=== PATIENT | female | born 1980 | race Caucasian/White ===

== ENCOUNTER 2023-04-23 15:13 | Outpatient (OUT) | payer OTHER, SELFPAY ==
--- NOTE | 2023-04-23 15:28 | XR_ITS ---
The [address] [address] Patient Name: ANNALEE VIDAL MRN: [id number] date: 1980 Sex: F Assigned Patient Location: LAB Current Patient Location: LAB Accession/Order Number: [id number] Exam Date: 04/23/2023 15:30 Report Date: 04/23/2023 16:07 At the request of: MINH MIRELES Procedure: XR abdomen 1V EXAMINATION: XR abdomen 1V HISTORY: Unspecified abdominal pain - R10.9 COMPARISON: CT abdomen pelvis 12/13/2022 FINDINGS: KIDNEY/URETER - RIGHT: No visible renal or ureteral calcifications. KIDNEY/URETER - LEFT: No visible renal or ureteral calcifications. PELVIS: No visible ureteral stones. Stable pelvic calcifications compatible with phleboliths. BOWEL: No abnormal dilation or deviation. BONES: No acute abnormality. OTHER: Negative. No abnormal gaseous collections. IMPRESSION: 1. No appreciable urinary tract calculi. 2. Normal bowel gas pattern. Electronically authenticated by: LARON ZAMBRANO Date: 04/23/2023 16:07
== END 2023-04-23 15:14 ==
LOC: LAB 15:17
PROVIDERS: PCP Nurse Practitioner Family; Visit Provider Nurse Practitioner Family
DX: R10.9 Unspecified abdominal pain (principal)
CPT/HCPCS: 74018; 87086

== ENCOUNTER 2023-12-09 13:24 | Observation (INO) | payer OTHER, SELFPAY ==
[2023-12-09] VITALS (47 sets, daily range): BP systolic 103–159; BP diastolic 63–99; PULSE 59–80; RESP 10–25; TEMP 36.7–36.8; O2SAT 83–100; BMI 23.3; BMI 24.2
--- NOTE | 2023-12-09 13:40 | XR_ITS ---
The [address] [address] Patient Name: ANNALEE VIDAL MRN: [id number] date: 1980 Sex: F Assigned Patient Location: ER Current Patient Location: ER Accession/Order Number: [id number] Exam Date: 12/09/2023 13:55 Report Date: 12/09/2023 14:46 At the request of: CARLOS ARANDA Procedure: XR ankle RT 2V IMAGES REVIEWED: XR ankle RT 2V, XR foot RT 2V COMPARISON: None available. CLINICAL INDICATION: pain FINDINGS/IMPRESSION: 1. Acute comminuted displaced right ankle fracture-dislocation injury. The talus is anteriorly dislocated relative to the fractured distal tibia. 2. Acute comminuted distal fibular fracture demonstrating anterior displacement and apex posterior angulation as best seen on the lateral view. Appears relatively nondisplaced on the frontal view. 3. Acute comminuted distal tibial fracture. Acute displaced foreshortened medial malleolus fracture. Acute impacted fracture of the anterior distal tibial plafond articular surface on the lateral view. 4. Approximately 2 cm apparent fracture fragment in the posterior ankle on the lateral view may represent a distal tibial plafond articular surface fracture fragment. 5. Right foot appears intact. Electronically authenticated by: RADHA VALLADARES Date: 12/09/2023 14:46
--- NOTE | 2023-12-09 13:40 | XR_ITS ---
The [address] [address] Patient Name: ANNALEE VIDAL MRN: [id number] date: 1980 Sex: F Assigned Patient Location: ER Current Patient Location: ER Accession/Order Number: [id number] Exam Date: 12/09/2023 13:55 Report Date: 12/09/2023 14:46 At the request of: CARLOS ARANDA Procedure: XR foot RT 2V IMAGES REVIEWED: XR ankle RT 2V, XR foot RT 2V COMPARISON: None available. CLINICAL INDICATION: pain FINDINGS/IMPRESSION: 1. Acute comminuted displaced right ankle fracture-dislocation injury. The talus is anteriorly dislocated relative to the fractured distal tibia. 2. Acute comminuted distal fibular fracture demonstrating anterior displacement and apex posterior angulation as best seen on the lateral view. Appears relatively nondisplaced on the frontal view. 3. Acute comminuted distal tibial fracture. Acute displaced foreshortened medial malleolus fracture. Acute impacted fracture of the anterior distal tibial plafond articular surface on the lateral view. 4. Approximately 2 cm apparent fracture fragment in the posterior ankle on the lateral view may represent a distal tibial plafond articular surface fracture fragment. 5. Right foot appears intact. Electronically authenticated by: RADHA VALLADARES Date: 12/09/2023 14:46
--- NOTE | 2023-12-09 13:41 | ED_ITS ---
HPI - Extremity Injury (Lower) General Chief Complaint: Extremity Injury, Lower Stated Complaint: lower extremity injury Time Seen by Provider: 12/09/23 13:40 History of Present Illness HPI Narrative: 33-year-old female presents for pain in the right ankle and foot. Just before coming into the emergency department she was sliding and her foot got twisted causing pain in the foot and ankle. She didn't hit her head or sustain any other injury. The pain is severe. Related Data Allergies Allergy/AdvReac Type Severity Reaction Status Date / Time No Known Drug Allergies Allergy Verified 12/09/23 13:40 Review of Systems ROS Narrative A ten point review of systems is negative except as noted above. Exam Narrative Exam Narrative: Nurses note and vital signs reviewed and patient is not hypoxic. General: The patient appears uncomfortable. She prefers to keep her eyes closed and is slightly tremorous. Skin: Warm, dry, no pallor noted. There is no rash noted. Head: Normocephalic, atraumati Eye: conjunctiva clear, no drainage Ears, Nose, Mouth, and Throat: oral mucosa is moist. Nares patent. Cardiovascular: Regular Rate and Rhythm Respiratory: Patient is in no distress, no accessory muscle use, lungs are clear to auscultation, no wheezing, rales or rhonchi Back: non-tender GI: nontender Musculoskeletal: skin intact in the right foot and ankle. Dorsalis pedis pulse 2+. Right knee nontender. She has tenderness in the right foot and ankle Neurological: A&O, normal speech Psychiatric: Cooperative MDM - Extremity Injury (Lower) MDM Narrative Medical decision making narrative: see above. She is being admitted for operative repair tomorrow. Differential Diagnosis Differential diagnosis: Likely other (ankle fracture) Imaging Data foot and ankle x-rays: Radiologist's impression: ITS Impressions Ankle X-Ray 12/09/23 14:50 IMPRESSION: 1. Fracture dislocation of the tibia as above. 2. Comminuted fracture of the fibula. 3. Posterior splint material in place. Electronically authenticated by: MARISEL KAUFFMAN Date: 12/09/2023 15:39 Discharge Plan Discharge Chief Complaint: Extremity Injury, Lower Clinical Impression: Closed fracture dislocation of ankle Patient Disposition: Admitted As Inpatient Time of Disposition Decision: 16:03 Condition: Good Procedures ED Procedure Instructions Procedures Procedures: The following procedures were performed by me. The patient has ankle fracture dislocation which requires reduction. IV conscious sedation was carried out with etomidate. She was placed on monitor and oxygen and was closely monitored by respiratory therapy and nursing and junior riley. She was given IV etomidate which resulted in an excellent level of sedation. At one point her O2 saturation was drifting down and she was bagged and her O2 sat came back up. After the sedation and worn off she was fully awake and alert and oriented with a hundred percent O2 saturation. She is Mallampati class I. Attempts were made at reducing the dislocation. This was easily successful but t he dislocation was unstable and would not remain in place. Posterior splint applied and application was checked by me and found to be appropriate, she continues to be neurovascularly intact. Case discussed with Dr. Preciado and the plan is to admit her tonight for surgery tomorrow. CT scan is ordered at his request and is pending. Findings were discussed thoroughly with the patient and her .
[2023-12-09] MEDS: MORPHINE SULFATE 4 MG/ML VIAL IV ×2 (14:09→14:26)
--- NOTE | 2023-12-09 14:47 | ECG_ITS ---
The [facility] Test Date: 2023-12-09 Pat Name: ANNALEE VIDAL Department: Room: [facility] Gender: Female [employer]: : 1980 Requested By: CHELSEY OLSEN Order Number: [id number] Reading MD: TANVI LOPEZ Measurements Intervals [place] Rate: 80 P: 74 GA: 140 QRS: 94 QRSD: 82 T: 68 QT: 366 QTc: 402 Interpretive Statements 1100 Sinus rhythm 4068 Nonspecific Twave abnormality 7102 Moderate right axis deviation 9130 borderline ECG No previous ECG available for comparison Electronically Signed On 12-10-2023 6:57:27 EST by TANVI LOPEZ
--- NOTE | 2023-12-09 14:50 | XR_ITS ---
[address] [address] Patient Name: ANNALEE VIDAL MRN: [id number] date: 1980 Sex: F Assigned Patient Location: ER Current Patient Location: Accession/Order Number: [id number] Exam Date: 12/09/2023 14:53 Report Date: 12/09/2023 15:39 At the request of: CARLOS ARANDA Procedure: XR ankle RT 2V EXAM: XR ankle RT 2V HISTORY: post reduction COMPARISON: Ankle radiographs from 12/09/2023 TECHNIQUE: AP, crosstable lateral radiographs of the ankle labeled right FINDINGS: Posterior dislocation of the tibia by approximately 1.8 cm. Foreshortening with the talus overriding the tibia by approximately 1.4 cm. Fracture of the medial malleolus. Fracture of the anterior tibia extending to the tibial plafond. A rotated tibial plafond anterior articular surface fracture fragment inferior to the tibia measuring approximately 1.5 cm. Comminuted fracture of the distal fibular diaphysis. The distal fragment is displaced anteriorly by approximately 1.1 cm. Soft tissue swelling. Posterior splint material in place. XR/XR ankle RT 2V IMPRESSION: 1. Fracture dislocation of the tibia as above. 2. Comminuted fracture of the fibula. 3. Posterior splint material in place. Electronically authenticated by: AMRISEL KAUFFMAN Date: 12/09/2023 15:39
--- NOTE | 2023-12-09 15:10 | PC.NURSE ---
[id number] pt alert and oriented post sedation. pt tolerated well, dr de guzman, realigned right ankle and splinted, right toes cap refill <3 seconds. x rays completed. pt speaking full sentences RLE splint intact, RLE elevated. Serjio Rivera RN
[2023-12-09] MEDS: ETOMIDATE 20 MG/10 ML VIAL IVP (15:16)
--- NOTE | 2023-12-09 15:17 | CT_ITS ---
The [address] [address] Patient Name: ANNALEE VIDAL MRN: [id number] date: 1980 Sex: F Assigned Patient Location: ER Current Patient Location: ED.MAIN Accession/Order Number: [id number] Exam Date: 12/09/2023 15:43 Report Date: 12/09/2023 16:32 At the request of: CARLOS ARANDA Procedure: CT ankle RT wo con EXAM: CT ankle RT wo con COMPARISON: None available. CLINICAL INDICATION: fracture dislocation TECHNIQUE: Multiplanar CT images of the right ankle without contrast. Dose reduction techniques were achieved by using automated exposure control and/or adjustment of mA and/or kV according to patient size and/or use of iterative reconstruction technique. FINDINGS: Status post attempt at closed reduction and splinting of right ankle severely comminuted-displaced trimalleolar fracture-dislocation injury without evidence of significant improvement in alignment. Persistent anterior dislocation of the talus relative to the severely fractured distal tibia. Consider fluoroscopic guidance or surgical consultation for further reduction/surgical intervention as clinically appropriate. The prominent 2 cm displaced fracture fragment in the posterior ankle on the lateral view of same day x-rays appears to relate to a displaced and rotated posterior malleolus fracture fragment. There is tendon entrapment of the flexor tendons in the posterior medial ankle. In particular the tibialis posterior and flexor digitorum tendons appear entrapped on series 4 images 114-124. CT/CT ankle RT wo con IMPRESSION: As above. Electronically authenticated by: RADHA VALLADARES Date: 12/09/2023 16:32
[2023-12-09] MEDS: HYDROMORPHONE HCL 1 MG/ML CARTRIDGE IV ×3 (15:20→17:00)
[2023-12-09] MEDS: 0.9 % SODIUM CHLORIDE 1,000 ML 100 ML IV (16:46)
[2023-12-09] MEDS: KETOROLAC TROMETHAMINE 30 MG/ML VIAL IVP (19:34)
[2023-12-09] MEDS: HYDROMORPHONE HCL 2 MG/ML VIAL IV ×3 (19:35→23:38)
--- NOTE | 2023-12-09 19:46 | PC.NURSE ---
patient states that her not being able to feel nurse touch toes and coldness is not new since ER
[2023-12-09] MEDS: TRAMADOL HCL 50 MG TABLET 100 MG PO (22:26)
[2023-12-10] VITALS (27 sets, daily range): BP systolic 95–135; BP diastolic 55–79; PULSE 60–100; RESP 12–19; TEMP 36.4–37.4; O2SAT 63–99
--- NOTE | 2023-12-10 | FL_ITS ---
[address] [address] Patient Name: ANNALEE VIDAL MRN: [id number] date: 1980 Sex: F Assigned Patient Location: MS Current Patient Location: MS Accession/Order Number: [id number] Exam Date: 12/10/2023 11:00 Report Date: 12/11/2023 09:08 At the request of: MALKA MAXWELL Procedure: FL fluoroscopy <1hr NON-READ EXAM: FL fluoroscopy <1hr NON-READ HISTORY: TECHNIQUE: FINDINGS: Please see Operative Report. Electronically authenticated by: RADIOLOGIST NO Date: 12/11/2023 09:08
[2023-12-10] MEDS: KETOROLAC TROMETHAMINE 30 MG/ML VIAL IVP ×2 (01:17→06:30)
[2023-12-10] MEDS: ONDANSETRON PF 4 MG/2 ML VIAL IV (01:24)
[2023-12-10] MEDS: 0.9 % SODIUM CHLORIDE 1,000 ML 100 ML IV ×2 (01:25→02:56)
[2023-12-10] MEDS: HYDROMORPHONE HCL 2 MG/ML VIAL IV (04:22)
[2023-12-10 04:36] LABS: Basophils Percent Auto 0.2 % (0.2-2.0); Eosinophils Percent Auto 0.1 % (0.9-7.0); Hematocrit 36.9 % (36.0-48.0); Hemoglobin 12.1 g/dL (12.0-16.0); Immature Granulocytes Abs Auto 0.07 10^3/uL (0.00-0.03); Immature Granulocytes Pct Auto 0.5 % (0.0-0.5); Lymphocytes Absolute Auto 1.8 10^3/uL (1.2-3.8); Lymphocytes Percent Auto 12.4 % (20.5-60.0); Mean Corpuscular HGB Conc 32.8 g/dL (29.9-35.2); Mean Corpuscular Hemoglobin 29.3 pg (26.7-34.0); Mean Corpuscular Volume 89.3 fL (81.0-99.0); Mean Platelet Volume 9.9 fL (9.5-13.5); Monocytes Absolute Auto 1.1 10^3/uL (0.3-0.8); Monocytes Percent Auto 7.2 % (1.7-12.0); Neutrophils Absolute Auto 11.7 10^3/uL (1.4-6.5); Neutrophils Percent Auto 79.6 % (43.0-75.0); Platelet Count 296 10^3/uL (150-450); Red Blood Count 4.13 10^6/uL (4.20-5.40); Red Cell Distribution Width 13.8 % (11.0-15.0); White Blood Count 14.7 10^3/uL (4.0-11.0)
[2023-12-10 04:46] LABS: Anion Gap 13.8; BUN Creatinine Ratio 20.3; Calcium 8.6 mg/dL (8.5-10.1); Carbon Dioxide 22.5 mmol/L (21.0-32.0); Chloride 104 mmol/L (98-107); Estimated GFR (African America >60 (>=60); Estimated GFR (Non-African Ame >60 (>=60); Glucose 100 mg/dL (74-106); Potassium 4.3 mmol/L (3.5-5.1); Sodium 136 mmol/L (136-145)
--- NOTE | 2023-12-10 06:06 | PC.NURSE ---
Visible digits to right foot are cold. Brisk cap refill observed. Visible digits are pink.
--- NOTE | 2023-12-10 07:18 | P.HP_ITS ---
H&P: HPI History of Present Illness Chief complaint: LOWER EXTREMITY INJURY Narrative: Patient sliding and to protect grandchild before they crashed into a barrier to her foot out and had instant pain. Presented to the emergency room found to have trimalleolar fracture. Patient admitted for workup and treatment of same. In ER her O2 saturations were normal. On the floor she is hypoxic, since use of Dilaudid. Patient denies chest pain or shortness of breath or cough. 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 - Acquired absence of uterus with remaining cervical stump (ICD-10) Meds Home Medications and Allergies Home Medications Medication Instructions Recorded Confirmed Type multivitamin (Daily Multi-Vitamin 1 tab PO DAILY 12/09/23 12/09/23 History tablet) pantoprazole 40 mg tablet,delayed 40 mg PO QDAY 12/09/23 12/09/23 History release Allergies Allergy/AdvReac Type Severity Reaction Status Date / Time iodine Allergy Intermediate Verified 12/09/23 17:39 Exam Constitutional Vital Signs, click to edit/add: Last Vital Signs Temp 98.1 F 12/10/23 05:47 Pulse 99 H 12/10/23 05:51 Resp 18 12/10/23 05:47 BP 106/65 12/10/23 05:47 Pulse Ox 69 L 12/10/23 05:51 O2 Del Method Nasal Cannula 12/10/23 05:47 O2 Flow Rate 2 12/10/23 05:47 Documenting provider has reviewed patient's vital signs: yes Common normals: apparent distress (Moderate painful distress) [facility] Common normals: normocephalic and head/scalp atraumatic Chest Common normals: inspection of chest normal Respiratory Common normals: normal respiratory effort, no retractions and clear to auscultation bilaterally Cardio Common normals: regular rate, regular rhythm and no murmurs GI Common normals: Normal to inspection, nondistended, normoactive bowel sounds pre sent Extremity Common normals: abnormal to inspection (Splint with Shaq wrap on right ankle) Results Labs Labs: Short CBC 12/10/23 Range/Units 04:10 WBC 14.7 H (4.0-11.0) 10^3/uL Hgb 12.1 (12.0-16.0) g/dL Hct 36.9 (36.0-48.0) % Plt Count 296 (150-450) 10^3/uL [facility] 12/10/23 04:10 Sodium 136 Potassium 4.3 Chloride 104 Carbon Dioxide 22.5 BUN 13.0 Creatinine 0.64 Glucose 100 Calcium 8.6 Assessment and Plan Assessment and Plan (1) Closed fracture dislocation of ankle: Plan Closed fracture dislocation of the ankle-plan per podiatry. Hypoxia after use of narcotics-needs better pain control on, stable on supplemental oxygen-white blood cell count slightly elevated likely stress reaction, will check chest x-ray, patient without cough GERD-continue with home medications Maintain observation status, discharge disposition per podiatry with possible discharge later today Urinary Catheter Management Urinary Catheter Management Urethral: Cath placed during this visit: yes Urethral indwelling: No Insertion date: 12/09/23 Insertion time: 18:30
--- NOTE | 2023-12-10 07:35 | XR_ITS ---
The [place] [id number] Patient Name: ANNALEE VIDAL MRN: [id number] date: 1980 Sex: F Assigned Patient Location: MS Current Patient Location: MS Accession/Order Number: [id number] Exam Date: 12/10/2023 07:30 Report Date: 12/10/2023 07:48 At the request of: TANVI LOPEZ Procedure: XR chest 1V EXAM: XR chest 1V HISTORY: pre-op hypoxia COMPARISON: None TECHNIQUE: AP view of the chest was obtained with portable technique at 0732 hours. FINDINGS: Heart and mediastinal contours are unremarkable in appearance. Mild patchy increased density in the lower lung aguirre compatible with atelectatic and/or infiltrative changes. No obvious pneumothorax. Mild convexity of the dorsal spine to the right. XR/XR chest 1V IMPRESSION: Mild atelectatic and/or infiltrative changes in the lower lung aguirre. Electronically authenticated by: ALKA SOUSA Date: 12/10/2023 07:48
[2023-12-10] MEDS: LACTATED RINGER'S SOLUTION 1,000 ML 50 ML IV (07:38)
[2023-12-10 07:49] LABS: INR 1.05; Partial Thromboplastin Time 25.3 sec (22.3-36.2); Prothrombin Time 11.1 sec (9.0-11.6)
[2023-12-10] MEDS: HYDROMORPHONE HCL 1 MG/ML CARTRIDGE 2 MG IV (08:07)
--- OUTSIDE RECORDS SUMMARY | 2023-12-10 09:01 | XMS_ITS | CCD ---
Author Name Unknown Address [address] [place] [address] Organization [facility] Care Team Providers Care Fire Ranger Name Role Phone MARÍA ., DR CAMARA Admitting Unavailabl e KARASIK ., DR CAMARA Attending Unavailabl e KARASIK ., DR CAMARA Consulting Unavailabl e HOY ., DR TINAJERO Primary Care Unavailable HOY ., DR TINAJERO Consulting Unavailable HOY ., DR TINAJERO Primary Care Unavailable HOY ., DR TINAJERO Admitting Unavailable HOY ., DR TINAJERO Attending Unavailable RAYMOND GALVAN Consulting Unavailable HOY ., DR TINAJERO Primary Care Unavailable MINH MIRELES Admitting Unavailable MINH MIRELES Attending Unavailable MINH MIRELES Consulting Unavailable CATHY, SANDI Consulting Unavailable KARASIK ., DR CAMARA Admitting Unavailabl e HOY ., DR TINAJERO Primary Care Unavailable KARASIK ., DR CAMARA Attending Unavailabl e KARASIK ., DR CAMARA Consulting Unavailabl e ALEJANDRA, DR RAYMOND Orantes Consulting Unavailable Problems Problem Classification Problem Date Documented Date Episodic/Chronic Abdominal pain (8 sources) Pelvic and perineal pain; Translations: [Right upper quadrant pain] Onset: 09-28-2022 Episodic Immunizations and screening for infectious disease (1 source) Encounter for screening for human papillomavirus (HPV); Translations: [ENC SCREENING HUMAN PAPILLOMAVIRUS] Onset: 12-28-2022 Episodic Other screening for suspected conditions (not mental disorders or infectious disease) (4 sources) Encounter for screening for malignant neoplasm of cervix; Translations: [ENC SCREENING MALIG NEOPLASM CERV] Onset: 12-28-2022 Episodic Results Test Name Value Interpretation Reference Range Facil ity PAP ACOG PANEL 2: 30 to 65on 01-03-2023 . . Normal [facility] Comment on above: Result Comment: Perf ormed at: WB Performed By: #### [id number] #### [facility] [address] [place] [address] Dr. Marga Fernandez Age Gdln ACOG Testing 30-65 Normal [facility] Comment on above: Performed By: #### [id number] #### [facility] [address] [place] [address] Dr. Marga Fernandez DIAGNOSIS: Comment Normal [facility] Comment on above: Result Comment: NEGA TIVE FOR INTRAEPITHELIAL LESION OR MALIGNANCY. Performed at: WB Performed By: #### [id number] #### [facility] [address] [place] [address] Dr. Marga Fernandez HPV Aptima Negative Normal Negative [facility] Comment on above: Result Comment: This nucleic acid amplification test detects fourteen high-risk HPV types (16,18,31,33,35,39,45,51,52,56,58,59,66,68) without differentiation. Performed at: =G Performed By: #### [id number] #### [facility] [address] [place] [address] Dr. Marga Fernandez HPV Genotype Reflex Comment Normal [facility] Comment on above: Result Comment: Crit eria not met, HPV Genotype not performed. Performed at: WB Performed By: #### [id number] #### [facility] [address] [place] [address] Dr. Marga Fernandez Methodology: Comment Normal [facility] Comment on above: Result Comment: This liquid based ThinPrep(R) pap test was screened with the use of an image guided system. Performed at: WB Performed By: #### [id number] #### [facility] [address] [place] [address] Dr. Marga Fernandez Note: Comment Normal [facility] Comment on above: Result Comment: The Pap smear is a screening test designed to aid in the detection of premalignant and malignant conditions of the uterine cervix. It is not a diagnostic procedure and should not be used as the sole means of detecting cervical cancer. Both false-positive and false-negative reports do occur. . Performed at: WB Performed By: #### [id number] #### [facility] [address] [address] [address] Marga Fernandez Performed by: Comment Normal [facility] Comment on above: Result Comment: Diamond Isaac, Economic Research Assistant (ASCP) Performed at: WB Performed By: #### [id number] #### [facility] [address] [place], [place] [address] Dr. Marga Fernandez Specimen adequacy: Comment Normal [facility] Comment on above: Result Comment: Sati sfactory for evaluation. No endocervical component is identified. Performed at: WB Performed By: #### [id number] #### [facility] [address] [address] [address] Marga Fernandez US PELVISon 01-03-2023 US PELVIS EXAMINATION: US PELV IS HISTORY: Pelvic and perineal pain COMPARISON: No relevant comparison available. FINDINGS: Transabdominal only imaging. The patient declined transvaginal imaging. The uterus is surgically absent. The right ovary is normal in size, contour and echotexture measuring 3.2 x 1.4 x 1.7 cm. Normal subcentimeter follicle. Normal color and Doppler flow. The left ovary is normal in size, contour and echotexture measuring 2.8 x 2.6 x 1.6 cm. Area of anechoic echogenicity measuring 1.1 x 1.2 x 1.2 cm, follicle versus cyst. Normal color and Doppler flow. IMPRESSION: No acute abnormality Electronically authenticated by: RAYMOND ROBERTS Date: 2023-01-03 11:49 Normal [facility] CT ABD/PELV W CONon 12-13-[address] ABD/PELV W CON CLINICAL HISTORY: Pelvic and perineal pain. Patient feels pain, pressure in the pelvis. EXAMINATION: Enhanced CT scan of the abdomen and pelvis: 12/13/2022. COMPARISON: Right upper quadrant ultrasound 09/28/2022. TECHNIQUE: 3 mm axial images from lung bases through ischial tuberosities following administration of intravenous as well as oral contrast were obtained. Sagittal, coronal reconstructions were also performed. Dose reduction techniques were achieved by using automated exposure control and/or adjustment of mA and/or kV according to patient size and/or use of iterative reconstruction technique. FINDINGS: There are no focal abnormalities of the visualized lung bases. The heart size seems normal. There are no filling defects in the cardiac chambers. CT ABDOMEN: The liver, gallbladder, spleen, seem normal except for a low-density lesion in the posterior inferior aspect of the spleen, image 21 sequence 3 measuring 4 mm with average Hounsfield units of 30. The adrenal glands, pancreas appear normal. There is no focal abnormality of the left or the right kidney. There is no hydronephrosis or nephrolithiasis. The abdominal aorta is mildly atherosclerotic. There is no retroperitoneal or mesenteric adenopathy. There are no abnormally dilated loops of small or large bowel. There is low-lying cecum in the pelvis therefore the appendix is not clearly seen however there are no secondary signs of acute appendicitis. CT PELVIS: The bladder is normal. The uterus, is not seen. The ovaries appear normal. There is no pelvic adenopathy. There are no focal fluid collections. On the delayed phase images the bladder, distal ureters appear normal. There is no pelvic adenopathy. There is a semilunar low-density lesion along the expected aspect of the 2.9 cm in the widest AP dimension and approximately 7 mm in the transverse dimension with average Hounsfield units of 25. This could be a nonspecific finding or could represent a glandular tissue however small urethral diverticulum would be difficult to exclude. There is no pelvic adenopathy. There are no focal fluid collections. The visualized osseous structures demonstrate no gross abnormalities. IMPRESSION: 1. There is a semilunar-shaped hypodensity along the distal aspect of the urethra which could be a periurethral gland, or could represent a small urethral diverticulum. 2. Prior hysterectomy. 3. No obvious other explanation for patient's symptoms. 4. No nephro or ureterolithiasis. 5. Normal appendix as well as ovaries. Electronically authenticated by: SANDI MORGAN Date: 2022-12-13 11:41 Normal [facility] CULTURE URINEon 12-13-2022 CULTURE URINE Culture Observations : NO GROWTH. Normal [facility] Comment on above: Performed By: #### U RCX #### [facility] [address] [place] [address] Dr. Marga Fernandez UA RANDOM W/MICROSCOPICon BACTERIA NONE SEEN Normal NONE SEEN [facility] Comment on above: Performed By: #### U AMIC #### [facility] [address] [address] [address] Marga Fernandez Bilirubin Ql (U) Negative Normal NEGATIVE [facility] Comment on above: Performed By: #### U AMIC #### [facility] [address] [address] [address] Marga Fernandez CAST NONE SEEN Normal NONE SEEN [facility] Comment on above: Performed By: #### U AMIC #### [facility] [address] [address] [address] Marga Fernandez Clarity (U) CLEAR Normal CLEAR [facility] Comment on above: Performed By: #### U AMIC #### [facility] [address] [address] [address] Marga Fernandez Color (U) LT. YELLOW Normal YELLOW [facility] Comment on above: Performed By: #### U AMIC #### [facility] [address] [address] [address] Marga Fernandez Crystals LM Nom (Urine sed) NONE SEEN Normal NONE SEEN [facility] Comment on above: Performed By: #### U AMIC #### [facility] [address] [address] [address] Marga Fernandez Epithelial cells LM Ql (Urine sed) RARE Normal NONE SEEN /RARE [facility] Comment on above: Performed By: #### U AMIC #### [facility] [address] [address] [address] Marga Fernandez Glucose Ql (U) Negative Normal NEGATIVE [facility] Comment on above: Performed By: #### U AMIC #### [facility] [address] [address] [address] Marga Fernandez Hemoglobin Ql (U) Negative Normal NEGATIVE [facility] Comment on above: Performed By: #### U AMIC #### [facility] [address] [address] [address] Marga Fernandez Ketones Ql (U) Negative Normal NEGATIVE [facility] Comment on above: Performed By: #### U AMIC #### [facility] [address] [address] [address] Marga Fernandez LEUKOCYTES Negative Normal NEGATIVE [facility] Comment on above: Performed By: #### U AMIC #### [facility] [address] [place] [address] Dr. Marga Fernandez MUCOUS NONE SEEN Normal NONE SEEN [facility] Comment on above: Performed By: #### U AMIC #### [facility] [address] [address] [address] Marga Fernandez Nitrite Ql (U) Negative Normal NEGATIVE [facility] Comment on above: Performed By: #### U AMIC #### [facility] [address] [place] [address] Dr. Marga Fernandez pH (U) 6.5 [pH] Normal 5-9 [facility] Comment on above: Performed By: #### U AMIC #### [facility] [address] [place] [address] Dr. Marga Fernandez RBC NONE SEEN Abnormal 0-2 [facility] Comment on above: Performed By: #### U AMIC #### [facility] [address] [place] [address] Dr. Marga Fernandez SPEC GRAVITY <=1.005 Abnormal 1.005-<=1.025 [facility] Comment on above: Performed By: #### U AMIC #### [facility] [address] [place] [address] Dr. Marga Fernandez UA PROTEIN Negative Normal NEGATIVE/ TRACE [facility] Comment on above: Performed By: #### U AMIC #### [facility] [address] [place] [address] Dr. Marga Fernandez Urobilinogen Qn (U) 0.2 {Wero'U}/dL Normal 0.2 - 1. 0 [facility] Comment on above: Performed By: #### U AMIC #### [facility] [address] [place] [address] Dr. Marga Fernandez WBC NONE SEEN Normal NONE SEEN [facility] Comment on above: Performed By: #### U AMIC #### [facility] [address] [place] [address] Dr. Marga Fernandez US SINGLE QUAD RT UPPERon US SINGLE QUAD RT UPPER EXAM: US SINGLE QUAD RT UPPER HISTORY: .. Right upper quadrant pain . COMPARISON: None. TECHNIQUE: Grayscale and color imaging was performed FINDINGS: The pancreas appears normal. Scanning of the liver demonstrates a liver to be normal in size. No masses or biliary dilatation is noted. Color-flow is noted in the portal and hepatic veins. The gallbladder appears normal with no stones or sludge identified. No gallbladder wall thickening is noted. Common bile duct is normal measuring 1.2 mm. Right kidney measures 10.7 x 4.8 x 5.1 cm. No solid renal cortical masses or hydronephrosis is noted. Color-flow is noted. No fluid is noted in the right upper quadrant. IMPRESSION: Normal ultrasound of the right upper quadrant. Electronically authenticated by: RAYMOND GALVAN Date: 2022-09-28 08:46 Normal [facility] Encounters Encounter Date Encounter Type Care Provider Facility Start: 01-03-2023 End: 01-04-[address] HOA DANIEL . Facility: Start: 12-28-2022 End: 12-28-[address] HOA DANIEL . Facility:[facility] Start: 12-13-2022 End: 12-14-[address] TANVI LOPEZ . Facility:[facility] Start: 09-28-2022 End: 09-29-[address] TANVI LOPEZ . Facility:[facility] Payers Date Payer Category Payer Unknown [id number] .[id number]. [id number] 1981 Unknown [id number] .[id number] 1981 Unknown [id number] .[id number] 1981 Unknown [id number] [id number] 1959 Unknown [id number] 1958 Unknown [id number] Summary Purpose Family History No Family History Records Found Advance Directives No Advanced Directives Records Found Additional Source Comments INFORMATION SOURCE (unrecogn ized section and content) DATE CREATED AUTHOR 03/08/2023 [facility] PERTAINING TO PATIENTS WHO ARE OR HAVE BEEN ENROLLED IN A CHEMICAL DEPENDENCY/SUBSTANCEABUSE PROGRAM, SOME INFORMATION MAY BE OMITTED. This clinical summary was aggregated from multiple sources. Caution should be exercised in using it in the provision of clinical care. This summary normalizes information from multiple sources, and as a consequence, information in this document may materially change the coding, format and clinical context of patient data. In addition, data may be omitted in some cases. CLINICAL DECISIONS SHOULD BE BASED ON THE PRIMARY CLINICAL RECORDS. [facility]. provides no warranty or guarantee of the accuracy or completeness of information in this document.
--- OUTSIDE RECORDS SUMMARY | 2023-12-10 09:02 | XMS_ITS | CCD ---
Author Name Unknown Address [address] [place] [address] Organization [facility] Care Team Providers Care Pediatric Dental Assistant Name Role Phone MARÍA ., DR CAMARA [...] to 66on 01-03-2023 . . Normal [facility] Comment on above: Result Comment: Perf ormed at: WB Performed By: #### 4 [id number] #### [facility] [address] [place] [address] Dr. Marga Fernandez Age Gdln ACOG Testing 30-65 Normal [facility] Comment on above: Performed By: #### 4 [id number] #### [facility] [address] [place] [address] Dr. Marga Fernandez DIAGNOSIS: Comment Normal [facility] Comment on above: Result Comment: NEGA TIVE FOR INTRAEPITHELIAL LESION OR MALIGNANCY. Performed at: WB Performed By: #### 4 [id number] #### [facility] [address] [place] [address] Dr. Marga Fernandez HPV Aptima Negative Normal Negative [facility] Comment on above: Result Comment: This nucleic acid amplification test detects fourteen high-risk HPV types (16,18,31,33,35,39,45,51,52,56,58,59,66,68) without differentiation. Performed at: =G Performed By: #### 4 [id number] #### [facility] [address] [place] [address] Dr. Marga Fernandez HPV Genotype Reflex Comment Normal [facility] Comment on above: Result Comment: Crit eria not met, HPV Genotype not performed. Performed at: WB Performed By: #### 4 [id number] #### [facility] [address] [place] [address] Dr. Marga Fernandez Methodology: Comment Normal [facility] Comment on above: Result Comment: This liquid based ThinPrep(R) pap test was screened with the use of an image guided system. Performed at: WB Performed By: #### 4 [id number] #### [facility] [address] [place] [address] Dr. Marga Fernandez Note: Comment Normal [facility] Comment on above: Result Comment: The Pap smear is a screening test designed to aid in the detection of premalignant and malignant conditions of the uterine cervix. It is not a diagnostic procedure and should not be used as the sole means of detecting cervical cancer. Both false-positive and false-negative reports do occur. . Performed at: WB Performed By: #### 4 [id number] #### [facility] [address] [address] [address] Marga Fernandez Performed by: Comment Normal [facility] Comment on above: Result Comment: Diamond Isaac, Fleet Manager (ASCP) Performed at: WB Performed By: #### 4 [id number] #### [facility] [address] [place], [place] [address] Dr. Marga Fernandez Specimen adequacy: Comment Normal [facility] Comment on above: Result Comment: Sati sfactory for evaluation. No endocervical component is identified. Performed at: WB Performed By: #### 4 [id number] #### [facility] [address] [address] [address] Marga Fernandez US PELVISon 01-03-2023 US [...] by: RAYMOND ROBERTS Date: 2023-01-03 11:49 Normal [facility] CT ABD/PELV W CONon 12-13-[address] [...] SANDI MORGAN Date: 2022-12-13 11:41 Normal [facility] CULTURE URINEon 12-13-2022 CULTURE URINE Culture Observations : NO GROWTH. Normal [facility] Comment on above: Performed By: #### U RCX #### [facility] [address] [place] [address] Dr. Marga Fernandez UA RANDOM W/MICROSCOPICon BACTERIA NONE SEEN Normal NONE SEEN [facility] Comment on above: Performed By: #### U AMIC #### [facility] [address] [address] [address] Marga Fernandez Bilirubin Ql (U) Negative Normal NEGATIVE [facility] Comment on above: Performed By: #### U AMIC #### [facility] [address] [address] [address] Marga Fernandez CAST NONE SEEN Normal NONE SEEN [facility] Comment on above: Performed By: #### U AMIC #### [facility] [address] [address] [address] Marga Fernandez Clarity (U) CLEAR Normal CLEAR [facility] Comment on above: Performed By: #### U AMIC #### [facility] [address] [address] [address] Marga Fernandez Color (U) LT. YELLOW Normal YELLOW [facility] Comment on above: Performed By: #### U AMIC #### [facility] [address] [address] [address] Marga Fernandez Crystals LM Nom (Urine sed) NONE SEEN Normal NONE SEEN [facility] Comment on above: Performed By: #### U AMIC #### [facility] [address] [address] [address] Marga Fernandez Epithelial cells LM Ql (Urine sed) RARE Normal NONE SEEN /RARE [facility] Comment on above: Performed By: #### U AMIC #### [facility] [address] [address] [address] Marga Fernandez Glucose Ql (U) Negative Normal NEGATIVE [facility] Comment on above: Performed By: #### U AMIC #### [facility] [address] [address] [address] Marga Fernandez Hemoglobin Ql (U) Negative Normal NEGATIVE [facility] Comment on above: Performed By: #### U AMIC #### [facility] [address] [address] [address] Marga Fernandez Ketones Ql (U) Negative Normal NEGATIVE [facility] Comment on above: Performed By: #### U AMIC #### [facility] [address] [address] [address] Marga Fernandez LEUKOCYTES Negative Normal NEGATIVE [facility] Comment on above: Performed By: #### U AMIC #### [facility] [address] [place] [address] Dr. Marga Fernandez MUCOUS NONE SEEN Normal NONE SEEN [facility] Comment on above: Performed By: #### U AMIC #### [facility] [address] [address] [address] Marga Fernandez Nitrite Ql (U) Negative Normal NEGATIVE [facility] Comment on above: Performed By: #### U AMIC #### [facility] [address] [place] [address] Dr. Marga Fernandez pH (U) 6.5 [pH] Normal 5-9 [facility] Comment on above: Performed By: #### U AMIC #### [facility] [address] [place] [address] Dr. Marga Fernandez RBC NONE SEEN Abnormal 0-2 [facility] Comment on above: Performed By: #### U AMIC #### [facility] [address] [place] [address] Dr. Marga Fernandez SPEC GRAVITY <=1.005 Abnormal 1.005-<=1.025 [facility] Comment on above: Performed By: #### U AMIC #### [facility] [address] [place] [address] Dr. Marga Fernandez UA PROTEIN Negative Normal NEGATIVE/ TRACE [facility] Comment on above: Performed By: #### U AMIC #### [facility] [address] [place] [address] Dr. Marga Fernandez Urobilinogen Qn (U) 0.2 {Wero'U}/dL Normal 0.2 - 1. 0 [facility] Comment on above: Performed By: #### U AMIC #### [facility] [address] [place] [address] Dr. Marga Fernandez WBC NONE SEEN Normal NONE SEEN [facility] Comment on above: Performed By: #### U AMIC #### [facility] [address] [place] [address] Dr. Marga Fernandez US SINGLE QUAD RT [...] by: RAYMOND GALVAN Date: 2022-09-28 08:46 Normal [facility] Encounters Encounter Date Encounter Type Care Provider Facility Start: 01-03-2023 End: 01-04-[address] HOA DANIEL . Facility: Start: 12-28-2022 End: 12-28-[address] HOA DANIEL . Facility:[facility] Start: 12-13-2022 End: 12-14-[address] TANVI LOPEZ . Facility:[facility] Start: 09-28-2022 End: 09-29-[address] TANVI LOPEZ . Facility:[facility] Payers Date Payer Category Payer Unknown [id number] .[id number]. [id number] 1981 Unknown [id number] .[id number] 1981 Unknown [id number] .16.84 [id number] 1981 Unknown [id number] [id number] 1959 Unknown [id number] 1958 Unknown [id number] Summary Purpose Family History No Family History Records Found Advance Directives No Advanced Directives Records Found Additional Source Comments INFORMATION SOURCE (unrecogn ized section and content) DATE CREATED AUTHOR 03/08/2023 [facility]ERTAIN[facility] TO PATIENTS WHO ARE [...] BE BASED ON THE PRIMARY CLINICAL RECORDS. [employer] [facility]. provides no warranty or guarantee of the accuracy or completeness of information in this document.
--- NOTE | 2023-12-10 10:00 | PM.ORONB ---
Brief Operative Note Date of procedure: 12/10/23 Pre-op diagnosis: right distal tibia & lateral malleolus fracture with ankle disloocation Post-op diagnosis: same as pre-op Procedure: PROCEDURE PERFORMED: application of multiplane external fixation, open reduction internal fixation of lateral malleolus, intraoperative stress examination under fluoroscopy INDICATION FOR PROCEDURE: see consultation note INTRAOPERATIVE FINDINGS: anterior dislocation of the tibiotalar joint with significant impaction of the anterior plafond with gross instability. Significantly comminuted and displaced fibular malleolus fracture. Bone quality was within normal limits. Reduction and stability achieved from the below procedure PROCEDURE IN DETAIL: Patient was identified in pre op and consent was reviewed. Correct side and site were identified and marked. Pre-op antibiotics were started. Patient was brought to OR suite and place on table in a supine position. General anesthesia was administered. Tourniquet applied. Operative extremity was prepped and draped in usual sterile fashion. Formal time-out was performed and the foot/ankle were exsanguinated and tourniquet inflated. Under fluoroscopic guidance the ankle was stressed in all planes being notably unstable the ankle joint was reduced and pinned in place temporarily. A longitudinal incision placed over the fibular malleolus was undertaken. Combination of sharp and blunt dissection gained access to the fibular fracture in all bleeders were coagulated. Hematoma was evacuated. Any periosteum or fibrous tissue was removed from the fracture line and the fracture surfaces were lightly curetted. Then utilizing manual reduction techniques and reduction clamps the fibula and mortise were then reduced and pinned in place with K wires temporarily. due to the comminution lag screw fixation could not be achieved therefore a bridge plating technique was utilized. A 3.5 mm anatomic locking fibular plate was placed over the fibula which was held in place temporarily. Then locking and nonlocking screws were placed according to the information security analyst's standard directions. Stability across the fracture was noted and temporary fixation across the fibula was removed. The site was irrigated and the incision was closed in layers. Then two stab incisions were placed over the medial face of the tibia shaft. blunt dissection was taken down to bone. Then the tibia was drilled bicortically and a 6.0mm half pin was placed into each of the stab incisions parallel to one another. Clamps and carbon fiber brittnee were used to connect the two pins. Then a stab incision was placed over the medial calcaneus in standard safe zone under fluoroscopic guidance. Blunt dissection was performed down to bone and a 5.0mm calcaneal pin was placed from a medial to lateral direction bicortically exiting out the lateral skin where a stab incision was placed. Clamps were placed on the tibial fixation as well as on the medial calcaneus and a brittnee was used to connect the two segments. Similarly a brittnee was placed from the tibial fixation to the lateral aspect of the calcaneal pin. Fluoroscopy ensured that the ankle was reduced and all clamps were tightened accordingly. Then utilizing fluoroscopy a stab incision was placed over the medial aspect of the medial cuneiform and blunt dissection was taken down to bone. A 4.0mm half pin was placed across the cuneiforms. Clamps and a brittnee were used to connect this segment to the tibial fixation as well in order to hold the foot and ankle are of equinus. While holding the foot and ankle reduced the clamps were tightened accordingly. Temporary fixation spanning the ankle joint was then removed. Xeroform and 4 x 4 gauze were placed over the pin sites/incisions followed by multiple layers of Kerlix and a loose fitting Shaq wraps applied around the external fixation. Patient tolerated the procedure and anesthesia well and was transported to the recovery room with vital signs stable and brisk capillary refill to the toes. POSTOPERATIVE PLAN: Transfer to med/surg under hospitalist's care NWB operative foot/ankle Ice and elevation Mona-op antibiotics, multimodal pain medication and DVT prophylaxis ordered Consults: physical therapy & manager social responsibility Estimated LOS 1-2 nights Will follow *NWB x 8-12 weeks Implants: Medline 3.5 mm fibular plate SEAL pin to bar external fixation Anesthesia: regional and General-LMA Surgeon: Hugh Cadet Estimated blood loss (mL): 25 Tourniquet time (min): 86 Pathology: none sent Condition: stable Disposition: observation
--- NOTE | 2023-12-10 10:06 | CM.NOTE ---
Pt in OR at this time.
[2023-12-10] MEDS: CEFAZOLIN SODIUM/DEXTROSE,ISO 2 GM/50 ML PIGGYBACK IV (10:29)
--- NOTE | 2023-12-10 13:20 | CT_ITS ---
[address] [address] Patient Name: ANNALEE VIDAL MRN: [id number] date: 1980 Sex: F Assigned Patient Location: [place] Current Patient Location: [place] Accession/Order Number: [id number] Exam Date: 12/10/2023 08:18 Report Date: 12/11/2023 09:03 At the request of: MALKA MAXWELL Procedure: CT ankle RT wo con EXAMINATION: CT ankle RT wo con HISTORY: Post op external fixation for pilon fx COMPARISON: 12/10/2023, 12/09/2023 TECHNIQUE: Multi-planar CT images were created without IV contrast. Dose reduction techniques were achieved by using automated exposure control and/or adjustment of mA and/or kV according to patient size and/or use of iterative reconstruction technique. FINDINGS: BONES: Stable external fixator extending from the proximal tibia to the midfoot. Complex distal fibular fracture at the level of the syndesmosis with internal fixation utilizing a lateral plate and multiple screws. No mechanical failure. Complex intra-articular fracture involving the medial malleolus and anterior distal tibia with 1.5 cm depression of the anterior tibial articular surface. SOFT TISSUES: Moderate diffuse soft tissue swelling. Subcutaneous emphysema likely postsurgical in nature EFFUSION: None visible. OTHER: Negative. CT/CT ankle RT wo con IMPRESSION: Posttraumatic and postsurgical changes as detailed above Electronically authenticated by: RAYMOND ROBERTS Date: 12/11/2023 09:03
--- NOTE | 2023-12-10 13:21 | PM.CN ---
Consult Note: HPI Data of Consult Consult date: 12/10/23 Requesting Physician: Jorge Luis Mcdaniel MD Primary Care Provider: MINH MIRELES Consult Narrative Reason for consult: right ankle trauma Narrative: patient is a relatively healthy 43-year-old female who suffered a right ankle injury yesterday while sledding with her grandkids. She related that with her grandchild on her lap she used her right foot to stop from hitting a guard rail resulting in severe trauma to her right ankle. Patient noticed immediate pain and deformity was unable to bear weight therefore was transported to the emergency department. X-rays revealed a badly comminuted fractured ankle with anterior dislocation. Closed reduction was attempted but was not successful. Further CT scan also revealed significant comminution of the medial lateral and posterior malleoli with impaction of the anterior medial plafond consistent with Pilon fracture. she was splinted and admitted. She has been neurovascularly intact however somewhat hypoxic due to Dilaudid prescribed for right ankle pain. Seen at bedside patient denied any other bodily injuries and denied calf pain, shortness of breath and palpitations. I was consult did for surgical consideration cc:: CC: Jorge Luis Mcdaniel MD Review of Systems ROS Status of ROS 10 or more systems reviewed and unremarkable except as noted in history and below [facility] Surgical History (Updated 12/09/23 @ 17:38 by Vicky Lara) History of partial hysterectomy ?Z90.711 - Acquired absence of uterus with remaining cervical stump (ICD-10) Meds Home Medications and Allergies Home Medications Medication Instructions Recorded Confirmed Type multivitamin (Daily Multi-Vitamin 1 tab PO DAILY 12/09/23 12/09/23 History tablet) pantoprazole 40 mg tablet,delayed 40 mg PO QDAY 12/09/23 12/09/23 History release Allergies Allergy/AdvReac Type Severity Reaction Status Date / Time iodine Allergy Intermediate Verified 12/09/23 17:39 Exam Narrative Exam Narrative: while in the splint the foot was relatively in good alignment however given the instability I was unable to remove her splint prior to surgery. She is able wiggle her toes and capillary refill is brisk. passive range of motion of the toes does not elicit pain and compartments were soft and compressible. No pain associated with the remainder of bilateral lower limbs. strength and range of motion were deferred secondary to known fracture and severe pain Constitutional Vital Signs, click to edit/add: Last Vital Signs Temp 98.1 F 12/10/23 05:47 Pulse 99 H 12/10/23 05:51 Resp 18 12/10/23 05:47 BP 106/65 12/10/23 05:47 Pulse Ox 69 L 12/10/23 05:51 O2 Del Method Nasal Cannula 12/10/23 05:47 O2 Flow Rate 2 12/10/23 05:47 Results Labs Labs: Short CBC 12/10/23 Range/Units 04:10 WBC 14.7 H (4.0-11.0) 10^3/uL Hgb 12.1 (12.0-16.0) g/dL Hct 36.9 (36.0-48.0) % Plt Count 296 (150-450) 10^3/uL BMP 12/10/23 04:10 Sodium 136 Potassium 4.3 Chloride 104 Carbon Dioxide 22.5 BUN 13.0 Creatinine 0.64 Glucose 100 Calcium 8.6 Assessment and Plan Assessment and Plan (1) Closed fracture dislocation of ankle: (2) Displaced fracture of lateral malleolus of right fibula, initial encounter for closed fracture: Onset Date: ~12/09/23 Assessment and Plan: surgical intervention as stated below (3) Displaced pilon fracture of right tibia, initial encounter for closed fracture: Assessment and Plan: surgical intervention as stated below (4) Dislocation of right ankle joint, initial encounter: Assessment and Plan: surgical intervention as stated below Plan patient seen and evaluated at bedside and I recommended emergent closed reduction and external fixation and pinning on the status of her lateral ankle skin possibly ORIF of her fibula She and her were educated on her condition and prognosis. patient has an extremely complicated and complex fracture which has a high probability to be life altering. Specifically, I'm concerned for applications involving the soft tissues including skin and nerves therefore her fracture should be repaired in a staged fashion. Further, she is at tremendously high risk for chronic pain and dysfunction associated with posttraumatic ankle arthritis and need for ankle fusion/replacement in the years to come. She does smoke and she was educated on how this affects healing of both soft tissue and bone - that is that her smoking this place her high risk for perioperative complications She will require be nonweightbearing for 8-12 weeks and the overall plan is to reduce and stabilize her fracture and once her soft tissues recover ( proximally 2-3 weeks) the 2nd stage may involve removal of the external fixation with ORIF of her tibial plafond She does not have a personal or family history of blood clot but I will start Lovenox the day following surgery Discussed case with Dr. Lindsey ( anesthesia) who will perform regional anesthesia for preop and postoperative pain control Discussed the case with Dr. Mcdaniel (family physician) regarding the patient's surgical plan, and postsurgical plan Will follow
--- NOTE | 2023-12-10 14:09 | XR_ITS ---
[place] [id number] Patient Name: ANNALEE VIDAL MRN: [id number] date: 1980 Sex: F Assigned Patient Location: [place] Current Patient Location: Accession/Order Number: [id number] Exam Date: 12/10/2023 15:35 Report Date: 12/10/2023 16:33 At the request of: MALKA MAXWELL Procedure: XR ankle RT min 3V EXAM: XR ankle RT min 3V TECHNIQUE: AP, lateral and oblique views right ankle HISTORY: Pilon fracture COMPARISON: CT scan 12/09/2023 FINDINGS: Comminuted trimalleolar fracture again noted of the ankle. Interval screw and plate fixation of the distal fibula in anatomic alignment. There is improved alignment of the medial malleolus fracture. Reduction of dislocation at the tibiotalar joint with mild widening of the ankle mortise anteriorly. External fixation device in place. XR/XR ankle RT min 3V IMPRESSION: Postoperative changes of the right ankle with significantly improved alignment of trimalleolar fracture. Electronically authenticated by: RIGO VIVEROS Date: 12/10/2023 16:33
[2023-12-10] MEDS: CEFAZOLIN SODIUM/DEXTROSE,ISO 1 GM/50 ML IV.SOLN IV ×2 (14:47→22:46)
[2023-12-10] MEDS: OMEPRAZOLE 40 MG CAPSULE.DR PO (14:47)
[2023-12-10] MEDS: ACETAMINOPHEN 500 MG TABLET 1000 MG PO ×2 (14:47→20:46)
[2023-12-10] MEDS: CHOLECALCIFEROL (VITAMIN D3) 125 MCG/5000 UNIT TABLET PO (16:17)
--- NOTE | 2023-12-10 19:25 | RESP.RT ---
decreased to 1 lpm at this time
[2023-12-10] MEDS: ENOXAPARIN SODIUM 40 MG/0.4 ML SYRINGE SUBQ (20:46)
[2023-12-10] MEDS: PREGABALIN 75 MG CAPSULE PO (20:47)
[2023-12-11] VITALS (10 sets, daily range): BP systolic 101–112; BP diastolic 54–69; PULSE 67–95; RESP 18; TEMP 36.7–37.4; O2SAT 64–98; BMI 24.2
[2023-12-11] MEDS: ACETAMINOPHEN 500 MG TABLET 1000 MG PO ×4 (02:32→21:06)
[2023-12-11] MEDS: OMEPRAZOLE 40 MG CAPSULE.DR PO (06:05)
[2023-12-11] MEDS: CEFAZOLIN SODIUM/DEXTROSE,ISO 1 GM/50 ML IV.SOLN IV ×3 (06:05→21:26)
--- NOTE | 2023-12-11 06:35 | PC.NURSE ---
Drainage noted to dressing on right leg. Dressing reenforced with abd pads and wrapped with adri wraps
[2023-12-11 07:00] LABS: Basophils Percent Auto 0.2 % (0.2-2.0); Eosinophils Absolute Auto 0.1 10^3/uL (0.0-0.7); Eosinophils Percent Auto 0.4 % (0.9-7.0); Hematocrit 29.7 % (36.0-48.0); Hemoglobin 9.7 g/dL (12.0-16.0); Immature Granulocytes Abs Auto 0.03 10^3/uL (0.00-0.03); Immature Granulocytes Pct Auto 0.3 % (0.0-0.5); Lymphocytes Absolute Auto 3.6 10^3/uL (1.2-3.8); Lymphocytes Percent Auto 30.8 % (20.5-60.0); Mean Corpuscular HGB Conc 32.7 g/dL (29.9-35.2); Mean Corpuscular Volume 88.7 fL (81.0-99.0); Mean Platelet Volume 9.8 fL (9.5-13.5); Monocytes Absolute Auto 1.2 10^3/uL (0.3-0.8); Monocytes Percent Auto 10.4 % (1.7-12.0); Neutrophils Absolute Auto 6.8 10^3/uL (1.4-6.5); Neutrophils Percent Auto 57.9 % (43.0-75.0); Platelet Count 225 10^3/uL (150-450); Red Blood Count 3.35 10^6/uL (4.20-5.40); Red Cell Distribution Width 13.7 % (11.0-15.0); White Blood Count 11.8 10^3/uL (4.0-11.0)
[2023-12-11 07:06] LABS: Anion Gap 9.7; Calcium 8.3 mg/dL (8.5-10.1); Carbon Dioxide 27.1 mmol/L (21.0-32.0); Chloride 105 mmol/L (98-107); Estimated GFR (African America >60 (>=60); Estimated GFR (Non-African Ame >60 (>=60); Glucose 92 mg/dL (74-106); Potassium 3.8 mmol/L (3.5-5.1); Sodium 138 mmol/L (136-145)
--- NOTE | 2023-12-11 07:16 | P.PN_ITS ---
Progress Note: Subjective Subjective Interval history: Pain currently well-controlled but has a nerve block completed yesterday at surgery Exam Constitutional Vital Signs, click to edit/add: Last Vital Signs Temp 98.7 F 12/11/23 05:14 Pulse 85 12/11/23 05:14 Resp 18 12/11/23 05:14 BP 101/54 12/11/23 05:14 Pulse Ox 93 L 12/11/23 05:14 O2 Del Method Room Air 12/11/23 05:14 O2 Flow Rate 1 12/10/23 23:35 Documenting provider has reviewed patient's vital signs: yes Common normals: apparent distress (Moderate painful distress) HENMT Common normals: normocephalic and head/scalp atraumatic Chest Common normals: inspection of chest normal Respiratory Common normals: normal respiratory effort, no retractions and clear to auscultation bilaterally Cardio Common normals: regular rate, regular rhythm and no murmurs GI Common normals: Normal to inspection, nondistended, normoactive bowel sounds present Extremity Common normals: abnormal to inspection (Splint with Shaq wrap on right ankle) Progress Note: Objective Labs Labs: Short CBC 12/11/23 Range/Units 06:50 WBC 11.8 H (4.0-11.0) 10^3/uL Hgb 9.7 L (12.0-16.0) g/dL Hct 29.7 L (36.0-48.0) % Plt Count 225 (150-450) 10^3/uL BMP 12/11/23 06:50 Sodium 138 Potassium 3.8 Chloride 105 Carbon Dioxide 27.1 BUN 8.0 Creatinine 0.80 Glucose 92 Calcium 8.3 L Progress Note: A&P Assessment and Plan (1) Closed fracture dislocation of ankle: (2) Displaced fracture of lateral malleolus of right fibula, initial encounter for closed fracture: Onset Date: ~12/09/23 (3) Displaced pilon fracture of right tibia, initial encounter for closed fracture: (4) Dislocation of right ankle joint, initial encounter: Plan Closed fracture dislocation of the ankle-plan per podiatry. Surgery completed yesterday Hypoxia secondary to atelectasis and after use of narcotics-did have some episodes overnight, she is a smoker also, but currently on room air. Oxygenation improved with deep breathing GERD-continue with home medications Maintain observation status, discharge disposition per podiatry with possible discharge later today Urinary Catheter Management Urinary Catheter Management Urethral: Cath placed during this visit: yes Urethral indwelling: No Insertion date: 12/09/23 Insertion time: 18:30
--- NOTE | 2023-12-11 09:12 | P.PN_ITS ---
Progress Note: Subjective Subjective Interval history: Patient seen at bedside this a.m. resting comfortably. POD #1 s/p application of external fixator with ORIF lateral malleolus and stress exam under anesthesia right lower extremity DOS 12/10/2023. She denies any pain at time of visit however block still appears to be effective. She did have mild strikethrough to the dressing overnight which was reinforced by nursing. Crenshaw in place. Was seen by PT yesterday. Denies any other acute lower extremity complaints and denies any constitutional symptoms at time of visit. Exam Narrative Exam Narrative: RLE dressing left CDI. Mild sanguinous strikethrough noted. CFT intact to digits. Skin temperature warm and symmetric proximal distal to dressing. No erythema or ecchymosis proximally. Light touch and active range of motion to digits is absent. Compartments are soft and compressible, no pain with calf or thigh compression. Constitutional Vital Signs, click to edit/add: Last Vital Signs Temp 98.7 F 12/11/23 05:14 Pulse 85 12/11/23 05:14 Resp 18 12/11/23 05:14 BP 101/54 12/11/23 05:14 Pulse Ox 93 L 12/11/23 05:14 O2 Del Method Room Air 12/11/23 05:14 O2 Flow Rate 1 12/10/23 23:35 Progress Note: Objective Labs Labs: Short CBC 12/11/23 Range/Units 06:50 WBC 11.8 H (4.0-11.0) 10^3/uL Hgb 9.7 L (12.0-16.0) g/dL Hct 29.7 L (36.0-48.0) % Plt Count 225 (150-450) 10^3/uL BMP 12/11/23 06:50 Sodium 138 Potassium 3.8 Chloride 105 Carbon Dioxide 27.1 BUN 8.0 Creatinine 0.80 Glucose 92 Calcium 8.3 L Progress Note: A&P Assessment and Plan (1) Closed fracture dislocation of ankle: (2) Displaced fracture of lateral malleolus of right fibula, initial encounter for closed fracture: Onset Date: ~12/09/23 (3) Displaced pilon fracture of right tibia, initial encounter for closed fracture: (4) Dislocation of right ankle joint, initial encounter: Plan Patient examined and evaluated. All findings discussed with patient all qu estions answered to patient's satisfaction. Labs and imaging reviewed. RLE dressing left CDI. There is mild sanguinous strikethrough and I recommended changing this prior to her discharge. Maintain strict nonweightbearing to right lower extremity. She will need crutches or walker or wheelchair for assistance. PT/OT eval again today. Remove Crenshaw catheter today as well. Pain currently well-controlled however block still but seems to be effective. Educated her that as this wears off today she may experience some rebound pain and therefore stay on top of p.o. medications. Anticipate DC today versus tomorrow depending upon pain control with p.o. medications. Postop prescription sent to pharmacy. Rest per primary, will continue to follow. Please call with any questions or concerns. Urinary Catheter Management Urinary Catheter Management Urethral: Cath placed during this visit: yes Urethral indwelling: No Insertion date: 12/09/23 Insertion time: 18:30
[2023-12-11] MEDS: MULTIVITAMIN TABLET 1 TAB PO (09:15)
[2023-12-11] MEDS: PREGABALIN 75 MG CAPSULE PO ×2 (09:15→20:39)
[2023-12-11] MEDS: CHOLECALCIFEROL (VITAMIN D3) 125 MCG/5000 UNIT TABLET PO (09:15)
[2023-12-11] MEDS: OXYCODONE HCL 5 MG TABLET 10 MG PO (13:13)
[2023-12-11] MEDS: KETOROLAC TROMETHAMINE 30 MG/ML VIAL 15 MG IVP (13:55)
--- NOTE | 2023-12-11 14:10 | SWNOTE1 ---
SW received call from physical therapy and pt will need wheeled walker. SW attempted to call [facility] in [place] to see if they accept her insurance, but there was not answer. SW called [facility] and they do take her insurance. Referral was sent.
--- NOTE | 2023-12-11 14:25 | SWNOTE1 ---
SW spoke with pt's and updated him in regards to walker.
[2023-12-11] MEDS: HYDROMORPHONE HCL 0.5 MG/0.5 ML SYRINGE IV (14:26)
--- NOTE | 2023-12-11 15:52 | SWNOTE1 ---
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 They attempted to call pt, but the number listed is wrong number. SW spoke with pt and got the correct phone number, SW to call registration. SW let pt know her walker is done and provided name and address for [facility].
[2023-12-11] MEDS: OXYCODONE HCL 5 MG TABLET PO (17:20)
[2023-12-11] MEDS: ENOXAPARIN SODIUM 40 MG/0.4 ML SYRINGE SUBQ (20:38)
[2023-12-11] MEDS: OXYCODONE HCL 15 MG TABLET PO (21:24)
[2023-12-12] MEDS: OXYCODONE HCL 15 MG TABLET PO (01:59)
[2023-12-12] MEDS: ACETAMINOPHEN 500 MG TABLET 1000 MG PO ×2 (03:07→09:21)
[2023-12-12 04:20] VITALS: O2SAT 92
[2023-12-12 05:30] VITALS: BP 112/69; PULSE 60; RESP 16; TEMP 36.6; O2SAT 97
[2023-12-12] MEDS: OMEPRAZOLE 40 MG CAPSULE.DR PO (05:32)
[2023-12-12] MEDS: CEFAZOLIN SODIUM/DEXTROSE,ISO 1 GM/50 ML IV.SOLN IV (05:32)
[2023-12-12] MEDS: OXYCODONE HCL 5 MG TABLET PO (06:12)
--- NOTE | 2023-12-12 07:43 | P.PN_ITS ---
Progress Note: Subjective Subjective Interval history: Feels much better this morning. Pain better controlled. Exam Constitutional Vital Signs, click to edit/add: Last Vital Signs Temp 97.9 F 12/12/23 05:30 Pulse 60 12/12/23 05:30 Resp 16 12/12/23 05:30 BP 112/69 12/12/23 05:30 Pulse Ox 97 12/12/23 05:30 O2 Del Method Room Air 12/12/23 05:30 O2 Flow Rate 1 12/10/23 23:35 Documenting provider has reviewed patient's vital signs: yes Common normals: no apparent distress (Moderate painful distress) HENMT Common normals: normocephalic and head/scalp atraumatic Chest Common normals: inspection of chest normal Respiratory Common normals: normal respiratory effort, no retractions and clear to auscultation bilaterally Cardio Common normals: regular rate, regular rhythm and no murmurs GI Common normals: Normal to inspection, nondistended, normoactive bowel sounds present Extremity Common normals: abnormal to inspection (Splint with Shaq wrap on right ankle) Progress Note: A&P Assessment and Plan (1) Closed fracture dislocation of ankle: (2) Displaced fracture of lateral malleolus of right fibula, initial encounter for closed fracture: Onset Date: ~12/09/23 (3) Displaced pilon fracture of right tibia, initial encounter for closed fracture: (4) Dislocation of right ankle joint, initial encounter: Plan Closed fracture dislocation of the ankle-plan per podiatry. Surgery completed yesterday Hypoxia secondary to atelectasis and after use of narcotics-resolved GERD-continue with home medications Maintain observation status, discharge disposition per podiatry with possible discharge later today, with pain much improved Urinary Catheter Management Urinary Catheter Management Urethral: Cath placed during this visit: yes, but has since been removed by the nurse Urethral indwelling: No Insertion date: 12/09/23 Insertion time: 18:30 Removal date: 12/11/23 Removal time: 13:15
[2023-12-12] MEDS: PREGABALIN 75 MG CAPSULE PO (08:26)
[2023-12-12] MEDS: CHOLECALCIFEROL (VITAMIN D3) 125 MCG/5000 UNIT TABLET PO (08:26)
[2023-12-12] MEDS: MULTIVITAMIN TABLET 1 TAB PO (08:26)
--- NOTE | 2023-12-12 08:29 | PC.NURSE ---
podiatry rounded at this time and reinforced dressing. pt discussed discharge and plan of care of for future surgery with dr dennis.
--- NOTE | 2023-12-12 08:54 | PM.PN ---
Progress Note: Subjective Subjective Interval history: Patient seen at bedside this a.m. resting comfortably. POD #2 s/p application of external fixator with ORIF lateral malleolus and stress exam under anesthesia right lower extremity DOS 12/10/2023. Pain much better controlled today currently at 2/10 controlled w/ PO meds. Denies any other acute lower extremity complaints and denies any constitutional symptoms at time of visit. Exam Narrative Exam Narrative: RLE dressing left CDI. Mild sanguinous strikethrough noted to heel. CFT intact to digits. Skin temperature warm and symmetric proximal distal to dressing. No erythema or ecchymosis proximally. Light touch and active range of motion to digits is absent. Compartments are soft and compressible, no pain with calf or thigh compression. Constitutional Vital Signs, click to edit/add: Last Vital Signs Temp 97.9 F 12/12/23 05:30 Pulse 60 12/12/23 05:30 Resp 16 12/12/23 05:30 BP 112/69 12/12/23 05:30 Pulse Ox 97 12/12/23 05:30 O2 Del Method Room Air 12/12/23 05:30 O2 Flow Rate 1 12/10/23 23:35 Progress Note: A&P Assessment and Plan (1) Closed fracture dislocation of ankle: (2) Displaced fracture of lateral malleolus of right fibula, initial encounter for closed fracture: Onset Date: ~12/09/23 (3) Displaced pilon fracture of right tibia, initial encounter for closed fracture: (4) Dislocation of right ankle joint, initial encounter: Plan Patient examined and evaluated. All findings discussed with patient all questions answered to patient's satisfaction. Labs and imaging reviewed. RLE dressing reinforced, leave CDI until f/u. Maintain strict nonweightbearing to right lower extremity. She will need crutches or walker or wheelchair for assistance. PT/OT on board. Crenshaw removed yesterday, voiding Pain currently well-controlled with PO medications. Stable to DC from podiatry perspective with scheduled 1 week f/u Postop prescription sent to pharmacy. Rest per primary, will continue to follow. Please call with any questions or concerns. Urinary Catheter Management Urinary Catheter Management Urethral: Cath placed during this visit: yes, but has since been removed by the nurse Urethral indwelling: No Insertion date: 01/21/24 Insertion time: 18:30 Removal date: 12/11/23 Removal time: 13:15
[2023-12-12] MEDS: OXYCODONE HCL 5 MG TABLET 10 MG PO (10:42)
--- NOTE | 2023-12-14 15:18 | CM.DCFOLLOWU ---
12/14/23- 1st attempt no answer
--- NOTE | 2023-12-14 15:19 | CM.DCFOLLOWU ---
12/14/23- No answer 1st attempt
--- NOTE | 2023-12-18 11:20 | CM.DCFOLLOWU ---
2nd attempt discharge follow up call made by Ruperto Cantrell on 12/18/23, no answer
== END 2023-12-12 10:52 | disposition home or self-care (01) ==
LOC: ER 16:03 → MS 12-10 06:33
PROVIDERS: Family Medicine; Podiatrist Foot & Ankle Surgery; Admitting Provider Family Medicine; Emergency Provider Emergency Medicine; PCP Nurse Practitioner Family; Visit Provider Family Medicine
PROC: (CPT 1480; principal; 2023-12-10 09:50)
DX: S82.61XA Displaced fracture of lateral malleolus of right fibula, initial encounter for closed fracture (principal); S82.871A Displaced pilon fracture of right tibia, initial encounter for closed fracture; S93.04XA Dislocation of right ankle joint, initial encounter; K21.9 Gastro-esophageal reflux disease without esophagitis; R09.02 Hypoxemia; J98.11 Atelectasis; D62 Acute posthemorrhagic anemia; W22.8XXA Striking against or struck by other objects, initial encounter; F17.210 Nicotine dependence, cigarettes, uncomplicated; Y93.23 Activity, snow (alpine) (downhill) skiing, snowboarding, sledding, tobogganing and snow tubing; Z90.711 Acquired absence of uterus with remaining cervical stump; Z79.899 Other long term (current) drug therapy
CPT/HCPCS: 20692; 27792; 27840; 36415; 51702; 64445; 64450; 71045; 73600; 73610; 73620; 73700; 76000; 76942; 80048; 85025; 85610; 85730; 93005; 94667; 94668; 94761; 96365; 96366; 96372; 96375; 96376; 97161; 99152; 99285; C1713; G0378; J0690; J1100; J1170; J1650; J1885; J2250; J2270; J2405; J2795; J3010

== ENCOUNTER 2023-12-19 13:13 | Outpatient (OUT) | payer OTHER, SELFPAY ==
--- OUTSIDE RECORDS SUMMARY | 2023-12-19 13:17 | XMS_ITS | CCD ---
Author Name Unknown Address [address] [place] [address] Organization [facility] Care Team Providers Care Theater Education Teacher Name Role Phone MARÍA ., DR CAMARA [...] to 66on 01-03-2023 . . Normal The [facility] Comment on above: Result Comment: Perf ormed at: WB Performed By: #### [id number] #### [facility] [address] [place] [address] Dr. Marga Fernandez Age Gdln ACOG Testing 30-65 Normal [facility] Comment on above: Performed By: #### [id number] #### [facility] [address] [place] [address] Dr. Marga Fernandez DIAGNOSIS: Comment Normal [facility] Comment on above: Result Comment: NEGA TIVE FOR INTRAEPITHELIAL LESION OR MALIGNANCY. Performed at: WB Performed By: #### [id number] #### [facility] [address] [place] [address] Dr. Marga Fernandez HPV Aptima Negative Normal Negative [facility] Comment on above: Result Comment: This nucleic acid amplification test detects fourteen high-risk HPV types (16,18,31,33,35,39,45,51,52,56,58,59,66,68) without differentiation. Performed at: =G Performed By: #### [id number] #### [facility] [address] [place] [address] Dr. Marga Fernandez HPV Genotype Reflex Comment Normal [facility] Comment on above: Result Comment: Crit eria not met, HPV Genotype not performed. Performed at: WB Performed By: #### [id number] #### [facility] [address] [place] [address] Dr. Marga Fernandez Methodology: Comment Normal [facility] Comment on above: Result Comment: This liquid based ThinPrep(R) pap test was screened with the use of an image guided system. Performed at: WB Performed By: #### 4 [id number] #### [facility] [address] [place] [address] Dr. Marga Fernandez Note: Comment Normal [facility] Comment on above: Result Comment: The Pap smear is a screening test designed to aid in the detection of premalignant and malignant conditions of the uterine cervix. It is not a diagnostic procedure and should not be used as the sole means of detecting cervical cancer. Both false-positive and false-negative reports do occur. . Performed at: WB Performed By: #### [id number] #### [facility] [address] [address] [address] Marga Fernandez Performed by: Comment Normal The [facility] Comment on above: Result Comment: Diamond Isaac, Detailer School Photographs (ASCP) Performed at: WB Performed By: #### 4 [id number] #### [facility] [address] [place], [place] [address] Dr. Marga Fernandez Specimen adequacy: Comment Normal The [facility] Comment on above: Result Comment: Sati sfactory for evaluation. No endocervical component is identified. Performed at: WB Performed By: #### 4 [id number] #### [facility] [address] [address] [address] Marga Fernandez US PELVISon 01-03-2023 US [...] by: RAYMOND ROBERTS Date: 2023-01-03 11:49 Normal [facility] CT ABD/PELV W CONon 12-13-19 [...] SANDI MORGAN Date: 2022-12-13 11:41 Normal [facility] CULTURE URINEon 12-13-2022 CULTURE URINE Culture Observations : NO GROWTH. Normal [facility] Comment on above: Performed By: #### U RCX #### [facility] [address] [place] [address] Dr. Marga Fernandez UA RANDOM W/MICROSCOPICon BACTERIA NONE SEEN Normal NONE SEEN [facility] Comment on above: Performed By: #### U AMIC #### [facility] [address] [address] [address] Marga Fernandez Bilirubin Ql (U) Negative Normal NEGATIVE [facility] Comment on above: Performed By: #### U AMIC #### [facility] [address] [address] [address] Marga Fernandez CAST NONE SEEN Normal NONE SEEN [facility] Comment on above: Performed By: #### U AMIC #### [facility] [address] [address] [address] Marga Fernandez Clarity (U) CLEAR Normal CLEAR [facility] Comment on above: Performed By: #### U AMIC #### [facility] [address] [address] [address] Marga Fernandez Color (U) LT. YELLOW Normal YELLOW [facility] Comment on above: Performed By: #### U AMIC #### [facility] [address] [address] [address] Marga Fernandez Crystals LM Nom (Urine sed) NONE SEEN Normal NONE SEEN [facility] Comment on above: Performed By: #### U AMIC #### [facility] [address] [address] [address] Marga Fernandez Epithelial cells LM Ql (Urine sed) RARE Normal NONE SEEN /RARE [facility] Comment on above: Performed By: #### U AMIC #### [facility] [address] [address] [address] Marga Fernandez Glucose Ql (U) Negative Normal NEGATIVE The [facility] Comment on above: Performed By: #### U AMIC #### [facility] [address] [address] [address] Marga Fernandez Hemoglobin Ql (U) Negative Normal NEGATIVE [facility] Comment on above: Performed By: #### U AMIC #### [facility] [address] [address] [address] Marga Fernandez Ketones Ql (U) Negative Normal NEGATIVE [facility] Comment on above: Performed By: #### U AMIC #### [facility] [address] [address] [address] Marga Fernandez LEUKOCYTES Negative Normal NEGATIVE [facility] Comment on above: Performed By: #### U AMIC #### [facility] [address] [place] [address] Dr. Marga Fernandez MUCOUS NONE SEEN Normal NONE SEEN [facility] Comment on above: Performed By: #### U AMIC #### [facility] [address] [address] [address] Marga Fernandez Nitrite Ql (U) Negative Normal NEGATIVE The [facility] Comment on above: Performed By: #### U AMIC #### [facility] [address] [place] [address] Dr. Marga Fernandez pH (U) 6.5 [pH] Normal 5-9 [facility] Comment on above: Performed By: #### U AMIC #### [facility] [address] [place] [address] Dr. Marga Fernandez RBC NONE SEEN Abnormal 0-2 [facility] Comment on above: Performed By: #### U AMIC #### [facility] [address] [place] [address] Dr. Marga Fernandez SPEC GRAVITY <=1.005 Abnormal 1.005-<=1.025 [facility] Comment on above: Performed By: #### U AMIC #### [facility] [address] [place] [address] Dr. Marga Fernandez UA PROTEIN Negative Normal NEGATIVE/ TRACE [facility] Comment on above: Performed By: #### U AMIC #### [facility] [address] [place] [address] Dr. Marga Fernandez Urobilinogen Qn (U) 0.2 {Wero'U}/dL Normal 0.2 - 1. 0 [facility] Comment on above: Performed By: #### U AMIC #### [facility] [address] [place] [address] Dr. Marga Fernandez WBC NONE SEEN Normal NONE SEEN [facility] Comment on above: Performed By: #### U AMIC #### [facility] [address] [place] [address] Dr. Marga Fernandez US SINGLE QUAD RT [...] by: RAYMOND GALVAN Date: 2022-09-28 08:46 Normal [facility] Encounters Encounter Date Encounter Type Care Provider Facility Start: 01-03-2023 End: 01-04-[address] HOA DANIEL . Facility: Start: 12-28-2022 End: 12-28-[address] HOA DANIEL . Facility:[facility] Start: 12-13-2022 End: 12-14-[address] TANVI LOPEZ . Facility:[facility] Start: 09-28-2022 End: 09-29-[address] TANVI LOPEZ . Facility:[facility] Payers Date Payer Category Payer Unknown [id number] 1980 Unknown [id number] .[id number] 1980 Unknown [id number] .[id number] 1981 Unknown [id number] 1959 Unknown [id number] 1958 Unknown [id number] Summary Purpose Family History No Family History Records Found Advance Directives No Advanced Directives Records Found Additional Source Comments INFORMATION SOURCE (unrecogn ized section and content) DATE CREATED AUTHOR 03/08/2023 [facility] PERTAINING TO PATIENTS WHO [...] BE BASED ON THE PRIMARY CLINICAL RECORDS. [employer] [facility]. provides no warranty or guarantee of the accuracy or completeness of information in this document.
== END 2023-12-19 13:14 | disposition home or self-care (01) ==
LOC: PST 13:14
PROVIDERS: PCP Nurse Practitioner Family; Visit Provider Podiatrist Foot & Ankle Surgery
DX: Z01.818 Encounter for other preprocedural examination (principal); S82.871A Displaced pilon fracture of right tibia, initial encounter for closed fracture; S93.04XA Dislocation of right ankle joint, initial encounter

== ENCOUNTER 2023-12-21 14:00 | Observation (INO) | payer OTHER, SELFPAY ==
[2023-12-20] VITALS (12 sets, daily range): BP systolic 103–139; BP diastolic 62–77; PULSE 76–105; RESP 10–20; TEMP 36.1–37.1; O2SAT 91–99; BMI 24.2
--- NOTE | 2023-12-20 | FL_ITS ---
[address] [address] Patient Name: ANNALEE VIDAL MRN: [id number] date: 1980 Sex: F Assigned Patient Location: SURGOUT Current Patient Location: [place] Accession/Order Number: [id number] Exam Date: 12/20/2023 11:40 Report Date: 12/21/2023 09:37 At the request of: MALKA MAXWELL Procedure: FL fluoroscopy <1hr NON-READ EXAM: FL fluoroscopy <1hr NON-READ HISTORY: TECHNIQUE: FINDINGS: Please see Operative Report. Electronically authenticated by: RADIOLOGIST NO Date: 12/21/2023 09:37
--- OUTSIDE RECORDS SUMMARY | 2023-12-20 07:48 | XMS_ITS | CCD ---
Author Name Unknown Address [address] [place] [address] Organization [facility] Care Team Providers Care Poured Pipe Maker Name Role Phone MARÍA ., DR CAMARA [...] to 66on 01-03-2023 . . Normal [facility] Comment on above: Result Comment: Perf ormed at: WB Performed By: #### [id number] #### [facility] [address] [place] [address] Dr. Marga Fernandez Age Gdln ACOG Testing 30-65 Normal [facility] Comment on above: Performed By: #### 4 [id number] #### [facility] [address] [place] [address] Dr. Marga Fernandez DIAGNOSIS: Comment Normal [facility] Comment on above: Result Comment: NEGA TIVE FOR INTRAEPITHELIAL LESION OR MALIGNANCY. Performed at: WB Performed By: #### 4 [id number] #### [facility] [address] [place] [address] Dr. Marga Fernandez HPV Aptima Negative Normal Negative [facility] Comment on above: Result Comment: This nucleic acid amplification test detects fourteen high-risk HPV types (16,18,31,33,35,39,45,51,52,56,58,59,66,68) without differentiation. Performed at: =G Performed By: #### 4 [id number] #### [facility] [address] [place] [address] Dr. Marga Fernandez HPV Genotype Reflex Comment Normal [facility] Comment on above: Result Comment: Crit eria not met, HPV Genotype not performed. Performed at: WB Performed By: #### 4 [id number] #### [facility] [address] [place] [address] Dr. Marga Fernandez Methodology: Comment Normal [facility] Comment on above: Result Comment: This liquid based ThinPrep(R) pap test was screened with the use of an image guided system. Performed at: WB Performed By: #### 4 [id number] #### [facility] [address] [place] [address] Dr. Marga Fernandez Note: Comment Normal [facility] Comment on above: Result Comment: The Pap smear is a screening test designed to aid in the detection of premalignant and malignant conditions of the uterine cervix. It is not a diagnostic procedure and should not be used as the sole means of detecting cervical cancer. Both false-positive and false-negative reports do occur. . Performed at: WB Performed By: #### 4 [id number] #### [facility] [address] [address] [address] Marga Fernandez Performed by: Comment Normal [facility] Comment on above: Result Comment: Diamond Isaac, Dry Kiln Burner (ASCP) Performed at: WB Performed By: #### 4 [id number] #### [facility] [address] [place], [place] [address] Dr. Marga Fernandez Specimen adequacy: Comment Normal [facility] Comment on above: Result Comment: Sati sfactory for evaluation. No endocervical component is identified. Performed at: WB Performed By: #### 4 [id number] #### [facility] [address] [address] [address] Marga Fernandez US PELVISon 01-03-2023 US [...] by: RAYMOND ROBERTS Date: 2023-01-03 11:[address] [facility] [address] ABD/PELV W CONon 12-13-19 23 [...] SANDI MORGAN Date: 2022-12-13 11:41 Normal [facility] CULTURE URINEon 12-13-2022 CULTURE URINE Culture Observations : NO GROWTH. Normal [facility] Comment on above: Performed By: #### U RCX #### [facility] [address] [place] [address] Dr. Marga Fernandez UA RANDOM W/MICROSCOPICon BACTERIA NONE SEEN Normal NONE SEEN [facility] Comment on above: Performed By: #### U AMIC #### [facility] [address] [address] [address] Marga Fernandez Bilirubin Ql (U) Negative Normal NEGATIVE [facility] Comment on above: Performed By: #### U AMIC #### [facility] [address] [address] [address] Marga Fernandez CAST NONE SEEN Normal NONE SEEN [facility] Comment on above: Performed By: #### U AMIC #### [facility] [address] [address] [address] Marga Fernandez Clarity (U) CLEAR Normal CLEAR [facility] Comment on above: Performed By: #### U AMIC #### [facility] [address] [address] [address] Marga Fernandez Color (U) LT. YELLOW Normal YELLOW [facility] Comment on above: Performed By: #### U AMIC #### [facility] [address] [address] [address] Marga Fernandez Crystals LM Nom (Urine sed) NONE SEEN Normal NONE SEEN [facility] Comment on above: Performed By: #### U AMIC #### [facility] [address] [address] [address] Marga Fernandez Epithelial cells LM Ql (Urine sed) RARE Normal NONE SEEN /RARE [facility] Comment on above: Performed By: #### U AMIC #### [facility] [address] [address] [address] Mraga Fernandez Glucose Ql (U) Negative Normal NEGATIVE [facility] Comment on above: Performed By: #### U AMIC #### [facility] [address] [address] [address] Marga Fernandez Hemoglobin Ql (U) Negative Normal NEGATIVE [facility] Comment on above: Performed By: #### U AMIC #### [facility] [address] [address] [address] Marga Fernandez Ketones Ql (U) Negative Normal NEGATIVE [facility] Comment on above: Performed By: #### U AMIC #### [facility] [address] [address] [address] Marga Fernandez LEUKOCYTES Negative Normal NEGATIVE [facility] Comment on above: Performed By: #### U AMIC #### [facility] [address] [place] [address] Dr. Marga Fernandez MUCOUS NONE SEEN Normal NONE SEEN [facility] Comment on above: Performed By: #### U AMIC #### [facility] [address] [address] [address] Marga Fernandez Nitrite Ql (U) Negative Normal NEGATIVE [facility] Comment on above: Performed By: #### U AMIC #### [facility] [address] [place] [address] Dr. Marga Fernandez pH (U) 6.5 [pH] Normal 5-9 [facility] Comment on above: Performed By: #### U AMIC #### [facility] [address] [place] [address] Dr. Marga Fernandez RBC NONE SEEN Abnormal 0-2 [facility] Comment on above: Performed By: #### U AMIC #### [facility] [address] [place] [address] Dr. Marga Fernandez SPEC GRAVITY <=1.005 Abnormal 1.005-<=1.025 [facility] Comment on above: Performed By: #### U AMIC #### [facility] [address] [place] [address] Dr. Marga Fernandez UA PROTEIN Negative Normal NEGATIVE/ TRACE [facility] Comment on above: Performed By: #### U AMIC #### [facility] [address] [place] [address] Dr. Marga Fernandez Urobilinogen Qn (U) 0.2 {Wero'U}/dL Normal 0.2 - 1. 0 [facility] Comment on above: Performed By: #### U AMIC #### [facility] [address] [place] [address] Dr. Marga Fernandez WBC NONE SEEN Normal NONE SEEN [facility] Comment on above: Performed By: #### U AMIC #### [facility] [address] [place] [address] Dr. Marga Fernandez US SINGLE QUAD RT [...] by: RAYMOND GALVAN Date: 2022-09-28 08:46 Normal [facility] Encounters Encounter Date Encounter Type Care Provider Facility Start: 01-03-2023 End: 01-04-[address] HOA DANIEL . Facility: Start: 12-28-2022 End: 12-28-[address] HOA DANIEL . Facility:[facility] Start: 12-13-2022 End: 12-14-[address] TANVI LOPEZ . Facility:[facility] Start: 09-28-2022 End: 09-29-[address] TANVI LOPEZ . Facility:[facility] Payers Date Payer Category Payer Unknown [id number] 1980 Unknown [id number] .[id number] 1980 Unknown [id number] .[id number] 1980 Unknown [id number] 1958 Unknown [id number] 1958 Unknown [id number] Summary Purpose Family History No Family History Records Found Advance Directives No Advanced Directives Records Found Additional Source Comments INFORMATION SOURCE (unrecogn ized section and content) DATE CREATED AUTHOR 03/08/2023 [facility] PERTAINING TO PATIENTS [...] BE BASED ON THE PRIMARY CLINICAL RECORDS. [employer] [facility]. provides no warranty or guarantee of the accuracy or completeness of information in this document.
[2023-12-20 08:01] LABS: Basophils Absolute Auto 0.1 10^3/uL (0.0-0.1); Basophils Percent Auto 0.6 % (0.2-2.0); Eosinophils Absolute Auto 0.3 10^3/uL (0.0-0.7); Eosinophils Percent Auto 2.4 % (0.9-7.0); Hematocrit 34.6 % (36.0-48.0); Hemoglobin 11.6 g/dL (12.0-16.0); Immature Granulocytes Abs Auto 0.05 10^3/uL (0.00-0.03); Immature Granulocytes Pct Auto 0.4 % (0.0-0.5); Lymphocytes Absolute Auto 2.8 10^3/uL (1.2-3.8); Lymphocytes Percent Auto 23.1 % (20.5-60.0); Mean Corpuscular HGB Conc 33.5 g/dL (29.9-35.2); Mean Corpuscular Hemoglobin 29.3 pg (26.7-34.0); Mean Corpuscular Volume 87.4 fL (81.0-99.0); Mean Platelet Volume 8.7 fL (9.5-13.5); Monocytes Absolute Auto 1.2 10^3/uL (0.3-0.8); Monocytes Percent Auto 9.7 % (1.7-12.0); Neutrophils Absolute Auto 7.9 10^3/uL (1.4-6.5); Neutrophils Percent Auto 63.8 % (43.0-75.0); Platelet Count 515 10^3/uL (150-450); Red Blood Count 3.96 10^6/uL (4.20-5.40); Red Cell Distribution Width 13.4 % (11.0-15.0); White Blood Count 12.3 10^3/uL (4.0-11.0)
[2023-12-20 08:26] LABS: Glucometer 91 mg/dL (74-106)
--- NOTE | 2023-12-20 08:46 | PC.NURSE ---
Has external fixator on right lower extremity; foot swollen,3+ pitting; numbness of right great and 2nd toes; other toes normal sensation; foot pink and warm
--- NOTE | 2023-12-20 09:00 | PC.NURSE ---
One IV start attempt by other RN
[2023-12-20] MEDS: PREGABALIN 75 MG CAPSULE PO ×2 (09:01→21:07)
[2023-12-20] MEDS: LACTATED RINGER'S SOLUTION 1,000 ML 50 ML IV ×2 (09:01→12:14)
[2023-12-20] MEDS: HYDROMORPHONE HCL 1 MG/ML CARTRIDGE 0.5 MG IVP (09:25)
--- NOTE | 2023-12-20 09:28 | PC.NURSE ---
Medicated for pain as ordered by anesthesia
--- NOTE | 2023-12-20 11:08 | PC.NURSE ---
Patient was consented by Dr. Lindsey for nerve block. Timeout was performed with patient in the presence of Dr. Lindsey and Gloria Dill RN. Patient was positioned comfortably onto her back with O2 applied and monitors connected. Patient was medicated with Versed per Dr. Lindsey. Bedside ultrasound was used to locate nerve sites. Patient tolerated both the femoral and popliteal block. Patient continues on monitors until she goes to OR. Patient voices no questions or concerns.
[2023-12-20] MEDS: CEFAZOLIN SODIUM/DEXTROSE,ISO 2 GM/50 ML PIGGYBACK IV (11:17)
--- NOTE | 2023-12-20 14:41 | P.ORON_ITS ---
Brief Operative Note Date of procedure: 12/20/23 Pre-op diagnosis: right pilon & fibula fracture, ankle dislocation s/p external fixation Post-op diagnosis: other (right distal tibial (pilon) & comminuted fibular fracture with ankle dislocation s/p external fixation and ORIF fibula, retained orthopedic hardware) Procedure: PROCEDURES PERFORMED: right ankle and subtalar joint fusion, removal of external fixation and deep orthopedic hardware, harvest of tibial bone graft, tendo Achilles lengthening INDICATION FOR PROCEDURE: patient is a 43-year-old female active smoker but otherwise healthy who sustained right ankle injury on 11/08/24 while sledding. The following day she underwent ORIF of the fibula and application of external fixation for planned staged reconstruction. However after seeing post reduction CT scan and explaining the risks and benefits of ORIF of the distal tibia versus primary fusion patient elected to undergo primary fusion given the amount of impaction and high likelihood of posttraumatic arthritis. INTRAOPERATIVE FINDINGS: no signs of infection and bone quality was within normal limits skin and patient's age and gender. comminuted fibular fracture was noted and after removal of the plate and screw construct the distal fragment including the fibular malleolus was excised. Significant amount of tibial plafond impaction predominantly located in the anterior medial aspect with comminution of the medial malleolus. given the large osseous defect obtaining stable fixation with plate and screw construct would be suboptimal therefore decision was made to use intramedullary nail fixation. 1.5 cm x 1 cm chondral defect of the talar dome was also noted. Patient's tibial isthmus was relatively narrow and due to prior pin sites are was concern for intraoperative tibial shaft fracture therefore the largest reamer used across the isthmus was 11 mm ( as opposed to 11.5 mm which is recommended by the senior fire protection engineer). PROCEDURE IN DETAIL: Patient was identified in pre op and consent was reviewed. Correct side and site were identified and marked. Pre-op antibiotics were started. Patient was brought to OR suite and place on table in a supine position. General anesthesia was administered. Tourniquet applied. Formal time-out was performed. the clamps for the external fixation were removed followed by manual removal of half pins in the cuneiforms as well as tibia. The pin transfixing the calcaneus was cut to level of skin on the lateral aspect then removed from the medial aspect of the foot. all skin suture was then removed. The right lower extremity was then prepped and draped in usual sterile fashion and the foot/ankle were exsanguinated and tourniquet inflated. the pin sites were excisionally debrided with a scalpel and the bone was aggressively curetted noting healthy bleeding. Then the pin sites were irrigated with 3 L of normal saline on pulse lavage. A lateral extensile incision over the fibula and coursing to the sinus tarsi was performed. Sharp and blunt dissection was performed to gain access to the fibula and the plate and screw construct transfixing comminuted fracture of the fibula. With the appropriate screwdriver all screws were removed and the plate was also easily removed. The distal fragment which included the fibular malleolus was then released of all soft tissue attachments allowing it to be excised and passed the back table. Then the ankle and subtalar joints were exposed. Each joint was prepared for fusion by removing all cartilage with the utilization of curettes, osteotomes, and subchondral drilling with a 2.0 mm drill bit. The areas were irrigated with copious amounts of sterile saline multiple times. utilizing fluoroscopy attempt was made to achieve anatomic reduction of the tibia, talus and calcaneus however contracture of the Achilles tendon made this difficult therefore decision was made to perform Achilles tendon lengthening. A stab incision was placed over the mid substance of the Achilles tendon and the lateral aspect of the Achilles tendon was released. Then a centimeter proximal an additional stab incision was placed in the medial aspect of the Achilles tendon was released. Finally a centimeter proximal and additional stab incision was placed over the mid substance of the Achilles and the lateral aspect was released. Ten degrees of ankle joint dorsiflexion and reduction of the ankle was obtained and then pinned in placed to hold the reduction. Utilizing C-arm a proper starting point on the plantar surface of the calcaneus was marked. A longitudinal incision over the plantar heel was created blunt dissection down to the plantar calcaneus was performed. Then utilizing a large guidepin the subtalar and ankle joints were pinned and held in place. This wire was then placed into the distal tibia and was confirmed to be within regularity canal and advanced accordingly. Starting with a 7 mm the calcaneus, talus and distal tibia were reamed just past the ankle joint. A 9 mm reamer was utilized in a similar fashion then the guidepin was exchanged for a ball tipped wire. A 9.5 mm reamer was then used over the ball-tipped wire followed by 0.5 mm larger reamer in succession until chatter was obtained in the tibial isthmus. Largest reaming with an 11 mm reamer across the tibial isthmus and into the proximal tibia. Next a 13.5 mm reamer to accommodate the distal aspect of the nail was performed to the level of the tibial plafond. All reamings collected as tibial autograft with use of the [employer] Bone Press and corresponding suction device. 9 mL of solid bone graft was from bone marrow aspirate (12 mL) utilizing the bone press. The solid graft mixed with allograft (2 cc of sparc & Proteios). The bone graft mixture was packed into primarily the ankle joint and the osseous defect of the tibia with a small amount packed into the subtalar joint On the back table, a 10 x 300 mm sized nail was attached to the jig and the nitinol element was stretched to 6 mm. The guidepin was removed and the nail was placed to the appropriate depth and rotation. X-ray was evaluated for proper positioning of the nail. Stab incisions over the posterior and lateral aspect of the calcaneus were placed followed by blunt dissection down to bone was performed. The lateral to medial calcaneus hole was drilled with the corresponding cannula and a 5.0 mm screws was placed. Next, the distal most screw was drilled from posterior to anterior under fluoroscopy guidance. A 5.0 mm screw was then placed from a posterior anterior direction through the nail holes distally. A stab incision was placed over the mid shaft of the tibia followed by blunt d issection down to bone. Then the tibia drilled transversly with a compression brittnee accordingly with the appropriate drill sleeves across the dynamic proximal slot an additional stab incision was placed to allow passage of the compression brittnee. Then utilizing the jig the ankle and subtalar joints were compressed until there was a slight bend in the compression rods. 4 mm of manual compression was obtained which was visualized under fluoroscopy. Next the medial stab incision was extended proximally and distally followed by blunt dissection down to bone. A static crosslock screw was placed accordingly across the midshaft with the aide of the jig under fluoroscopic guidance. The manual compression was removed followed by the compression brittnee. An additional 5.0 mm screw was placed tranversly across the dynamic slot in the tibia. The jig was then removed after confirming proper hardware placement. An end cap on the distal aspect of the nail was then placed and confirmed under fluoroscopy. The surgical sites were irrigated and all incisions were closed in layers. A dry sterile dressing consisting of Xeroform on the incisions followed by 4 x 4 gauze, ABDs, and Kerlix were applied. Multiple layers of cast padding were then applied to ensure all bony prominences were well-padded. A plaster posterior splint was then applied which was held in place by Shaq wraps. Capillary refill time to all digits was evaluated and had appropriate response. POSTOPERATIVE PLAN: Transfer to med/surg under hospitalist's care NWB operative foot/ankle Ice and elevation Mona-op antibiotics, multimodal pain medication and DVT prophylaxis ordered Consults: physical therapy & social media job titles Estimated LOS 2-3 nights Will follow *NWB x 6-8 weeks Anesthesia: regional and General-LMA Surgeon: Hugh Cadet Estimated blood loss (mL): 50 Tourniquet time (min): 120 Pathology: none sent Condition: stable Disposition: floor
[2023-12-20 15:13] LABS: Glucometer 108 mg/dL (74-106)
[2023-12-20] MEDS: ACETAMINOPHEN 500 MG TABLET 1000 MG PO ×2 (15:53→21:07)
[2023-12-20] MEDS: CHOLECALCIFEROL (VITAMIN D3) 125 MCG/5000 UNIT TABLET PO (15:54)
[2023-12-20] MEDS: KETOROLAC TROMETHAMINE 30 MG/ML VIAL 15 MG IVP (17:31)
[2023-12-20] MEDS: ONDANSETRON PF 4 MG/2 ML VIAL IV (17:32)
[2023-12-20] MEDS: CEFAZOLIN SODIUM/DEXTROSE,ISO 1 GM/50 ML IV.SOLN IV (21:03)
[2023-12-20] MEDS: ENOXAPARIN SODIUM 40 MG/0.4 ML SYRINGE SUBQ (21:07)
[2023-12-21] MEDS: ACETAMINOPHEN 500 MG TABLET 1000 MG PO ×3 (03:41→21:25)
[2023-12-21] MEDS: CEFAZOLIN SODIUM/DEXTROSE,ISO 1 GM/50 ML IV.SOLN IV ×3 (03:41→19:42)
[2023-12-21 05:52] VITALS: BP 90/51; PULSE 76; RESP 16; TEMP 37; O2SAT 95
--- NOTE | 2023-12-21 07:23 | P.PN_ITS ---
Progress Note: Subjective Subjective Interval history: Consult for Co. medical management. Podiatric surgery yesterday. Patient started to have some tingling in her foot is a sign the nerve block is starting to wear off. Exam Constitutional Vital Signs, click to edit/add: Last Vital Signs Temp 98.6 F 12/21/23 05:52 Pulse 76 12/21/23 05:52 Resp 16 12/21/23 05:52 BP 90/51 12/21/23 05:52 Pulse Ox 95 12/21/23 05:52 O2 Del Method Room Air 12/21/23 05:52 O2 Flow Rate 2 12/20/23 21:05 Documenting provider has reviewed patient's vital signs: yes Common normals: no apparent distress (Moderate painful distress) HENMT Common normals: normocephalic and head/scalp atraumatic Chest Common normals: inspection of chest normal Respiratory Common normals: normal respiratory effort, no retractions and clear to auscultation bilaterally Cardio Common normals: regular rate, regular rhythm and no murmurs GI Common normals: Normal to inspection, nondistended, normoactive bowel sounds present Extremity Common normals: abnormal to inspection (Splint with Shaq wrap on right ankle) Progress Note: Objective Labs Labs: Short CBC 12/20/23 Range/Units 07:56 WBC 12.3 H (4.0-11.0) 10^3/uL Hgb 11.6 L (12.0-16.0) g/dL Hct 34.6 L (36.0-48.0) % Plt Count 515 H (150-450) 10^3/uL Progress Note: A&P Assessment and Plan (1) GERD without esophagitis: (2) Displaced fracture of lateral malleolus of right fibula, initial encounter for closed fracture: Onset Date: ~12/09/23 Plan Podiatric surgery yesterday-plan per podiatry today. Patient had nerve block. Will see how pain progresses as nerve block starts to wear off this morning. Iron deficiency anemia top of acute blood loss anemia from surgical blood loss. Check on CBC today. Possible repeat tomorrow. Start iron orally Hypocalcemia-supplement, added vitamin D. With patient's body habitus high risk for osteoporosis Leukocytosis as an outpatient-no signs of infection. Continue to monitor Thrombocythemia likely secondary to of the blood loss and bone marrow stimulation-we will monitor daily GERD-continue with home medications, no symptoms currently Admission status and discharge disposition per podiatry
[2023-12-21 07:25] LABS: Basophils Percent Auto 0.3 % (0.2-2.0); Eosinophils Absolute Auto 0.1 10^3/uL (0.0-0.7); Eosinophils Percent Auto 0.7 % (0.9-7.0); Hematocrit 31.1 % (36.0-48.0); Hemoglobin 10.1 g/dL (12.0-16.0); Immature Granulocytes Abs Auto 0.05 10^3/uL (0.00-0.03); Immature Granulocytes Pct Auto 0.4 % (0.0-0.5); Lymphocytes Absolute Auto 3.7 10^3/uL (1.2-3.8); Lymphocytes Percent Auto 26.6 % (20.5-60.0); Mean Corpuscular HGB Conc 32.5 g/dL (29.9-35.2); Mean Corpuscular Hemoglobin 28.7 pg (26.7-34.0); Mean Corpuscular Volume 88.4 fL (81.0-99.0); Mean Platelet Volume 9.1 fL (9.5-13.5); Monocytes Absolute Auto 1.6 10^3/uL (0.3-0.8); Monocytes Percent Auto 11.6 % (1.7-12.0); Neutrophils Absolute Auto 8.3 10^3/uL (1.4-6.5); Neutrophils Percent Auto 60.4 % (43.0-75.0); Platelet Count 485 10^3/uL (150-450); Red Blood Count 3.52 10^6/uL (4.20-5.40); Red Cell Distribution Width 13.5 % (11.0-15.0); White Blood Count 13.8 10^3/uL (4.0-11.0)
[2023-12-21 08:04] LABS: Alanine Aminotransferase 20 U/L (14-59); Albumin Globulin Ratio 0.7; Albumin Level 2.7 g/dL (3.4-5.0); Alkaline Phosphatase 50 U/L (46-116); Anion Gap 12.7; Aspartate Amino Transferase 21 U/L (15-37); BUN Creatinine Ratio 9.7; Bilirubin Total 0.3 mg/dL (0.2-1.0); Calcium 8.8 mg/dL (8.5-10.1); Carbon Dioxide 26.1 mmol/L (21.0-32.0); Chloride 104 mmol/L (98-107); Estimated GFR (African America >60 (>=60); Estimated GFR (Non-African Ame >60 (>=60); Globulin 3.8 g/dL; Glucose 87 mg/dL (74-106); Potassium 3.8 mmol/L (3.5-5.1); Sodium 139 mmol/L (136-145); Total Protein 6.5 g/dL (6.4-8.2)
[2023-12-21] MEDS: FERROUS SULFATE 325 MG TABLET PO ×2 (08:32→21:26)
[2023-12-21] MEDS: CHOLECALCIFEROL (VITAMIN D3) 125 MCG/5000 UNIT TABLET PO (08:32)
[2023-12-21] MEDS: CALCIUM CARBONATE 600 MG TABLET PO ×2 (08:32→21:26)
[2023-12-21] MEDS: OMEPRAZOLE 40 MG CAPSULE.DR PO (08:32)
[2023-12-21] MEDS: ASPIRIN 81 MG TABLET.DR PO ×2 (08:32→21:26)
[2023-12-21] MEDS: PREGABALIN 75 MG CAPSULE PO ×2 (08:32→21:26)
[2023-12-21] MEDS: MULTIVITAMIN TABLET 1 TAB PO (08:32)
[2023-12-21] MEDS: OXYCODONE HCL 15 MG TABLET PO ×2 (09:32→19:41)
[2023-12-21] MEDS: KETOROLAC TROMETHAMINE 30 MG/ML VIAL 15 MG IVP ×2 (10:54→17:37)
--- NOTE | 2023-12-21 11:56 | PM.PN ---
Progress Note: Subjective Subjective Interval history: POV 1 TTC fusion for comminuted pilon fx. Pain currently tolerable with current orders but related to periodic sharp pain in plantar foot. patient relates that she believes her nerve block is wearing off. She did work with PT today and relates that kneeling on her knee scooter was nearly unbearable. She denies calf pain and chest pain as well as no shortness of breath Exam Narrative Exam Narrative: splint is clean dry and intact. Patient is able wiggle toes. No calf pain on squeeze. Capillary refill time is brisk. Light touch sensation remains diminished to her toes Constitutional Vital Signs, click to edit/add: Last Vital Signs Temp 98.6 F 12/21/23 05:52 Pulse 76 12/21/23 05:52 Resp 16 12/21/23 05:52 BP 90/51 12/21/23 05:52 Pulse Ox 95 12/21/23 05:52 O2 Del Method Room Air 12/21/23 05:52 O2 Flow Rate 2 12/20/23 21:05 Progress Note: Objective Labs Labs: Short CBC 12/21/23 Range/Units 07:10 WBC 13.8 H (4.0-11.0) 10^3/uL Hgb 10.1 L (12.0-16.0) g/dL Hct 31.1 L (36.0-48.0) % Plt Count 485 H (150-450) 10^3/uL BMP 12/21/23 07:10 Sodium 139 Potassium 3.8 Chloride 104 Carbon Dioxide 26.1 BUN 7.0 Creatinine 0.72 Glucose 87 Calcium 8.8 Liver Function 12/21/23 Range/Units 07:10 Total Bilirubin 0.3 (0.2-1.0) mg/dL AST 21 (15-37) U/L ALT 20 (14-59) U/L Alkaline Phosphatase 50 (46-116) U/L Albumin 2.7 L (3.4-5.0) g/dL Progress Note: A&P Assessment and Plan (1) GERD without esophagitis: (2) Displaced fracture of lateral malleolus of right fibula, initial encounter for closed fracture: Onset Date: ~12/09/23 Assessment and Plan: s/p ankle & subtalar (TTC) fusion on 12/20/23 Plan patient's nerve block appears to be wearing off although seemingly still working given the diminished light touch sensation. Although she has had numbness and tingling into her toes since her original injury. Given her dislocation and fracture morphology it is likely that she suffered some degree of nerve injury. I related that her sensation may be permanently altered but often improves over 6-12 months. Neuritis versus nerve injury to the tibial nerve also may be consistent with her sharp periodic stabbing pain in her plantar foot. Recommended the patient remain in house to night and will reevaluate tomorrow Continue strict nonweightbearing, ice and elevation We'll attempt PT again tomorrow
[2023-12-21 14:00] VITALS: BP 93/48; PULSE 77; RESP 18; TEMP 36.8; O2SAT 92
[2023-12-21] MEDS: OXYCODONE HCL 5 MG TABLET 10 MG PO (14:06)
--- NOTE | 2023-12-21 14:50 | SWNOTE1 ---
SW met with pt to discuss dc needs. Pt was here not long ago for surgery. SW did get her walker last visit. Pt voiced she uses it and she slides up the stairs to her bedroom. Pt's in room and he helps, took 2 weeks off to be with her. They voiced no needs at discharge at this time.
[2023-12-21] MEDS: HYDROMORPHONE HCL 0.5 MG/0.5 ML SYRINGE IV ×2 (15:23→20:45)
[2023-12-21 19:54] VITALS: RESP 18
[2023-12-21 20:53] VITALS: BP 101/65; PULSE 87; RESP 22; TEMP 36.7; O2SAT 98
[2023-12-21] MEDS: ENOXAPARIN SODIUM 40 MG/0.4 ML SYRINGE SUBQ (21:26)
[2023-12-22] MEDS: KETOROLAC TROMETHAMINE 30 MG/ML VIAL 15 MG IVP (01:26)
[2023-12-22] MEDS: ACETAMINOPHEN 500 MG TABLET 1000 MG PO ×2 (03:27→09:38)
[2023-12-22] MEDS: CEFAZOLIN SODIUM/DEXTROSE,ISO 1 GM/50 ML IV.SOLN IV (03:28)
[2023-12-22 05:10] VITALS: BP 110/72; PULSE 65; RESP 18; TEMP 36.6; O2SAT 96
[2023-12-22 06:05] LABS: Basophils Absolute Auto 0.1 10^3/uL (0.0-0.1); Basophils Percent Auto 0.6 % (0.2-2.0); Eosinophils Absolute Auto 0.3 10^3/uL (0.0-0.7); Eosinophils Percent Auto 2.4 % (0.9-7.0); Hematocrit 29.3 % (36.0-48.0); Hemoglobin 9.5 g/dL (12.0-16.0); Immature Granulocytes Abs Auto 0.07 10^3/uL (0.00-0.03); Immature Granulocytes Pct Auto 0.5 % (0.0-0.5); Lymphocytes Absolute Auto 4.2 10^3/uL (1.2-3.8); Lymphocytes Percent Auto 32.5 % (20.5-60.0); Mean Corpuscular HGB Conc 32.4 g/dL (29.9-35.2); Mean Corpuscular Hemoglobin 28.7 pg (26.7-34.0); Mean Corpuscular Volume 88.5 fL (81.0-99.0); Mean Platelet Volume 9.8 fL (9.5-13.5); Monocytes Absolute Auto 1.4 10^3/uL (0.3-0.8); Neutrophils Absolute Auto 6.8 10^3/uL (1.4-6.5); Platelet Count 447 10^3/uL (150-450); Red Blood Count 3.31 10^6/uL (4.20-5.40); Red Cell Distribution Width 13.7 % (11.0-15.0); White Blood Count 12.9 10^3/uL (4.0-11.0)
[2023-12-22 06:11] LABS: Anion Gap 12.3; BUN Creatinine Ratio 13.4; Calcium 8.8 mg/dL (8.5-10.1); Carbon Dioxide 24.8 mmol/L (21.0-32.0); Chloride 106 mmol/L (98-107); Estimated GFR (African America >60 (>=60); Estimated GFR (Non-African Ame >60 (>=60); Glucose 93 mg/dL (74-106); Potassium 4.1 mmol/L (3.5-5.1); Sodium 139 mmol/L (136-145)
[2023-12-22 08:00] VITALS: RESP 18
--- NOTE | 2023-12-22 09:37 | P.DS_ITS ---
DS: Providers Provider Primary care physician: Jorge Luis Mcdaniel MD Consults: 12/20/23 14:32 Physical Therapy Eval and Treat Routine Reason for consultation: Gait training with crutches vs walker & knee scooter; NWB Right ankle/foot Has provider been notified: No DS: Diagnosis Discharge Diagnosis (1) GERD without esophagitis: (2) Displaced fracture of lateral malleolus of right fibula, initial encounter for closed fracture: Onset Date: ~12/09/23 DS: Summary Hospital Course Hospital Course: He was admitted for procedure to complete the final stage of her displaced fracture. No issues at the time of surgery. Postoperatively had significant pain. Also leukocytosis but that is resolved. No signs of infection. Pain overall is improved today. So she will be discharged home improving condition. Medications see list. We did increase her Lyrica as it did not seem like it was lasting long enough. From twice daily to 3 times daily. She can follow-up with podiatry next week. Time Spent with Patient Time attestation: Total time spent providing and/or coordinating discharge services: Exam Constitutional Vital Signs, click to edit/add: Last Vital Signs Temp 97.9 F 12/22/23 05:10 Pulse 65 12/22/23 05:10 Resp 18 12/22/23 08:00 BP 110/72 12/22/23 05:10 Pulse Ox 96 12/22/23 05:10 O2 Del Method Room Air 12/22/23 05:10 O2 Flow Rate 2 12/20/23 21:05 Documenting provider has reviewed patient's vital signs: yes Common normals: no apparent distress (Moderate painful distress) [facility] Common normals: normocephalic and head/scalp atraumatic Chest Common normals: inspection of chest normal Respiratory Common normals: normal respiratory effort, no retractions and clear to auscultation bilaterally Cardio Common normals: regular rate, regular rhythm and no murmurs GI Common normals: Normal to inspection, nondistended, normoactive bowel sounds present Extremity Common normals: abnormal to inspection (Splint with Shaq wrap on right ankle) DS: Data Data Completed and Pending Labs on day of discharge: Labs from last 24 hours 12/22/23 04:35 WBC 12.9 H RBC 3.31 L Hgb 9.5 L Hct 29.3 L MCV 88.5 MCH 28.7 MCHC 32.4 RDW 13.7 Plt Count 447 MPV 9.8 Neut % (Auto) 53.0 Lymph % (Auto) 32.5 [place] % (Auto) 11.0 Eos % (Auto) 2.4 Baso % (Auto) 0.6 Neut # (Auto) 6.8 H Lymph # (Auto) 4.2 H [place] # (Auto) 1.4 H Eos # (Auto) 0.3 Baso # (Auto) 0.1 Abs Immat Gran (auto) 0.07 H Imm/Tot Granulo (auto) 0.5 Sodium 139 Potassium 4.1 Chloride 106 Carbon Dioxide 24.8 Anion Gap 12.3 BUN 11.0 Creatinine 0.82 Est GFR ( Amer) >60 Est GFR (Non-Af Amer) >60 BUN/Creatinine Ratio 13.4 Glucose 93 Calcium 8.8 Discharge Plan Discharge Disposition: Home, Self-Care Condition: Good Discharge Medications: New calcium carbonate 600 mg calcium (1,500 mg) Tablet 600 mg PO BID Qty: 60 11RF ferrous sulfate 325 mg (65 mg iron) Tablet 325 mg PO BID Qty: 60 11RF cholecalciferol (vitamin D3) [Vitamin D3] 50 mcg (2,000 unit) tablet 50 mcg PO DAILY Qty: 30 11RF pregabalin [Lyrica] 75 mg capsule 75 mg PO Q8H Qty: 30 0RF Continued pantoprazole 40 mg tablet,delayed release (DR/EC) 40 mg PO QDAY multivitamin [Daily Multi-Vitamin] Tablet 1 tab PO DAILY cefadroxil 500 mg capsule 500 mg PO BID 14 Days Qty: 28 0RF docusate sodium [Colace] 100 mg capsule 100 mg PO BID PRN (Reason: constipation) 7 Days Qty: 14 0RF aspirin [Adult Low Dose Aspirin] 81 mg tablet,delayed release (DR/EC) 81 mg PO BID 30 Days Qty: 60 0RF Patient Comments: karli had her stop on 12/18/23 oxycodone-acetaminophen [Percocet] 5-325 mg tablet 1 tab PO Q6H PRN (Reason: pain) 7 Days Qty: 28 0RF ondansetron 4 mg tablet,disintegrating 4 mg PO Q8H PRN (Reason: nausea and vomiting) 5 Days Qty: 15 0RF tizanidine 2 mg tablet 2 mg PO TID PRN (Reason: muscle spasticity) 7 Days Qty: 21 0RF Follow Up Appointments: Dec.27 @ 9:40am with Dr. Cadet [phone] Activity: return to work once cleared by your PCP/specialist Diet: advance to your usual diet Patient Instructions: Iron Supplements (By mouth), Hydrocodone/Acetaminophen (By mouth), Tizanidine (By mouth), Pregabalin (By mouth) Discharge Date/Time: 12/22/23 11:43
[2023-12-22] MEDS: MULTIVITAMIN TABLET 1 TAB PO (09:39)
[2023-12-22] MEDS: ASPIRIN 81 MG TABLET.DR PO (09:39)
[2023-12-22] MEDS: FERROUS SULFATE 325 MG TABLET PO (09:39)
[2023-12-22] MEDS: CALCIUM CARBONATE 600 MG TABLET PO (09:39)
[2023-12-22] MEDS: CHOLECALCIFEROL (VITAMIN D3) 125 MCG/5000 UNIT TABLET PO (09:42)
[2023-12-22] MEDS: OMEPRAZOLE 40 MG CAPSULE.DR PO (09:43)
[2023-12-22] MEDS: PREGABALIN 75 MG CAPSULE PO (09:45)
--- NOTE | 2023-12-22 10:53 | PM.PN ---
Progress Note: Subjective Subjective Interval history: POV 2 TTC fusion for comminuted pilon fx. Pain better improved with increased Lyrica. she would like to be discharged home today. She denies calf pain and chest pain as well as no shortness of breath Exam Narrative Exam Narrative: splint is clean dry and intact In the wiggle toes without pain and capillary refill is brisk. Light touch sensation remains altered to plantar aspect of toes No calf pain on squeeze Constitutional Vital Signs, click to edit/add: Last Vital Signs Temp 97.9 F 12/22/23 05:10 Pulse 65 12/22/23 05:10 Resp 18 12/22/23 08:00 BP 110/72 12/22/23 05:10 Pulse Ox 96 12/22/23 05:10 O2 Del Method Room Air 12/22/23 05:10 O2 Flow Rate 2 12/20/23 21:05 Progress Note: Objective Labs Labs: Short CBC 12/22/23 Range/Units 04:35 WBC 12.9 H (4.0-11.0) 10^3/uL Hgb 9.5 L (12.0-16.0) g/dL Hct 29.3 L (36.0-48.0) % Plt Count 447 (150-450) 10^3/uL BMP 12/22/23 04:35 Sodium 139 Potassium 4.1 Chloride 106 Carbon Dioxide 24.8 BUN 11.0 Creatinine 0.82 Glucose 93 Calcium 8.8 Progress Note: A&P Assessment and Plan (1) GERD without esophagitis: (2) Displaced fracture of lateral malleolus of right fibula, initial encounter for closed fracture: Onset Date: ~12/09/23 Plan patient seen and evaluated at bedside and reviewed plan with her PCP, Dr. Mcdaniel who will prescribe Lyrica Patient has related that the oxycodone/Percocet while at home as well as admitted did not seem to help all that much therefore I recommended that we transition to [place] as an outpatient and a paper prescription was placed on the chart for: [place] 5/325 i or ii PO q4h prn pain #40 with no refills Patient also requested a refill for muscle relaxer which we started prior to her most recent surgery: zanaflex 4mg i PO q8h prn spasm #40 I along discussion with the patient and her regarding deep vein thrombosis prophylaxis. They related that they must go through [facility] as they do not have prescription coverage with her insurance. Both xarelto & eliquis would cost ~$600 for a month. Lovenox would cost ~$150. However, patient is adamant that she would not be able to inject herself and her has a strong phobia against needles. She denied personal or family history of blood clots and I explained that the combination of recent lower extremity trauma, two surgeries and nonweightbearing does increase her risk of deep vein thrombosis. I explained that deep vein thrombosis in the calf are typically not life-threatening development of a PE could be very serious and life-threatening. Patient understands the risk and has elected to forego Lovenox and will take aspirin daily. I recommended that the patient regularly move her knee and hip for active range of motion exercises and is to be out of bed several times a day as pain allows. Patient has a follow-up next week for splint change and possible transition to fiberglass cast She will be nonweightbearing for 6-8 weeks Ok with d/c home today under 's care
--- OUTSIDE RECORDS SUMMARY | 2023-12-27 12:23 | XMS_ITS | CCD ---
Author Name Unknown Address [address] [place] [address] Organization [facility] Care Team Providers Care Cardiac Catheterization Technician Name Role Phone MARÍA ., DR CAMARA [...] to 66on 01-03-2023 . . Normal [facility] Comment on above: Result Comment: Perf ormed at: WB Performed By: #### [id number] #### [facility] [address] [place] [address] Dr. Marga Fernandez Age Gdln ACOG Testing 30-65 Normal [facility] Comment on above: Performed By: #### 4 [id number] #### [facility] [address] [place] [address] Dr. Marga Fernandez DIAGNOSIS: Comment Normal [facility] Comment on above: Result Comment: NEGA TIVE FOR INTRAEPITHELIAL LESION OR MALIGNANCY. Performed at: WB Performed By: #### [id number] #### [facility] [address] [place] [address] Dr. Marga Fernandez HPV Aptima Negative Normal Negative [facility] Comment on above: Result Comment: This nucleic acid amplification test detects fourteen high-risk HPV types (16,18,31,33,35,39,45,51,52,56,58,59,66,68) without differentiation. Performed at: =G Performed By: #### 4 [id number] #### [facility] [address] [place] [address] Dr. Marga Fernandez HPV Genotype Reflex Comment Normal [facility] Comment on above: Result Comment: Crit eria not met, HPV Genotype not performed. Performed at: WB Performed By: #### 4 [id number] #### [facility] [address] [place] [address] Dr. Marga Fernandez Methodology: Comment Normal [facility] Comment on above: Result Comment: This liquid based ThinPrep(R) pap test was screened with the use of an image guided system. Performed at: WB Performed By: #### 4 [id number] #### [facility] [address] [place] [address] Dr. Marga Fernandez Note: Comment Normal [facility] Comment on above: Result Comment: The Pap smear is a screening test designed to aid in the detection of premalignant and malignant conditions of the uterine cervix. It is not a diagnostic procedure and should not be used as the sole means of detecting cervical cancer. Both false-positive and false-negative reports do occur. . Performed at: WB Performed By: #### 4 [id number] #### [facility] [address] [address] [address] Marga Fernandez Performed by: Comment Normal [facility] Comment on above: Result Comment: Diamond Isaac, Stack Matcher (ASCP) Performed at: WB Performed By: #### 4 [id number] #### [facility] [address] [place], [place] [address] Dr. Marga Fernandez Specimen adequacy: Comment Normal [facility] Comment on above: Result Comment: Sati sfactory for evaluation. No endocervical component is identified. Performed at: WB Performed By: #### 4 [id number] #### [facility] [address] [address] [address] Marga Fernandez US PELVISon 01-03-2023 US [...] by: RAYMOND ROBERTS Date: 2023-01-03 11:49 Normal [facility] CT ABD/PELV W CONon 12-13-19 [...] SANDI MORGAN Date: 2022-12-13 11:41 Normal [facility] CULTURE URINEon 12-13-2022 CULTURE URINE Culture Observations : NO GROWTH. Normal [facility] Comment on above: Performed By: #### U RCX #### [facility] [address] [place] [address] Dr. Marga Fernandez UA RANDOM W/MICROSCOPICon BACTERIA NONE SEEN Normal NONE SEEN [facility] Comment on above: Performed By: #### U AMIC #### [facility] [address] [address] [address] Marga Fernandez Bilirubin Ql (U) Negative Normal NEGATIVE [facility] Comment on above: Performed By: #### U AMIC #### [facility] [address] [address] [address] Marga Fernandez CAST NONE SEEN Normal NONE SEEN [facility] Comment on above: Performed By: #### U AMIC #### [facility] [address] [address] [address] Marga Fernandez Clarity (U) CLEAR Normal CLEAR [facility] Comment on above: Performed By: #### U AMIC #### [facility] [address] [address] [address] Marga Fernandez Color (U) LT. YELLOW Normal YELLOW [facility] Comment on above: Performed By: #### U AMIC #### [facility] [address] [address] [address] Marga Fernandez Crystals LM Nom (Urine sed) NONE SEEN Normal NONE SEEN [facility] Comment on above: Performed By: #### U AMIC #### [facility] [address] [address] [address] Marga Fernandez Epithelial cells LM Ql (Urine sed) RARE Normal NONE SEEN /RARE [facility] Comment on above: Performed By: #### U AMIC #### [facility] [address] [address] [address] Marga Fernandez Glucose Ql (U) Negative Normal NEGATIVE [facility] Comment on above: Performed By: #### U AMIC #### [facility] [address] [address] [address] Marga Fernandez Hemoglobin Ql (U) Negative Normal NEGATIVE [facility] Comment on above: Performed By: #### U AMIC #### [facility] [address] [address] [address] Marga Fernandez Ketones Ql (U) Negative Normal NEGATIVE [facility] Comment on above: Performed By: #### U AMIC #### [facility] [address] [address] [address] Marga Fernandez LEUKOCYTES Negative Normal NEGATIVE [facility] Comment on above: Performed By: #### U AMIC #### [facility] [address] [place] [address] Dr. Marga Fernandez MUCOUS NONE SEEN Normal NONE SEEN [facility] Comment on above: Performed By: #### U AMIC #### [facility] [address] [address] [address] Marga Fernandez Nitrite Ql (U) Negative Normal NEGATIVE [facility] Comment on above: Performed By: #### U AMIC #### [facility] [address] [place] [address] Dr. Marga Fernandez pH (U) 6.5 [pH] Normal 5-9 [facility] Comment on above: Performed By: #### U AMIC #### [facility] [address] [place] [address] Dr. Marga Fernandez RBC NONE SEEN Abnormal 0-2 [facility] Comment on above: Performed By: #### U AMIC #### [facility] [address] [place] [address] Dr. Marga Fernandez SPEC GRAVITY <=1.005 Abnormal 1.005-<=1.025 [facility] Comment on above: Performed By: #### U AMIC #### [facility] [address] [place] [address] Dr. Marga Fernandez UA PROTEIN Negative Normal NEGATIVE/ TRACE [facility] Comment on above: Performed By: #### U AMIC #### [facility] [address] [place] [address] Dr. Marga Fernandez Urobilinogen Qn (U) 0.2 {Wero'U}/dL Normal 0.2 - 1. 0 [facility] Comment on above: Performed By: #### U AMIC #### [facility] [address] [place] [address] Dr. Marga Fernandez WBC NONE SEEN Normal NONE SEEN [facility] Comment on above: Performed By: #### U AMIC #### [facility] [address] [place] [address] Dr. Marga Fernandez US SINGLE QUAD RT [...] by: RAYMOND GALVAN Date: 2022-09-28 08:46 Normal [facility] Encounters Encounter Date Encounter Type Care Provider Facility Start: 01-03-2023 End: 01-04-[address] HOA DANIEL . Facility: Start: 12-28-2022 End: 12-28-[address] HOA DANIEL . Facility:[facility] Start: 12-13-2022 End: 12-14-[address] TANVI LOPEZ . Facility:[facility] Start: 09-28-2022 End: 09-29-[address] TANVI LOPEZ . Facility:[facility] Payers Date Payer Category Payer Unknown [id number] 1980 Unknown [id number] 1980 Unknown [id number] 1980 Unknown [id number] 1959 Unknown [id number] 1958 Unknown [id number] Summary Purpose Family History No Family History Records Found Advance Directives No Advanced Directives Records Found Additional Source Comments INFORMATION SOURCE (unrecogn ized section and content) DATE CREATED AUTHOR 03/08/2023 [facility]DS PERTAINING TO PATIENTS WHO [...] BE BASED ON THE PRIMARY CLINICAL RECORDS. [facility]. provides no warranty or guarantee of the accuracy or completeness of information in this document.
== END 2023-12-22 11:43 | disposition home or self-care (01) ==
LOC: SURGOUT 12-27 12:19 → MS 12-27 12:19
PROVIDERS: Admitting Provider Podiatrist Foot & Ankle Surgery; PCP Family Medicine; Visit Provider Podiatrist Foot & Ankle Surgery
PROC: (CPT 1462; principal; 2023-12-20 10:00)
DX: S82.871A Displaced pilon fracture of right tibia, initial encounter for closed fracture (principal); S93.04XA Dislocation of right ankle joint, initial encounter; Z96.9 Presence of functional implant, unspecified; F17.210 Nicotine dependence, cigarettes, uncomplicated; Z79.82 Long term (current) use of aspirin; Z79.899 Other long term (current) drug therapy; Z90.49 Acquired absence of other specified parts of digestive tract; Z90.711 Acquired absence of uterus with remaining cervical stump; K21.9 Gastro-esophageal reflux disease without esophagitis; Z86.16 Personal history of COVID-19; D50.9 Iron deficiency anemia, unspecified; D62 Acute posthemorrhagic anemia; E83.51 Hypocalcemia; D72.829 Elevated white blood cell count, unspecified; D69.6 Thrombocytopenia, unspecified; T14.90XA Injury, unspecified, initial encounter; Y93.23 Activity, snow (alpine) (downhill) skiing, snowboarding, sledding, tobogganing and snow tubing
CPT/HCPCS: 20694; 27606; 27870; 28725; 36415; 64445; 64447; 76000; 80048; 80053; 82948; 85025; 96365; 96366; 96372; 96375; 96376; C1713; C1776; G0378; J0690; J1100; J1170; J1650; J1885; J2250; J2405; J2704; J2795

== ENCOUNTER 2024-01-09 09:47 | Outpatient (OUT) | payer OTHER, SELFPAY ==
--- NOTE | 2024-01-09 | XR_ITS ---
The [address] [address] Patient Name: ANNALEE VIDAL MRN: [id number] date: 1980 Sex: F Assigned Patient Location: Current Patient Location: Accession/Order Number: [id number] Exam Date: 01/09/2024 10:05 Report Date: 01/11/2024 06:34 At the request of: MALKA MAXWELL Procedure: XR ankle RT min 3V PROCEDURE: XR ankle RT min 3V HISTORY: RIGHT ANKLE PAIN COMPARISON: XR ankle right 12/10/2023 FINDINGS: BONES:Prior mechanical fusion of the ankle joint and hindfoot via intramedullary brittnee and locking screws. Interval removal of external fixation hardware, distal fibula plate and screws, and resection of lateral malleolus. Fracture line of medial malleolus is still visible. SOFT TISSUES:Mild swelling surrounding the ankle. EFFUSION:None visible. OTHER: Negative. XR/XR ankle RT min 3V IMPRESSION: 1. Ankle and hindfoot fusion. 2. Surgical changes and revision of some prior hardware fixation. Electronically authenticated by: LARON ZAMBRANO Date: 01/11/2024 06:34
--- OUTSIDE RECORDS SUMMARY | 2024-01-09 09:54 | XMS_ITS | CCD ---
Author Name Unknown Address [address] [place] [address] Organization [facility] Care Team Providers Care Audio/Video Technician Name Role Phone MARÍA ., DR [...] to 66on 01-03-2023 . . Normal [facility] Comment on above: Result Comment: Perf ormed at: WB Performed By: #### 4 [id number] #### [facility] [address] [place] [address] Dr. Marga Fernandez Age Gdln ACOG Testing 30-65 Normal [facility] Comment on above: Performed By: #### 4 [id number] #### [facility] [address] [place] [address] Dr. Marga Fernandez DIAGNOSIS: Comment Normal [facility] Comment on above: Result Comment: NEGA TIVE FOR INTRAEPITHELIAL LESION OR MALIGNANCY. Performed at: WB Performed By: #### 4 [id number] #### [facility] [address] [place] [address] Dr. Marga Fernandez HPV Aptima Negative Normal Negative [facility] Comment on above: Result Comment: This nucleic acid amplification test detects fourteen high-risk HPV types (16,18,31,33,35,39,45,51,52,56,58,59,66,68) without differentiation. Performed at: =G Performed By: #### 4 [id number] #### [facility] [address] [place] [address] Dr. Marga Fernandez HPV Genotype Reflex Comment Normal [facility] Comment on above: Result Comment: Crit eria not met, HPV Genotype not performed. Performed at: WB Performed By: #### 4 [id number] #### [facility] [address] [place] [address] Dr. Marga Fenrandez Methodology: Comment Normal [facility] Comment on above: Result Comment: This liquid based ThinPrep(R) pap test was screened with the use of an image guided system. Performed at: WB Performed By: #### 4 [id number] #### [facility] [address] [place] [address] Dr. Marga Fernandez Note: Comment Normal [facility] Comment on above: Result Comment: The Pap smear is a screening test designed to aid in the detection of premalignant and malignant conditions of the uterine cervix. It is not a diagnostic procedure and should not be used as the sole means of detecting cervical cancer. Both false-positive and false-negative reports do occur. . Performed at: WB Performed By: #### 4 [id number] #### [facility] [address] [address] [address] Marga Fernandez Performed by: Comment Normal [facility] Comment on above: Result Comment: Diamond Isaac, Guitar Repairer (ASCP) Performed at: WB Performed By: #### 4 [id number] #### [facility] [address] [place], [place] [address] Dr. Marga Fernandez Specimen adequacy: Comment Normal [facility] Comment on above: Result Comment: Sati sfactory for evaluation. No endocervical component is identified. Performed at: WB Performed By: #### 4 [id number] #### [facility] [address] [address] [address] Marga Fernandez US PELVISon 01-03-2023 US [...] by: RAYMOND ROBERTS Date: 2023-01-03 11:49 Normal [facility] CT ABD/PELV W CONon 12-13-19 23 [...] SANDI MORGAN Date: 2022-12-13 11:41 Normal [facility] CULTURE URINEon 12-13-2022 CULTURE URINE Culture Observations : NO GROWTH. Normal [facility] Comment on above: Performed By: #### U RCX #### [facility] [address] [place] [address] Dr. Marga Fernandez UA RANDOM W/MICROSCOPICon BACTERIA NONE SEEN Normal NONE SEEN [facility] Comment on above: Performed By: #### U AMIC #### [facility] [address] [address] [address] Marga Fernandez Bilirubin Ql (U) Negative Normal NEGATIVE [facility] Comment on above: Performed By: #### U AMIC #### [facility] [address] [address] [address] Marga Fernandez CAST NONE SEEN Normal NONE SEEN [facility] Comment on above: Performed By: #### U AMIC #### [facility] [address] [address] [address] Marga Fernandez Clarity (U) CLEAR Normal CLEAR [facility] Comment on above: Performed By: #### U AMIC #### [facility] [address] [address] [address] Marga Fernandez Color (U) LT. YELLOW Normal YELLOW [facility] Comment on above: Performed By: #### U AMIC #### [facility] [address] [address] [address] Marga Fernandez Crystals LM Nom (Urine sed) NONE SEEN Normal NONE SEEN [facility] Comment on above: Performed By: #### U AMIC #### [facility] [address] [address] [address] Marga Fernandez Epithelial cells LM Ql (Urine sed) RARE Normal NONE SEEN /RARE [facility] Comment on above: Performed By: #### U AMIC #### [facility] [address] [address] [address] Marga Fernandez Glucose Ql (U) Negative Normal NEGATIVE [facility] Comment on above: Performed By: #### U AMIC #### [facility] [address] [address] [address] Marga Fernandez Hemoglobin Ql (U) Negative Normal NEGATIVE [facility] Comment on above: Performed By: #### U AMIC #### [facility] [address] [address] [address] Marga Fernandez Ketones Ql (U) Negative Normal NEGATIVE [facility] Comment on above: Performed By: #### U AMIC #### [facility] [address] [address] [address] Marga Fernandez LEUKOCYTES Negative Normal NEGATIVE [facility] Comment on above: Performed By: #### U AMIC #### [facility] [address] [place] [address] Dr. Marga Fernandez MUCOUS NONE SEEN Normal NONE SEEN [facility] Comment on above: Performed By: #### U AMIC #### [facility] [address] [address] [address] Marga Fernandez Nitrite Ql (U) Negative Normal NEGATIVE [facility] Comment on above: Performed By: #### U AMIC #### [facility] [address] [place] [address] Dr. Marga Fernandez pH (U) 6.5 [pH] Normal 5-9 [facility] Comment on above: Performed By: #### U AMIC #### [facility] [address] [place] [address] Dr. Marga Fernandez RBC NONE SEEN Abnormal 0-2 [facility] Comment on above: Performed By: #### U AMIC #### [facility] [address] [place] [address] Dr. Marga Fernandez SPEC GRAVITY <=1.005 Abnormal 1.005-<=1.025 [facility] Comment on above: Performed By: #### U AMIC #### [facility] [address] [place] [address] Dr. Marga Fernandez UA PROTEIN Negative Normal NEGATIVE/ TRACE [facility] Comment on above: Performed By: #### U AMIC #### [facility] [address] [place] [address] Dr. Marga Fernandez Urobilinogen Qn (U) 0.2 {Wero'U}/dL Normal 0.2 - 1. 0 [facility] Comment on above: Performed By: #### U AMIC #### [facility] [address] [place] [address] Dr. Marga Fernandez WBC NONE SEEN Normal NONE SEEN [facility] Comment on above: Performed By: #### U AMIC #### [facility] [address] [place] [address] Dr. Marga Fernandez US SINGLE QUAD RT [...] by: RAYMOND GALVAN Date: 2022-09-28 08:46 Normal [facility] Encounters Encounter Date Encounter Type Care Provider Facility Start: 01-03-2023 End: 01-04-[address] HOA DANIEL . Facility: Start: 12-28-2022 End: 12-28-[address] HOA DANIEL . Facility:[facility] Start: 12-13-2022 End: 12-14-[address] TANVI LOPEZ . Facility:[facility] Start: 09-28-2022 End: 09-29-[address] TANVI LOPEZ . Facility:[facility] Payers Date Payer Category Payer Unknown [id number] 1980 Unknown [id number] 1980 Unknown [id number] 1980 Unknown [id number] 1959 Unknown [id number] 1958 Unknown [id number] Summary Purpose Family History No Family History Records Found Advance Directives No Advanced Directives Records Found Additional Source Comments INFORMATION SOURCE (unrecogn ized section and content) DATE CREATED AUTHOR 03/08/2023 [facility] PERTAINING TO PATIENTS WHO [...] BE BASED ON THE PRIMARY CLINICAL RECORDS. [facility]. provides no warranty or guarantee of the accuracy or completeness of information in this document.
== END 2024-01-09 09:48 | disposition home or self-care (01) ==
LOC: EC 09:47
PROVIDERS: PCP Family Medicine; Visit Provider Podiatrist Foot & Ankle Surgery
DX: M25.571 Pain in right ankle and joints of right foot (principal)
CPT/HCPCS: 73610

== ENCOUNTER 2024-01-11 09:59 | Outpatient (OUT) | payer OTHER, SELFPAY ==
--- NOTE | 2024-01-11 10:04 | XR_ITS ---
The [address] [address] Patient Name: ANNALEE VIDAL MRN: [id number] date: 1980 Sex: F Assigned Patient Location: [facility] Current Patient Location: Accession/Order Number: [id number] Exam Date: 01/11/2024 10:10 Report Date: 01/12/2024 08:59 At the request of: TANVI LOPEZ Procedure: XR foot RT min 3V PROCEDURE: XR foot RT min 3V HISTORY: Foot Pain M79.673 ; first metatarsal pain COMPARISON: XR ankle right 01/09/2024 FINDINGS: BONES:Joint space narrowing of the first metatarsophalangeal joint. No fracture or dislocation. Prior mechanical fusion of the ankle joint and hindfoot. Resection of lateral malleolus. SOFT TISSUES:No visible soft tissue swelling. EFFUSION:None visible. OTHER: Negative. XR/XR foot RT min 3V IMPRESSION: 1. Mild degenerative change of first metatarsophalangeal joint which may account for patient's symptoms. 2. Grossly stable ankle and hindfoot fusion. Electronically authenticated by: LARON ZAMBRANO Date: 01/12/2024 08:59
--- OUTSIDE RECORDS SUMMARY | 2024-01-11 10:12 | XMS_ITS | CCD ---
Author Name Unknown Address [address] [place] [address] Organization [facility] Care Team Providers Care Epidemiology Intern Name Role Phone MARÍA ., DR CAMARA [...] to 66on 01-03-2023 . . Normal [facility] Comment on above: Result Comment: Perf ormed at: WB Performed By: #### [id number] #### [facility] [address] [place] [address] Dr. Marga Fernandez Age Gdln ACOG Testing 30-65 Normal [facility] Comment on above: Performed By: #### [id number] #### [facility] [address] [place] [address] Dr. Marga Fernandez DIAGNOSIS: Comment Normal [facility] Comment on above: Result Comment: NEGA TIVE FOR INTRAEPITHELIAL LESION OR MALIGNANCY. Performed at: WB Performed By: #### [id number] #### [facility] [address] [place] [address] Dr. Marga Fernandez HPV Aptima Negative Normal Negative [facility] Comment on above: Result Comment: This nucleic acid amplification test detects fourteen high-risk HPV types (16,18,31,33,35,39,45,51,52,56,58,59,66,68) without differentiation. Performed at: =G Performed By: #### [id number] #### [facility] [address] [place] [address] Dr. Marga Fernandez HPV Genotype Reflex Comment Normal [facility] Comment on above: Result Comment: Crit eria not met, HPV Genotype not performed. Performed at: WB Performed By: #### [id number] #### [facility] [address] [place] [address] Dr. Marga Fernandez Methodology: Comment Normal [facility] Comment on above: Result Comment: This liquid based ThinPrep(R) pap test was screened with the use of an image guided system. Performed at: WB Performed By: #### 4 [id number] #### [facility] [address] [place] [address] Dr. Marga Fernandez Note: Comment Normal [facility] Comment on above: Result Comment: The Pap smear is a screening test designed to aid in the detection of premalignant and malignant conditions of the uterine cervix. It is not a diagnostic procedure and should not be used as the sole means of detecting cervical cancer. Both false-positive and false-negative reports do occur. . Performed at: WB Performed By: #### 4 [id number] #### [facility] [address] [address] [address] Marga Fernandez Performed by: Comment Normal [facility] Comment on above: Result Comment: Diamond Isaac, Process Improvement Manager (ASCP) Performed at: WB Performed By: #### [id number] #### [facility] [address] [place], [place] [address] Dr. Marga Fernandez Specimen adequacy: Comment Normal [facility] Comment on above: Result Comment: Sati sfactory for evaluation. No endocervical component is identified. Performed at: WB Performed By: #### 4 [id number] #### [facility] [address] [address] [address] Marga Fernandez US PELVISon 01-03-2023 US [...] by: RAYMOND ROBERTS Date: 2023-01-03 11:49 Normal [facility] CT ABD/PELV W CONon 12-13-[address] [...] SANDI MORGAN Date: 2022-12-13 11:[address] [facility] CULTURE URINEon 12-13-2022 CULTURE URINE Culture Observations : NO GROWTH. Normal [facility] Comment on above: Performed By: #### U RCX #### [facility] [address] [place] [address] Dr. Marga Fernandez UA RANDOM W/MICROSCOPICon BACTERIA NONE SEEN Normal NONE SEEN [facility] Comment on above: Performed By: #### U AMIC #### [facility] [address] [address] [address] Marga Fernandez Bilirubin Ql (U) Negative Normal NEGATIVE [facility] Comment on above: Performed By: #### U AMIC #### [facility] [address] [address] [address] Marga Fernandez CAST NONE SEEN Normal NONE SEEN [facility] Comment on above: Performed By: #### U AMIC #### [facility] [address] [address] [address] Marga Fernandez Clarity (U) CLEAR Normal CLEAR [facility] Comment on above: Performed By: #### U AMIC #### [facility] [address] [address] [address] Marga Fernandez Color (U) LT. YELLOW Normal YELLOW [facility] Comment on above: Performed By: #### U AMIC #### [facility] [address] [address] [address] Marga Fernandez Crystals LM Nom (Urine sed) NONE SEEN Normal NONE SEEN [facility] Comment on above: Performed By: #### U AMIC #### [facility] [address] [address] [address] Marga Fernandez Epithelial cells LM Ql (Urine sed) RARE Normal NONE SEEN /RARE [facility] Comment on above: Performed By: #### U AMIC #### [facility] [address] [address] [address] Marga Fernandez Glucose Ql (U) Negative Normal NEGATIVE [facility] Comment on above: Performed By: #### U AMIC #### [facility] [address] [address] [address] Marga Fernandez Hemoglobin Ql (U) Negative Normal NEGATIVE The [facility] Comment on above: Performed By: #### U AMIC #### [facility] [address] [address] [address] Marga Fernandez Ketones Ql (U) Negative Normal NEGATIVE [facility] Comment on above: Performed By: #### U AMIC #### [facility] [address] [address] [address] Marga Fernandez LEUKOCYTES Negative Normal NEGATIVE [facility] Comment on above: Performed By: #### U AMIC #### [facility] [address] [place] [address] Dr. Marga Fernandez MUCOUS NONE SEEN Normal NONE SEEN [facility] Comment on above: Performed By: #### U AMIC #### [facility] [address] [address] [address] Marga Fernandez Nitrite Ql (U) Negative Normal NEGATIVE [facility] Comment on above: Performed By: #### U AMIC #### [facility] [address] [place] [address] Dr. Marga Fernandez pH (U) 6.5 [pH] Normal 5-[address] [facility] Comment on above: Performed By: #### U AMIC #### [facility] [address] [place] [address] Dr. Marga Fernandez RBC NONE SEEN Abnormal 0-[address] [facility] Comment on above: Performed By: #### U AMIC #### [facility] [address] [place] [address] Dr. Marga Fernandez SPEC GRAVITY <=1.005 Abnormal 1.005-<=1.025 [facility] Comment on above: Performed By: #### U AMIC #### [facility] [address] [place] [address] Dr. Marga Fernandez UA PROTEIN Negative Normal NEGATIVE/ TRACE [facility] Comment on above: Performed By: #### U AMIC #### [facility] [address] [place] [address] Dr. Marga Fernandez Urobilinogen Qn (U) 0.2 {Wero'U}/dL Normal 0.2 - 1. [address] [facility] Comment on above: Performed By: #### U AMIC #### [facility] [address] [place] [address] Dr. Marga Fernandez WBC NONE SEEN Normal NONE SEEN [facility] Comment on above: Performed By: #### U AMIC #### [facility] [address] [place] [address] Dr. Marga Fernandez US SINGLE QUAD RT [...] by: RAYMOND GALVAN Date: 2022-09-28 08:46 Normal [facility] Encounters Encounter Date Encounter Type Care Provider Facility Start: 01-03-2023 End: 01-04-[address] HOA DANIEL . Facility: Start: 12-28-2022 End: 12-28-[address] HOA DANIEL . Facility:[facility] Start: 12-13-2022 End: 12-14-[address] TANVI LOPEZ . Facility:[facility] Start: 09-28-2022 End: 09-29-[address] TANVI LOPEZ . Facility:[facility] Payers Date Payer Category Payer Unknown [id number] 1980 Unknown [id number] 1981 Unknown [id number] .[id number] 1981 Unknown [id number] 2.16.84 [id number] 1959 Unknown [id number] 1959 Unknown [id number] Summary Purpose Family History No Family History Records Found Advance Directives No Advanced Directives Records Found Additional Source Comments INFORMATION SOURCE (unrecogn ized section and content) DATE CREATED AUTHOR 03/08/2023 [facility]ERTAINING TO PATIENTS WHO [...] BE BASED ON THE PRIMARY CLINICAL RECORDS. [employer] [facility]. provides no warranty or guarantee of the accuracy or completeness of information in this document.
== END 2024-01-11 10:00 | disposition home or self-care (01) ==
LOC: RAD 10:00
PROVIDERS: PCP Family Medicine; Visit Provider Family Medicine
DX: M79.673 Pain in unspecified foot (principal); Z98.890 Other specified postprocedural states
CPT/HCPCS: 73630

== ENCOUNTER 2024-01-22 11:17 | Outpatient (OUT) | payer OTHER, SELFPAY ==
--- NOTE | 2024-01-22 | XR_ITS ---
The [address] [address] Patient Name: ANNALEE VIDAL MRN: [id number] date: 1980 Sex: F Assigned Patient Location: Current Patient Location: Accession/Order Number: [id number] Exam Date: 01/22/2024 11:20 Report Date: 01/22/2024 12:06 At the request of: MALKA MAXWELL Procedure: XR ankle RT min 3V PROCEDURE: XR ankle RT min 3V COMPARISON: 01/09/2024, 12/10/2023 HISTORY: RIGHT ANKLE PAIN FINDINGS: BONES:Stable ankle fusion utilizing an retrograde intramedullary nail and proximally and distally. Stable complex intra-articular distal tibia fracture with slight increase in overall sclerosis consistent with healing. Remote distal fibular resection SOFT TISSUES:Moderate ankle soft tissue swelling EFFUSION:None visible. OTHER: Negative. XR/XR ankle RT min 3V IMPRESSION: Stable ankle fusion and complex healing distal tibia fracture Electronically authenticated by: RAYMOND ROBERTS Date: 01/22/2024 12:06
--- OUTSIDE RECORDS SUMMARY | 2024-01-22 11:20 | XMS_ITS | CCD ---
Author Name Unknown Address [address] [place] [address] Organization [facility] Care Team Providers Care Ems Manager Name Role Phone MARÍA ., DR CAMARA [...] to 66on 01-03-2023 . . Normal [facility] Comment on above: Result Comment: Perf ormed at: WB Performed By: #### [id number] #### [facility] [address] [place] [address] Dr. Marga Fernandez Age Gdln ACOG Testing 30-65 Normal [facility] Comment on above: Performed By: #### 4 [id number] #### [facility] [address] [place] [address] Dr. Marga Fernandez DIAGNOSIS: Comment Normal [facility] Comment on above: Result Comment: NEGA TIVE FOR INTRAEPITHELIAL LESION OR MALIGNANCY. Performed at: WB Performed By: #### 4 [id number] #### [facility] [address] [place] [address] Dr. Marga Fernandez HPV Aptima Negative Normal Negative [facility] Comment on above: Result Comment: This nucleic acid amplification test detects fourteen high-risk HPV types (16,18,31,33,35,39,45,51,52,56,58,59,66,68) without differentiation. Performed at: =G Performed By: #### 4 [id number] #### [facility] [address] [place] [address] Dr. Marga Fernandez HPV Genotype Reflex Comment Normal [facility] Comment on above: Result Comment: Crit eria not met, HPV Genotype not performed. Performed at: WB Performed By: #### 4 [id number] #### [facility] [address] [place] [address] Dr. Marga Fernandez Methodology: Comment Normal [facility] Comment on above: Result Comment: This liquid based ThinPrep(R) pap test was screened with the use of an image guided system. Performed at: WB Performed By: #### 4 [id number] #### [facility] [address] [place] [address] Dr. Marga Fernandez Note: Comment Normal [facility] Comment on above: Result Comment: The Pap smear is a screening test designed to aid in the detection of premalignant and malignant conditions of the uterine cervix. It is not a diagnostic procedure and should not be used as the sole means of detecting cervical cancer. Both false-positive and false-negative reports do occur. . Performed at: WB Performed By: #### 4 [id number] #### [facility] [address] [address] [address] Marga Fernandez Performed by: Comment Normal [facility] Comment on above: Result Comment: Diamond Isaac, Crime Victim Specialist (ASCP) Performed at: WB Performed By: #### 4 [id number] #### [facility] [address] [place], [place] [address] Dr. Marga Fernandez Specimen adequacy: Comment Normal [facility] Comment on above: Result Comment: Sati sfactory for evaluation. No endocervical component is identified. Performed at: WB Performed By: #### 4 [id number] #### [facility] [address] [address] [address] Marga Fernandez US PELVISon 01-03-2023 US [...] by: RAYMOND ROBERTS Date: 2023-01-03 11:49 Normal [facility] CT ABD/PELV W CONon 12-13-19 23 [...] SANDI MORGAN Date: 2022-12-13 11:41 Normal [facility] CULTURE URINEon 12-13-2022 CULTURE URINE Culture Observations : NO GROWTH. Normal [facility] Comment on above: Performed By: #### U RCX #### [facility] [address] [place] [address] Dr. Marga Fernandez UA RANDOM W/MICROSCOPICon BACTERIA NONE SEEN Normal NONE SEEN [facility] Comment on above: Performed By: #### U AMIC #### [facility] [address] [address] [address] Marga Fernandez Bilirubin Ql (U) Negative Normal NEGATIVE [facility] Comment on above: Performed By: #### U AMIC #### [facility] [address] [address] [address] Marga Fernandez CAST NONE SEEN Normal NONE SEEN [facility] Comment on above: Performed By: #### U AMIC #### [facility] [address] [address] [address] Marga Fernandez Clarity (U) CLEAR Normal CLEAR [facility] Comment on above: Performed By: #### U AMIC #### [facility] [address] [address] [address] Marga Fernandez Color (U) LT. YELLOW Normal YELLOW [facility] Comment on above: Performed By: #### U AMIC #### [facility] [address] [address] [address] Marga Fernandez Crystals LM Nom (Urine sed) NONE SEEN Normal NONE SEEN [facility] Comment on above: Performed By: #### U AMIC #### [facility] [address] [address] [address] Marga Fernandez Epithelial cells LM Ql (Urine sed) RARE Normal NONE SEEN /RARE [facility] Comment on above: Performed By: #### U AMIC #### [facility] [address] [address] [address] Marga Fernandez Glucose Ql (U) Negative Normal NEGATIVE [facility] Comment on above: Performed By: #### U AMIC #### [facility] [address] [address] [address] Marga Fernandez Hemoglobin Ql (U) Negative Normal NEGATIVE The [facility] Comment on above: Performed By: #### U AMIC #### [facility] [address] [address] [address] Marga Fernandez Ketones Ql (U) Negative Normal NEGATIVE [facility] Comment on above: Performed By: #### U AMIC #### [facility] [address] [address] [address] Marga Fernandez LEUKOCYTES Negative Normal NEGATIVE [facility] Comment on above: Performed By: #### U AMIC #### [facility] [address] [place] [address] Dr. Marga Fernandez MUCOUS NONE SEEN Normal NONE SEEN [facility] Comment on above: Performed By: #### U AMIC #### [facility] [address] [address] [address] Marga Fernandez Nitrite Ql (U) Negative Normal NEGATIVE [facility] Comment on above: Performed By: #### U AMIC #### [facility] [address] [place] [address] Dr. Marga Fernandez pH (U) 6.5 [pH] Normal 5-9 [facility] Comment on above: Performed By: #### U AMIC #### [facility] [address] [place] [address] Dr. Marga Fernandez RBC NONE SEEN Abnormal 0-2 [facility] Comment on above: Performed By: #### U AMIC #### [facility] [address] [place] [address] Dr. Marga Fernandez SPEC GRAVITY <=1.005 Abnormal 1.005-<=1.025 The [facility] Comment on above: Performed By: #### U AMIC #### [facility] [address] [place] [address] Dr. Marga Fernandez UA PROTEIN Negative Normal NEGATIVE/ TRACE [facility] Comment on above: Performed By: #### U AMIC #### [facility] [address] [place] [address] Dr. Marga Fernandez Urobilinogen Qn (U) 0.2 {Wero'U}/dL Normal 0.2 - 1. 0 [facility] Comment on above: Performed By: #### U AMIC #### [facility] [address] [place] [address] Dr. Marga Fernandez WBC NONE SEEN Normal NONE SEEN [facility] Comment on above: Performed By: #### U AMIC #### [facility] [address] [place] [address] Dr. Marga Fernandez US SINGLE QUAD RT [...] by: RAYMOND GALVAN Date: 2022-09-28 08:46 Normal [facility] Encounters Encounter Date Encounter Type Care Provider Facility Start: 01-03-2023 End: 01-04-[address] HOA DANIEL . Facility: Start: 12-28-2022 End: 12-28-[address] HOA DANIEL . Facility:[facility] Start: 12-13-2022 End: 12-14-[address] TANVI LOPEZ . Facility:[facility] Start: 09-28-2022 End: 09-29-[address] TANVI LOPEZ . Facility:[facility] Payers Date Payer Category Payer Unknown [id number] 1980 Unknown [id number] 1981 Unknown [id number] .[id number] [id number] 1981 Unknown [id number] 2.16.84 [id number] 1959 Unknown [id number] 1958 Unknown [id number] Summary Purpose Family History No Family History Records Found Advance Directives No Advanced Directives Records Found Additional Source Comments INFORMATION SOURCE (unrecogn ized section and content) DATE CREATED AUTHOR 03/08/2023 [facility]DS PERTAINING TO PATIENTS WHO [...] BE BASED ON THE PRIMARY CLINICAL RECORDS. [employer] [facility]. provides no warranty or guarantee of the accuracy or completeness of information in this document.
== END 2024-01-22 11:18 | disposition home or self-care (01) ==
LOC: EC 11:17
PROVIDERS: PCP Family Medicine; Visit Provider Podiatrist Foot & Ankle Surgery
DX: S82.61XD Displaced fracture of lateral malleolus of right fibula, subsequent encounter for closed fracture with routine healing (principal)
CPT/HCPCS: 73610

== ENCOUNTER 2024-02-04 12:47 | Outpatient (OUT) | payer OTHER, SELFPAY ==
--- OUTSIDE RECORDS SUMMARY | 2024-02-04 13:06 | XMS_ITS | CCD ---
Author Name Unknown Address [address] [place] [address] Organization [facility] Care Team Providers Care Branch Lending Manager Name Role Phone MARÍA ., DR [...] CAMARA Attending Unavailabl e KARASIK ., DR ACMARA Consulting Unavailabl e ALEJANDRA, DR RAYMOND Orantes [...] to 66on 01-03-2023 . . Normal [facility] Comment on above: Result Comment: Perf ormed at: WB Performed By: #### [id number] #### [facility] [address] [place] [address] Dr. Marga Fernandez Age Gdln ACOG Testing 30-65 [address] [facility] Comment on above: Performed By: #### [id number] #### [facility] [address] [place] [address] Dr. Marga Fernandez DIAGNOSIS: Comment Normal [facility] Comment on above: Result Comment: NEGA TIVE FOR INTRAEPITHELIAL LESION OR MALIGNANCY. Performed at: WB Performed By: #### [id number] #### [facility] [address] [place] [address] Dr. Marga Fernandez HPV Aptima Negative Normal Negative [facility] Comment on above: Result Comment: This nucleic acid amplification test detects fourteen high-risk HPV types (16,18,31,33,35,39,45,51,52,56,58,59,66,68) without differentiation. Performed at: =G Performed By: #### [id number] #### [facility] [address] [place] [address] Dr. Marga Fernandez HPV Genotype Reflex Comment Normal [facility] Comment on above: Result Comment: Crit eria not met, HPV Genotype not performed. Performed at: WB Performed By: #### [id number] #### [facility] [address] [place] [address] Dr. Marga Fernandez Methodology: Comment Normal [facility] Comment on above: Result Comment: This liquid based ThinPrep(R) pap test was screened with the use of an image guided system. Performed at: WB Performed By: #### [id number] #### [facility] [address] [place] [address] Dr. Marga Fernandez Note: Comment Normal [facility] Comment on above: Result Comment: The Pap smear is a screening test designed to aid in the detection of premalignant and malignant conditions of the uterine cervix. It is not a diagnostic procedure and should not be used as the sole means of detecting cervical cancer. Both false-positive and false-negative reports do occur. . Performed at: WB Performed By: #### [id number] #### [facility] [address] [address] [address] Marga Fernandez Performed by: Comment Normal [facility] Comment on above: Result Comment: Diamond Isaac, State Assessed Properties Director (ASCP) Performed at: WB Performed By: #### [id number] #### [facility] [address] [place], [place] [address] Dr. Marga Fernandez Specimen adequacy: Comment Normal [facility] Comment on above: Result Comment: Sati sfactory for evaluation. No endocervical component is identified. Performed at: WB Performed By: #### [id number] #### [facility] [address] [address] [address] Marga Fernandez US PELVISon 01-03-2023 US [...] by: RAYMOND ROBERTS Date: 2023-01-03 11:[address] [facility] CT ABD/PELV W CONon 12-13-[address] [...] SANDI MORGAN Date: 2022-12-13 11:41 Normal [facility] CULTURE URINEon 12-13-2022 CULTURE URINE Culture Observations : NO GROWTH. Normal [facility] Comment on above: Performed By: #### U RCX #### [facility] [address] [place] [address] Dr. Marga Fernandez UA RANDOM W/MICROSCOPICon BACTERIA NONE SEEN Normal NONE SEEN [facility] Comment on above: Performed By: #### U AMIC #### [facility] [address] [address] [address] Marga Fernandez Bilirubin Ql (U) Negative Normal NEGATIVE [facility] Comment on above: Performed By: #### U AMIC #### [facility] [address] [address] [address] Marga Fernandez CAST NONE SEEN Normal NONE SEEN [facility] Comment on above: Performed By: #### U AMIC #### [facility] [address] [address] [address] Marga Fernandez Clarity (U) CLEAR Normal CLEAR [facility] Comment on above: Performed By: #### U AMIC #### [facility] [address] [address] [address] Marga Fernandez Color (U) LT. YELLOW Normal YELLOW [facility] Comment on above: Performed By: #### U AMIC #### [facility] [address] [address] [address] Marga Fernandez Crystals LM Nom (Urine sed) NONE SEEN Normal NONE SEEN [facility] Comment on above: Performed By: #### U AMIC #### [facility] [address] [address] [address] Marga Fernandez Epithelial cells LM Ql (Urine sed) RARE Normal NONE SEEN /RARE [facility] Comment on above: Performed By: #### U AMIC #### [facility] [address] [address] [address] Marga Fernandez Glucose Ql (U) Negative Normal NEGATIVE [facility] Comment on above: Performed By: #### U AMIC #### [facility] [address] [address] [address] Marga Fernandez Hemoglobin Ql (U) Negative Normal NEGATIVE [facility] Comment on above: Performed By: #### U AMIC #### [facility] [address] [address] [address] Marga Fernandez Ketones Ql (U) Negative Normal NEGATIVE [facility] Comment on above: Performed By: #### U AMIC #### [facility] [address] [address] [address] Marga Fernandez LEUKOCYTES Negative Normal NEGATIVE [facility] Comment on above: Performed By: #### U AMIC #### [facility] [address] [place] [address] Dr. Marga Fernandez MUCOUS NONE SEEN Normal NONE SEEN [facility] Comment on above: Performed By: #### U AMIC #### [facility] [address] [address] [address] Marga Fernandez Nitrite Ql (U) Negative Normal NEGATIVE [facility] Comment on above: Performed By: #### U AMIC #### [facility] [address] [place] [address] Dr. Marga Fernandez pH (U) 6.5 [pH] Normal 5-9 [facility] Comment on above: Performed By: #### U AMIC #### [facility] [address] [place] [address] Dr. Marga Fernandez RBC NONE SEEN Abnormal 0-2 [facility] Comment on above: Performed By: #### U AMIC #### [facility] [address] [place] [address] Dr. Marga Fernandez SPEC GRAVITY <=1.005 Abnormal 1.005-<=1.025 [facility] Comment on above: Performed By: #### U AMIC #### [facility] [address] [place] [address] Dr. Marga Fernandez UA PROTEIN Negative Normal NEGATIVE/ TRACE [facility] Comment on above: Performed By: #### U AMIC #### [facility] [address] [place] [address] Dr. Marga Fernandez Urobilinogen Qn (U) 0.2 {Wero'U}/dL Normal 0.2 - 1. 0 [facility] Comment on above: Performed By: #### U AMIC #### [facility] [address] [place] [address] Dr. Marga Fernandez WBC NONE SEEN Normal NONE SEEN [facility] Comment on above: Performed By: #### U AMIC #### [facility] [address] [place] [address] Dr. Marga Fernandez US SINGLE QUAD RT [...] by: RAYMOND GALVAN Date: 2022-09-28 08:[address] [facility] Encounters Encounter Date Encounter Type Care Provider Facility Start: 01-03-2023 End: 01-04-[address] HOA DANIEL . Facility: Start: 12-28-2022 End: 12-28-[address] HOA DANIEL . Facility[facility] Start: 12-13-2022 End: 12-14-[address] TANVI LOPEZ . Facility:[facility] Start: 09-28-2022 End: 09-29-[address] TANVI LOPEZ . Facility[facility] Payers Date Payer Category Payer Unknown [id number] 1980 Unknown [id number] 1980 Unknown [id number] 1980 Unknown [id number] 1958 Unknown [id number] 1958 Unknown [id number] Summary Purpose Family History No Family History Records Found Advance Directives No Advanced Directives Records Found Additional Source Comments INFORMATION SOURCE (unrecogn ized section and content) DATE CREATED AUTHOR 03/08/2023 [facility] PERTAINING TO PATIENTS WHO [...] BE BASED ON THE PRIMARY CLINICAL RECORDS. [facility]. provides no warranty or guarantee of the accuracy or completeness of information in this document.
--- NOTE | 2024-02-04 14:36 | PM.CN ---
Consult Note: HPI Data of Consult Patient: new to practice Consult date: 02/04/24 Requesting Physician: Enrique Cartagena MD Primary Care Provider: Jorge Luis Mcdaniel MD Consult Narrative Reason for consult: right foot pain Narrative: 43yof who presents for evaluation. right foot and ankle pain. had sledding accident and subsequently underwent multiple foot surgeries, but continues to have significant pain throughout right foot. endorses significant tenderness, swelling, color changes, temperature changes, muscle loss. utilizing percocet, lyrica. denies adverse med side effects. cc:: CC: Enrique Cartagena MD Review of Systems ROS Status of ROS 10 or more systems reviewed and unremarkable except as noted in history and below [facility] Medical History GERD (gastroesophageal reflux disease) ?K21.9 - Gastro-esophageal reflux disease without esophagitis (ICD-10) COVID-19 ?U07.1 - COVID-19 (ICD-10) Displaced fracture of lateral malleolus of right fibula, initial encounter for closed fracture (~12/09/23) ?S82.61XA - Displaced fracture of lateral malleolus of right fibula, initial encounter for closed fracture (ICD-10) Surgical History History of open reduction and internal fixation (ORIF) procedure ?Z98.890 - Other specified postprocedural states (ICD-10) History of appendectomy ?Z90.49 - Acquired absence of other specified parts of digestive tract (ICD-10) History of partial hysterectomy ?Z90.711 - Acquired absence of uterus with remaining cervical stump (ICD-10) Family History Father Heart disease Social History Within the past year, how often did you have a drink containing alcohol: never Score interpretation: A score less than 3 is consistent with normal alcohol consumption. Smoking status: Current some day smoker Non-prescribed substance use: denies use Highest level of school completed/degree received: Associate degree: occupational, technical, vocational program Meds Home Medications and Allergies Home Medications Medication Instructions Recorded Confirmed Type multivitamin (Daily Multi-Vitamin 1 tab PO DAILY 12/09/23 12/20/23 History tablet) pantoprazole 40 mg tablet,delayed 40 mg PO QDAY 12/09/23 12/20/23 History release aspirin 81 mg tablet,delayed 81 mg PO BID 30 days #60 tabs 12/11/23 12/20/23 Rx release (Adult Low Dose Aspirin) cefadroxil 500 mg capsule 500 mg PO BID 2 weeks #28 caps 12/11/23 12/20/23 Rx docusate sodium 100 mg capsule 100 mg PO BID PRN constipation 7 12/11/23 12/20/23 Rx (Colace) days #14 caps ondansetron 4 mg disintegrating 4 mg PO Q8H PRN nausea and 12/11/23 12/20/23 Rx tablet vomiting 5 days #15 tabs oxycodone-acetaminophen 5 mg-325 1 tab PO Q6H PRN pain 7 days #28 12/11/23 12/20/23 Rx mg tablet (Percocet) tabs tizanidine 2 mg tablet 2 mg PO TID PRN muscle spasticity 12/11/23 12/20/23 Rx 7 days #21 tabs calcium carbonate 600 mg calcium 600 mg PO BID #60 tabs 12/21/23 Rx (1,500 mg) tablet cholecalciferol (vitamin D3) 50 50 mcg PO DAILY #30 tabs 12/21/23 Rx mcg (2,000 unit) tablet (Vitamin D3) ferrous sulfate 325 mg (65 mg 325 mg PO BID #60 tabs 12/21/23 Rx iron) tablet pregabalin 75 mg capsule (Lyrica) 75 mg PO Q8H #30 caps 12/22/23 Rx Allergies Allergy/AdvReac Type Severity Reaction Status Date / Time iodine Allergy Intermediate Rash Verified 12/20/23 08:30 Exam Narrative Exam Narrative: Psych-alert and oriented x 3.? Attentive and appropriate, constitutionally normal, displays normal mood and affect per situation.? There are no obvious deficits in memory, reasoning, or intellect. Examination of the right lower extremity reveals notable hyperpathia and allodynia.? Notable atrophy and diffuse weakness present in the extremity.? There is notable shiny skin with hair loss and abnormal hair growth denoting trophic changes presently.? Asymmetric color and temperature changes are present which denotes sudomotor changes.? Decreased range of motion and strength is noted in the extremity.? Coordination remains intact.? Gait remains non-antalgic. Assessment and Plan Assessment and Plan (1) Complex regional pain syndrome i of right lower limb: (2) Right foot pain: Plan 43yof who presents for evaluation. failed conservative measures. at this point, would like her to undergo RLE EMG. discussed possibility of lumbar sympathetic nerve block vs right distal sciatic vs scs. meds reviewed. will trial zonegran 100mg qhs. follow up after EMG.
== END 2024-02-04 12:48 | disposition home or self-care (01) ==
LOC: PM 12:47
PROVIDERS: PCP Family Medicine; Visit Provider Anesthesiology
DX: G90.521 Complex regional pain syndrome I of right lower limb (principal); M79.671 Pain in right foot
CPT/HCPCS: G0463

== ENCOUNTER 2024-02-12 10:37 | Outpatient (OUT) | payer OTHER, SELFPAY ==
--- NOTE | 2024-02-12 | XR_ITS ---
The [address] [address] Patient Name: ANNALEE VIDAL MRN: [id number] date: 1980 Sex: F Assigned Patient Location: Current Patient Location: Accession/Order Number: [id number] Exam Date: 02/12/2024 10:40 Report Date: 02/12/2024 13:30 At the request of: MALKA MAXWELL Procedure: XR ankle RT min 3V PROCEDURE: XR ankle RT min 3V COMPARISON: 01/22/2024 HISTORY: RIGHT ANKLE PAIN FINDINGS: BONES:Stable ankle fusion utilizing a retrograde intramedullary nail and proximally and distally. Severe degenerative changes. Healing grossly stable distal tibial fractures. Remote resection of the distal fibula. Heterotopic bone formation. SOFT TISSUES:Mild soft tissue swelling EFFUSION:None visible. OTHER: Negative. XR/XR ankle RT min 3V IMPRESSION: Stable ankle fusion with no mechanical failure Electronically authenticated by: RAYMOND ROBERTS Date: 02/12/2024 13:30
--- OUTSIDE RECORDS SUMMARY | 2024-02-12 10:41 | XMS_ITS | CCD ---
Author Organization [facility] Care Team Providers Care Walking Dragline Oiler Name Role Phone MARÍA ., DR CAMARA Admitting Unavailabl e KARASIK ., DR CAMARA Attending Unavailabl e KARASIK ., DR CAMARA Consulting Unavailabl e HOY ., DR TINAJERO Primary Care Unavailable HOY ., DR TINAJERO Consulting Unavailable HOY ., DR TINAJERO Primary Care Unavailable HOY ., DR TINAJERO Admitting Unavailable HOY ., DR TINAJERO Attending Unavailable RAYMOND GALVAN Consulting Unavailable HOGama ., DR TINAJERO Primary Care Unavailable MINH MIRELES Admitting Unavailable CHI, MINH Attending Unavailable MINH MIRELES Consulting Unavailable SANDI MORGAN Consulting Unavailable KARASIK ., DR CAMARA Admitting Unavailabl e HOY ., DR TINAJERO Primary Care Unavailable KARASIK ., DR CAMARA Attending Unavailabl e KARASIK ., DR CAMARA Consulting Unavailabl e WEST, DR RAYMOND Orantes Consulting Unavailable Osiel LUNA, Enrique Walker Attending Unavailable Problems Problem Classification Problem Date Documented [...] to 66on 01-03-2023 . . Normal [facility] Comment on above: Result Comment: Perf ormed at: WB Performed By: #### [id number] #### [facility] [address] [address] [address] Marga Fernandez Age Gdln ACOG Testing 30-65 Normal [facility] Comment on above: Performed By: #### [id number] #### [facility] [address] [address] [address] Marga Fernandez DIAGNOSIS: Comment Normal [facility] Comment on above: Result Comment: NEGA TIVE FOR INTRAEPITHELIAL LESION OR MALIGNANCY. Performed at: WB Performed By: #### [id number] #### [facility] [address] [address] [address] Marga Fernandez HPV Aptima Negative Normal Negative [facility] Comment on above: Result Comment: This nucleic acid amplification test detects fourteen high-risk HPV types (16,18,31,33,35,39,45,51,52,56,58,59,66,68) without differentiation. Performed at: =G Performed By: #### [id number] #### [facility] [address] [place] [address] Dr. Marga Fernandez HPV Genotype Reflex Comment Normal [facility] Comment on above: Result Comment: Crit eria not met, HPV Genotype not performed. Performed at: WB Performed By: #### [id number] #### [facility] [address] [place] [address] Dr. Marga Fernandez Methodology: Comment Normal [facility] Comment on above: Result Comment: This liquid based ThinPrep(R) pap test was screened with the use of an image guided system. Performed at: WB Performed By: #### [id number] #### [facility] [address] [place] [address] Dr. Marga Fernandez Note: Comment Normal [facility] Comment on above: Result Comment: The Pap smear is a screening test designed to aid in the detection of premalignant and malignant conditions of the uterine cervix. It is not a diagnostic procedure and should not be used as the sole means of detecting cervical cancer. Both false-positive and false-negative reports do occur. . Performed at: WB Performed By: #### [id number] #### [facility] [address] [place], [place] [address] Dr. Marga Fernandez Performed by: Comment Normal [facility] Comment on above: Result Comment: Diamond Isaac, Hunter (ASCP) Performed at: WB Performed By: #### 4 [id number] #### [facility] [address] [place], [place] [address] Dr. Marga Fernandez Specimen adequacy: Comment Normal The [facility] Comment on above: Result Comment: Sati sfactory for evaluation. No endocervical component is identified. Performed at: WB Performed By: #### 4 [id number] #### [facility] [address] [address] [address] Marga Fernandez US PELVISon 01-03-2023 US [...] by: RAYMOND ROBERTS Date: 2023-01-03 11:49 Normal [facility] CT ABD/PELV W CONon 12-13-[address] [...] SANDI MORGAN Date: 2022-12-13 11:41 Normal [facility] CULTURE URINEon 12-13-2022 CULTURE URINE Culture Observations : NO GROWTH. Normal [facility] Comment on above: Performed By: #### U RCX #### [facility] [address] [place] [address] Dr. Marga Fernandez UA RANDOM W/MICROSCOPICon BACTERIA NONE SEEN Normal NONE SEEN [facility] Comment on above: Performed By: #### U AMIC #### [facility] [address] [address] [address] Marga Fernandez Bilirubin Ql (U) Negative Normal NEGATIVE The [facility] Comment on above: Performed By: #### U AMIC #### [facility] [address] [address] [address] Marga Fernandez CAST NONE SEEN Normal NONE SEEN [facility] Comment on above: Performed By: #### U AMIC #### [facility] [address] [address] [address] Marga Fernandez Clarity (U) CLEAR Normal CLEAR [facility] Comment on above: Performed By: #### U AMIC #### [facility] [address] [address] [address] Marga Fernandez Color (U) LT. YELLOW Normal YELLOW [facility] Comment on above: Performed By: #### U AMIC #### [facility] [address] [address] [address] Marga Fernandez Crystals LM Nom (Urine sed) NONE SEEN Normal NONE SEEN [facility] Comment on above: Performed By: #### U AMIC #### [facility] [address] [address] [address] Marga Fernandez Epithelial cells LM Ql (Urine sed) RARE Normal NONE SEEN /RARE [facility] Comment on above: Performed By: #### U AMIC #### [facility] [address] [address] [address] Marga Fernandez Glucose Ql (U) Negative Normal NEGATIVE [facility] Comment on above: Performed By: #### U AMIC #### [facility] [address] [address] [address] Marga Fernandez Hemoglobin Ql (U) Negative Normal NEGATIVE [facility] Comment on above: Performed By: #### U AMIC #### [facility] [address] [place] [address] Dr. Marga Fernandez Ketones Ql (U) Negative Normal NEGATIVE [facility] Comment on above: Performed By: #### U AMIC #### [facility] [address] [address] [address] Marga Fernandez LEUKOCYTES Negative Normal NEGATIVE [facility] Comment on above: Performed By: #### U AMIC #### [facility] [address] [address] [address] Marga Fernandez MUCOUS NONE SEEN Normal NONE SEEN [facility] Comment on above: Performed By: #### U AMIC #### [facility] [address] [address] [address] Marga Fernandez Nitrite Ql (U) Negative Normal NEGATIVE [facility] Comment on above: Performed By: #### U AMIC #### [facility] [address] [address] [address] Marga Fernandez pH (U) 6.5 [pH] Normal 5-9 [facility] Comment on above: Performed By: #### U AMIC #### [facility] [address] [place] [address] Dr. Marga Fernandez RBC NONE SEEN Abnormal 0-2 [facility] Comment on above: Performed By: #### U AMIC #### [facility] [address] [place] [address] Dr. Marga Fernandez SPEC GRAVITY <=1.005 Abnormal 1.005-<=1.[address] [facility] Comment on above: Performed By: #### U AMIC #### [facility] [address] [place] [address] Dr. Marga Fernandez UA PROTEIN Negative Normal NEGATIVE/ TRACE [facility] Comment on above: Performed By: #### U AMIC #### [facility] [address] [place] [address] Dr. Marga Fernandez Urobilinogen Qn (U) 0.2 {Wero'U}/dL Normal 0.2 - 1. 0 [facility] Comment on above: Performed By: #### U AMIC #### [facility] [address] [place] [address] Dr. Marga Fernandez WBC NONE SEEN Normal NONE SEEN [facility] Comment on above: Performed By: #### U AMIC #### [facility] [address] [place] [address] Dr. Marga Fernandez US SINGLE QUAD RT [...] by: RAYMOND GALVAN Date: 2022-09-28 08:46 Normal [facility] Encounters Encounter Date Encounter Type Care Provider Facility Start: 02-04-2024 End: 02-05-2024 ambulatory Enrique Cartagena MD Facility: [facility] Start: 01-03-2023 End: 01-04-[address] HOA DANIEL . Facility: Start: 12-28-2022 End: 12-28-[address] HOA DANIEL . Facility: Start: 12-13-2022 End: 12-14-[address] TANVI LOPEZ . Facility: Start: 09-28-2022 End: 09-29-[address] TANVI LOPEZ . Facility: Payers Date Payer Category Payer Unknown 1980 Unknown [id number] 2.16.84 [id number] 1980 Unknown [id number] 2.16.84 [id number] 1981 Unknown [id number] 2.16.84 [id number] 1981 Unknown [id number] 2.16.84 [id number] 1981 Unknown [id number] 1959 Unknown [id number] 1959 Unknown [id number] Summary Purpose Family History No Family History Records FoundNo Family History Records Found Advance Directives No Advanced Directives Records FoundNo Advanced Directives Records Found Additional Source Comments INFORMATION SOURCE (unrecogn ized section and content) DATE CREATED AUTHOR 03/08/2023 [facility] DATE CREATED AUTHOR AUTHOR'S ORGANIZ ATION 02/08/2024 [facility] FOR RECORDS PERTAINING TO PATIENTS WHO ARE [...] BE BASED ON THE PRIMARY CLINICAL RECORDS. [facility]. provides no warranty or guarantee of the accuracy or completeness of information in this document.
== END 2024-02-12 10:38 | disposition home or self-care (01) ==
LOC: EC 10:37
PROVIDERS: PCP Family Medicine; Visit Provider Podiatrist Foot & Ankle Surgery
DX: S82.871D Displaced pilon fracture of right tibia, subsequent encounter for closed fracture with routine healing (principal)
CPT/HCPCS: 73610

== ENCOUNTER 2024-02-18 13:06 | Outpatient (OUT) | payer OTHER, SELFPAY ==
--- NOTE | 2024-02-18 14:10 | P.CN_ITS ---
Consult Note: HPI Data of Consult Patient: known to practice within the last 3 years Consult date: 02/18/24 Requesting Physician: Enrique Cartagena MD Primary Care Provider: Jorge Luis Mcdaniel MD Consult Narrative Reason for consult: right foot pain Narrative: 43yof who presents for assessment. significant persistent right foot pain. recently had emg, which is significant for severe nerve damage of multiple nerves in foot. no acute radiculopathy noted. has tried various medications, including percocet, lyrica, without benefit. no further surgeries necessary, per her foot surgeon. continues to have temperature fluctuations, color changes, significant sensitivity and pain in right foot. denies adverse med side effects. cc:: CC: Enrique Cartagena MD Review of Systems ROS Status of ROS 10 or more systems reviewed and unremark able except as noted in history and below [facility] Medical History GERD (gastroesophageal reflux disease) ?K21.9 - Gastro-esophageal reflux disease without esophagitis (ICD-10) COVID-19 ?U07.1 - COVID-19 (ICD-10) Displaced fracture of lateral malleolus of right fibula, initial encounter for closed fracture (~12/09/23) ?S82.61XA - Displaced fracture of lateral malleolus of right fibula, initial encounter for closed fracture (ICD-10) Surgical History History of open reduction and internal fixation (ORIF) procedure ?Z98.890 - Other specified postprocedural states (ICD-10) History of appendectomy ?Z90.49 - Acquired absence of other specified parts of digestive tract (ICD-1 0) History of partial hysterectomy ?Z90.711 - Acquired absence of uterus with remaining cervical stump (ICD-10) Family History Father Heart disease Social History Within the past year, how often did you have a drink containing alcohol: never Score interpretation: A score less than 3 is consistent with normal alcohol c onsumption. Smoking status: Current some day smoker Non-prescribed substance use: denies use Highest level of school completed/degree received: Associate degree: occupational, technical, vocational program Meds Home Medications and Allergies Home Medications ?Medication ?Instructions ?Recorded ?Confirmed ?Type multivitamin (Daily Multi-Vitamin 1 tab PO DAILY 12/09/23 12/20/23 History tablet) pantoprazole 40 mg tablet,delayed 40 mg PO QDAY 12/09/23 12/20/23 History release cefadroxil 500 mg capsule 500 mg PO BID 2 weeks #28 caps 12/11/23 12/20/23 Rx oxycodone-acetaminophen 5 mg-325 1 tab PO Q6H PRN pain 7 days #28 12/11/23 12/20/23 Rx mg tablet (Percocet) tabs calcium carbonate 600 mg calcium 600 mg PO BID #60 tabs 12/21/23 Rx (1,500 mg) tablet cholecalciferol (vitamin D3) 50 50 mcg PO DAILY #30 tabs 12/21/23 Rx mcg (2,000 unit) tablet (Vitamin D3) ferrous sulfate 325 mg (65 mg 325 mg PO BID #60 tabs 12/21/23 Rx iron) tablet pregabalin 75 mg capsule (Lyrica) 75 mg PO Q8H #30 caps 12/22/23 Rx vitamin B12 0.5 mg-folic acid 1 mg 1 tab PO DAILY 02/04/24 02/04/24 History tablet zonisamide 100 mg capsule 100 mg PO DAILY 02/04/24 02/04/24 History (Zonegran) Allergies Allergy/AdvReac Type Severity Reaction Status Date / Time iodine Allergy Intermediate Rash Verified 12/20/23 08:30 Exam Narrative Exam Narrative: Psych-alert and oriented x 3.? Attentive and appropriate, constitutionally normal, displays normal mood and affect per situation.? There are no obvious deficits in memory, reasoning, or intellect. Examination of the right extremity reveals notable hyperpathia and allodynia.? Notable atrophy and diffuse weakness present in the extremity.? There is notable shiny skin with hair loss and abnormal hair growth denoting trophic changes presently.? Asymmetric color and temperature changes are present which denotes sudomotor changes.? Decreased range of motion and strength is noted in the extremity.? Coordination remains intact.? Gait remains non-antalgic. Assessment and Plan Assessment and Plan (1) Complex regional pain syndrome i of right lower limb: Plan 43yof who presents for assessment. worsening right foot pain, as noted. failed physical and medical modalities, as noted. given symptoms and imaging, will have her undergo right lumbar sympathetic nerve blocks x2 with IVCS. she is in agreement. meds reviewed, no changes. will prescribe desensitization therapy twice weekly for 4-6 weeks. follow up after procedures.
== END 2024-02-18 13:07 | disposition home or self-care (01) ==
LOC: PM 13:07
PROVIDERS: PCP Family Medicine; Visit Provider Anesthesiology
DX: G90.521 Complex regional pain syndrome I of right lower limb (principal)
CPT/HCPCS: G0463

== ENCOUNTER 2024-03-10 07:15 | Day surgery (SDC) | payer OTHER, SELFPAY ==
--- OUTSIDE RECORDS SUMMARY | 2024-03-10 07:17 | XMS_ITS | CCD ---
Author Organization [facility] Care Team Providers Care Knowledge Engineer Name Role Phone MARÍA ., DR CAMARA [...] MINH Attending Unavailable MINH MIRELES Consulting Unavailable CATHY, SANDI Consulting Unavailable KARASIK ., DR CAMARA Admitting Unavailabl e HOY ., DR TINAJERO Primary Care Unavailable KARASIK ., DR CAMARA Attending Unavailabl e KARASIK ., DR CAMARA Consulting Unavailabl e WEST, DR RAYMOND Orantes Consulting Unavailable Osiel LUNA, Enrique Walker Attending Unavailable Osiel LUNA, Enrique Walker Attending Unavailable [...] 30 to 65on 01-03-2023 . . Normal [facility] Comment on above: Result Comment: Perf ormed at: WB Performed By: #### [id number] #### [facility] [address] [place] [address] Dr. Marga Fernandez Age Gdln ACOG Testing 30-65 [facility] Comment on above: Performed By: #### [id number] #### [facility] [address] [address] [address] Marga Fernandez DIAGNOSIS: Comment Normal [facility] Comment on above: Result Comment: NEGA TIVE FOR INTRAEPITHELIAL LESION OR MALIGNANCY. Performed at: WB Performed By: #### 4 [id number] #### [facility] [address] [address] [address] Marga Fernandez HPV Aptima Negative Normal Negative [facility] Comment on above: Result Comment: This nucleic acid amplification test detects fourteen high-risk HPV types (16,18,31,33,35,39,45,51,52,56,58,59,66,68) without differentiation. Performed at: =G Performed By: #### 4 [id number] #### [facility] [address] [address] [address] Marga Fernandez HPV Genotype Reflex Comment Normal [facility] Comment on above: Result Comment: Crit eria not met, HPV Genotype not performed. Performed at: WB Performed By: #### 4 [id number] #### [facility] [address] [place] [address] Dr. Marga Fernandez Methodology: Comment [facility] Comment on above: Result Comment: This liquid based ThinPrep(R) pap test was screened with the use of an image guided system. Performed at: WB Performed By: #### 4 [id number] #### [facility] [address] [place] [address] Dr. Marga Fernandez Note: Comment Normal [facility] Comment on above: Result Comment: The Pap smear is a screening test designed to aid in the detection of premalignant and malignant conditions of the uterine cervix. It is not a diagnostic procedure and should not be used as the sole means of detecting cervical cancer. Both false-positive and false-negative reports do occur. . Performed at: WB Performed By: #### [id number] #### [facility] [address] [place] [address] Dr. Marga Fernandez Performed by: Comment Normal [facility] Comment on above: Result Comment: Diamond Isaac, Ordnance Technician (ASCP) Performed at: WB Performed By: #### 4 [id number] #### [facility] [address] [place] [address] Dr. Marga Fernandez Specimen adequacy: Comment Normal [facility] Comment on above: Result Comment: Sati sfactory for evaluation. No endocervical component is identified. Performed at: WB Performed By: #### [id number] #### [facility] [address] [place] [address] Dr. Marga Fernandez US PELVISon 01-03-2023 US [...] by: RAYMOND ROBERTS Date: 2023-01-03 11:49 Normal [facility] CT ABD/PELV W CONon 12-13-19 [...] SANDI MORGAN Date: 2022-12-13 11:41 Normal [facility] CULTURE URINEon 12-13-2022 CULTURE URINE Culture Observations : NO GROWTH. Normal [facility] Comment on above: Performed By: #### U RCX #### [facility] [address] [place] [address] Dr. Marga Fernandez UA RANDOM W/MICROSCOPICon BACTERIA NONE SEEN Normal NONE SEEN [facility] Comment on above: Performed By: #### U AMIC #### [facility] [address] [address] [address] Marga Fernandez Bilirubin Ql (U) Negative Normal NEGATIVE [facility] Comment on above: Performed By: #### U AMIC #### [facility] [address] [address] [address] Marga Fernandez CAST NONE SEEN Normal NONE SEEN [facility] Comment on above: Performed By: #### U AMIC #### [facility] [address] [address] [address] Marga Fernandez Clarity (U) CLEAR Normal CLEAR [facility] Comment on above: Performed By: #### U AMIC #### [facility] [address] [place] [address] Dr. Marga Fernandez Color (U) LT. YELLOW Normal YELLOW [facility] Comment on above: Performed By: #### U AMIC #### [facility] [address] [place] [address] Dr. Marga Fernandez Crystals LM Nom (Urine sed) NONE SEEN Normal NONE SEEN [facility] Comment on above: Performed By: #### U AMIC #### [facility] [address] [place] [address] Dr. Marga Fernandez Epithelial cells LM Ql (Urine sed) RARE Normal NONE SEEN /RARE [facility] Comment on above: Performed By: #### U AMIC #### [facility] [address] [address] [address] Marga Fernandez Glucose Ql (U) Negative Normal NEGATIVE [facility] Comment on above: Performed By: #### U AMIC #### [facility] [address] [address] [address] Marga Fernandez Hemoglobin Ql (U) Negative Normal NEGATIVE [facility] Comment on above: Performed By: #### U AMIC #### [facility] [address] [place] [address] Dr. Marga Fernandez Ketones Ql (U) Negative Normal NEGATIVE [facility] Comment on above: Performed By: #### U AMIC #### [facility] [address] [place] [address] Dr. Marga Fernandez LEUKOCYTES Negative Normal NEGATIVE [facility] Comment on above: Performed By: #### U AMIC #### [facility] [address] [place] [address] Dr. Marga Fernandez MUCOUS NONE SEEN Normal NONE SEEN [facility] Comment on above: Performed By: #### U AMIC #### [facility] [address] [address] [address] Marga Fernandez Nitrite Ql (U) Negative Normal NEGATIVE [facility] Comment on above: Performed By: #### U AMIC #### [facility] [address] [place] [address] Dr. Marga Fernandez pH (U) 6.5 [pH] Normal 5-9 [facility] Comment on above: Performed By: #### U AMIC #### [facility] [address] [place] [address] Dr. Marga Fernandez RBC NONE SEEN Abnormal 0-2 [facility] Comment on above: Performed By: #### U AMIC #### [facility] [address] [place] [address] Dr. Marga Fernandez SPEC GRAVITY <=1.005 Abnormal 1.005-<=1.025 [facility] Comment on above: Performed By: #### U AMIC #### [facility] [address] [place] [address] Dr. Marga Fernandez UA PROTEIN Negative Normal NEGATIVE/ TRACE [facility] Comment on above: Performed By: #### U AMIC #### [facility] [address] [place] [address] Dr. Marga Fernandez Urobilinogen Qn (U) 0.2 {Wero'U}/dL Normal 0.2 - 1. 0 [facility] Comment on above: Performed By: #### U AMIC #### [facility] [address] [place] [address] Dr. Marga Fernandez WBC NONE SEEN Normal NONE SEEN [facility] Comment on above: Performed By: #### U AMIC #### [facility] [address] [address] [address] Marga Fernandez US SINGLE QUAD RT [...] by: RAYMOND GALVAN Date: 2022-09-28 08:46 Normal [facility] Encounters Encounter Date Encounter Type Care Provider Facility Start: 02-18-2024 End: 02-19-2024 ambulatory Enrique Cartagena MD Facility: [facility] Start: 02-04-2024 End: 02-05-2024 ambulatory Enrique Cartagena MD Facility: [facility] Start: 01-03-2023 End: 01-04-[address] HOA DANIEL . Facility: Start: 12-28-2022 End: 12-28-[address] HOA DANIEL . Facility: Start: 12-13-2022 End: 12-14-[address] TANVI LOPEZ . Facility: Start: 09-28-2022 End: 09-29-[address] TANVI LOPEZ . Facility:[facility] Payers Date Payer Category Payer Unknown 1980 Unknown [id number] 2.16.84 [id number] 1980 Unknown [id number] 2.16.84 [id number] 1981 Unknown [id number] 2.16.84 [id number] 1981 Unknown [id number] 2.16.84 [id number] 1981 Unknown [id number] 2.16. [id number] 1981 Unknown [id number] 2.16. [id number] 1959 Unknown [id number] 1959 Unknown [id number] Summary Purpose Family History No Family History Records FoundNo Family History Records Found Advance Directives No Advanced Directives Records FoundNo Advanced Directives Records Found Additional Source Comments INFORMATION SOURCE (unrecogn ized section and content) DATE CREATED AUTHOR 03/08/2023 [facility] DATE CREATED AUTHOR 'Serjio SKINNER 02/26/2024 [facility] FOR RECORDS PERTAINING TO PATIENTS WHO ARE [...] BE BASED ON THE PRIMARY CLINICAL RECORDS. [facility] [address] [facility]. provides no warranty or guarantee of the accuracy or completeness of information in this document.
[2024-03-10 07:37] VITALS: BP 111/76; PULSE 90; TEMP 36.8; O2SAT 99
[2024-03-10 08:34] VITALS: BP 118/72; PULSE 86; O2SAT 96
[2024-03-10 08:35] VITALS: BP 115/73; PULSE 81; O2SAT 97
--- NOTE | 2024-03-10 08:38 | W.PM.PROCNOT ---
Date of procedure: 03/10/24 Pre-op diagnosis: Right lower extremity CRPS, type 1 Post-op diagnosis: same as pre-op Procedure: Procedure: Right lumbar sympathetic nerve block Medications: Bupivacaine 0.25% 4cc, normal saline 0.9% 4cc, kenalog 80mg The patient was seen and examined in the preoperative holding area.? Informed consent was obtained and placed on the chart.? Patient was brought to the medical procedure unit and placed in the prone position where a timeout was completed verifying the correct patient, procedure site, position, and planned special equipment using sterile aseptic technique.? Under direct fluoroscopic visualization a 25-gauge Quincke tipped spinal needle was advanced to the right anterolateral aspect of the L3 vertebral body where Omnipaque dye was injected to show adequate spread.? There was no evidence of vascular or neurologic uptake.? The above-mentioned injectate was then placed in five 2 mL aliquots preceded by negative aspiration. The needle was removed and the surgery site was covered. The same procedure, with the same steps, was then completed on the opposite side. Patient was taken to the postprocedural recovery area and monitored for an appropriate length of time before found suitable for discharge in the accompaniment of a responsible adult. Anesthesia: Local Surgeon: Enrique Cartagena Pathology: none sent Condition: stable Disposition: no change
[2024-03-10] MEDS: IOHEXOL 240 MG/ML - 10 ML VIAL 24 MG INJ (08:39)
[2024-03-10] MEDS: LIDOCAINE HCL 2% PF 100 MG/5 ML VIAL 2 ML INJ (08:41)
[2024-03-10] MEDS: BUPIVACAINE HCL 0.25% PF 25 MG/10 ML VIAL 4 ML INJ (08:41)
[2024-03-10] MEDS: 0.9 % SODIUM CHLORIDE 10 ML SYRINGE - SALINE FLUSH 5 ML INJ (08:41)
[2024-03-10] MEDS: TRIAMCINOLONE ACETONIDE 40 MG/ML VIAL INJ (08:42)
== END 2024-03-10 08:43 | disposition home or self-care (01) ==
LOC: SURGOUT 07:15
PROVIDERS: PCP Family Medicine; Visit Provider Anesthesiology
DX: G90.521 Complex regional pain syndrome I of right lower limb (principal)
CPT/HCPCS: 64520; Q9966

== ENCOUNTER 2024-03-11 10:24 | Outpatient (OUT) | payer OTHER, SELFPAY ==
--- NOTE | 2024-03-11 | XR_ITS ---
[address] [address] Patient Name: ANNALEE VIDAL MRN: [id number] date: 1980 Sex: F Assigned Patient Location: Current Patient Location: Accession/Order Number: [id number] Exam Date: 03/11/2024 10:27 Report Date: 03/11/2024 15:34 At the request of: MALKA MAXWELL Procedure: XR ankle RT min 3V PROCEDURE: XR ankle RT min 3V COMPARISON: 02/12/2024 HISTORY: RIGHT ANKLE PAIN FINDINGS: BONES:Stable ankle fusion utilizing a retrograde intramedullary brittnee and proximally and distally extending through the calcaneus talus into the tibia. Some mild lucency surrounding the femoral stem component is stable. Severe degenerative changes of the midfoot and hindfoot space narrowing and bony remodeling marginal osteophyte formation. Remote fracture of the medial malleolus with incomplete bony bridging. Resection of the distal fibula SOFT TISSUES:Negative. No visible soft tissue swelling. EFFUSION:None visible. OTHER: Negative. XR/XR ankle RT min 3V IMPRESSION: Stable ankle fusion with no acute fracture, dislocation or mechanical failure Electronically authenticated by: RAYMOND ROBERTS Date: 03/11/2024 15:34
== END 2024-03-11 10:25 | disposition home or self-care (01) ==
LOC: EC 10:25
PROVIDERS: PCP Family Medicine; Visit Provider Podiatrist Foot & Ankle Surgery
DX: M25.571 Pain in right ankle and joints of right foot (principal); Z98.890 Other specified postprocedural states
CPT/HCPCS: 73610

== ENCOUNTER 2024-03-24 09:25 | Day surgery (SDC) | payer OTHER, SELFPAY ==
[2024-03-24 09:37] VITALS: BP 111/76; PULSE 79; TEMP 36.7; O2SAT 100
--- OUTSIDE RECORDS SUMMARY | 2024-03-24 09:48 | XMS_ITS | CCD ---
Author Organization [facility] Care Team Providers Care Kaiako Kura [place] Ma[place] Name Role Phone MARÍA ., DR CAMARA [...] HOY ., DR TINAJERO Primary Care Unavailable [facility] Admitting Unavailable [facility], MINH Attending Unavailable MINH [...] 30 to 65on 01-03-2023 . . Normal [facility] Comment on above: Result Comment: Perf ormed at: WB Performed By: #### [id number] #### [facility] [address] [place] [address] Dr. Marga Fernandez Age Gdln ACOG Testing 30-65 Normal [facility] Comment on above: Performed By: #### [id number] #### [facility] [address] [address] [address] Marga Fernandez DIAGNOSIS: Comment Normal [facility] Comment on above: Result Comment: NEGA TIVE FOR INTRAEPITHELIAL LESION OR MALIGNANCY. Performed at: WB Performed By: #### [id number] #### [facility] [address] [place] [address] Dr. Marga Fernandez HPV Aptima Negative Normal Negative [facility] Comment on above: Result Comment: This nucleic acid amplification test detects fourteen high-risk HPV types (16,18,31,33,35,39,45,51,52,56,58,59,66,68) without differentiation. Performed at: =G Performed By: #### [id number] #### [facility] [address] [address] [address] Marga Fernandez HPV Genotype Reflex Comment Normal [facility] Comment on above: Result Comment: Crit eria not met, HPV Genotype not performed. Performed at: WB Performed By: #### [id number] #### [facility] [address] [address] [address] Marga Fernandez Methodology: Comment Normal [facility] Comment on above: Result Comment: This liquid based ThinPrep(R) pap test was screened with the use of an image guided system. Performed at: WB Performed By: #### [id number] #### [facility] [address] [place] [address] Dr. Marga Fernandez Note: Comment Normal [facility] Comment on above: Result Comment: The Pap smear is a screening test designed to aid in the detection of premalignant and malignant conditions of the uterine cervix. It is not a diagnostic procedure and should not be used as the sole means of detecting cervical cancer. Both false-positive and false-negative reports do occur. . Performed at: WB Performed By: #### [id number] #### [facility] [address] [place] [address] Dr. Marga Fernandez Performed by: Comment Normal [facility] Comment on above: Result Comment: Diamond Isaac, Cold Roll Inspector (ASCP) Performed at: WB Performed By: #### [id number] #### [facility] [address] [place] [address] Dr. Marga Fernandez Specimen adequacy: Comment Normal [facility] Comment on above: Result Comment: Sati sfactory for evaluation. No endocervical component is identified. Performed at: WB Performed By: #### [id number] #### [facility] [address] [place] [address] Dr. Marga Fernandez US PELVISon 01-03-2023 US [...] by: RAYMOND ROBERTS Date: 2023-01-03 11:49 Normal [facility] CT ABD/PELV W CONon 12-13-19 23 [...] SANDI MORGAN Date: 2022-12-13 11:41 Normal [facility] CULTURE URINEon 12-13-2022 CULTURE URINE Culture Observations : NO GROWTH. Normal [facility] Comment on above: Performed By: #### U RCX #### [facility] [address] [place] [address] Dr. Marga Fernandez UA RANDOM W/MICROSCOPICon BACTERIA NONE SEEN Normal NONE SEEN [facility] Comment on above: Performed By: #### U AMIC #### [facility] [address] [address] [address] Marga Fernandez Bilirubin Ql (U) Negative Normal NEGATIVE [facility] Comment on above: Performed By: #### U AMIC #### [facility] [address] [address] [address] Marga Fernandez CAST NONE SEEN Normal NONE SEEN [facility] Comment on above: Performed By: #### U AMIC #### [facility] [address] [address] [address] Marga Fernandez Clarity (U) CLEAR Normal CLEAR [facility] Comment on above: Performed By: #### U AMIC #### [facility] [address] [place] [address] Dr. Marga Fernandez Color (U) LT. YELLOW Normal YELLOW [facility] Comment on above: Performed By: #### U AMIC #### [facility] [address] [address] [address] Marga Fernandez Crystals LM Nom (Urine sed) NONE SEEN Normal NONE SEEN [facility] Comment on above: Performed By: #### U AMIC #### [facility] [address] [place] [address] Dr. Marga Fernandez Epithelial cells LM Ql (Urine sed) RARE Normal NONE SEEN /RARE [facility] Comment on above: Performed By: #### U AMIC #### [facility] [address] [place] [address] Dr. Marga Fernandez Glucose Ql (U) Negative Normal NEGATIVE [facility] Comment on above: Performed By: #### U AMIC #### [facility] [address] [address] [address] Marga Fernandez Hemoglobin Ql (U) Negative Normal NEGATIVE [facility] Comment on above: Performed By: #### U AMIC #### [facility] [address] [place] [address] Dr. Marga Fernandez Ketones Ql (U) Negative Normal NEGATIVE [facility] Comment on above: Performed By: #### U AMIC #### [facility] [address] [address] [address] Marga Fernandez LEUKOCYTES Negative Normal NEGATIVE [facility] Comment on above: Performed By: #### U AMIC #### [facility] [address] [place] [address] Dr. Marga Fernandez MUCOUS NONE SEEN Normal NONE SEEN [facility] Comment on above: Performed By: #### U AMIC #### [facility] [address] [address] [address] Marga Fernandez Nitrite Ql (U) Negative Normal NEGATIVE [facility] Comment on above: Performed By: #### U AMIC #### [facility] [address] [place] [address] Dr. Marga Fernandez pH (U) 6.5 [pH] Normal 5-9 [facility] Comment on above: Performed By: #### U AMIC #### [facility] [address] [place] [address] Dr. Marga Fernandez RBC NONE SEEN Abnormal 0-2 [facility] Comment on above: Performed By: #### U AMIC #### [facility] [address] [place] [address] Dr. Marga Fernandez SPEC GRAVITY <=1.005 Abnormal 1.005-<=1.025 [facility] Comment on above: Performed By: #### U AMIC #### [facility] [address] [place] [address] Dr. Marga Fernandez UA PROTEIN Negative Normal NEGATIVE/ TRACE [facility] Comment on above: Performed By: #### U AMIC #### [facility] [address] [place] [address] Dr. Marga Fernandez Urobilinogen Qn (U) 0.2 {Wero'U}/dL Normal 0.2 - 1. 0 [facility] Comment on above: Performed By: #### U AMIC #### [facility] [address] [place] [address] Dr. Marga Fernandez WBC NONE SEEN Normal NONE SEEN [facility] Comment on above: Performed By: #### U [facility] #### [facility] [address] [address] [address] Marga Fernandez US SINGLE QUAD RT [...] RAYMOND GALVAN Date: 2022-09-28 08:46 Normal [facility] Encounters Encounter Date Encounter Type Care Provider Facility Start: 03-10-2024 End: 03-11-2024 ambulatory Enrique Cartagena MD Facility: [facility] Start: 02-18-2024 End: 02-19-2024 ambulatory Enrique Cartagena MD Facility: [facility] Start: 02-04-2024 End: 02-05-2024 ambulatory Enrique Cartagena MD Facility: [facility] Start: 01-03-2023 End: 01-04-[address] HOA DANIEL . Facility: Start: 12-28-2022 End: 12-28-[address] HOA DANIEL . Facility: Start: 12-13-2022 End: 12-14-[address] TANVI LOPEZ . Facility: Start: 09-28-2022 End: 09-29-[address] TANVI LOPEZ . Facility: Payers Date Payer Category Payer Unknown 1980 Unknown [id number] 2.16.84 [id number] 1980 Unknown [id number] 2.16.84 [id number] 1980 Unknown [id number] 2.16.84 [id number] 1980 Unknown [id number] 2.16.84 [id number] 1980 Unknown [id number] 2.16. [id number] 1980 Unknown [id number] 2.16. [id number] 1980 Unknown [id number] 2.16. [id number] 1959 Unknown [id number] 1958 Unknown [id number] Summary Purpose Family History No Family History Records FoundNo Family History Records Found Advance Directives No Advanced Directives Records FoundNo Advanced Directives Records Found Additional Source Comments INFORMATION SOURCE (unrecogn ized section and content) DATE CREATED AUTHOR 03/08/2023 [facility] DATE CREATED AUTHOR AUTHOR'S PAULINA SKINNER 03/13/2024 [facility] FOR RECORDS PERTAINING TO PATIENTS WHO ARE [...] BE BASED ON THE PRIMARY CLINICAL RECORDS. [facility] [employer] provides no warranty or guarantee of the accuracy or completeness of information in this document.
[2024-03-24] MEDS: IOHEXOL 240 MG/ML - 10 ML VIAL INJ (10:21)
[2024-03-24] MEDS: LIDOCAINE HCL 2% PF 100 MG/5 ML VIAL INJ (10:21)
[2024-03-24] MEDS: BUPIVACAINE HCL 0.25% PF 25 MG/10 ML VIAL INJ (10:21)
[2024-03-24] MEDS: TRIAMCINOLONE ACETONIDE 40 MG/ML VIAL INJ (10:21)
[2024-03-24] MEDS: 0.9 % SODIUM CHLORIDE 10 ML SYRINGE - SALINE FLUSH INJ (10:21)
[2024-03-24 10:23] VITALS: BP 119/58; BP 126/69; PULSE 68; PULSE 71; O2SAT 91; O2SAT 92
--- NOTE | 2024-03-24 10:26 | W.PM.PROCNOT ---
Date of procedure: 03/24/24 Pre-op diagnosis: Right lower extremity CRPS, type 1 Post-op diagnosis: same as pre-op Procedure: Procedure: Right lumbar sympathetic nerve block Medications: Bupivacaine 0.25% 4cc, normal saline 0.9% 4cc, kenalog 80mg The patient was seen and examined in the preoperative holding area.? Informed consent was obtained and placed on the chart.? Patient was brought to the medical procedure unit and placed in the prone position where a timeout was completed verifying the correct patient, procedure site, position, and planned special equipment using sterile aseptic technique.? Under direct fluoroscopic visualization a 25-gauge Quincke tipped spinal needle was advanced to the right anterolateral aspect of the L3 vertebral body where Omnipaque dye was injected to show adequate spread.? There was no evidence of vascular or neurologic uptake.? The above-mentioned injectate was then placed in five 2 mL aliquots preceded by negative aspiration. The needle was removed and the surgery site was covered. The same procedure, with the same steps, was then completed on the opposite side. Patient was taken to the postprocedural recovery area and monitored for an appropriate length of time before found suitable for discharge in the accompaniment of a responsible adult. Anesthesia: Local Surgeon: Enrique Cartagena Pathology: none sent Condition: stable Disposition: no change
== END 2024-03-24 10:30 | disposition home or self-care (01) ==
PROVIDERS: PCP Family Medicine; Visit Provider Anesthesiology
DX: G90.521 Complex regional pain syndrome I of right lower limb (principal)
CPT/HCPCS: 64520; 77002; Q9966

== ENCOUNTER 2024-04-03 08:23 | Outpatient (OUT) | payer OTHER, SELFPAY ==
--- NOTE | 2024-04-03 08:33 | P.CN_ITS ---
Consult Note: HPI Data of Consult Patient: known to practice within the last 3 years Consult date: 02/18/24 Requesting Physician: Yesika Guillaume NP Primary Care Provider: Jorge Luis Mcdaniel MD Consult Narrative Reason for consult: right foot pain Narrative: 43yof who presents for assessment. significant persistent right foot pain. recently had emg, which is significant for severe nerve damage of multiple nerves in foot. no acute radiculopathy noted. has tried various medications, including percocet, lyrica, without benefit. no further surgeries necessary, per her foot surgeon. continues to have temperature fluctuations, color changes, significant sensitivity and pain in right foot. denies adverse med side effects. recently underwent right lumbar sympathetic block x2 with significant improvement, 75% improvement in pain functional ability and decrease in sensitivity. noticing she can now stand on that foot, walk, and wear shoes. cc:: CC: Yesika Guillaume NP Review of Systems ROS Status of ROS 10 or more systems reviewed and unremark able except as noted in history and below Musculoskeletal Reports: extremity pain PFSH PFSH Medical History GERD (gastroesophageal reflux disease) ?K21.9 - Gastro-esophageal reflux disease without esophagitis (ICD-10) COVID-19 ?U07.1 - COVID-19 (ICD-10) Displaced fracture of lateral malleolus of right fibula, initial encounter for closed fracture (~12/09/23) ?S82.61XA - Displaced fracture of lateral malleolus of right fibula, initial encounter for closed fracture (ICD-10) Surgical History History of open reduction and internal fixation (ORIF) procedure ?Z98.890 - Other specified postprocedural states (ICD-10) History of appendectomy ?Z90.49 - Acquired absence of other specified parts of digestive tract (ICD- 10) History of partial hysterectomy ?Z90.711 - Acquired absence of uterus with remaining cervical stump (ICD-10) Family History Father Heart disease Social History Within the past year, how often did you have a drink containing alcohol: never Score interpretation: A score less than 3 is consistent with normal alcohol consumption. Smoking status: Current some day smoker Non-prescribed substance use: denies use Highest level of school completed/degree received: Associate degree: occupational, technical, vocational program Meds Home Medications and Allergies Home Medications ?Medication ?Instructions ?Recorded ?Confirmed ?Type multivitamin (Daily Multi-Vitamin 1 tab PO DAILY 12/09/23 03/24/24 History tablet) pantoprazole 40 mg tablet,delayed 40 mg PO QDAY 12/09/23 03/24/24 History release oxycodone-acetaminophen 5 mg-325 1 tab PO Q6H PRN pain 7 days #28 12/11/23 03/24/24 Rx mg tablet (Percocet) tabs calcium carbonate 600 mg PO BID #60 tabs 12/21/23 03/24/24 Rx cholecalciferol (vitamin D3) 50 50 mcg PO DAILY #30 tabs 12/21/23 03/24/24 Rx mcg (2,000 unit) tablet (Vitamin D3) ferrous sulfate 325 mg (65 mg 325 mg PO BID #60 tabs 12/21/23 03/24/24 Rx iron) tablet pregabalin 75 mg capsule (Lyrica) 75 mg PO Q8H #30 caps 12/22/23 03/24/24 Rx vitamin B12 0.5 mg-folic acid 1 mg 1 tab PO DAILY 02/04/24 03/24/24 History tablet Allergies Allergy/AdvReac Type Severity Reaction Status Date / Time iodine Allergy Intermediate Rash Verified 03/24/24 09:44 Exam Narrative Exam Narrative: Psych-alert and oriented x 3.? Attentive and appropriate, constitutionally normal, displays normal mood and affect per situation.? There are no obvious deficits in memory, reasoning, or intellect. Examination of the right extremity reveals notable hyperpathia and allodynia and edema? Notable atrophy and diffuse weakness present in the extremity.? There is notable shiny skin with hair loss and abnormal hair growth denoting trophic changes presently.? Asymmetric color and temperature changes are present which denotes sudomotor changes.? Decreased range of motion and strength is noted in the extremity.? Coordination remains intact.? Gait remains non-antalgic. Constitutional Documenting provider has reviewed patient's vital signs: yes Common normals: no apparent distress, oriented x3, healthy appearing, alert and well nourished General appearance: cooperative HENMT Common normals: normocephalic, hearing grossly normal bilaterally and moist oral mucous membranes Head and scalp: normocephalic Eye Common normals: PERRL Pupil: PERRL Neck & C-Spine Common normals: full ROM General: normal visual inspection Chest Common normals: inspection of chest normal Respiratory Common normals: normal respiratory effort, no retractions and no use of accessory muscles Neuro Common normals: oriented x3, CN's II-XII intact bilaterally, moves all extremities, no focal motor deficits, no sensory deficits noted and deep tendon reflexes 2+ bilaterally Sensorium/orientation: alert Motor exam: strength 5/5 throughout and no movement abnormalities noted Psych Common normals: mental status grossly normal, thought process normal, cooperative, affect normal, speech normal and activity/motor behavior normal Speech: normal speech Thought process: normal thought process Results Additional Findings Additional findings: If on a controlled substance or opioids, I have checked an [place] report on this patient and there are no aberrancies noted in the prescribing history.??If on a controlled substance or opioid a drug screen was completed and reviewed within the last year, and if there has not been a drug screen completed we ordered one today to monitor higher risk, state monitored pain medication use. As part of providing excellent, safe, comprehensive care, the following was completed at our patient's visit: 1. A medication reconciliation and review to ensure accurate knowledge of current/active medications, including asking our patients to inform us about any [id number] medications or herbal remedies/nutritional supplements/alternative remedies. 2. A review to specifically ensure our patients have had annual screening for screening for depression, screening for tobacco use, and screening for unhealthy alcohol use. For concerning screenings had a discussion with the patient, provided patient education, and recommended follow-up with primary care provider when appropriate. If patient noted with a risk of falling, they received education on strength, gait, and balance training to prevent future risk of falling. Assessment and Plan Assessment and Plan (1) Complex regional pain syndrome i of right lower limb: Plan 43yof who presents for assessment. worsening right foot pain, as noted. failed physical and medical modalities, as noted. finding significant improvement from right lx sympathethic NB x2, 75% improvement in pain functional ability and decrease in sensitivity. noticing she can now stand on that foot, walk, and wear shoes. starting desensitization therapy twice weekly for 4-6 weeks tomorrow transdermal therapeutics cream 6a discussed and prescribed to be applied TID-QID to assist with pain f/u 3 months, sooner if needed
--- OUTSIDE RECORDS SUMMARY | 2024-04-03 08:47 | XMS_ITS | CCD ---
Author Organization [facility] Care Team Providers Care Manager Music Name Role Phone MARÍA ., DR CAMARA [...] LUNA, Enrique Walker Attending Unavailable Osiel LUNA, Andely Walker Attending Unavailable Osiel LUNA, Andely Walker Attending Unavailable Problems Problem Classification Problem [...] 30 to 65on 01-03-2023 . . Normal [facility] Comment on above: Result Comment: Perf ormed at: WB Performed By: #### [id number] #### [facility] [address] [address] [address] Marga Fernandez Age Gdln ACOG Testing 30-65 Normal [facility] Comment on above: Performed By: #### [id number] #### [facility] [address] [address] [address] Marga Fernandez DIAGNOSIS: Comment Normal [facility] Comment on above: Result Comment: NEGA TIVE FOR INTRAEPITHELIAL LESION OR MALIGNANCY. Performed at: WB Performed By: #### [id number] #### [facility] [address] [address] [address] Marga Fernandez HPV Aptima Negative Normal Negative [facility] Comment on above: Result Comment: This nucleic acid amplification test detects fourteen high-risk HPV types (16,18,31,33,35,39,45,51,52,56,58,59,66,68) without differentiation. Performed at: =G Performed By: #### [id number] #### [facility] [address] [address] [address] Marga Fernandez HPV Genotype Reflex Comment Normal [facility] Comment on above: Result Comment: Crit eria not met, HPV Genotype not performed. Performed at: WB Performed By: #### [id number] #### [facility] [address] [address] [address] Marga Fernandez Methodology: Comment Normal [facility] Comment on above: Result Comment: This liquid based ThinPrep(R) pap test was screened with the use of an image guided system. Performed at: WB Performed By: #### [id number] #### [facility] [address] [address] [address] Marga Fernandez Note: Comment Normal [facility] Comment on above: Result Comment: The Pap smear is a screening test designed to aid in the detection of premalignant and malignant conditions of the uterine cervix. It is not a diagnostic procedure and should not be used as the sole means of detecting cervical cancer. Both false-positive and false-negative reports do occur. . Performed at: WB Performed By: #### [id number] #### [facility] [address] [place] [address] Dr. Marga Fernandez Performed by: Comment Normal [facility] Comment on above: Result Comment: Diamond Isaac, Homeworker (ASCP) Performed at: WB Performed By: #### [id number] #### [facility] [address] [place], [place] [address] Dr. Marga Fernandez Specimen adequacy: Comment Normal [facility] Comment on above: Result Comment: Sati sfactory for evaluation. No endocervical component is identified. Performed at: WB Performed By: #### [id number] #### [facility] [address] [place] [address] Dr. Marga Fernandez US PELVISon 01-03-2023 US [...] by: RAYMOND ROBERTS Date: 2023-01-03 11:[address] [facility] [address] ABD/PELV W CONon 12-13-19 23 [...] SANDI MORGAN Date: 2022-12-13 11:41 Normal The [facility] CULTURE URINEon 12-13-2022 CULTURE URINE Culture Observations : NO GROWTH. Normal The [facility] Comment on above: Performed By: #### U RCX #### [facility] [address] [address] [address] Marga Fernandez UA RANDOM W/MICROSCOPICon BACTERIA NONE SEEN Normal NONE SEEN The [facility] Comment on above: Performed By: #### U AMIC #### [facility] [address] [address] [address] Marga Fernandez Bilirubin Ql (U) Negative Normal NEGATIVE The [facility] Comment on above: Performed By: #### U AMIC #### [facility] [address] [address] [address] Marga Fernandez CAST NONE SEEN Normal NONE SEEN The [facility] Comment on above: Performed By: #### U AMIC #### [facility] [address] [place] [address] Dr. Marga Fernandez Clarity (U) CLEAR Normal CLEAR The [facility] Comment on above: Performed By: #### U AMIC #### [facility] [address] [place] [address] Dr. Marga Fernandez Color (U) LT. YELLOW Normal YELLOW The [facility] Comment on above: Performed By: #### U AMIC #### [facility] [address] [address] [address] Marga Fernandez Crystals LM Nom (Urine sed) NONE SEEN Normal NONE SEEN The [facility] Comment on above: Performed By: #### U AMIC #### [facility] [address] [place] [address] Dr. Marga Fernandez Epithelial cells LM Ql (Urine sed) RARE Normal NONE SEEN /RARE The [facility] Comment on above: Performed By: #### U AMIC #### [facility] [address] [place] [address] Dr. Marga Fernandez Glucose Ql (U) Negative Normal NEGATIVE The [facility] Comment on above: Performed By: #### U AMIC #### [facility] [address] [place] [address] Dr. Marga Fernandez Hemoglobin Ql (U) Negative Normal NEGATIVE The [facility] Comment on above: Performed By: #### U AMIC #### [facility] [address] [place] [address] Dr. Marga Fernandez Ketones Ql (U) Negative Normal NEGATIVE The [facility] Comment on above: Performed By: #### U AMIC #### [facility] [address] [place] [address] Dr. Marga Fernandez LEUKOCYTES Negative Normal NEGATIVE The [facility] Comment on above: Performed By: #### U AMIC #### [facility] [address] [place] [address] Dr. Marga Fernandez MUCOUS NONE SEEN Normal NONE SEEN The [facility] Comment on above: Performed By: #### U AMIC #### [facility] [address] [place] [address] Dr. Marga Fernandez Nitrite Ql (U) Negative Normal NEGATIVE The [facility] Comment on above: Performed By: #### U AMIC #### [facility] [address] [place] [address] Dr. Marga Fernandez pH (U) 6.5 [pH] Normal 5-9 The [facility] Comment on above: Performed By: #### U AMIC #### [facility] [address] [place] [address] Dr. Marga Fernandez RBC NONE SEEN Abnormal 0-2 The [facility] Comment on above: Performed By: #### U AMIC #### [facility] [address] [place] [address] Dr. Marga Fernandez SPEC GRAVITY <=1.005 Abnormal 1.005-<=1.025 The [facility] Comment on above: Performed By: #### U AMIC #### [facility] [address] [place] [address] Dr. Marga Fernandez UA PROTEIN Negative Normal NEGATIVE/ TRACE [facility] Comment on above: Performed By: #### U AMIC #### [facility] [address] [place] [address] Dr. Marga Fernandez Urobilinogen Qn (U) 0.2 {Wero'U}/dL Normal 0.2 - 1. 0 [facility] Comment on above: Performed By: #### U AMIC #### [facility] [address] [place] [address] Dr. Marga Fernandez WBC NONE SEEN Normal NONE SEEN The [facility] Comment on above: Performed By: #### U [facility] #### [facility] [address] [address] [address] Marga Fernandez US SINGLE QUAD RT [...] RAYMOND GALVAN Date: 2022-09-28 08:46 Normal The [facility] Encounters Encounter Date Encounter Type Care Provider Facility Start: 03-24-2024 End: 03-25-2024 ambulatory Enrique Cartagena MD Facility: [facility] Start: 03-10-2024 End: 03-11-2024 ambulatory Enrique Cartagena MD Facility: [facility] Start: 02-18-2024 End: 02-19-2024 ambulatory Enrique Cartagena MD Facility: [facility] Start: 02-04-2024 End: 02-05-2024 ambulatory Enrique Cartagena MD Facility: [facility] Start: 01-03-2023 End: 01-04-[address] HOA DANIEL . Facility:[facility] Start: 12-28-2022 End: 12-28-[address] HOA DANIEL . Facility:[facility] Start: 12-13-2022 End: 12-14-[address] TANVI LOPEZ . Facility:[facility] Start: 09-28-2022 End: 09-29-[address] TANVI LOPEZ . Facility: Payers Date Payer Category Payer Unknown 1980 Unknown [id number] 2.16.84 [id number] 1980 Unknown [id number] 2.16.84 [id number] 1980 Unknown [id number] 2.16.84 [id number] 1980 Unknown [id number] 2.16.84 [id number] 1980 Unknown [id number] 2.16. [id number] 1980 Unknown [id number] 2.16. [id number] 1980 Unknown [id number] 2.16. [id number] 1980 Unknown [id number] 2.16. [id number] 1959 Unknown [id number] 1959 Unknown [id number] Summary Purpose Family History No Family History Records FoundNo Family History Records Found Advance Directives No Advanced Directives Records FoundNo Advanced Directives Records Found Additional Source Comments INFORMATION SOURCE (unrecogn ized section and content) DATE CREATED AUTHOR 03/08/2023 [facility] DATE CREATED AUTHOR AUTHOR'S PAULINA SKINNER 03/30/2024 [facility] FOR RECORDS PERTAINING TO PATIENTS WHO [...] BE BASED ON THE PRIMARY CLINICAL RECORDS. [facility] [employer] [facility]. provides no warranty or guarantee of the accuracy or completeness of information in this document.
== END 2024-04-03 08:24 | disposition home or self-care (01) ==
LOC: PM 08:24
PROVIDERS: PCP Family Medicine; Visit Provider Nurse Practitioner
DX: G90.521 Complex regional pain syndrome I of right lower limb (principal)
CPT/HCPCS: G0463

== ENCOUNTER 2024-04-04 08:42 | Outpatient (RCR) | payer OTHER, SELFPAY | END 2024-04-19 16:23 | disposition home or self-care (01) | LOC: PT 08:42 | PROVIDERS: PCP Family Medicine; Visit Provider Podiatrist Foot & Ankle Surgery | DX: S82.871D Displaced pilon fracture of right tibia, subsequent encounter for closed fracture with routine healing (principal) | CPT/HCPCS: 97110; 97112; 97140; 97161; 97530 ==

== ENCOUNTER 2024-04-22 10:31 | Outpatient (OUT) | payer OTHER, SELFPAY ==
--- NOTE | 2024-04-22 | XR_ITS ---
The [address] [address] Patient Name: ANNALEE VIDAL MRN: [id number] date: 1980 Sex: F Assigned Patient Location: Current Patient Location: Accession/Order Number: [id number] Exam Date: 04/22/2024 10:35 Report Date: 04/23/2024 12:57 At the request of: MALKA MAXWELL Procedure: XR ankle RT min 3V PROCEDURE: XR ankle RT min 3V HISTORY: RIGHT ANKLE PAIN COMPARISON: XR ankle right 03/11/2024 FINDINGS: BONES:Ankle and hindfoot fusion via intramedullary brittnee and locking screws. No appreciable hardware fracture loosening. Prior resection of distal fibula and removal of hardware removal. Prior osteotomy and mild displacement of medial malleolus. SOFT TISSUES:Anterior medial soft tissue swelling. EFFUSION:None visible. OTHER: Negative. XR/XR ankle RT min 3V IMPRESSION: 1. Stable surgical changes without evidence of hardware failure or change in alignment. 2. Medial soft tissue swelling; slightly increased. Electronically authenticated by: LARON ZAMBRANO Date: 04/23/2024 12:57
== END 2024-04-22 10:32 | disposition home or self-care (01) ==
LOC: EC 10:32
PROVIDERS: PCP Family Medicine; Visit Provider Podiatrist Foot & Ankle Surgery
DX: S82.871D Displaced pilon fracture of right tibia, subsequent encounter for closed fracture with routine healing (principal); Z98.890 Other specified postprocedural states
CPT/HCPCS: 73610

== ENCOUNTER 2024-05-21 14:38 | Outpatient (OUT) | payer OTHER, SELFPAY ==
--- NOTE | 2024-05-21 14:44 | P.CN_ITS ---
Consult Note: HPI Data of Consult Patient: known to practice within the last 3 years Consult date: 02/18/24 Requesting Physician: Yesika Guillaume NP Primary Care Provider: Jorge Luis Mcdaniel MD Consult Narrative Reason for consult: right foot pain Narrative: 43yof who presents for assessment. significant persistent right foot pain. recently had emg, which is significant for severe nerve damage of multiple nerves in foot. no acute radiculopathy noted. has tried various medications, including percocet, lyrica, without benefit. no further surgeries necessary, per her foot surgeon. continues to have temperature fluctuations, color changes, significant sensitivity and pain in right foot. denies adverse med side effects. Previously underwent right lumbar sympathetic block x2 with significant improvement, 75% improvement in pain functional ability and decrease in sensitivity for 2 months, patient noticing severe increase in pain/sensitivity over the last week. Pain today 4/10 increasing to 10/10 with wearing shoes, standing, weight bearing, walking. Patient concerned as previously her pain was so severe she was wheelchair bound. cc:: CC: Yesika Guillaume NP Review of Systems ROS Status of ROS 10 or more systems reviewed and unremark able except as noted in history and below Musculoskeletal Reports: extremity pain PFSH PFSH Medical History GERD (gastroesophageal reflux disease) ?K21.9 - Gastro-esophageal reflux disease without esophagitis (ICD-10) COVID-19 ?U07.1 - COVID-19 (ICD-10) Displaced fracture of lateral malleolus of right fibula, initial encounter for closed fracture (~12/09/23) ?S82.61XA - Displaced fracture of lateral malleolus of right fibula, initial encounter for closed fracture (ICD-10) Surgical History History of open reduction and internal fixation (ORIF) procedure ?Z98.890 - Other specified postprocedural states (ICD-10) History of appendectomy ?Z90.49 - Acquired absence of other specified parts of digestive tract (ICD- 10) History of partial hysterectomy ?Z90.711 - Acquired absence of uterus with remaining cervical stump (ICD-10) Family History Father Heart disease Social History Within the past year, how often did you have a drink containing alcohol: never Score interpretation: A score less than 3 is consistent with normal alcohol consumption. Smoking status: Current some day smoker Non-prescribed substance use: denies use Highest level of school completed/degree received: Associate degree: occupational, technical, vocational program Meds Home Medications and Allergies Home Medications ?Medication ?Instructions ?Recorded ?Confirmed ?Type multivitamin (Daily Multi-Vitamin 1 tab PO DAILY 12/09/23 03/24/24 History tablet) pantoprazole 40 mg tablet,delayed 40 mg PO QDAY 12/09/23 03/24/24 History release oxycodone-acetaminophen 5 mg-325 1 tab PO Q6H PRN pain 7 days #28 12/11/23 03/24/24 Rx mg tablet (Percocet) tabs calcium carbonate 600 mg PO BID #60 tabs 12/21/23 03/24/24 Rx cholecalciferol (vitamin D3) 50 50 mcg PO DAILY #30 tabs 12/21/23 03/24/24 Rx mcg (2,000 unit) tablet (Vitamin D3) ferrous sulfate 325 mg (65 mg 325 mg PO BID #60 tabs 12/21/23 03/24/24 Rx iron) tablet pregabalin 75 mg capsule (Lyrica) 75 mg PO Q8H #30 caps 12/22/23 03/24/24 Rx vitamin B12 0.5 mg-folic acid 1 mg 1 tab PO DAILY 02/04/24 03/24/24 History tablet Allergies Allergy/AdvReac Type Severity Reaction Status Date / Time iodine Allergy Intermediate Rash Verified 03/24/24 09:44 Exam Narrative Exam Narrative: Psych-alert and oriented x 3.? Attentive and appropriate, constitutionally normal, displays normal mood and affect per situation.? There are no obvious deficits in memory, reasoning, or intellect. Examination of the right extremity reveals notable hyperpathia and allodynia and edema? Notable atrophy and diffuse weakness present in the extremity.? There is notable shiny skin with hair loss and abnormal hair growth denoting trophic changes presently.? Asymmetric color and temperature changes are present which denotes sudomotor changes.? Decreased range of motion and strength is noted in the extremity.? Coordination remains intact.? Gait remains non-antalgic. Constitutional Documenting provider has reviewed patient's vital signs: yes Common normals: no apparent distress, oriented x3, healthy appearing, alert and well nourished General appearance: cooperative HENMT Common normals: normocephalic, hearing grossly normal bilaterally and moist oral mucous membranes Head and scalp: normocephalic Eye Common normals: PERRL Pupil: PERRL Neck & C-Spine Common normals: full ROM General: normal visual inspection Chest Common normals: inspection of chest normal Respiratory Common normals: normal respiratory effort, no retractions and no use of accessory muscles Neuro Common normals: oriented x3, CN's II-XII intact bilaterally, moves all extr emities, no focal motor deficits, no sensory deficits noted and deep tendon reflexes 2+ bilaterally Sensorium/orientation: alert Motor exam: strength 5/5 throughout and no movement abnormalities noted Psych Common normals: mental status grossly normal, thought process normal, cooperative, affect normal, speech normal and activity/motor behavior normal Speech: normal speech Thought process: normal thought process Assessment and Plan Assessment and Plan (1) Complex regional pain syndrome i of right lower limb: Plan 43yof who presents for assessment. worsening right foot pain, as noted. failed physical and medical modalities, as noted. Repeat right lumbar sympathetic nerve block under fluoroscopy x2, risks vs benefits reviewed. Spinal cord stimulator brochure provided for patient to look into, bring questions to f/u appointment f/u after injections complete
== END 2024-05-21 14:39 | disposition home or self-care (01) ==
LOC: PM 14:39
PROVIDERS: PCP Family Medicine; Visit Provider Nurse Practitioner
DX: G90.521 Complex regional pain syndrome I of right lower limb (principal)
CPT/HCPCS: G0463

== ENCOUNTER 2024-06-30 09:41 | Day surgery (SDC) | payer OTHER, SELFPAY ==
--- OUTSIDE RECORDS SUMMARY | 2024-06-30 10:01 | XMS_ITS | CCD ---
Author Organization [facility] Care Team Providers Care Electron Microscopist Name Role Phone MARÍA ., DR CAMARA [...] MIRELES Attending Unavailable MINH MIRELES Consulting Unavailable SANDI [...] LUNA, Andely Walker Attending Unavailable Osiel LUNA, Enrique Walker [...] 30 to 65on 01-03-2023 . . Normal [facility] Comment on above: Result Comment: Perf ormed at: WB Performed By: #### [id number] #### [facility] [address] [address] [address] Marga Fernandez Age Gdln ACOG Testing 30-65 Normal [facility] Comment on above: Performed By: #### [id number] #### [facility] [address] [address] [address] Marga Fernandez DIAGNOSIS: Comment Normal [facility] Comment on above: Result Comment: NEGA TIVE FOR INTRAEPITHELIAL LESION OR MALIGNANCY. Performed at: WB Performed By: #### [id number] #### [facility] [address] [address] [address] Marga Fernandez HPV Aptima Negative Normal Negative [facility] Comment on above: Result Comment: This nucleic acid amplification test detects fourteen high-risk HPV types (16,18,31,33,35,39,45,51,52,56,58,59,66,68) without differentiation. Performed at: =G Performed By: #### [id number] #### [facility] [address] [address] [address] Marga Fernandez HPV Genotype Reflex Comment Normal [facility] Comment on above: Result Comment: Crit eria not met, HPV Genotype not performed. Performed at: WB Performed By: #### [id number] #### [facility] [address] [address] [address] Marga Fernandez Methodology: Comment Normal [facility] Comment on above: Result Comment: This liquid based ThinPrep(R) pap test was screened with the use of an image guided system. Performed at: WB Performed By: #### [id number] #### [facility] [address] [address] [address] Marga Fernandez Note: Comment Normal [facility] Comment on above: Result Comment: The Pap smear is a screening test designed to aid in the detection of premalignant and malignant conditions of the uterine cervix. It is not a diagnostic procedure and should not be used as the sole means of detecting cervical cancer. Both false-positive and false-negative reports do occur. . Performed at: WB Performed By: #### [id number] #### [facility] [address] [place] [address] Dr. Marga Fernandez Performed by: Comment Normal [facility] Comment on above: Result Comment: Diamond Isaac, Nurse Emergency Room (ASCP) Performed at: WB Performed By: #### [id number] #### [facility] [address] [address] [address] Marga Fernandez Specimen adequacy: Comment Normal [facility] Comment on above: Result Comment: Sati sfactory for evaluation. No endocervical component is identified. Performed at: WB Performed By: #### [id number] #### [facility] [address] [place] [address] Dr. Marga Fernandez US PELVISon 01-03-2023 US [...] by: RAYMOND ROBERTS Date: 2023-01-03 11:49 Normal [facility] CT ABD/PELV W CONon 12-13-19 23 [...] SANDI MORGAN Date: 2022-12-13 11:41 Normal [facility] CULTURE URINEon 12-13-2022 CULTURE URINE Culture Observations : NO GROWTH. Normal [facility] Comment on above: Performed By: #### U RCX #### [facility] [address] [address] [address] Marga Fernandez UA RANDOM W/MICROSCOPICon BACTERIA NONE SEEN Normal NONE SEEN [facility] Comment on above: Performed By: #### U AMIC #### [facility] [address] [address] [address] Marga Fernandez Bilirubin Ql (U) Negative Normal NEGATIVE The [facility] Comment on above: Performed By: #### U AMIC #### [facility] [address] [address] [address] Marga Fernandez CAST NONE SEEN Normal NONE SEEN [facility] Comment on above: Performed By: #### U AMIC #### [facility] [address] [address] [address] Marga Fernandez Clarity (U) CLEAR Normal CLEAR The [facility] Comment on above: Performed By: #### U AMIC #### [facility] [address] [address] [address] Marga Fernandez Color (U) LT. YELLOW Normal YELLOW The [facility] Comment on above: Performed By: #### U AMIC #### [facility] [address] [address] [address] Marga Fernandez Crystals LM Nom (Urine sed) NONE SEEN Normal NONE SEEN [facility] Comment on above: Performed By: #### U AMIC #### [facility] [address] [address] [address] Marga Fernandez Epithelial cells LM Ql (Urine sed) RARE Normal NONE SEEN /RARE The [facility] Comment on above: Performed By: #### U AMIC #### [facility] [address] [address] [address] Marga Fernandez Glucose Ql (U) Negative Normal NEGATIVE [facility] Comment on above: Performed By: #### U AMIC #### [facility] [address] [place] [address] Dr. Marga Fernandez Hemoglobin Ql (U) Negative Normal NEGATIVE [facility] Comment on above: Performed By: #### U AMIC #### [facility] [address] [address] [address] Marga Fernandez Ketones Ql (U) Negative Normal NEGATIVE [facility] Comment on above: Performed By: #### U AMIC #### [facility] [address] [place] [address] Dr. Marga Fernandez LEUKOCYTES Negative Normal NEGATIVE The [facility] Comment on above: Performed By: #### U AMIC #### [facility] [address] [place] [address] Dr. Marga Fernandez MUCOUS NONE SEEN Normal NONE SEEN The [facility] Comment on above: Performed By: #### U AMIC #### [facility] [address] [place] [address] Dr. Marga Fernandez Nitrite Ql (U) Negative Normal NEGATIVE The [facility] Comment on above: Performed By: #### U AMIC #### [facility] [address] [place] [address] Dr. Marga Fernandez pH (U) 6.5 [pH] Normal 5-9 The [facility] Comment on above: Performed By: #### U AMIC #### [facility] [address] [place] [address] Dr. Marga Fernandez RBC NONE SEEN Abnormal 0-2 The [facility] Comment on above: Performed By: #### U AMIC #### [facility] [address] [place] [address] Dr. Marga Fernandez SPEC GRAVITY <=1.005 Abnormal 1.005-<=1.025 The [facility] Comment on above: Performed By: #### U AMIC #### [facility] [address] [place] [address] Dr. Marga Fernandez UA PROTEIN Negative Normal NEGATIVE/ TRACE [facility] Comment on above: Performed By: #### U AMIC #### [facility] [address] [place] [address] Dr. Marga Fernandez Urobilinogen Qn (U) 0.2 {Wero'U}/dL Normal 0.2 - 1. 0 [facility] Comment on above: Performed By: #### U AMIC #### [facility] [address] [place], [place] [address] Dr. Marga Fernandez WBC NONE SEEN Normal NONE SEEN The [facility] Comment on above: Performed By: #### U [facility] #### [facility] [address] [place], [place] [address] Dr. Marga Fernandez US SINGLE QUAD RT [...] RAYMOND GALVAN Date: 2022-09-28 08:46 Normal The [facility] Encounters Encounter Date Encounter Type Care Provider Facility Start: 03-24-2024 End: 03-25-2024 ambulatory Enrique Cartagena MD Facility: [facility] Start: 03-10-2024 End: 03-11-2024 ambulatory Enrique Cartagena MD Facility: [facility] Start: 02-18-2024 End: 02-19-2024 ambulatory Enrique Cartagena MD Facility: [facility] Start: 02-04-2024 End: 02-05-2024 ambulatory Enrique Cartagena MD Facility: [facility] Start: 01-03-2023 End: 01-04-[address] HOA DANIEL . Facility:[facility] Start: 12-28-2022 End: 12-28-[address] HOA DANIEL . Facility:[facility] Start: 12-13-2022 End: 12-14-[address] TANVI LOPEZ . Facility:[facility] Start: 09-28-2022 End: 09-29-[address] TANVI LOPEZ . Facility: Payers Date Payer Category Payer Unknown 1980 Unknown [id number] 2.16.84 [id number] 1981 Unknown [id number] 2.16.84 [id number] 1981 Unknown [id number] 2.16.84 [id number] 1981 Unknown [id number] 2.16.84 [id number] 1981 Unknown [id number] 2.16. [id number] 1981 Unknown [id number] 2.16. [id number] 1981 Unknown [id number] 2.16. [id number] 1981 Unknown [id number] 2.16. [id number] 1959 Unknown [id number] 1959 Unknown [id number] Summary Purpose Family History No Family History Records FoundNo Family History Records Found Advance Directives No Advanced Directives Records FoundNo Advanced Directives Records Found Additional Source Comments INFORMATION SOURCE (unrecogn ized section and content) DATE CREATED AUTHOR 03/08/2023 [facility] DATE CREATED AUTHOR AUTHOR'S PAULINA SKINNER 03/30/2024 [facility] FOR RECORDS PERTAINING TO PATIENTS WHO [...] BE BASED ON THE PRIMARY CLINICAL RECORDS. [facility] [employer] [facility]. provides no warranty or guarantee of the accuracy or completeness of information in this document.
[2024-06-30 11:04] VITALS: BP 100/68; PULSE 95; TEMP 36.7; O2SAT 99
[2024-06-30] MEDS: BUPIVACAINE HCL 0.25% PF 25 MG/10 ML VIAL 5 ML INJ (11:22)
[2024-06-30] MEDS: 0.9 % SODIUM CHLORIDE 10 ML SYRINGE - SALINE FLUSH INJ (11:22)
[2024-06-30] MEDS: IOHEXOL 240 MG/ML - 10 ML VIAL INJ (11:23)
[2024-06-30] MEDS: TRIAMCINOLONE ACETONIDE 40 MG/ML VIAL INJ (11:23)
[2024-06-30] MEDS: LIDOCAINE HCL 2% PF 100 MG/5 ML VIAL INJ (11:23)
[2024-06-30 11:24] VITALS: BP 106/60; BP 111/57; PULSE 65; PULSE 67; O2SAT 96; O2SAT 97
--- NOTE | 2024-06-30 11:27 | W.PM.PROCNOT ---
Date of procedure: 06/30/24 Pre-op diagnosis: Complex regional pain syndrome, right lower extremity Post-op diagnosis: same as pre-op Procedure: Procedure: Right lumbar sympathetic nerve block Medications: Bupivacaine 0.25% 4cc, normal saline 0.9% 4cc, kenalog 80mg The patient was seen and examined in the preoperative holding area.? Informed consent was obtained and placed on the chart.? Patient was brought to the medical procedure unit and placed in the prone position where a timeout was completed verifying the correct patient, procedure site, position, and planned special equipment using sterile aseptic technique.? Under direct fluoroscopic visualization a 25-gauge Quincke tipped spinal needle was advanced to the right anterolateral aspect of the L3 vertebral body where Omnipaque dye was injected to show adequate spread.? There was no evidence of vascular or neurologic uptake.? The above-mentioned injectate was then placed in five 2 mL aliquots preceded by negative aspiration. The needle was removed and the surgery site was covered. The same procedure, with the same steps, was then completed on the opposite side. Patient was taken to the postprocedural recovery area and monitored for an appropriate length of time before found suitable for discharge in the accompaniment of a responsible adult. Anesthesia: Local Surgeon: Enrique Cartagena Pathology: none sent Condition: stable Disposition: no change
== END 2024-06-30 11:30 | disposition home or self-care (01) ==
LOC: SURGOUT 09:42
PROVIDERS: PCP Family Medicine; Visit Provider Anesthesiology
DX: G90.521 Complex regional pain syndrome I of right lower limb (principal)
CPT/HCPCS: 64520; 77002; J0665; J3301; Q9966

== ENCOUNTER 2024-07-14 09:51 | Day surgery (SDC) | payer OTHER, SELFPAY ==
--- OUTSIDE RECORDS SUMMARY | 2024-07-14 10:07 | XMS_ITS | CCD ---
Author Organization [facility] Care Team Providers Care Mechatronics Technologist Name Role Phone MARÍA ., DR CAMARA [...] 30 to 65on 01-03-2023 . . Normal [facility] Comment on above: Result Comment: Perf ormed at: WB Performed By: #### [id number] #### [facility] [place] [facility] [address] [address] [address] Marga Fernandez Age Gdln ACOG Testing 30-65 Normal [facility] Comment on above: Performed By: #### [id number] #### [facility] [place] [facility] [address] [address] [address] Marga Fernandez DIAGNOSIS: Comment Normal [facility] Comment on above: Result Comment: NEGA TIVE FOR INTRAEPITHELIAL LESION OR MALIGNANCY. Performed at: WB Performed By: #### [id number] #### [facility] [place] [facility] [address] [address] [address] Marga Fernandez HPV Aptima Negative Normal Negative [facility] Comment on above: Result Comment: This nucleic acid amplification test detects fourteen high-risk HPV types (16,18,31,33,35,39,45,51,52,56,58,59,66,68) without differentiation. Performed at: =G Performed By: #### [id number] #### [facility] [place] [facility] [address] [address] [address] Marga Fernandez HPV Genotype Reflex Comment Normal [facility] Comment on above: Result Comment: Crit eria not met, HPV Genotype not performed. Performed at: WB Performed By: #### [id number] #### [facility] [place] [facility] [address] [address] [address] Marga Fernandez Methodology: Comment Normal [facility] Comment on above: Result Comment: This liquid based ThinPrep(R) pap test was screened with the use of an image guided system. Performed at: WB Performed By: #### [id number] #### [facility] [place] [facility] [address] [address] [address] Marga Fernandez Note: Comment Normal [facility] Comment on above: Result Comment: The Pap smear is a screening test designed to aid in the detection of premalignant and malignant conditions of the uterine cervix. It is not a diagnostic procedure and should not be used as the sole means of detecting cervical cancer. Both false-positive and false-negative reports do occur. . Performed at: WB Performed By: #### [id number] #### [facility] [place] [facility] [address] [place] [address] Dr. Marga Fernandez Performed by: Comment Normal [facility] Comment on above: Result Comment: Diamond Isaac, Printing Screen Assembler (ASCP) Performed at: WB Performed By: #### [id number] #### [facility] [place] [facility] [address] [address] [address] Marga Fernandez Specimen adequacy: Comment Normal [facility] Comment on above: Result Comment: Sati sfactory for evaluation. No endocervical component is identified. Performed at: WB Performed By: #### [id number] #### [facility] [place] [facility] [address] [place] [address] Dr. Marga Fernandez US PELVISon 01-03-2023 US [...] ROBERTS Date: 2023-01-03 11:49 Normal [facility] CT ABD/PELV W CONon 12-13-19 [...] SANDI MORGAN Date: 2022-12-13 11:41 Normal [facility] [place] [facility] CULTURE URINEon 12-13-2022 CULTURE URINE Culture Observations : NO GROWTH. Normal [facility] [place] [facility] Comment on above: Performed By: #### U RCX #### [facility] [place] [facility] [address] [address] [address] Marga Fernandez UA RANDOM W/MICROSCOPICon BACTERIA NONE SEEN Normal NONE SEEN [facility] Comment on above: Performed By: #### U AMIC #### [facility] [place] [facility] [address] [address] [address] Marga Fernandez Bilirubin Ql (U) Negative Normal NEGATIVE The [facility] Comment on above: Performed By: #### U AMIC #### [facility] [place] [facility] [address] [address] [address] Marga Fernandez CAST NONE SEEN Normal NONE SEEN [facility] Comment on above: Performed By: #### U AMIC #### [facility] [place] [facility] [address] [address] [address] Marga Fernandez Clarity (U) CLEAR Normal CLEAR [facility] [place] [facility] Comment on above: Performed By: #### U AMIC #### [facility] [place] [facility] [address] [address] [address] Marga Fernandez Color (U) LT. YELLOW Normal YELLOW [facility] [place] [facility] Comment on above: Performed By: #### U AMIC #### [facility] [place] [facility] [address] [address] [address] Marga Fernandez Crystals LM Nom (Urine sed) NONE SEEN Normal NONE SEEN [facility] Comment on above: Performed By: #### U AMIC #### [facility] [place] [facility] [address] [address] [address] Marga Fernandez Epithelial cells LM Ql (Urine sed) RARE Normal NONE SEEN /RARE [facility] [place] [facility] Comment on above: Performed By: #### U AMIC #### [facility] [place] [facility] [address] [address] [address] Marga Fernandez Glucose Ql (U) Negative Normal NEGATIVE The [facility] Comment on above: Performed By: #### U AMIC #### [facility] [place] [facility] [address] [place] [address] Dr. Marga Fernandez Hemoglobin Ql (U) Negative Normal NEGATIVE The [facility] Comment on above: Performed By: #### U AMIC #### [facility] [place] [facility] [address] [address] [address] Marga Fernandez Ketones Ql (U) Negative Normal NEGATIVE The [facility] Comment on above: Performed By: #### U AMIC #### [facility] [place] [facility] [address] [place] [address] Dr. Marga Fernandez LEUKOCYTES Negative Normal NEGATIVE [facility] [place] [facility] Comment on above: Performed By: #### U AMIC #### [facility] [place] [facility] [address] [place] [address] Dr. Marga Fernandez MUCOUS NONE SEEN Normal NONE SEEN [facility] [place] [facility] Comment on above: Performed By: #### U AMIC #### [facility] [place] [facility] [address] [place] [address] Dr. Marga Fernandez Nitrite Ql (U) Negative Normal NEGATIVE The [facility] Comment on above: Performed By: #### U AMIC #### [facility] [place] [facility] [address] [place] [address] Dr. Marga Fernandez pH (U) 6.5 [pH] Normal 5-9 [facility] [place] [facility] Comment on above: Performed By: #### U AMIC #### [facility] [place] [facility] [address] [place] [address] Dr. Marga Fernandez RBC NONE SEEN Abnormal 0-2 [facility] [place] [facility] Comment on above: Performed By: #### U AMIC #### [facility] [place] [facility] [address] [place] [address] Dr. Marga Fernandez SPEC GRAVITY <=1.005 Abnormal 1.005-<=1.025 The [facility] Comment on above: Performed By: #### U AMIC #### [facility] [place] [facility] [address] [place] [address] Dr. Marga Fernandez UA PROTEIN Negative Normal NEGATIVE/ TRACE The [facility] Comment on above: Performed By: #### U AMIC #### [facility] [place] [facility] [address] [place] [address] Dr. Marga Fernandez Urobilinogen Qn (U) 0.2 {Wero'U}/dL Normal 0.2 - 1. 0 [facility] Comment on above: Performed By: #### U AMIC #### [facility] [place] [facility] [address] [place], [place] [address] Dr. Marga Fernandez WBC NONE SEEN Normal NONE SEEN [facility] [place] [facility] Comment on above: Performed By: #### U [facility] #### [facility] [place] [facility] [address] [place], [place] [address] Dr. Marga Fernandez US SINGLE QUAD RT [...] RAYMOND GALVAN Date: 2022-09-28 08:46 Normal [facility] [place] [facility] Encounters Encounter Date Encounter Type Care Provider Facility Start: 03-24-2024 End: 03-25-2024 ambulatory Enrique Cartagena MD Facility: [facility] Start: 03-10-2024 End: 03-11-2024 ambulatory Enrique Cartagena MD Facility: [facility] Start: 02-18-2024 End: 02-19-2024 ambulatory Enrique Cartagena MD Facility: [facility] Start: 02-04-2024 End: 02-05-2024 ambulatory Enrique Cartagena MD Facility: [facility] Start: 01-03-2023 End: 01-04-[address] HOA DANIEL . Facility:[facility] Start: 12-28-2022 End: 12-28-[address] HOA DANIEL . Facility:[facility] Start: 12-13-2022 End: 12-14-[address] TANVI LOPEZ . Facility:[facility] Start: 09-28-2022 End: 09-29-[address] TANVI LOPEZ . Facility: Payers Date Payer Category Payer Unknown 1980 Unknown [id number] 2.16.84 [id number] 1980 Unknown [id number] 2.16.84 [id number] 1981 Unknown [id number] 2.16.84 [id number] 1981 Unknown [id number] 2.16.84 [id number] 1981 Unknown [id number] 2.16. [id number] 1981 Unknown [id number] 2.16. [id number] 1981 Unknown [id number] 2.16. [id number] 1981 Unknown [id number] 2.16. [id number] 1959 Unknown [id number] 1959 Unknown [id number] Summary Purpose Family History No Family History Records FoundNo Family History Records Found Advance Directives No Advanced Directives Records FoundNo Advanced Directives Records Found Additional Source Comments INFORMATION SOURCE (unrecogn ized section and content) DATE CREATED AUTHOR 03/08/2023 [facility] DATE CREATED AUTHOR AUTHOR'S PAULINA SKINNER 03/30/2024 [facility] FOR RECORDS PERTAINING TO PATIENTS [...] BE BASED ON THE PRIMARY CLINICAL RECORDS. [facility] [employer] [facility]. provides no warranty or guarantee of the accuracy or completeness of information in this document.
[2024-07-14 10:33] VITALS: BP 106/71; PULSE 67; TEMP 36.6; O2SAT 100
[2024-07-14] MEDS: 0.9 % SODIUM CHLORIDE 10 ML SYRINGE - SALINE FLUSH INJ (11:09)
[2024-07-14] MEDS: BUPIVACAINE HCL 0.25% PF 25 MG/10 ML VIAL 5 ML INJ (11:09)
[2024-07-14] MEDS: TRIAMCINOLONE ACETONIDE 40 MG/ML VIAL INJ (11:10)
[2024-07-14] MEDS: LIDOCAINE HCL 2% PF 100 MG/5 ML VIAL INJ (11:10)
[2024-07-14] MEDS: IOHEXOL 240 MG/ML - 10 ML VIAL INJ (11:12)
[2024-07-14 11:13] VITALS: BP 104/60; BP 108/62; PULSE 63; PULSE 66; O2SAT 95; O2SAT 97
--- NOTE | 2024-07-14 11:16 | W.PM.PROCNOT ---
Date of procedure: 07/14/24 Pre-op diagnosis: Complex regional pain syndrome type I, right lower extremity Post-op diagnosis: same as pre-op Procedure: Procedure: Right lumbar sympathetic nerve block Medications: Bupivacaine 0.25% 4cc, normal saline 0.9% 5cc, dexamethasone 10mg The patient was seen and examined in the preoperative holding area.? Informed consent was obtained and placed on the chart.? Patient was brought to the medical procedure unit and placed in the prone position where a timeout was completed verifying the correct patient, procedure site, position, and planned special equipment using sterile aseptic technique.? Under direct fluoroscopic visualization a 25-gauge Quincke tipped spinal needle was advanced to the right anterolateral aspect of the L3 vertebral body where Omnipaque dye was injected to show adequate spread.? There was no evidence of vascular or neurologic uptake.? The above-mentioned injectate was then placed in five 2 mL aliquots preceded by negative aspiration. The needle was removed and the surgery site was covered. The same procedure, with the same steps, was then completed on the opposite side. Patient was taken to the postprocedural recovery area and monitored for an appropriate length of time before found suitable for discharge in the accompaniment of a responsible adult. Anesthesia: Local Surgeon: Enrique Cartagena Pathology: none sent Condition: stable Disposition: no change
== END 2024-07-14 11:19 | disposition home or self-care (01) ==
LOC: SURGOUT 09:52
PROVIDERS: PCP Family Medicine; Visit Provider Anesthesiology
DX: G90.521 Complex regional pain syndrome I of right lower limb (principal)
CPT/HCPCS: 64520; J0665; J3301; Q9966

== ENCOUNTER 2024-07-22 09:24 | Outpatient (OUT) | payer OTHER, SELFPAY ==
--- NOTE | 2024-07-22 | XR_ITS ---
The [address] [address] Patient Name: ANNALEE VIDAL MRN: [id number] date: 1980 Sex: F Assigned Patient Location: Current Patient Location: Accession/Order Number: [id number] Exam Date: 07/22/2024 09:26 Report Date: 07/23/2024 06:42 At the request of: MALKA MAXWELL Procedure: XR ankle RT min 3V PROCEDURE: XR ankle RT min 3V HISTORY: RIGHT ANKLE PAIN COMPARISON: XR ankle right 04/22/2024 FINDINGS: BONES:Mechanical fusion of the ankle joint and hindfoot via intramedullary brittnee and locking screws. Prior resection of the distal fibula and osteotomy of the medial malleolus. SOFT TISSUES:No visible soft tissue swelling. EFFUSION:None visible. OTHER: Negative. XR/XR ankle RT min 3V IMPRESSION: 1. Stable surgical changes without evidence of hardware failure or change in alignment. Electronically authenticated by: LARON ZAMBRANO Date: 07/23/2024 06:42
--- OUTSIDE RECORDS SUMMARY | 2024-07-22 09:45 | XMS_ITS | CCD ---
Author Organization [facility] Care Team Providers Care Executive Wellness Programs Director Name Role Phone MARÍA ., DR CAMARA Admitting Unavailabl e KARASIK ., DR CAMARA Attending Unavailabl e KARASIK ., DR CAMARA Consulting Unavailabl e HOY ., DR TINAJERO Primary Care Unavailable HOY ., DR TINAJERO Consulting Unavailable HOY ., DR TINAJERO Primary Care Unavailable HOY ., DR TINAJERO Admitting Unavailable HOY ., DR TINAJERO Attending Unavailable RAYMOND GAVLAN Consulting Unavailable HOY ., DR TINAJERO Primary Care Unavailable MINH MIRELES Admitting Unavailable MINH MIRELES Attending Unavailable CHI MINH Consulting Unavailable MIMA MORGANLDEEP Consulting Unavailable KARASIK ., DR CAMARA Admitting Unavailabl e HOY ., DR TINAJERO Primary Care Unavailable KARASIK ., DR CAMARA Attending Unavailabl e KARASIK ., DR CAMARA Consulting Unavailabl e WEST, DR RAYMOND Orantes Consulting Unavailable Osiel LUNA, Enrique Walker Attending Unavailable Osiel LUNA, Andely Walker Attending Unavailable Osiel LUNA, Andrius Valireza Attending Unavailable Osile LUNA, Andrius Valireza Attending Unavailable Osiel LUNA, Andrius Denise Attending Unavailable Problems Problem Classification Problem Date [...] 30 to 65on 01-03-2023 . . Normal [facility] Comment on above: Result Comment: Perf ormed at: WB Performed By: #### [id number] #### [facility] [address] [place] [address] Dr. Marga Fernandez Age Gdln ACOG Testing 30-65 Normal [facility] Comment on above: Performed By: #### [id number] #### [facility] [address] [address] [address] Marga Fernandez DIAGNOSIS: Comment Normal [facility] Comment on above: Result Comment: NEGA TIVE FOR INTRAEPITHELIAL LESION OR MALIGNANCY. Performed at: WB Performed By: #### [id number] #### [facility] [address] [address] [address] Marga Fernandez HPV Aptima Negative Normal Negative [facility] Comment on above: Result Comment: This nucleic acid amplification test detects fourteen high-risk HPV types (16,18,31,33,35,39,45,51,52,56,58,59,66,68) without differentiation. Performed at: =G Performed By: #### [id number] #### [facility] [address] [address] [address] Marga Fernandez HPV Genotype Reflex Comment Normal [facility] Comment on above: Result Comment: Crit eria not met, HPV Genotype not performed. Performed at: WB Performed By: #### [id number] #### [facility] [address] [address] [address] Marga Fernandez Methodology: Comment Normal [facility] Comment on above: Result Comment: This liquid based ThinPrep(R) pap test was screened with the use of an image guided system. Performed at: WB Performed By: #### [id number] #### [facility] [address] [place] [address] Dr. Marga Fernandez Note: Comment Normal [facility] Comment on above: Result Comment: The Pap smear is a screening test designed to aid in the detection of premalignant and malignant conditions of the uterine cervix. It is not a diagnostic procedure and should not be used as the sole means of detecting cervical cancer. Both false-positive and false-negative reports do occur. . Performed at: WB Performed By: #### [id number] #### [facility] [address] [place] [address] Dr. Marga Fernandez Performed by: Comment Normal [facility] Comment on above: Result Comment: Diamond Isaac, [employer] Display [employer] (ASCP) Performed at: WB Performed By: #### [id number] #### [facility] [address] [address] [address] Marga Fernandez Specimen adequacy: Comment Normal [facility] Comment on above: Result Comment: Sati sfactory for evaluation. No endocervical component is identified. Performed at: WB Performed By: #### [id number] #### [facility] [address] [place] [address] Dr. Marga Fernandez US PELVISon 01-03-2023 US [...] by: RAYMOND ROBERTS Date: 2023-01-03 11:49 Normal [facility] CT ABD/PELV W CONon 12-13-19 [...] SANDI MORGAN Date: 2022-12-13 11:41 Normal [facility] CULTURE URINEon 12-13-2022 CULTURE URINE Culture Observations : NO GROWTH. Normal [facility] Comment on above: Performed By: #### U RCX #### [facility] [address] [address] [address] Marga Fernandez UA RANDOM W/MICROSCOPICon BACTERIA NONE SEEN Normal NONE SEEN [facility] Comment on above: Performed By: #### U AMIC #### [facility] [address] [address] [address] Marga Fernandez Bilirubin Ql (U) Negative Normal NEGATIVE [facility] Comment on above: Performed By: #### U AMIC #### [facility] [address] [place] [address] Dr. Marga Fernandez CAST NONE SEEN Normal NONE SEEN [facility] Comment on above: Performed By: #### U AMIC #### [facility] [address] [place] [address] Dr. Marga Fernandez Clarity (U) CLEAR Normal CLEAR [facility] Comment on above: Performed By: #### U AMIC #### [facility] [address] [place] [address] Dr. Marga Fernandez Color (U) LT. YELLOW Normal YELLOW [facility] Comment on above: Performed By: #### U AMIC #### [facility] [address] [address] [address] Marga Fernandez Crystals LM Nom (Urine sed) NONE SEEN Normal NONE SEEN [facility] Comment on above: Performed By: #### U AMIC #### [facility] [address] [place] [address] Dr. Marga Fernandez Epithelial cells LM Ql (Urine sed) RARE Normal NONE SEEN /RARE [facility] Comment on above: Performed By: #### U AMIC #### [facility] [address] [address] [address] Marga Fernandez Glucose Ql (U) Negative Normal NEGATIVE [facility] Comment on above: Performed By: #### U AMIC #### [facility] [address] [place] [address] Dr. Marga Fernandez Hemoglobin Ql (U) Negative Normal NEGATIVE [facility] Comment on above: Performed By: #### U AMIC #### [facility] [address] [address] [address] Marga Fernandez Ketones Ql (U) Negative Normal NEGATIVE [facility] Comment on above: Performed By: #### U AMIC #### [facility] [address] [address] [address] Marga Fernandez LEUKOCYTES Negative Normal NEGATIVE [facility] Comment on above: Performed By: #### U AMIC #### [facility] [address] [address] [address] Marga Fernandez MUCOUS NONE SEEN Normal NONE SEEN [facility] Comment on above: Performed By: #### U AMIC #### [facility] [address] [place] [address] Dr. Marga Fernandez Nitrite Ql (U) Negative Normal NEGATIVE [facility] Comment on above: Performed By: #### U AMIC #### [facility] [address] [place] [address] Dr. Marga Fernandez pH (U) 6.5 [pH] Normal 5-9 [facility] Comment on above: Performed By: #### U AMIC #### [facility] [address] [place] [address] Dr. Marga Fernandez RBC NONE SEEN Abnormal 0-2 [facility] Comment on above: Performed By: #### U AMIC #### [facility] [address] [place] [address] Dr. Marga Fernandez SPEC GRAVITY <=1.005 Abnormal 1.005-<=1.025 [facility] Comment on above: Performed By: #### U AMIC #### [facility] [address] [place] [address] Dr. Marga Fernandez UA PROTEIN Negative Normal NEGATIVE/ TRACE [facility] Comment on above: Performed By: #### U AMIC #### [facility] [address] [place] [address] Dr. Marga Fernandez Urobilinogen Qn (U) 0.2 {Wero'U}/dL Normal 0.2 - 1. 0 [facility] Comment on above: Performed By: #### U AMIC #### [facility] [address] [place], [place] [address] Dr. Marga Fernandez WBC NONE SEEN Normal NONE SEEN [facility] Comment on above: Performed By: #### U AMIC #### [facility] [address] [place], [place] [address] Dr. Marga Fernandez US SINGLE QUAD RT [...] RAYMOND GALVAN Date: 2022-09-28 08:46 Normal [facility] Encounters Encounter Date Encounter Type Care Provider Facility Start: 06-30-2024 End: 06-30-2024 ambulatory Enrique Cartagena MD Facility: [facility] Start: 03-24-2024 End: 03-24-2024 ambulatory Enrique Cartagena MD Facility: [facility] Start: 03-10-2024 End: 03-10-2024 ambulatory Enrique Cartagena MD Facility: [facility] Start: 02-18-2024 End: 02-18-2024 ambulatory Enrique Cartagena MD Facility: [facility] Start: 02-04-2024 End: 02-04-2024 ambulatory Enrique Cartagena MD Facility: [facility] Start: 01-03-2023 End: 01-04-[address] HOA DANIEL . Facility: Start: 12-28-2022 End: 12-28-[address] HOA DANIEL . Facility[facility] Start: 12-13-2022 End: 12-14-[address] TANIV LOPEZ . Facility:[facility] Start: 09-28-2022 End: 09-29-[address] TANVI LOPEZ . Facility[facility] Payers Date Payer Category Payer Unknown 1980 Unknown [id number] 2.16.84 [id number] 1980 Unknown [id number] 2.16.84 [id number] 1980 Unknown [id number] 2.16.84 [id number] 1980 Unknown [id number] 2.16.84 [id number] 1980 Unknown [id number] 2.16. [id number] 1980 Unknown [id number] 2.16. [id number] 1980 Unknown [id number] 2.16. [id number] 1980 Unknown [id number] 2.16. [id number] 1980 Unknown [id number] 2.16. [id number] 1958 Unknown [id number] 1958 Unknown [id number] Summary Purpose Family History No Family History Records FoundNo Family History Records Found Advance Directives No Advanced Directives Records FoundNo Advanced Directives Records Found Additional Source Comments INFORMATION SOURCE (unrecogn ized section and content) DATE CREATED AUTHOR 03/08/2023 [facility] DATE CREATED AUTHOR AUTHOR'S TEJAIZ ATKESHA 07/16/2024 [facility] FOR RECORDS PERTAINING TO PATIENTS WHO [...] BE BASED ON THE PRIMARY CLINICAL RECORDS. [facility] [employer] [facility]. provides no warranty or guarantee of the accuracy or completeness of information in this document.
== END 2024-07-22 09:25 | disposition home or self-care (01) ==
LOC: EC 09:25
PROVIDERS: PCP Family Medicine; Visit Provider Podiatrist Foot & Ankle Surgery
DX: S82.871D Displaced pilon fracture of right tibia, subsequent encounter for closed fracture with routine healing (principal)
CPT/HCPCS: 73610

== ENCOUNTER 2024-07-30 09:10 | Outpatient (OUT) | payer OTHER, SELFPAY ==
--- NOTE | 2024-07-30 09:14 | P.CN_ITS ---
Consult Note: HPI Data of Consult Patient: known to practice within the last 3 years Consult date: 02/18/24 Requesting Physician: Yesika Guillaume NP Primary Care Provider: Jorge Luis Mcdaniel MD Consult Narrative Reason for consult: right foot pain Narrative: 43yof who presents for assessment. significant persistent right foot pain. recently had emg, which is significant for severe nerve damage of multiple nerves in foot. no acute radiculopathy noted. has tried various medications, including percocet, lyrica, without benefit. no further surgeries necessary, per her foot surgeon. continues to have temperature fluctuations, color changes, significant sensitivity and pain in right foot. denies adverse med side effects. Pain today 0/10 increasing to 2/10. We recently repeated right lumbar sympathetic NB x2 with 95% improvement ongoing, this is the best she has felt with interventional therapy, feels wonderful , she is able to comfortably wear socks/shoes climb and walk more. continues to take lyrica 200mg am 400mg HS through pcp. cc:: CC: Yesika Guillaume NP Review of Systems ROS Status of ROS 10 or more systems reviewed and unremark able except as noted in history and below [facility] Medical History (Updated 02/04/24 @ 14:38 by Enrique Cartagena MD) GERD (gastroesophageal reflux disease) ?K21.9 - Gastro-esophageal reflux disease without esophagitis (ICD-10) COVID-19 ?U07.1 - COVID-19 (ICD-10) Displaced fracture of lateral malleolus of right fibula, initial encounter for closed fracture (~12/09/23) ?S82.61XA - Displaced fracture of lateral malleolus of right fibula, initial encounter for closed fracture (ICD-10) Surgical History H/O ankle fusion ?Z98.1 - Arthrodesis status (ICD-10) History of open reduction and internal fixation (ORIF) procedure ?Z98.890 - Other specified postprocedural states (ICD-10) History of appendectomy ?Z90.49 - Acquired absence of other specified parts of digestive tract (ICD- 10) History of partial hysterectomy ?Z90.711 - Acquired absence of uterus with remaining cervical stump (ICD-10) Family History Father Heart disease Social History Within the past year, how often did you have a drink containing alcohol: never Score interpretation: A score less than 3 is consistent with normal alcohol consumption. Smoking status: Current some day smoker Non-prescribed substance use: denies use Highest level of school completed/degree received: Associate degree: occupational, technical, vocational program Meds Home Medications and Allergies Home Medications ?Medication ?Instructions ?Recorded ?Confirmed ?Type multivitamin (Daily Multi-Vitamin 1 tab PO DAILY 12/09/23 07/14/24 History tablet) pantoprazole 40 mg tablet,delayed 40 mg PO QDAY 12/09/23 07/14/24 History release cholecalciferol (vitamin D3) 50 50 mcg PO DAILY #30 tabs 12/21/23 07/14/24 Rx mcg (2,000 unit) tablet (Vitamin D3) vitamin B12 0.5 mg-folic acid 1 mg 1 tab PO DAILY 02/04/24 07/14/24 History tablet pregabalin 200 mg capsule (Lyrica) 200 mg PO QAM 05/21/24 07/14/24 History pregabalin 300 mg capsule (Lyrica) 400 mg PO .QHS 05/21/24 07/14/24 History Allergies Allergy/AdvReac Type Severity Reaction Status Date / Time iodine Allergy Intermediate Rash Verified 07/14/24 10:35 Exam Narrative Exam Narrative: Examination of the right extremity reveals notable hyperpathia and allodynia and edema? Notable atrophy and diffuse weakness present in the extremity.? There is notable shiny skin with hair loss and abnormal hair growth denoting trophic changes presently.? Asymmetric color and temperature changes are present which denotes sudomotor changes.? Decreased range of motion and strength is noted in the extremity.? Constitutional Documenting provider has reviewed patient's vital signs: yes Common normals: no apparent distress, oriented x3, healthy appearing, alert and well nourished General appearance: cooperative [facility] Common normals: normocephalic, hearing grossly normal bilaterally and moist oral mucous membranes Head and scalp: normocephalic Eye Common normals: PERRL Pupil: PERRL Neck & C-Spine Common normals: full ROM General: normal visual inspection Chest Common normals: inspection of chest normal Respiratory Common normals: normal respiratory effort, no retractions and no use of accessory muscles Neuro Common normals: oriented x3, CN's II-XII intact bilaterally, moves all extremities, no focal motor deficits, no sensory deficits noted and deep tendon reflexes 2+ bilaterally Sensorium/orientation: alert Motor exam: strength 5/5 throughout and no movement abnormalities noted Psych Common normals: mental status grossly normal, thought process normal, cooperative, affect normal, speech normal and activity/motor behavior normal Speech: normal speech Thought process: normal thought process Results Additional Findings Additional findings: If on a controlled substance or opioids, I have checked an [place]AR[place] report on this patient and there are no aberrancies noted in the prescribing history.??If on a controlled substance or opioid a drug screen was completed and reviewed within the last year, and if there has not been a drug screen completed we ordered one today to monitor higher risk, state monitored pain medication use. As part of providing excellent, safe, comprehensive care, the following was com pleted at our patient's visit: 1. A medication reconciliation and review to ensure accurate knowledge of current/active medications, including asking our patients to inform us about any [id number]-aaktifa medications or herbal remedies/nutritional supplements/alternative remedies. 2. A review to specifically ensure our patients have had annual screening for screening for depression, screening for tobacco use, and screening for unhealthy alcohol use. For concerning screenings had a discussion with the patient, provided patient education, and recommended follow-up with primary care provider when appropriate. If patient noted with a risk of falling, they received education on strength, gait, and balance training to prevent future risk of falling. Assessment and Plan Assessment and Plan (1) Complex regional pain syndrome i of right lower limb: Plan at this time little to no pain as a result of repeat right lumbar sympathetic nerve blocks x2 continue medications through PCP f/u as needed
--- OUTSIDE RECORDS SUMMARY | 2024-07-30 09:32 | XMS_ITS | CCD ---
Author Organization [facility] Care Team Providers Care Blending Tank Tender Name Role Phone MARÍA ., DR CAMARA [...] Unavailable Osiel LUNA, Andrius Valireza Attending Unavailable Osiel LUNA, Andrius Denise Attending Unavailable Osiel LUNA, Andrius Denise Attending [...] 30 to 65on 01-03-2023 . . Normal [facility] Comment on above: Result Comment: Perf ormed at: WB Performed By: #### [id number] #### [facility] [address] [place] [address] Dr. Marga Fernandez Age Gdln ACOG Testing 30-65 Normal [facility] Comment on above: Performed By: #### [id number] #### [facility] [address] [address] [address] Marga Fernandez DIAGNOSIS: Comment Normal [facility] Comment on above: Result Comment: NEGA TIVE FOR INTRAEPITHELIAL LESION OR MALIGNANCY. Performed at: WB Performed By: #### [id number] #### [facility] [address] [address] [address] Marga Fernandez HPV Aptima Negative Normal Negative [facility] Comment on above: Result Comment: This nucleic acid amplification test detects fourteen high-risk HPV types (16,18,31,33,35,39,45,51,52,56,58,59,66,68) without differentiation. Performed at: =G Performed By: #### [id number] #### [facility] [address] [address] [address] Marga Fernandez HPV Genotype Reflex Comment Normal [facility] Comment on above: Result Comment: Crit eria not met, HPV Genotype not performed. Performed at: WB Performed By: #### 4 [id number] #### [facility] [address] [address] [address] Marga Fernandez Methodology: Comment Normal [facility] Comment on above: Result Comment: This liquid based ThinPrep(R) pap test was screened with the use of an image guided system. Performed at: WB Performed By: #### 4 [id number] #### [facility] [address] [place] [address] Dr. Marga Fernandez Note: Comment Normal [facility] Comment on above: Result Comment: The Pap smear is a screening test designed to aid in the detection of premalignant and malignant conditions of the uterine cervix. It is not a diagnostic procedure and should not be used as the sole means of detecting cervical cancer. Both false-positive and false-negative reports do occur. . Performed at: WB Performed By: #### [id number] #### [facility] [address] [place] [address] Dr. Marga Fernandez Performed by: Comment Normal [facility] Comment on above: Result Comment: Diamond Isaac, Marking Devices Assembler (ASCP) Performed at: WB Performed By: #### 4 [id number] #### [facility] [address] [address] [address] Marga Fernandez Specimen adequacy: Comment Normal [facility] Comment on above: Result Comment: Sati sfactory for evaluation. No endocervical component is identified. Performed at: WB Performed By: #### 4 [id number] #### [facility] [address] [place] [address] Dr. Marga Fernandez US PELVISon 01-03-2023 US [...] by: RAYMOND ROBERTS Date: 2023-01-03 11:49 Normal [facility] CT ABD/PELV W CONon 12-13-[address] [...] SANDI MORGAN Date: 2022-12-13 11:41 Normal [facility] CULTURE URINEon 12-13-2022 CULTURE URINE Culture Observations : NO GROWTH. Normal [facility] Comment on above: Performed By: #### U RCX #### [facility] [address] [address] [address] Marga Fernandez UA RANDOM W/MICROSCOPICon BACTERIA NONE SEEN Normal NONE SEEN [facility] Comment on above: Performed By: #### U AMIC #### [facility] [address] [address] [address] Marga Fernandez Bilirubin Ql (U) Negative Normal NEGATIVE [facility] Comment on above: Performed By: #### U AMIC #### [facility] [address] [place] [address] Dr. Marga Fernandez CAST NONE SEEN Normal NONE SEEN [facility] Comment on above: Performed By: #### U AMIC #### [facility] [address] [place] [address] Dr. Marga Fernandez Clarity (U) CLEAR Normal CLEAR [facility] Comment on above: Performed By: #### U AMIC #### [facility] [address] [place] [address] Dr. Marga Fernandez Color (U) LT. YELLOW Normal YELLOW [facility] Comment on above: Performed By: #### U AMIC #### [facility] [address] [address] [address] Marga Fernandez Crystals LM Nom (Urine sed) NONE SEEN Normal NONE SEEN [facility] Comment on above: Performed By: #### U AMIC #### [facility] [address] [place] [address] Dr. Marga Fernandez Epithelial cells LM Ql (Urine sed) RARE Normal NONE SEEN /RARE [facility] Comment on above: Performed By: #### U AMIC #### [facility] [address] [address] [address] Marga Fernandez Glucose Ql (U) Negative Normal NEGATIVE [facility] Comment on above: Performed By: #### U AMIC #### [facility] [address] [place] [address] Dr. Marga Fernandez Hemoglobin Ql (U) Negative Normal NEGATIVE [facility] Comment on above: Performed By: #### U AMIC #### [facility] [address] [address] [address] Marga Fernandez Ketones Ql (U) Negative Normal NEGATIVE [facility] Comment on above: Performed By: #### U AMIC #### [facility] [address] [address] [address] Marga Fernandez LEUKOCYTES Negative Normal NEGATIVE [facility] Comment on above: Performed By: #### U AMIC #### [facility] [address] [address] [address] Marga Fernandez MUCOUS NONE SEEN Normal NONE SEEN [facility] Comment on above: Performed By: #### U AMIC #### [facility] [address] [place] [address] Dr. Marga Fernandez Nitrite Ql (U) Negative Normal NEGATIVE [facility] Comment on above: Performed By: #### U AMIC #### [facility] [address] [place] [address] Dr. Marga Fernandez pH (U) 6.5 [pH] Normal 5-9 [facility] Comment on above: Performed By: #### U AMIC #### [facility] [address] [place] [address] Dr. Marga Fernandez RBC NONE SEEN Abnormal 0-2 [facility] Comment on above: Performed By: #### U AMIC #### [facility] [address] [place] [address] Dr. Marga Fernandez SPEC GRAVITY <=1.005 Abnormal 1.005-<=1.025 [facility] Comment on above: Performed By: #### U AMIC #### [facility] [address] [place] [address] Dr. Marga Fernandez UA PROTEIN Negative Normal NEGATIVE/ TRACE [facility] Comment on above: Performed By: #### U AMIC #### [facility] [address] [place] [address] Dr. Marga Fernandez Urobilinogen Qn (U) 0.2 {Wero'U}/dL Normal 0.2 - 1. 0 [facility] Comment on above: Performed By: #### U AMIC #### [facility] [address] [place], [place] [address] Dr. Marga Fernandez WBC NONE SEEN Normal NONE SEEN [facility] Comment on above: Performed By: #### U AMIC #### [facility] [address] [place], [place] [address] Dr. Marga Fernandez US SINGLE QUAD RT [...] RAYMOND GALVAN Date: 2022-09-28 08:46 Normal [facility] Encounters Encounter Date Encounter Type Care Provider Facility Start: 06-30-2024 End: 06-30-2024 ambulatory Enrique Cartagena MD Facility: [facility] Start: 03-24-2024 End: 03-24-2024 ambulatory Enrique Cartagena MD Facility: [facility] Start: 03-10-2024 End: 03-10-2024 ambulatory Enrique Cartagena MD Facility: [facility] Start: 02-18-2024 End: 02-18-2024 ambulatory Enrique Cartagena MD Facility: [facility] Start: 02-04-2024 End: 02-04-2024 ambulatory Enrique Cartagena MD Facility: [facility] Start: 01-03-2023 End: 01-04-[address] HOA DANIEL . Facility: Start: 12-28-2022 End: 12-28-[address] HOA DANIEL . Facility:[facility] Start: 12-13-2022 End: 12-14-[address] TANVI LOPEZ . Facility:[facility] Start: 09-28-2022 End: 09-29-[address] TANVI LOPEZ . Facility:[facility] Payers Date Payer Category Payer Unknown 1980 Unknown [id number] 2.16.84 [id number] 1980 Unknown [id number] 2.16.84 [id number] 1980 Unknown [id number] 2.16.84 [id number] 1981 Unknown [id number] 2.16.84 [id number] 1981 Unknown [id number] 2.16. [id number] 1981 Unknown [id number] 2.16. [id number] 1981 Unknown [id number] 2.16. [id number] 1981 Unknown [id number] 2.16. [id number] 1981 Unknown [id number] 2.16. [id number] 1959 Unknown [id number] 1959 Unknown [id number] Summary Purpose Family History No Family History Records FoundNo Family History Records Found Advance Directives No Advanced Directives Records FoundNo Advanced Directives Records Found Additional Source Comments INFORMATION SOURCE (unrecogn ized section and content) DATE CREATED AUTHOR 03/08/2023 [facility] DATE CREATED AUTHOR AUTHOR'S TEJAIZ ATKESHA 07/16/2024 [facility] FOR RECORDS PERTAINING TO PATIENTS WHO [...] BE BASED ON THE PRIMARY CLINICAL RECORDS. [facility] [employer] [facility]. provides no warranty or guarantee of the accuracy or completeness of information in this document.
== END 2024-07-30 09:11 | disposition home or self-care (01) ==
LOC: PM 09:10
PROVIDERS: PCP Family Medicine; Visit Provider Nurse Practitioner
DX: G90.521 Complex regional pain syndrome I of right lower limb (principal)
CPT/HCPCS: G0463

== ENCOUNTER 2024-09-10 08:28 | Outpatient (OUT) | payer OTHER, SELFPAY ==
--- NOTE | 2024-09-10 | XR_ITS ---
The [address] [address] Patient Name: ANNALEE VIDAL MRN: [id number] date: 1980 Sex: F Assigned Patient Location: [facility] Current Patient Location: Accession/Order Number: [id number] Exam Date: 09/10/2024 08:30 Report Date: 09/14/2024 07:01 At the request of: MALKA MAXWELL Procedure: XR ankle RT min 3V PROCEDURE: XR ankle RT min 3V HISTORY: RIGHT ANKLE PAIN COMPARISON: XR ankle right 07/22/2024 FINDINGS: BONES:Prior mechanical fusion of the ankle joint and hindfoot via intramedullary brittnee and locking screws; no appreciable hardware failure. Prior osteotomy and partial osseous healing of the medial malleolus. Resection of distal fibula and removal of prior hardware. SOFT TISSUES:Soft tissue swelling surrounding the ankle. EFFUSION:None visible. OTHER: Negative. XR/XR ankle RT min 3V IMPRESSION: 1. Stable surgical changes without evidence of hardware failure or change in alignment. 2. No appreciable acute abnormality. Electronically authenticated by: LARON ZAMBRANO Date: 09/14/2024 07:01
--- OUTSIDE RECORDS SUMMARY | 2024-09-10 08:31 | XMS_ITS | CCD ---
Author Organization [facility] Care Team Providers Care Land Mobile Radio Technician Name Role Phone MARÍA ., DR [...] Andrius Valireza Attending Unavailable Osiel LUNA, Andrius Valireza Attending [...] 30 to 65on 01-03-2023 . . Normal [facility] Comment on above: Result Comment: Perf ormed at: WB Performed By: #### [id number] #### [facility] [address] [place] [address] Dr. Marga Fernandez Age Gdln ACOG Testing 30-65 Normal [facility] Comment on above: Performed By: #### 4 [id number] #### [facility] [address] [address] [address] Marga Fernandez DIAGNOSIS: Comment Normal [facility] Comment on above: Result Comment: NEGA TIVE FOR INTRAEPITHELIAL LESION OR MALIGNANCY. Performed at: WB Performed By: #### 4 [id number] #### [facility] [address] [address] [address] Marga Fernandez HPV Aptima Negative Normal Negative [facility] Comment on above: Result Comment: This nucleic acid amplification test detects fourteen high-risk HPV types (16,18,31,33,35,39,45,51,52,56,58,59,66,68) without differentiation. Performed at: =G Performed By: #### 4 [id number] #### [facility] [address] [address] [address] Marga Fernandez HPV Genotype Reflex Comment Normal [facility] Comment on above: Result Comment: Crit eria not met, HPV Genotype not performed. Performed at: WB Performed By: #### 4 [id number] #### [facility] [address] [address] [address] Marga Fernandez Methodology: Comment Normal [facility] Comment on above: Result Comment: This liquid based ThinPrep(R) pap test was screened with the use of an image guided system. Performed at: WB Performed By: #### 4 [id number] #### [facility] [address] [place] [address] Dr. Marga Fernandez Note: Comment Normal [facility] Comment on above: Result Comment: The Pap smear is a screening test designed to aid in the detection of premalignant and malignant conditions of the uterine cervix. It is not a diagnostic procedure and should not be used as the sole means of detecting cervical cancer. Both false-positive and false-negative reports do occur. . Performed at: WB Performed By: #### [id number] #### [facility] [address] [place] [address] Dr. Marga Fernandez Performed by: Comment Normal [facility] Comment on above: Result Comment: Diamond Isaac, Oven Equipment Repairer (ASCP) Performed at: WB Performed By: #### 4 [id number] #### [facility] [address] [address] [address] Marga Fernandez Specimen adequacy: Comment Normal [facility] Comment on above: Result Comment: Sati sfactory for evaluation. No endocervical component is identified. Performed at: WB Performed By: #### 4 [id number] #### [facility] [address] [place] [address] Dr. Marga Fernandez US PELVISon 01-03-2023 US [...] by: RAYMOND ROBERTS Date: 2023-01-03 11:49 Normal [facility] CT ABD/PELV W CONon 12-13-19 23 [...] SANDI MORGAN Date: 2022-12-13 11:41 Normal [facility] CULTURE URINEon 12-13-2022 CULTURE URINE Culture Observations : NO GROWTH. Normal [facility] Comment on above: Performed By: #### U RCX #### [facility] [address] [address] [address] Marga Fernandez UA RANDOM W/MICROSCOPICon BACTERIA NONE SEEN Normal NONE SEEN [facility] Comment on above: Performed By: #### U AMIC #### [facility] [address] [address] [address] Marga Fernandez Bilirubin Ql (U) Negative Normal NEGATIVE [facility] Comment on above: Performed By: #### U AMIC #### [facility] [address] [place] [address] Dr. Marga Fernandez CAST NONE SEEN Normal NONE SEEN [facility] Comment on above: Performed By: #### U AMIC #### [facility] [address] [place] [address] Dr. Marga Fernandez Clarity (U) CLEAR Normal CLEAR [facility] Comment on above: Performed By: #### U AMIC #### [facility] [address] [place] [address] Dr. Marga Fernandez Color (U) LT. YELLOW Normal YELLOW [facility] Comment on above: Performed By: #### U AMIC #### [facility] [address] [address] [address] Marga Fernandez Crystals LM Nom (Urine sed) NONE SEEN Normal NONE SEEN [facility] Comment on above: Performed By: #### U AMIC #### [facility] [address] [place] [address] Dr. Marga Fernandez Epithelial cells LM Ql (Urine sed) RARE Normal NONE SEEN /RARE [facility] Comment on above: Performed By: #### U AMIC #### [facility] [address] [address] [address] Marga Fernandez Glucose Ql (U) Negative Normal NEGATIVE [facility] Comment on above: Performed By: #### U AMIC #### [facility] [address] [place] [address] Dr. Marga Fernandez Hemoglobin Ql (U) Negative Normal NEGATIVE The [facility] Comment on above: Performed By: #### U AMIC #### [facility] [address] [address] [address] Marga Fernandez Ketones Ql (U) Negative Normal NEGATIVE [facility] Comment on above: Performed By: #### U AMIC #### [facility] [address] [address] [address] Marga Fernandez LEUKOCYTES Negative Normal NEGATIVE [facility] Comment on above: Performed By: #### U AMIC #### [facility] [address] [address] [address] Marga Fernandez MUCOUS NONE SEEN Normal NONE SEEN [facility] Comment on above: Performed By: #### U AMIC #### [facility] [address] [place] [address] Dr. Marga Fernandez Nitrite Ql (U) Negative Normal NEGATIVE [facility] Comment on above: Performed By: #### U AMIC #### [facility] [address] [place] [address] Dr. Marga Fernandez pH (U) 6.5 [pH] Normal 5-9 [facility] Comment on above: Performed By: #### U AMIC #### [facility] [address] [place] [address] Dr. Marga Fernandez RBC NONE SEEN Abnormal 0-2 [facility] Comment on above: Performed By: #### U AMIC #### [facility] [address] [place] [address] Dr. Marga Fernandez SPEC GRAVITY <=1.005 Abnormal 1.005-<=1.025 The [facility] Comment on above: Performed By: #### U AMIC #### [facility] [address] [place] [address] Dr. Marga Fernandez UA PROTEIN Negative Normal NEGATIVE/ TRACE [facility] Comment on above: Performed By: #### U AMIC #### [facility] [address] [place] [address] Dr. Marga Fernandez Urobilinogen Qn (U) 0.2 {Wero'U}/dL Normal 0.2 - 1. 0 [facility] Comment on above: Performed By: #### U AMIC #### [facility] [address] [place], [place] [address] Dr. Marga Fernandez WBC NONE SEEN Normal NONE SEEN [facility] Comment on above: Performed By: #### U AMIC #### [facility] [address] [place], [place] [address] Dr. Marga Fernandez US SINGLE QUAD RT [...] RAYMOND GALVAN Date: 2022-09-28 08:46 Normal [facility] Encounters Encounter Date Encounter Type Care Provider Facility Start: 06-30-2024 End: 06-30-2024 ambulatory Enrique Cartagena MD Facility: [facility] Start: 03-24-2024 End: 03-24-2024 ambulatory Enrique Cartagena MD Facility: [facility] Start: 03-10-2024 End: 03-10-2024 ambulatory Enrique Cartagena MD Facility: [facility] Start: 02-18-2024 End: 02-18-2024 ambulatory Enrique Cartagena MD Facility: [facility] Start: 02-04-2024 End: 02-04-2024 ambulatory Enrique Cartagena MD Facility: [facility] Start: 01-03-2023 End: 01-04-[address] HOA DANIEL . Facility: Start: 12-28-2022 End: 12-28-[address] HOA DANIEL . Facility:[facility] Start: 12-13-2022 End: 12-14-[address] TANVI LOPEZ . Facility:[facility] Start: 09-28-2022 End: 09-29-[address] TANVI LOPEZ . Facility:[facility] Payers Date Payer Category Payer Unknown 1980 Unknown [id number] 2.16.84 [id number] 1980 Unknown [id number] 2.16.84 [id number] 1980 Unknown [id number] 2.16.84 [id number] 1980 Unknown [id number] 2.16.84 [id number] 1980 Unknown [id number] 2.16. [id number] 1980 Unknown [id number] 2.16. [id number] 1980 Unknown [id number] 2.16. [id number] 1980 Unknown [id number] 2.16. [id number] 1980 Unknown [id number] 2.16. [id number] 1959 Unknown [id number] 1958 Unknown [id number] Summary Purpose Family History No Family History Records FoundNo Family History Records Found Advance Directives No Advanced Directives Records FoundNo Advanced Directives Records Found Additional Source Comments INFORMATION SOURCE (unrecogn ized section and content) DATE CREATED AUTHOR 03/08/2023 [facility] DATE CREATED AUTHOR AUTHOR'S TEJAIZ ATKESHA 07/16/2024 [facility] FOR RECORDS PERTAINING TO PATIENTS WHO ARE [...] BE BASED ON THE PRIMARY CLINICAL RECORDS. [facility] [employer] [facility]. provides no warranty or guarantee of the accuracy or completeness of information in this document.
== END 2024-09-10 08:29 | disposition home or self-care (01) ==
LOC: RAD 08:28
PROVIDERS: PCP Family Medicine; Visit Provider Podiatrist Foot & Ankle Surgery
DX: M25.571 Pain in right ankle and joints of right foot (principal); M24.671 Ankylosis, right ankle
CPT/HCPCS: 73610

== ENCOUNTER 2025-03-03 16:01 | Emergency (ER) | payer OTHER, SELFPAY ==
[2025-03-03 16:16] VITALS: BP 111/46; PULSE 64; TEMP 37; O2SAT 96; BMI 26.6
[2025-03-03] MEDS: 0.9 % SODIUM CHLORIDE 1,000 ML 999 ML IV (16:52)
[2025-03-03] MEDS: ONDANSETRON PF 4 MG/2 ML VIAL IV ×2 (16:55→18:47)
[2025-03-03] MEDS: FAMOTIDINE/PF 20 MG/2 ML VIAL IV (16:56)
[2025-03-03 17:03] LABS: Basophils Percent Auto 0.3 % (0.2-2.0); Eosinophils Percent Auto 0.2 % (0.9-7.0); Hemoglobin 13.8 g/dL (12.0-16.0); Immature Granulocytes Abs Auto 0.03 10^3/uL (0.00-0.03); Immature Granulocytes Pct Auto 0.2 % (0.0-0.5); Lymphocytes Absolute Auto 2.1 10^3/uL (1.2-3.8); Lymphocytes Percent Auto 14.7 % (20.5-60.0); Mean Corpuscular HGB Conc 33.7 g/dL (29.9-35.2); Mean Corpuscular Hemoglobin 28.5 pg (26.7-34.0); Mean Corpuscular Volume 84.7 fL (81.0-99.0); Mean Platelet Volume 9.8 fL (9.5-13.5); Monocytes Absolute Auto 0.9 10^3/uL (0.3-0.8); Monocytes Percent Auto 6.4 % (1.7-12.0); Neutrophils Absolute Auto 10.9 10^3/uL (1.4-6.5); Neutrophils Percent Auto 78.2 % (43.0-75.0); Platelet Count 370 10^3/uL (150-450); Red Blood Count 4.84 10^6/uL (4.20-5.40); Red Cell Distribution Width 13.6 % (11.0-15.0)
[2025-03-03 17:45] LABS: Alanine Aminotransferase 18 U/L (14-59); Albumin Globulin Ratio 1.1; Albumin Level 4.2 g/dL (3.4-5.0); Alkaline Phosphatase 71 U/L (46-116); Anion Gap 15.5; Aspartate Amino Transferase 17 U/L (15-37); Bilirubin Total 0.7 mg/dL (0.2-1.0); Calcium 9.8 mg/dL (8.5-10.1); Carbon Dioxide 22.9 mmol/L (21.0-32.0); Chloride 103 mmol/L (98-107); Estimated GFR (African America >60 (>=60 mL/min/1.73m^2); Estimated GFR (Non-African Ame >60 (>=60 mL/min/1.73m^2); Globulin 3.7 g/dL; Glucose 109 mg/dL (74-106); Potassium 3.4 mmol/L (3.5-5.1); Sodium 138 mmol/L (136-145); Total Protein 7.9 g/dL (6.4-8.2)
--- NOTE | 2025-03-03 18:06 | ED_ITS ---
HPI - Nausea/Vomiting/Diarrhea General Chief complaint: Nausea/Vomiting/Diarrhea Stated complaint: FLU LIKE SYMPTOMS Time Seen by Provider: 03/03/25 16:12 Source: patient Mode of arrival: Wheelchair Limitations: no limitations History of Present Illness HPI Narrative: 44-year-old female presents to the emergency department complaint of nausea, vomiting, and diarrhea. Onset very early this morning. Symptoms have been persistent throughout the course of the day. States she is having some abdominal soreness, but attributes this to vomiting. Denies any fever, chills, questionable food, ill contacts, antibiotic use, prior abdominal problems. Quality:?As above Severity:?Moderate Timing:?As above, constant Context: Normal setting and activity? Modifying factors:?None Associated symptoms: As above Related Data Home Medications ?Medication ?Instructions ?Recorded ?Confirmed multivitamin (Daily Multi-Vitamin 1 tab PO DAILY 12/09/23 03/03/25 tablet) pantoprazole 40 mg tablet,delayed 40 mg PO QDAY 12/09/23 03/03/25 release vitamin B12 0.5 mg-folic acid 1 mg 1 tab PO DAILY 02/04/24 03/03/25 tablet pregabalin 300 mg capsule (Lyrica) 400 mg PO .QHS 05/21/24 03/03/25 Previous Rx's ?Medication ?Instructions ?Recorded cholecalciferol (vitamin D3) 50 50 mcg PO DAILY #30 tabs 12/21/23 mcg (2,000 unit) tablet (Vitamin D3) ondansetron 4 mg disintegrating 4 mg PO Q8H PRN nausea and 03/03/25 tablet vomiting #10 tabs Allergies Allergy/AdvReac Type Severity Reaction Status Date / Time iodine Allergy Intermediate Rash Verified 07/14/24 10:35 Review of Systems ROS Narrative CONST: Denies any fever, chills RESP: Denies any shortness of breath CV: Denies any chest pain GI: +abd pain from vomiting.? + nausea, vomiting, diarrhea. : Denies any flank pain, dysuria MS: Denies any back pain, myalgias SKIN: Denies any color change, rash NEURO: Denies numbness, weakness PSYCHIATRIC: Denies confusion, agitation PFSH [facility] Medical History (Updated 03/03/25 @ 18:42 by ROXANA Aaron) GERD (gastroesophageal reflux disease) ?K21.9 - Gastro-esophageal reflux disease without esophagitis (ICD-10) COVID-19 ?U07.1 - COVID-19 (ICD-10) Displaced fracture of lateral malleolus of right fibula, initial encounter for closed fracture (~12/09/23) ?S82.61XA - Displaced fracture of lateral malleolus of right fibula, initial encounter for closed fracture (ICD-10) Surgical History H/O ankle fusion ?Z98.1 - Arthrodesis status (ICD-10) History of open reduction and internal fixation (ORIF) procedure ?Z98.890 - Other specified postprocedural states (ICD-10) History of appendectomy ?Z90.49 - Acquired absence of other specified parts of digestive tract (ICD- 10) History of partial hysterectomy ?Z90.711 - Acquired absence of uterus with remaining cervical stump (ICD-10) Family History Father Heart disease Social History Within the past year, how often did you have a drink containing alcohol: never Score interpretation: A score less than 3 is consistent with normal alcohol consumption. Smoking status: Current some day smoker Non-prescribed substance use: denies use Highest level of school completed/degree received: Associate degree: occupational, technical, vocational program Exam Narrative Exam Narrative: Vital signs reviewed Nurses notes noted CONST: Nontoxic, ill appearing, well nourished, in no distress.? No diaphoresis.?? HENT: normocephalic, atraumatic, dry mucous membrane, no abnormalities of the nose noted, hearing normal EYES: normal appearing conjunctiva, no apparent discharge bilat NECK: normal appearance CV: normal rate, regular rhythm, no murmur RESP: normal effort, speaking in complete sentences. Lung sounds clear and equal bilat.? No wheezes, rales, rhonchi GI: normal bowel sounds, soft, no distension, +tenderness:mid abd region, mild. No rebound or guarding : no CVA tenderness MS: no edema, tenderness SKIN: no pallor NEURO: A&Ox 3, no focal findings PSYCH: normal mood, affect Constitutional Vital Signs, click to edit/add: Last Vital Signs Temp 98.6 F 03/03/25 16:16 Pulse 64 03/03/25 16:16 Resp 18 03/03/25 16:16 BP 111/46 L 03/03/25 16:16 Pulse Ox 96 03/03/25 16:16 O2 Del Method Room Air 03/03/25 16:16 Course Reevaluation(s) Reevaluation #1: On reevaluation, patient improved. She tolerated p.o. without vomiting. Still feel little queasy. Repeat dose of Zofran ordered. Discussed with patient results, plan, and disposition. Recommend clear liquid diet over the next 24 hours. Patient agreeable with plan. Time: 18:44 Vital Signs Vital signs: Vital Signs Temperature 98.6 F 03/03/25 16:16 Pulse Rate 64 03/03/25 16:16 Respiratory Rate 18 03/03/25 16:16 Blood Pressure 111/46 L 03/03/25 16:16 Pulse Oximetry 96 03/03/25 16:16 Oxygen Delivery Method Room Air 03/03/25 16:16 Temperature 98.6 F 03/03/25 16:16 Pulse Rate 64 03/03/25 16:16 Respiratory Rate 18 03/03/25 16:16 Blood Pressure 111/46 L 03/03/25 16:16 Pulse Oximetry 96 03/03/25 16:16 Oxygen Delivery Method Room Air 03/03/25 16:16 MDM - Nausea/Vomiting/Diarrhea MDM Narrative Medical decision making narrative: This is a pleasant 44-year-old female who presents to the emergency department for evaluation of nausea, runny, diarrhea On arrival, afebrile, vital signs are stable Exam, nontoxic, ill appearing patient in no distress. Heart regular rate and rhythm. Lung sounds clear and equal bilaterally. Abdomen soft, there is some generalized tenderness with no rebound or guarding. Patient states pain from throwing up. IV established, blood work was drawn and sent to the lab. She was given 1 L normal saline, Zofran, Pepcid Labs reveal mild leukocytosis of 14, likely reactive. No anemia, thrombocytopenia, electrolyte imbalance, renal impairment. Glucose 109. LFTs, lipase unremarkable. Urinalysis reveals ketones Patient had improvement with treatment. She was able to tolerate p.o. Did have some nausea at time of disposition, but overall improved. Favor nonspecific nausea, vomiting, and diarrhea Urinary tract infection less likely based on urinalysis Acute abdomen less likely based on exam. There is only minimal tenderness. No rebound or guarding. Afebrile. Additional Tests and Interventions IV Fluids:hydration/inability to tolerate PO Diagnostic testing considered but not performed: CT scan. Subjectively, patient states she is only having mild abdominal discomfort when she is throwing up. No pain at rest. Re-Evaluation See ED course Disposition ? The patient was discharged. Prescriptions sent to pharmacy: [facility] Plan: Patient will be discharged to home.? Condition at time of disposition: stable, improved Advised clear liquid diet over the next 24 hours.? Advised to follow up with primary provider. Advised to return for any worsening and/or development of new, concerning signs or symptoms PLEASE NOTE: Portions of the medical record may have been produced using electronic chemical instrumentation officer and may contain errors with respect to translation of words which may not have been identified prior to finalization of the chart. Medical Records Attestation: I reviewed the patient's medical records. Lab Data Attestation: I reviewed the patient's lab results. Labs: Lab Results 03/03/25 03/03/25 Range/Units 16:45 18:00 WBC 14.0 H (4.0-11.0) 10^3/uL RBC 4.84 (4.20-5.40) 10^6/uL Hgb 13.8 (12.0-16.0) g/dL Hct 41.0 (36.0-48.0) % MCV 84.7 (81.0-99.0) fL MCH 28.5 (26.7-34.0) pg MCHC 33.7 (29.9-35.2) g/dL RDW 13.6 (11.0-15.0) % Plt Count 370 (150-450) 10^3/uL MPV 9.8 (9.5-13.5) fL Neut % (Auto) 78.2 H (43.0-75.0) % Lymph % (Auto) 14.7 L (20.5-60.0) % Campbell % (Auto) 6.4 (1.7-12.0) % Eos % (Auto) 0.2 L (0.9-7.0) % Baso % (Auto) 0.3 (0.2-2.0) % Neut # (Auto) 10.9 H (1.4-6.5) 10^3/uL Lymph # (Auto) 2.1 (1.2-3.8) 10^3/uL Campbell # (Auto) 0.9 H (0.3-0.8) 10^3/uL Eos # (Auto) 0.0 (0.0-0.7) 10^3/uL Baso # (Auto) 0.0 (0.0-0.1) 10^3/uL Abs Immat Gran (auto) 0.03 (0.00-0.03) 10^3/uL Imm/Tot Granulo (auto) 0.2 (0.0-0.5) % Sodium 138 (136-145) mmol/L Potassium 3.4 L (3.5-5.1) mmol/L Chloride 103 (98-107) mmol/L Carbon Dioxide 22.9 (21.0-32.0) mmol/L Anion Gap 15.5 BUN 12.0 (7.0-18.0) mg/dL Creatinine 0.80 (0.55-1.02) mg/dL Est GFR ( Amer) >60 (>=60 mL/min/1.73m^2) Est GFR (Non-Af Amer) >60 (>=60 mL/min/1.73m^2) BUN/Creatinine Ratio 15.0 Glucose 109 H (74-106) mg/dL Calcium 9.8 (8.5-10.1) mg/dL Magnesium 2.0 (1.8-2.4) mg/dL Total Bilirubin 0.7 (0.2-1.0) mg/dL AST 17 (15-37) U/L ALT 18 (14-59) U/L Alkaline Phosphatase 71 (46-116) U/L Total Protein 7.9 (6.4-8.2) g/dL Albumin 4.2 (3.4-5.0) g/dL Globulin 3.7 g/dL Albumin/Globulin Ratio 1.1 Lipase 21.0 (16.0-77.0) U/L Urine Color Yellow (YELLOW) Urine Clarity Clear (CLEAR) Urine pH 6.5 (5.0-9.0) Ur Specific [place] 1.025 (1.005-1.025) Urine Protein 30 A (NEG/TRACE) mg/dL Urine Glucose (UA) Negative (NEGATIVE) mg/dL Urine Ketones >=80 A (NEGATIVE) mg/dL Urine Occult Blood Negative (NEGATIVE) Urine Nitrite Negative (NEGATIVE) Urine Bilirubin Negative (NEGATIVE) Urine Urobilinogen 0.2 (0.2-1.0) EU/dL Ur Leukocyte Esterase Negative (NEGATIVE) Urine RBC None seen (0-2) #/HPF Urine WBC None seen (NONE SEEN) #/HPF Ur Squamous Epith Cells Few A (NONE/RARE) #/LPF Urine Crystals None seen (None Seen) #/HPF Urine Bacteria Trace A (NONE SEEN) #/HPF Urine Casts None seen (NONE SEEN) #/LPF Urine Mucus None seen (NONE SEEN) Discharge Plan Discharge Chief Complaint: Nausea/Vomiting/Diarrhea Clinical Impression: Nausea vomiting and diarrhea Patient Disposition: Home, Self-Care Time of Disposition Decision: 18:42 Condition: Good Mode of Transportation: Private Vehicle Prescriptions / Home Meds: New ondansetron 4 mg tablet,disintegrating 4 mg PO Q8H PRN (Reason: nausea and vomiting) Qty: 10 0RF No Action pantoprazole 40 mg tablet,delayed release (DR/EC) 40 mg PO QDAY multivitamin [Daily Multi-Vitamin] Tablet 1 tab PO DAILY vitamin E93-syoib acid 0.5-1 mg tablet 1 tab PO DAILY cholecalciferol (vitamin D3) [Vitamin D3] 50 mcg (2,000 unit) tablet 50 mcg PO DAILY Qty: 30 11RF pregabalin [Lyrica] 300 mg capsule 400 mg PO .QHS Print Language: Guamanian Instructions: Acute Nausea and Vomiting (ED), Acute Diarrhea (ED) Referrals: Jorge Luis Mcdaniel MD [Primary Care Provider] - 1 week Discharge Date/Time: 03/03/25 18:59
--- NOTE | 2025-03-03 18:11 | PC.NURSE ---
pt given ice chips with water for PO challenge
[2025-03-03 18:18] LABS: Bilirubin Urine NEGATIVE (NEGATIVE); Blood Urine NEGATIVE (NEGATIVE); Clarity Urine CLEAR (CLEAR); Color Urine YELLOW (YELLOW); Glucose Urine UA NEGATIVE (NEGATIVE); Ketones Urine >=80 mg/dL (NEGATIVE); Leukocyte Esterase Urine NEGATIVE (NEGATIVE); Nitrite Urine NEGATIVE (NEGATIVE); Protein Urine 30 mg/dL (NEG/TRACE); Specific Gravity Urine 1.025 (1.005-1.025); Urobilinogen Urine 0.2 EU/dL (0.2-1.0); pH Urine 6.5 (5.0-9.0)
[2025-03-03 18:40] LABS: Bacteria Urine TRACE #/HPF (NONE SEEN); RBC Urine NONE SEEN #/HPF (0-2); Squamous Epithelial Cell Urine FEW #/LPF (NONE/RARE); WBC Urine NONE SEEN #/HPF (NONE SEEN)
[2025-03-03 18:41] LABS: Cast Seen? NONE SEEN #/LPF (NONE SEEN); Crystals Seen? None Seen #/HPF (None Seen); Mucus Urine NONE SEEN (NONE SEEN)
[2025-03-03 18:53] VITALS: BP 106/66; PULSE 69; O2SAT 100
== END 2025-03-03 18:59 | disposition home or self-care (01) ==
PROVIDERS: Physician Assistant; Emergency Provider Emergency Medicine; PCP Family Medicine
DX: R11.2 Nausea with vomiting, unspecified (principal); R19.7 Diarrhea, unspecified; Z90.711 Acquired absence of uterus with remaining cervical stump; Z98.1 Arthrodesis status; Z90.49 Acquired absence of other specified parts of digestive tract; F17.200 Nicotine dependence, unspecified, uncomplicated
CPT/HCPCS: 36415; 80053; 81001; 83690; 83735; 85025; 96361; 96374; 96375; 96376; 99285; J2405; J3490

== ENCOUNTER 2025-05-11 18:11 | Emergency (ER) | payer OTHER, SELFPAY ==
[2025-05-11 18:51] VITALS: BP 125/80; PULSE 75; TEMP 36.8; O2SAT 100; BMI 24.2
--- OUTSIDE RECORDS SUMMARY | 2025-05-11 19:01 | XMS_ITS | CCD ---
Author Organization [facility] Care Team Providers Care Trust Operations Assistant Name Role Phone MARÍA ., DR CAMARA Admitting Unavailabl e KARASIK ., DR CAMARA Attending Unavailabl e KARASIK ., DR CAMARA Consulting Unavailabl e HOY ., DR TINAJERO Primary Care Unavailable HOY ., DR TINAJERO Consulting Unavailable HOY ., DR TINAJERO Primary Care Unavailable HOY ., DR TINAJERO Admitting Unavailable HOY ., DR TINAJERO Attending Unavailable RAYMOND LOPEZ Consulting Unavailable JESSICA ., DR TINAJERO Primary Care Unavailable MINH [...] Andely Walker Attending Unavailable Osiel LUNA, Andrius Denise Attending Unavailable Osiel LUNA, Andrius Denise Attending Unavailable Osiel LUNA, Andrius Denise Attending Unavailable Tanvi Mcdaniel MD Primary Care Provider [phone] Clarence Mike MD Unavailable Tanvi Mcdaniel MD Primary Care Provider [phone] Clarence Mike MD Unavailable Unavailable TIN LOPEZ Attending Unavailable MADELEINE KOWALSKI Attending Unavailable Oksana Whiteside APRN Attending Provider Tanvi Mcdaniel MD Primary Care Provider [phone] Oksana Whiteside Attending Unavailable Oksana Whiteside Admitting Unavailable Tanvi Mcdaniel Primary Care Unavailable Allergies Allergy Classification Reported Allergen(s) Allergy Type Date of Onset Reaction(s) Facility (6 sources) Iodine Drug Allergy 02-23-2025 [facility] Medications Current Medications Medication Drug Class(es) Dates Sig (Normalized) Sig (Original) pantoprazole 40 mg delayed release oral tablet (6 sources) Proton Pump Inhibitor pantoprazole (ProtoNix) 40 MG EC tablet Active Completed/Discontinued Medications Medication Drug Class(es) Dates Sig (Normalized) Sig (Original) methylPREDNISolone (4 sources) Corticosteroid Start: 02-23-2025 End: 04-20-2025 methylPREDNISolone (Medrol Dospak) 4 MG tablets Indications: Capsulitis of metatarsophalangeal (MTP) joint of right foot Follow schedule on MEDROL PACK package instructions to be used as directed 21 tablet 02/23/2025 04/20/2025 Discontinued Start: 02-23-2025 methylPREDNISo lone (Medrol Dospak) 4 MG tablets Indications: Capsulitis of metatarsophalangeal (MTP) joint of right foot Follow schedule on MEDROL PACK package instructions to be used as directed 21 tablet 02/23/2025 Active pregabalin 200 mg oral capsu le (4 sources) Start: 12-11-2023 End: 04-20-2025 pregabalin (Lyrica) 200 MG capsule 12/11/2023 04/20/2025 Discontinued Problems Problem Classification Problem Date Documented Date Episodic/Chronic Abdominal pain (8 sources) Pelvic and perineal pain; Translations: [Right upper quadrant pain] Onset: 2 Episodic Acquired foot deformities (2 sources) 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; Translations: [Acquired deformities of toe(s), unspecified, right foot] 02-23-2025 Episodic Immunizations and screening for infectious disease (1 source) Encounter for screening for human papillomavirus (HPV); Translations: [ENC SCREENING HUMAN PAPILLOMAVIRUS] Onset: 3 Episodic Nonmalignant breast conditions (5 sources) Lump in right breast; Translations: [Unspecified lump in the right breast, unspecified quadrant] Onset: 5 04-20-2025 Episodic Other connective tissue disease (2 sources) Pain of toe of right foot; Translations: [Pain in right toe(s)] 02-23-2025 Episodic Other connective tissue disease (2 sources) Capsulitis of metatarsophalangeal joint of right foot; Translations: [Other enthesopathy of right foot and ankle] 02-23-2025 Episodic Other screening for suspected conditions (not mental disorders or infectious disease) (4 sources) Encounter for screening for malignant neoplasm of cervix; Translations: [ENC SCREENING MALIG NEOPLASM CERV] Onset: 3 Episodic Other skin disorders (2 sources) Ingrowing nail; Translations: [Ingrowing nail] 02-23-2025 Episodic Results Test Name Value Interpretation Reference Range Facil ity MM diagnostic mammo BI w/CAD on 04-27-2025 MM diagnostic mammo BI w/CAD [facility] [place] [address] [place] [address] Ultrasound Report Signed Patient: Christal Stanley MR#: [id number] : 1980 Acct:[id number] Age/Sex: 44 / F ADM Date: 04/27/25 [place]: [place] Room: Type[facility] Attending Dr: Oksana Whiteside APRN, NP-C Ordering Provider: Oksana Whiteside APRN, CNP Date of Service: 04/27/25 MM/MM diagnostic mammo BI w/CAD: N63.10 ([id number]) US/US breast RT limited: N63.10 Copies to: Oksana Whiteside APRN, CNP BILATERAL Diagnostic Full Field digital mammogram with 3-D imaging. Full field digital CC and MLO imaging performed. CAD utilized. COMPARISON: None HISTORY: Right breast lump BREAST COMPOSITION: The breast parenchyma is heterogeneously dense. BREAST CALCIFICATIONS: Benign calcifications present. VASCULAR CALCIFICATIONS: None ARCHITECTURAL DISTORTION: None BREAST NODULE: Right breast nodule present in region of palpable abnormality AXILLARY LYMPH NODES: Normal POSTSURGICAL CHANGES: None Targeted right breast ultrasound. At the 9:00 position 4 cm from the nipple in the region of palpable abnormality there is a bilobed anechoic cyst measuring 3.1 x 1.7 x 2.3 cm. No abnormal vascularity. No mural nodule. No solid component. US/US breast RT limited IMPRESSION: Mildly complex cyst in region of palpable abnormality of the right breast. Targeted right breast ultrasound in 6 months recommended. RESULT CODE: 3 Probably Benign Finding Short Term Follow-Up DENSITY CODE: 2 (approximately 25-50% glandular) There are scattered areas of fibroglandular density. FOLLOW UP: 6M THE FALSE-NEGATIVE RATE OF MAMMOGRAPHY IS APPROXIMATELY 10%. IMAGING OF A PALPABLE ABNORMALITY MUST BE BASED ON CLINICAL GROUNDS. PATIENT WAS ENTERED INTO A REMINDER SYSTEM WITH A TARGET DUE DATE FOR THE NEXT MAMMOGRAM. Impression dictated by: Arcadio Rojas M.D. 04/27/2025 9:13 AM Dictation Location: [facility] Tech: Christina Davis; Lotus Mcdaniel Transcribed By: TRINITY 04/27/25912 Dictated By: Arcadio Rojas DO 04/27/25910 Signed By: 04/27/25912 Normal [facility] PAP ACOG PANEL 2: 30 to 65on 01-03-2023 . . Normal [facility] Comment on above: Result Comment: Perf ormed at: WB Performed By: #### [id number] #### [facility] [address] [place] [address] Dr. Marga Fernandez Age Gdln ACOG Testing 30-65 Normal [facility] Comment on above: Performed By: #### [id number] #### [facility] [address] [address] [address] Marga Fernandez DIAGNOSIS: Comment Normal [facility] Comment on above: Result Comment: NEGA TIVE FOR INTRAEPITHELIAL LESION OR MALIGNANCY. Performed at: WB Performed By: #### [id number] #### [facility] [address] [address] [address] Marga Fernandez HPV Aptima Negative Normal Negative [facility] Comment on above: Result Comment: This nucleic acid amplification test detects fourteen high-risk HPV types (16,18,31,33,35,39,45,51,52,56,58,59,66,68) without differentiation. Performed at: =G Performed By: #### [id number] #### [facility] [address] [address] [address] Marga Fernandez HPV Genotype Reflex Comment Normal [facility] Comment on above: Result Comment: Crit eria not met, HPV Genotype not performed. Performed at: WB Performed By: #### [id number] #### [facility] [address] [place] [address] Dr. Marga Fernandez Methodology: Comment Normal [facility] Comment on above: Result Comment: This liquid based ThinPrep(R) pap test was screened with the use of an image guided system. Performed at: WB Performed By: #### [id number] #### [facility] [address] [place] [address] Dr. Marga Fernandez Note: Comment Normal [facility] Comment on above: Result [...] Performed at: WB Performed By: #### [id number] #### [facility] [address] [place] [address] Dr. Marga Fernandez Performed by: Comment Normal [facility] Comment on above: Result Comment: Diamond Isaac, Fire Equipment Operator (ASCP) Performed at: WB Performed By: #### [id number] #### [facility] [address] [place] [address] Dr. Marga Fernandez Specimen adequacy: Comment Normal [facility] Comment on above: Result Comment: Sati sfactory for evaluation. No endocervical component is identified. Performed at: WB Performed By: #### [id number] #### [facility] [address] [place] [address] Dr. Marga Fernandez US PELVISon 01-03-2023 US [...] by: RAYMOND ROBERTS Date: 2023-01-03 11:49 Normal [facility] Cervical or vaginal smear or scraping [facility]on [facility]-28[facility] [facility]/PELV W CONon 12-13-[address] [...] SANDI MORGAN Date: 2022-12-13 11:41 Normal [facility] CULTURE URINEon 12-13-2022 CULTURE URINE Culture Observations : NO GROWTH. Normal [facility] Comment on above: Performed By: #### U RCX #### [facility] [address] [place] [address] Dr. Marga Fernandez UA RANDOM W/MICROSCOPICon BACTERIA NONE SEEN Normal NONE SEEN [facility] Comment on above: Performed By: #### U AMIC #### [facility] [address] [place] [address] Dr. Marga Fernandez Bilirubin Ql (U) Negative Normal NEGATIVE [facility] Comment on above: Performed By: #### U AMIC #### [facility] [address] [place] [address] Dr. Marga Fernandez CAST NONE SEEN Normal NONE SEEN [facility] Comment on above: Performed By: #### U AMIC #### [facility] [address] [place] [address] Dr. Marga Fernandez Clarity (U) CLEAR Normal CLEAR [facility] Comment on above: Performed By: #### U AMIC #### [facility] [address] [place] [address] Dr. Marga Fernandez Color (U) LT. YELLOW Normal YELLOW [facility] Comment on above: Performed By: #### U AMIC #### [facility] [address] [place] [address] Dr. Marga Fernandez Crystals LM Nom (Urine sed) NONE SEEN Normal NONE SEEN [facility] Comment on above: Performed By: #### U AMIC #### [facility] [address] [address] [address] Marga Fernandez Epithelial cells LM Ql (Urine sed) RARE Normal NONE SEEN /RARE [facility] Comment on above: Performed By: #### U AMIC #### [facility] [address] [address] [address] Marga Fernandez Glucose Ql (U) Negative Normal NEGATIVE The [facility] Comment on above: Performed By: #### U AMIC #### [facility] [address] [address] [address] Marga Fernandez Hemoglobin Ql (U) Negative Normal NEGATIVE [facility] Comment on above: Performed By: #### U AMIC #### [facility] [address] [address] [address] Marga Fernandez Ketones Ql (U) Negative Normal NEGATIVE The [facility] Comment on above: Performed By: #### U AMIC #### [facility] [address] [address] [address] Marga Fernandez LEUKOCYTES Negative Normal NEGATIVE [facility] Comment on above: Performed By: #### U AMIC #### [facility] [address] [address] [address] Marga Fernadnez MUCOUS NONE SEEN Normal NONE SEEN [facility] Comment on above: Performed By: #### U AMIC #### [facility] [address] [address] [address] Marga Fernandez Nitrite Ql (U) Negative Normal NEGATIVE The [facility] Comment on above: Performed By: #### U AMIC #### [facility] [address] [address] [address] Marga Fernandez pH (U) 6.5 [pH] Normal 5-9 [facility] Comment on above: Performed By: #### U AMIC #### [facility] [address] [address] [address] Marga Fernandez RBC NONE SEEN Abnormal 0-2 [facility] Comment on above: Performed By: #### U AMIC #### [facility] [address] [address] [address] Marga Fernandez SPEC GRAVITY <=1.005 Abnormal 1.005-<=1.025 [facility] Comment on above: Performed By: #### U AMIC #### [facility] [address] [address] [address] Marga Fernandez UA PROTEIN Negative Normal NEGATIVE/ TRACE [facility] Comment on above: Performed By: #### U AMIC #### [facility] [address] [address] [address] Marga Fernandez Urobilinogen Qn (U) 0.2 {Wero'U}/dL Normal 0.2 - 1.0 [facility] Comment on above: Performed By: #### U AMIC #### [facility] [address] [place] [address] Dr. Marga Fernandez WBC NONE SEEN Normal NONE SEEN [facility] Comment on above: Performed By: #### U AMIC #### [facility] [address] [place] [address] Dr. Marga Fernandez US SINGLE QUAD RT [...] right upper quadrant. Electronically authenticated by: RAYMOND LOPEZ Date: 2022-09-28 08:46 Normal [facility] Vital Signs Date Time Vital Sign Value Performing Clinician Faci lity 04-20-2025 16:09-0400 Body mass index (BMI) [Ratio] 24.46 kg/m2 Madeleine SCHMIDT Work Phone: [facility] 04-20-2025 16:09-0400 Body weight 66.68 kg Madeleine SCHMIDT Work Phone: [facility] 04-20-2025 16:09-0400 Diastolic blood pressure 70 mm[Hg] Madeleine SCHMIDT Work Phone: [facility] 04-20-2025 16:09-0400 Systolic blood pressure 108 mm[Hg] Madeleine SCHMIDT Work Phone: [facility] 02-23-2025 10:14-0400 Body height 165.1 cm Tin Lopez DPM Work Phone: [facility] 02-23-2025 10:14-0400 Body mass index (BMI) [Ratio] 27.46 kg/m2 Tin Lopez DPM Work Phone: [facility] 02-23-2025 10:14-0400 Body weight 74.84 kg Tin Lopez DPM Work Phone: [facility] 02-23-2025 10:14-0400 Respiratory rate 16 /min Tin Lopez DPM Work Phone: [facility] Encounters Encounter Date Encounter Type Care Provider Facility Start: 04-27-2025 End: 04-27-2025 Telephone encounter Oksana Whiteside NP Work Phone: [facility] Start: 04-27-2025 End: 04-27-2025 Patient encounter procedure Tanvi Mcdaniel MD Work Phone: [facility] Work Phone: Start: 04-27-2025 End: 04-27-2025 ambulatory Tanvi Mcdaniel MD Work Phone: [facility] Work Phone: Start: 04-20-2025 End: 04-20-2025 Office outpatient visit 15 minutes Madeleine SCHMIDT Work Phone: [facility] Comment on above: Mass of right breast , unspecified quadrant; Breast lump on right side at 9 o'clock position Start: 04-20-2025 End: 04-20-2025 ambulatory MADELEINE KOWALSKI Not Available Start: 04-20-2025 End: 04-20-2025 Bamboo flowsheet Madeleine Kowalski PA Work Phone: [facility] Start: 04-20-2025 End: 04-20-2025 Bamboo flowsheet Madeleine Kowalski PA Work Phone: [facility] Start: 02-23-2025 End: 02-23-2025 Bamboo flowsheet Tin Lopez DPM Work Phone: [facility] Start: 02-23-2025 End: 02-23-2025 Bamboo flowsheet Tin Lopez DPM Work Phone: [facility] Start: 02-23-2025 End: 02-23-2025 Office outpatient new 30 minutes Tin Lopez DPM Work Phone: [facility] Comment on above: Acquired deformity o f right toe (Primary Dx); Onychocryptosis; Toe pain, right; Capsulitis of metatarsophalangeal (MTP) joint of right foot Start: 02-23-2025 End: 02-23-2025 ambulatory TIN LOPEZ Not Available Start: 06-30-2024 End: 06-30-2024 ambulatory Enrique Cartagena MD Facility: [facility] Start: 03-24-2024 End: 03-24-2024 ambulatory Enrique Cartagena MD Facility: [facility] Start: 03-10-2024 End: 03-10-2024 ambulatory Enrique Cartagena MD Facility: [facility] Start: 02-18-2024 End: 02-18-2024 ambulatory Enrique Cartagena MD Facility: [facility] Start: 02-04-2024 End: 02-04-2024 ambulatory Enrique Cartagena MD Facility: [facility] Start: 01-03-2023 End: 01-04-[address] HOA DANIEL . Facility: Start: 12-28-2022 End: 12-28-[address] HOA DANIEL . Facility: Start: 12-13-2022 End: 12-14-[address] TANVI MCDANIEL . Facility: Start: 09-28-2022 End: 09-29-[address] TANVI MCDANIEL . Facility: Procedures Date Procedure Procedure Detail Performing Clinician Start: 04-27-2025 Ultrasonography of r ight breast Tanvi Mcdaniel MD Work Phone: Start: 04-27-2025 End: 04-27-2025 Mammography Oksana Stevo [employer] Work Phone: Start: 12-28-2022 Microscopic observat ion [Identifier] in Cervix by Cyto stain Madeleine SCHMIDT Work Phone: Start: 12-28-2022 Cytp cerv/vag auto t hin layer prep mnl screen Topherama Ozunao DO Work Phone: Start: 12-27-2022 Mammography Tin guan DPM Work Phone: Plan of Treatment Date Care Activity Detail Author Start: 04-27-2026 Screening for malign ant neoplasm of breast Mammogram [facility] Start: 12-28-2025 Screening for malign ant neoplasm of cervix [facility] Start: 07-20-2025 Influenza vaccination Influenz a Vaccine (Season Ended) [facility] Start: 05-26-2025 End: 05-26-2025 Patient encounter procedure 05/26/2025 9:00 AM EDT Office Visit [facility] [address] [place] [place] [phone] Madeleine Kowalski PA [address] [place] [address] [facility] Start: 04-20-2025 End: 04-20-2025 Patient encounter procedure 04/20/2025 3:40 PM EDT Office Visit [facility] [address] [place] [address] Madeleine Kowalski PA [address] [place] [address] Arrived [facility] Comment on above: Arrived Start: 04-20-2025 End: 06-20-2026 MG Breast - bilateral Diagnostic Bilateral diagnostic mammogram Imaging Routine Mass of right breast, unspecified quadrant Breast lump on right side at 9 o'clock position Expected: 04/20/2025 (Approximate), Expires: 06/20/2026 [facility] Work Phone: Comment on above: Expected: 04/20/2025 (Approximate), Expires: 06/20/2026 Start: 03-12-2025 End: 03-12-2025 Patient encounter procedure 03/12/2025 8:50 AM EDT Office Visit [facility] [address] [phone] Tin Lopez DPM [address] [address] [facility] Start: 02-23-2025 End: 02-23-2025 Patient encounter procedure 02/23/2025 10:10 AM EDT Office Visit [facility] [address] [place] [address] Tin Lopez DPM [address] [address] Arrived [facility] Comment on above: Arrived Start: 12-27-2023 Screening for malign ant neoplasm of breast Mammogram [facility] Start: 2011 Screening for malign ant neoplasm of cervix [facility] Start: 2002 Screening for malign ant neoplasm of cervix Pap Smear [facility] Payers Date Payer Category Payer Self-pay 2023 Unknown 2021 Private Health Insurance [employer] [id number] 2021 Unknown [id number] 1980 Unknown [id number]. 2.593 1980 Unknown [id number] [id number]. 2.593 1981 Unknown [id number] [id number]. 2.593 1981 Unknown [id number] [id number]. 2.593 1981 Unknown [id number] [id number]. 2.196 1981 Unknown [id number] [id number]. 2.196 1981 Unknown [id number] [id number]. 2.196 1981 Unknown [id number] [id number]. 2.196 1981 Unknown [id number] [id number]. 2.196 1981 Unknown [id number] [id number]. 2.1259 1981 Unknown [id number] [id number]. 2.1259 1959 Unknown [id number] 1959 Unknown [id number] Unknown [id number] [id number]. 2.531 Social History Date Type Detail Facility Start: 02-23-2025 Tobacco smoking stat us NHIS Tobacco smoking consumption unknown [facility] Start: 1980 Sex assigned at Not on file [facility] Gender identity Not on file [facility] are Start: 02-23-2025 End: 04-20-2025 Alcoholic beverage intake Defer [facility] Start: 04-28-2025 Sex Female (finding) [facility] Start: 1980 Sex Assigned At Female [facility] Telephone encounter Note 04-27-2025 Telephone Encounter - Oksana Whiteside NP - 04/27/2025 5:01 PM EDT Note Date & Type Note Facility 04-27-2025 Telephone encounter Note I spoke with Christal today to review her Bilateral diagnostic mammogram and cyst measuring 3.1 X1.7 X 2.3 recommend right breast ultrasound in 6 months. Patient is aware of the results of her ultrasound and is comfortable with this plan. She declined general surgery consult at this time. [facility] Work Phone: Note 04-27-2025 Telephone Encounter - Oksana Whiteside NP - 04/27/2025 5:01 PM EDT Note Date & Type Note Facility 04-27-2025 Miscellaneous Notes Formattin g of this note might be different from the original. I spoke with Christal today to review her Bilateral diagnostic mammogram and cyst measuring 3.1 X1.7 X 2.3 recommend right breast ultrasound in 6 months. Patient is aware of the results of her ultrasound and is comfortable with this plan. She declined general surgery consult at this time. documented in this encounter [facility] Radiology Diagnostic study note 04-27-2025 Note Date & Type Note Facility 04-27-2025 Radiology Diagnostic study note [facility] [place] [address] Ultrasound Report Signed Patient: Christal Stanley MR#: [id number] : 1980 Acct:[id number] Age/Sex: 44 / F ADM Date: 5 Loc: [facility] Room: Type[facility] Attending Dr: MAL Bucio APRN Ordering Provider: Oksana Whiteside APRN, CNP Date of Service: 04/27/25 MM/MM diagnostic mammo BI w/CAD: N63.10 ([id number]) US/US breast RT limited: N63.10 Copies to: Oksana Whiteside APRN, CNP~ BILATERAL Diagnostic Full Field digital mammogram with 3-D imaging. Full field digital CC and MLO imaging performed. CAD utilized. COMPARISON: None HISTORY: Right breast lump BREAST COMPOSITION: The breast parenchyma is heterogeneously dense. BREAST CALCIFICATIONS: Benign calcifications present. VASCULAR CALCIFICATIONS: None ARCHITECTURAL DISTORTION: None BREAST NODULE: Right breast nodule present in region of palpable abnormality AXILLARY LYMPH NODES: Normal POSTSURGICAL CHANGES: None Targeted right breast ultrasound. At the 9:00 position 4 cm from the nipple in the region of palpable abnormality there is a bilobed anechoic cyst measuring 3.1 x 1.7 x 2.3 cm. No abnormal vascularity. No mural nodule. No solid component. US/US breast RT limited IMPRESSION: Mildly complex cyst in region of palpable abnormality of the right breast. Targeted right breast ultrasound in 6 months recommended. RESULT CODE: 3 Probably Benign Finding Short Term Follow-Up DENSITY CODE: 2 (approximately 25-50% glandular) There are scattered areas of fibroglandular density. FOLLOW UP: 6M THE FALSE-NEGATIVE RATE OF MAMMOGRAPHY IS APPROXIMATELY 10%. IMAGING OF A PALPABLE ABNORMALITY MUST BE BASED ON CLINICAL GROUNDS. PATIENT WAS ENTERED INTO A REMINDER SYSTEM WITH A TARGET DUE DATE FOR THE NEXT MAMMOGRAM. Impression dictated by: Arcadio Rojas M.D. 04/27/2025 9:13 AM Dictation Location: [facility] Tech: Christina Mcdaniel Transcribed By: TRINITY 04/27/25912 Dictated By: Arcadio Rojas DO 04/27/25910 Signed By: 04/27/25912 [facility] History of Present illness Narrative 04-20-2025 Alicia Mcdaniel MA - 04/20/2025 3:40 PM EDT Note Date & Type Note Facility 04-20-2025 History of Presen t illness Narrative Images from the original note were not included. Reason for Appointment: Patient ID: Christal Stanley is a 44 y.o. female who presents for Breast Mass (Pt present today to discuss a lump on right breast.) Patient presents today for lump on right breast. MEDICATIONS Current Outpatient Medications Medication Instructions pantoprazole (ProtoNix) 40 MG EC tablet ALLERGIES Allergies Allergen Reactions Iodine PROBLEMS Active Ambulatory Problems Diagnosis Date Noted No Active Ambulatory Problems Resolved Ambulatory Problems Diagnosis Date Noted No Resolved Ambulatory Problems No Additional Past Medical History HISTORY PAST MEDICAL HISTORY SOCIAL HISTORY No past medical history on file. Social History Tobacco Use Smoking status: Unknown Smokeless tobacco: Not on file Substance Use Topics Alcohol use: Defer Drug use: Defer FAMILY HISTORY No family history on file. SURGICAL HISTORY Past Surgical History: Procedure Laterality Date ANKLE FUSION Right PARTIAL HYSTERECTOMY REVIEW OF SYSTEMS Review of Systems: Review of Systems Constitutional: Negative. HENT: Negative. Eyes: Negative. Breasts: Positive for breast mass. Respiratory: Negative. Cardiovascular: Negative. Gastrointestinal: Negative. Genitourinary: Negative. Musculoskeletal: Negative. Skin: Negative. Neurological: Negative. All other systems reviewed and are negative. Hematological: Negative. Endocrine: Negative. Allergic/Immunologic: Negative. OBJECTIVE Objective: Physical Exam Constitutional: Appearance: Normal appearance. She is well-developed. Genitourinary: Vulva normal. Genitourinary Comments: Palpable non tender 4cm X 4cm mass at 9 o'clock position 2cm from nipple line Breasts: Breasts are soft. Right: Mass present. Left: Normal. Cardiovascular: Rate and Rhythm: Normal rate and regular rhythm. Pulmonary: Effort: Pulmonary effort is normal. Breath sounds: Normal breath sounds. Chest: Abdominal: General: Bowel sounds are normal. There is no distension. Palpations: Abdomen is soft. Tenderness: There is no abdominal tenderness. There is no guarding or rebound. Musculoskeletal: General: No swelling. Normal range of motion. Right lower leg: No edema. Left lower leg: No edema. Neurological: Mental Status: She is alert and oriented to person, place, and time. Skin: General: Skin is warm and dry. Psychiatric: Mood and Affect: Mood normal. Behavior: Behavior normal. Vitals and nursing note reviewed. Exam conducted with a etcher hand present. Vitals: Estimated body mass index is 27.46 kg/m as calculated from the following: Height as of 02/23/25: 5' 5 . Weight as of 02/23/25: 165 lb. BP: No LMP recorded. ASSESSMENT & PLAN ICD-10-CM 1. Mass of right breast, unspecified quadrant N63.10 Pt states her partner noticed the lump on her right breast over a week ago. Pt states there is no pain w/the lump and is aware she is due for her yearly mammogram. Diagnostic mammogram order was given to patient. Patient with right breast mass 4 cm x 4cm at 9 o'clock 2 cm from nipple line. Patient will obtain mammogram breast center at [facility] and will return to our office for follow up. Documented by Alicia Mcdaniel MA on behalf of: Oksana Whiteside NP documented in this encounter [facility] Evaluation note 04-20-2025 Note Date & Type Note Facility 04-20-2025 Evaluation note Diagnosis Mass of right breast, unspecified quadrant Breast lump on right side at 9 o'clock position Lump or mass in breast documented in this encounter [facility] History of Present illness Narrative 02-23-2025 Tin Lopez DPM - 02/23/2025 10:10 AM EDT Note Date & Type Note Facility 02-23-2025 History of Presen t illness Narrative Patient: Christal Stanley : 1980 PCP: Tanvi Mcdaniel MD SUBJECTIVE This is a 44 y.o. female that presents today for a chief complaint of pain to her right 5th toe. Patient states painful ambulation in shoe gear has tried different shoes with minimal improvement. Patient also has history of nail spicule to the outer aspect of her right 5th toenail but denies any drainage and has trim nail from time to time but has constant irritation to the nail. Patient also complains today of pain behind the right 2nd toe plantarly particularly with weight-bearing states it is up to a 5/10 has tried anti-inflammatories with minimal improvement. She has had recent ankle arthrodesis in the past by Dr. Cadet Allergies: Allergies Allergen Reactions Iodine Past Medical History: History reviewed. No pertinent past medical history. Medications: Current Outpatient Medications: pregabalin (Lyrica) 200 MG capsule, , Disp: , Rfl: pantoprazole (ProtoNix) 40 MG EC tablet, , Disp: , Rfl: Social History: Social History Socioeconomic History Marital status: Spouse name: Not on file Number of children: Not on file Years of education: Not on file Highest education level: Not on file Occupational History Not on file Tobacco Use Smoking status: Unknown Smokeless tobacco: Not on file Substance and Sexual Activity Alcohol use: Defer Drug use: Defer Sexual activity: Not on file Other Topics Concern Not on file Social History Narrative Not on file Social Drivers of Health Financial Resource Strain: Not on file Food Insecurity: Not on file Transportation Needs: Not on file Physical Activity: Not on file Stress: Not on file Social Connections: Not on file Intimate Partner Violence: Not on file Housing Stability: Not on file ROS: General: denies fever, chills, fatigue, malaise Gastrointestinal: denies abdominal pain, ulcers, or changes in appetite or bowel habits Musculoskeletal: denies arthritis, denies loss of strength, pain to hip, knees, back Cardiovascular: denies CP, palpitations, irregular rhythms OBJECTIVE LE EXAM: DERM: Positive hair growth to b/l feet with good skin turgor noted. Negative openings in skin. Slight erythema with negative drainage from the lateral right 5th toe. Scar noted to right ankle Rubor to right 5th PIPJ region VASC: Palpable pedal pulsed b/l with warm to cool tibia to toes b/l NEURO: Gross sensation intact digits 1-10 and b/l feet ORTHO: +5/5 DF/PF/IN/EV right, +5/5 DF/PF/IN/EV left. 20 degrees inversion and 10 degrees eversion STJ left with negative range of motion right Ankle ROM less than 10 degrees left with negative range of motion right Positive pain on palpation to right 2nd MPJ capsule with negative Osvaldo test Adductovarus right 5th digit with slight pain palpation to lateral aspect of right 5th toe and area of nail spicule XRAY: US: ASSESSMENT 1. Acquired deformity of right toe 2. Onychocryptosis 3. Toe pain, right 4. Capsulitis of metatarsophalangeal (MTP) joint of right foot PLAN Prescription today for Medrol Discussed conservative and surgical treatment options for patient today including postoperative time frame and surgical procedure in detail. Patient may continue with conservative treatments including dgqw-pcp-gaalsva anti-inflammatories and other treatments suggested today. Patient may want to be scheduled for surgical intervention in the near future. Discussed possible right 5th digit partial permanent nail avulsion with right 5th hammertoe repair in the near future and patient may consider her PCP is Dr. Mcdaniel would have [place] for postop pain Patient be pre-certify for inserts Tin Lopez DPM documented in this encounter [facility] Evaluation note Note Date & Type Note Facility Evaluation note Diagnosis Acquired deformity of right toe- Primary Onychocryptosis Ingrowing nail Toe pain, right Pain in soft tissues of limb Capsulitis of metatarsophalangeal (MTP) joint of right foot documented in this encounter [facility] Evaluation note Note Date & Type Note Facility Evaluation note No assessment information availa [facility] Work Phone: Summary Purpose Family History No Family History Records FoundNo Family History Records FoundNo Family History Records FoundNo Family History Records Found Advance Directives No Advanced Directives Records Found Advance Directive Response Recorded Date/ Time Advance Directives No April 20 5:45pm Chief Complaint and Reason for Visit Chief Complaint Admit Date N63.10 N63.15 April 27, 2025 7:22a m Additional Source Comments INFORMATION SOURCE (unrecogn ized section and content) DATE CREATED AUTHOR 03/08/2023 [facility] p[facility] DATE CREATED AUTHOR AUTHOR'S ORGANIZ ATION 07/16/2024 [facility] DATE CREATED AUTHOR AUTHOR'S ORGANIZ ATION 04/21/2025 [facility] dical Specialists EPIC DATE CREATED AUTHOR AUTHOR'S ORGANIZ ATION 05/06/2025 [facility] ysician Group Care Teams (unrecognized sec tion and content) Trust Operations Assistant Relationship Specialty Start Date End Date Tanvi Mcdaniel MD [address] [place] [address] PCP - General Family Medicine 02/13/24 Clarence Mike MD [address] [place] [address] Referring Physician Neurology 02/13/24 Trust Operations Assistant Relationship Specialty Start Date End Date Tanvi Mcdaniel MD [address] [facility] [place] [address] PCP - General Family Medicine 02/13/24 Clarence Mike MD [address] [place] [address] Referring Physician Neurology 02/13/24 Trust Operations Assistant Relationship Specialty Start Date End Date Tanvi Mcdaniel MD PCP - General Family Medicine 02/13/24 Clarence Mike MD Referring Physician Neurology 02/13/24 Trust Operations Assistant Relationship Specialty Start Date End Date Tanvi Mcdaniel MD PCP - General Family Medicine 02/13/24 Clarence Mike MD Referring Physician Neurology 02/13/24 Team Status: Active Member Role Status Dates Tanvi Mcdaniel MD Primary Care Provider Active Team Status: Inactive Member Role Status Dates Oksana Whiteside APRN [employer]C Attending Provider Active Start: April 27, 2025 End: April 27, 2025 Tanvi Mcdaniel MD Primary Care Provider Active Start: April 27, 2025 End: April 27, 2025 Reason for Visit (unrecogniz ed section and content) Reason Comments Toenail Problem Reason Comments Breast Mass Pt present today to discuss a lump on right breast. Goals (unrecognized section and content) Goals may be documented in a n alternate section FOR RECORDS PERTAINING TO PATIENTS WHO ARE [...] BE BASED ON THE PRIMARY CLINICAL RECORDS. [facility] [employer] [facility]. provides no warranty or guarantee of the accuracy or completeness of information in this document.
== END 2025-05-11 20:22 | disposition left against medical advice (07) ==
PROVIDERS: Emergency Provider Emergency Medicine; PCP Family Medicine
DX: Z53.21 Procedure and treatment not carried out due to patient leaving prior to being seen by health care provider (principal)

== ENCOUNTER 2025-05-26 12:21 | Outpatient (REF) | payer OTHER, SELFPAY ==
--- OUTSIDE RECORDS SUMMARY | 2025-05-26 08:51 | XMS_ITS ---
Author Name Auto Generated Organization [facility] Care Team Providers Care Surgical Supplies Sterilizer Name Role Phone Osiel LUNA, Enrique Walker Attending Unavailable Osiel LUNA, Enrique Walker Attending Unavailable Oksana Whiteside Attending Unavailable Oksana Whiteside Admitting Unavailable Jorge Luis Mcdaniel Primary Care Unavailable ALYSIA GALVAN Attending Unavailable NICOLE KOWALSKI Attending Unavailable NICOLE KOWALSKI Attending Unavailable PROBLEMS DATE TYPE CONDITION / CODE [facility] Unknown Unspecified lump in the right breast, unspecified quadrant / N63.10(ICD-10) Oksana Whiteside Active [facility] PROCEDURES No Procedure Records Found RESULTS MM DIAGNOSTIC MAMMO BI W/CAD Observed: 04/27/2025 9:11 AM Status: COMPLETED Source: [facility] Main [place] [address] [place] [address] Ultrasound Report Signed Patient: Christal Stanley MR#: [id number] : 1980 Acct:[id number] Age/Sex: 44 / F ADM Date: 04/27/25 Loc: [place] Room: Type: [facility] Attending Dr: MAL Bucio APRN Ordering Provider: Oksana Whiteside APRN, CNP Date of Service: 04/27/25 MM/MM diagnostic mammo BI w/CAD: N63.10 ([id number]) US/US breast RT limited: N63.10 Copies to: [...] Rojas M.D. 04/27/2025 9:13 AM Dictation Location: [facility] Tech: Christina Davis; Lotus Mcdaniel Transcribed By: TRINITY 06/09/25 0913 Dictated By: Arcadio Rojas DO 04/27/25 0911 Signed By: <Electronically signed by Arcadio Rojas DO in OV> 04/27/25 0913 ALLERGIES No Allergies Records Found ENCOUNTERS ADMIT/DISCHARGE ACCOUNT NUMBER ADMITTING ENCOUNTER CLASS LOCATION SOURCE 05/26/2025/05/26/20 [id number] Ambulatory Building[facility] OB [facility] EPIC 04/27/2025/04/27/20 [id number] Oksana Whiteside [facility] 04/20/2025/04/20/20 [id number] Ambulatory Building:[facility] B[facility] OB [facility] EPIC 02/23/2025/02/24/20 [id number] Ambulatory Building:[facility] EPIC 07/14/2024/07/14/20 [id number] [place] 06/30/2024/06/30/20 24 [id number] [facility] [place] PAYERS ENCOUNTER GUARANTOR PAYER SUBSCRIBER SOURCE 05/26/2025 CHRISTAL COREASOB: [id number] [address] [address]Ngi: (HP) (WP) Primary Insurance:MEDICAL MUTUALPolicy Number: [id number] e Date:2021-11-19 NIRANJAN STANLEY IIIDOB: [id number] [place] [id number] [facility] EPIC 04/27/2025 Christal Soriac[address] [facility] [address] [place] [phone]: (HP) Primary Insurance:MMOPolicy Number: [id number] e Date:5972-02-13[id number] [place] [address]QW: Niranjan CoreasOB: [id number] [address] [address]Oam: (HP) [facility] 04/27/2025 Secondary Insurance:Self PayPolicy Number: Effective Date:2025-04-20 NOT GIVENUNK [facility] 04/20/2025 CHRISTAL SORIACDOB: [address] [address]Vdg: (HP) (WP) Primary Insurance:MEDICAL MUTUALPolicy Number: [id number] e Date:2021-11-19 NIRANJAN STANLEY IIIDOB: [id number] [address] [address] [facility] EPIC 02/23/2025 CHRISTAL SORIACDOB: [address] [address]Uup: (HP) (WP) Primary Insurance:MEDICAL MUTUALPolicy Number: [id number] e Date:2021-11-19 NIRANJAN STANLEY IIIDOB: [id number] [address] [address] [facility] EPIC 07/14/2024 Christal SoriacDOB: [place] [id number] Primary Insurance:Medical MutualPolicy Number: Effective Date:1276-20-59Dzvb Name:[address] [address]LW: Chrsital BeyerkacDOB: [id number] [address] [address] [facility] 06/30/2024 Christal Forrest BeyerkacDOB: [place] [id number] Primary Insurance:Medical MutualPolicy Number: Effective Date:1479-57-82Anof Name:[facility] O [address] [address]HC: Christal E LukacDOB: [id number] [address] [address] [facility]
[2025-05-28 12:18] LABS: Age Gdln ACOG Testing Note (.); IGP, Aptima HPV, rfx 16/18,45 Note (.)
== END 2025-05-26 12:22 | disposition home or self-care (01) ==
LOC: LAB 12:21
PROVIDERS: PCP Family Medicine; Visit Provider Physician Assistant
DX: Z01.419 Encounter for gynecological examination (general) (routine) without abnormal findings (principal); Z90.710 Acquired absence of both cervix and uterus
CPT/HCPCS: 87624; 88175

== ENCOUNTER 2025-07-22 09:48 | Outpatient (OUT) | payer OTHER, SELFPAY ==
--- OUTSIDE RECORDS SUMMARY | 2025-04-28 04:56 | XMS_ITS ---
Author Organization [facility] in [place] Address [address] [place] [address] Care Team Providers Care Director Of Medical Services Name Role Phone Bridger Mcdaniel Primary Care Provider REASON FOR VISIT refill Medications Medication SIG (Take, Route, Frequency, Duration) Notes Start Date End Date Status Desvenlafaxine Succinate ER 50 MG 1 tablet Orally Once a day for 30 days 03/19/2025 Active Encounters Encounter Location Date Provider Diagnosis [address] [phone] 04/28/2025 Bridger Mcdaniel Complex regional pa in syndrome I of right lower limb G90.521 Assessments Encounter Date Diagnosis (ICD Code) Assessment Notes Treatment Notes Treatment Clinical Notes Section Notes 04/28/2025 Complex regional pain syndrome I of right lower limb (ICD-10 - G90.521) Plan Of Treatment Medication Medication Name Sig Start Date Stop Date Notes Desvenlafaxine Succinate ER 50 MG 1 tabl et Orally Once a day for 30 days 03/19/2025 Progress Notes * Christal VIDAL EDOB:1980 (44 yo F)Acc No.[id number]:04/28/2025 Patient: Christal CAI :1980 A ge:44 Y S ex:Female Address:[address] [place] [id number] * Refills Refill Desvenlafaxine Succinate ER Tablet Extended Release 24 Hour, 50 MG, Orally, 30, 1 tablet, Once a day, 30 days, Refills=11 * true * Date: Generated for Ashlyn hernandez/Rashaad/Naveed on: 0 07/22/2025 09:51 AM EDT
--- OUTSIDE RECORDS SUMMARY | 2025-05-19 05:03 | XMS_ITS ---
Author Organization [facility] in [place] Address [address] [place] [address] Care Team Providers Care Machine Group Leader Name Role Phone Bridger Mcdaniel Primary Care Provider REASON FOR VISIT rf Lyrica- Medications Medication SIG (Take, Route, Fr equency, Duration) Notes Start Date End Date Status Pregabalin 200 MG 1 capsules Orally at bedtime for 30 days 05/19/2025 Active Encounters Encounter Location Date Provider Diagnosis [facility] [address] [place] [address] 05/19/2025 Bridger Mcdaniel Complex regional pa in syndrome I of right lower limb G90.521 Assessments Encounter Date Diagnosis (ICD Code) Assessment Notes Treatment Notes Treatment Clinical Notes Section Notes 05/19/2025 Complex regional pain syndrome I of right lower limb (ICD-10 - G90.521) Plan Of Treatment Medication Medication Name Sig Start Date Stop Date Notes Pregabalin 200 MG 1 capsules Orally at bedtime for 30 days 05/19/2025 Progress Notes * Christal VIDAL EDOB:1980 (44 yo F)Acc No.[id number]:05/19/2025 Patient: Christal CAI :1980 A ge:44 Y S ex:Female Address:[address] [place] [id number] * Refills Refill Pregabalin Capsule, 200 MG, Orally, 30, 1 capsules, at bedtime, 30 days, Refills=3 * true * Date: Generated for Ashlyn hernandez/Rashaad/Ceciliaitting on: 0 07/22/2025 09:51 AM EDT
--- OUTSIDE RECORDS SUMMARY | 2025-06-01 05:35 | XMS_ITS ---
Author Organization [facility] in [place] Address [address] [place] [address] Care Team Providers Care Docking Saw Operator Name Role Phone Bridger Mcdaniel Primary Care Provider [phone] REASON FOR VISIT refill Medications Medication SIG (Take, Route, Frequency, Duration) Notes Start Date End Date Status Desvenlafaxine Succinate ER 50 MG 1 tablet Orally Once a day for 30 days 03/19/2025 Active Encounters Encounter Location Date Provider Diagnosis [address] [address] 06/01/2025 Bridger Mcdaniel Complex regional pa in syndrome I of right lower limb G90.521 Assessments Encounter Date Diagnosis (ICD Code) Assessment Notes Treatment Notes Treatment Clinical Notes Section Notes 06/01/2025 Complex regional pain syndrome I of right lower limb (ICD-10 - G90.521) Plan Of Treatment Medication Medication Name Sig Start Date Stop Date Notes Desvenlafaxine Succinate ER 50 MG 1 tabl et Orally Once a day for 30 days 03/19/2025 Progress Notes * Christal VIDAL EDOB:1980 (44 yo F)Acc No.[id number]:06/01/2025 Patient: Christal CAI :1980 A ge:44 Y S ex:Female Address:[address] [place] [address] * Refills Refill Desvenlafaxine Succinate ER Tablet Extended Release 24 Hour, 50 MG, Orally, 30, 1 tablet, Once a day, 30 days, Refills=11 * true * Date: Generated for Ashlyn hernandez/Rashaad/Naveed on: 0 07/22/2025 09:52 AM EDT
--- OUTSIDE RECORDS SUMMARY | 2025-06-15 10:15 | XMS_ITS ---
Author Organization [facility] in [place] Address [address] [place] [address] Care Team Providers Care Recruiting Operations Consultant Name Role Phone Bridger Mcdaniel Primary Care Provider Allergies No Known Allergies REASON FOR VISIT sores in both nares, picking sores, hurts to touch, also red spots on outside of nose Medications Medication SIG (Take, Route, Frequency, Duration) Notes Start Date End Date Status Multi Complete - as directed Orally Active Desvenlafaxine Succinate ER 50 MG 1 tablet Orally Once a day for 30 days 03/19/2025 Active Vitamin D 50 MCG (1999 UT) 1 tablet Oral ly Once a day Active Pregabalin 200 MG 1 capsules Orally at bedtime for 30 days 06/15/2025 Active Mupirocin 2 % 1 application Devops Engineer ally Twice a day for 5 days 06/15/2025 Active Doxycycline Monohydrate 100 MG 1 tablet Orally bid for 10 days 06/15/2025 Active Vitamin C 1000 MG 1 tablet Orally Once a day with food for 90 days 01/09/2024 Active Pantoprazole Sodium 40 mg TAKE 1 TABLET BY MOUTH DAILY for 240 Active Social History Tobacco Use: Social History Observation Description Date Details (start date - stop date) Former Smoker 05/19/1997 - 09/19/2024 Tobacco Control (Standard) Question Answer Notes Tobacco use: Former smoker When did you start smoking? 05/19/1997 When did you stop smoking? 09/19/2024 How long has it been since you last smoked? 3-6 months AUDIT-C (Standard) Question Answer Notes Did you have a drink containing alcohol in the p ast year? No Points 0 Interpretation Negative Problems Problem Type SNOMED Code ICD Code Onset Dates Problem Status W/U Status Risk Notes Problem Impetigo ([id number]) Impetigo (L01.00) Active confirmed Vital Signs Blood pressure systolic 110 mm Hg 06/15/20 25 Blood pressure diastolic 68 mm Hg 025 Height 65 in 06/15/2025 Weight 135 lbs 06/15/2025 BMI 22.46 kg/m2 06/15/2025 Encounters Encounter Location Date Provider Diagnosis [facility] [address] [place] [address] 06/15/2025 Bridger Mcdaniel Impetigo L01.00 Assessments Encounter Date Diagnosis (ICD Code) Assessment Notes Treatment Notes Treatment Clinical Notes Section Notes 06/15/2025 Impetigo (ICD-10 - L01.00) Plan Of Treatment Medication Medication Name Sig Start Date Stop Date Notes Pregabalin 200 MG 1 capsules Orally at bedtime for 30 days 06/15/2025 Mupirocin 2 % 1 application Devops Engineer ally Twice a day for 5 days 06/15/2025 Doxycycline Monohydrate 100 MG 1 tablet Orally bid for 10 days 06/15/2025 Progress Notes * Christal VIDAL EDOB:1980 (45 yo F)Acc No.[id number]:06/15/2025 Progress Note Patient: Christal CAI Provider: Mark Mcdaniel ([facility])MD :1980 A ge:45 Y S ex:Female Date:06/15/2025 Address:[address] Check In:02:03 PM ESTCheck O ut:02:26 PM EST Subjective: * Chief Complaints: * S ores in both nares, picking sores, hurts to touch, also red spots on outside of nose * HPI: G eneral: Redneness tendenrss n inner part of lowr nose. * Active Problem List S82.871A Displaced pilon frac ture of right tibia, initial encounter for closed fracture Modified On:02/01/2024W/U Status:confirmed S82.61XA Displaced fracture o f lateral malleolus of right fibula, initial encounter for closed fracture Modified On:01/22/2024U Status:confirmed S93.04XA Dislocation of right ankle joint, initial encounter Modified On:02/01/2024U Status:confirmed Z96.9 Presence of function al implant, unspecified Modified On:12/18/2023U Status:confirmed M21.6X1 Other acquired defor mities of right foot Modified On:01/23/2024U Status:confirmed S82.899A Closed fracture of a nkle Modified On:12/19/2023U Status:confirmed K21.9 GERD (gastroesophage al reflux disease) Modified On:01/16/2024U Status:confirmed D50.9 Anemia, iron deficie ncy Modified On:01/16/2024U Status:confirmed E83.51 Hypocalcemia Modified On:01/16/2024U Status:confirmed D72.829 Elevated WBCs Modified On:01/16/2024U Status:confirmed D72.829 Elevated WBC count Modified On:01/16/2024U Status:confirmed S82.871D Displaced pilon frac ture of right tibia, subsequent encounter for closed fracture with routine healing Modified On:02/12/2024U Status:confirmed T81.31XA Disruption of administrator social welfare al operation (surgical) wound, not elsewhere classified, initial encounter Modified On:02/01/2024U Status:confirmed G90.521 Complex regional stu n syndrome I of right lower limb Modified On:02/15/2024U Status:confirmed S89.91XS Unspecified injury o f right lower leg, sequela Modified On:02/15/2024U Status:confirmed G57.41 Lesion of medial pop liteal nerve, right lower limb Modified On:02/15/2024U Status:confirmed G57.31 Lesion of lateral po pliteal nerve, right lower limb Modified On:02/15/2024U Status:confirmed M25.571 Right ankle pain Modified On:03/10/2024U Status:confirmed J32.8 Other chronic sinusi tis Modified On:06/03/2024W/U Status:confirmed F41.9 Anxiety Modified On:03/19/2025W/U Status:confirmed L01.00 Impetigo Modified On:06/15/2025W/U Status:confirmed * Medical History: * Surgical History: a ppendectomy 02/2000partial hysterectmy 01/2004open reduction and internal fixation ORIF - staged procedure 12/10/23 * Hospitalization/Major Diagno stic Procedure: F oot Surgery- Right 11/2023Foot Surgery- Right 12/2023 * Family History: F ather: 59 yrs, diagnosed with Unspecified heart disease. M other: alive. S ister(s): alive. D janis(s): alive. 1 sister(s) - healthy. 2 daughter(s) - healthy. .? * Social History: T obacco Use: T obacco Control (Standard) T obacco use: F ormer smoker W hen did you start smoking? 0 05/19/1997 W hen did you stop smoking? 1 11/19/2023 H ow long has it been since you last smoked??3-6 months D rug/Alcohol: A MIAN-C (Standard) D id you have a drink containing alcohol in the past year? N o P oints 0 I nterpretation N egative * Medications: T akingDesvenlafaxine Succinate ER 50 MG Tablet Extended Release 24 Hour 1 tablet Orally Once a day Multi Complete(Multiple Vitamins-Minerals) - Capsule as directed Orally Pantoprazole Sodium 40 mg Tablet Delayed Release TAKE 1 TABLET BY MOUTH DAILY Pregabalin 200 MG Capsule 1 capsules Orally at bedtime Vitamin C 1000 MG Tablet 1 tablet Orally Once a day with food Vitamin D 50 MCG (1999 UT) Tablet 1 tablet Orally Once a day Medication List reviewed and reconciled with the patientTaking Desvenlafaxine Succinate ER 50 MG Tablet Extended Release 24 Hour 1 tablet Orally Once a day Taking Multi Complete(Multiple Vitamins-Minerals) - Capsule as directed Orally Taking Pantoprazole Sodium 40 mg Tablet Delayed Release TAKE 1 TABLET BY MOUTH DAILY Taking Pregabalin 200 MG Capsule 1 capsules Orally at bedtime Taking Vitamin C 1000 MG Tablet 1 tablet Orally Once a day with food Taking Vitamin D 50 MCG (1999 UT) Tablet 1 tablet Orally Once a day Medication List reviewed and reconciled with the patient * Allergies: N .K.D.A.no[Allergies Verified] Objective: * Vitals: W t:135lbs, Ht: 65 in, BP:110/68mm Hg, BMI:22.46Index, Ht-cm: 165.1 cm, Wt-k.24 kg. * Examination: A bdomen Exam:: I Nner opart of nareas miedial on both sides. Assessment: * Assessment: 1. I mpetigo - L01.00 (Primary) Plan: * Treatment: * Procedure Codes: * * Sign off status: Completed Visit Status: C HK (Check Out) true * Provider: Mark Mcdaniel ([facility])MD Date: 0 06/15/2025 Generated for Printi ng/Faalexag/eTransmitting on: 0 07/22/2025 09:52 AM EDT History and Physical Notes * HPI (History of Present Illness) Category Sub-Category Detail Notes Category Not es General Redneness tende nrss n inner part of lowr nose Examination Category Sub-Category Detail Notes Category Not es Abdomen Exam: INner opart of nareas miedial on both sides
--- OUTSIDE RECORDS SUMMARY | 2025-07-22 05:00 | XMS_ITS ---
Author Organization [facility] in [place] Address [address] [place] [address] Care Team Providers Care Record Press Operator Name Role Phone Bridger Mcdaniel Primary Care Provider [phone] Hugh Florence [phone] REASON FOR VISIT -1 Year Follow Up- Encounters Encounter Location Date Provider Diagnosis [facility] (PODIAT[facility]) [address] [place] [address] [place] [address] 07/22/2025 Hugh Cadet Plan Of Treatment No Information Progress Notes * Christal VIDAL EDOB:1980 (45 yo F)Acc No.[id number]:07/22/2025 UNLOCKED PROGRESS NOTE Follow Up Patient: Christal CAI Provider: Patrick Cadet DPM, MS :1980 A ge:45 Y S ex:Female Date:07/22/2025 Address:[address] [place], [place] [address] Pcp:Bridger Mcdaniel Subjective: * Chief Complaints: * 1 . -1 Year Follow Up-. * Medical History: Objective: * Vitals: Assessment: Plan: * Treatment: * * Electronic signature of Jose Cadet DPM on 07/22/2025 at 09:51 AM EDT Sign off status: Pending Visit Status: O FF CANC (OFFICE CANCEL) * Provider: Patrick Cadet DPM, MS Date: 0 07/22/2025 Generated for Ashlyn hernandez/Rashaad/Shellysmitting on: 0 07/22/2025 09:51 AM EDT
--- OUTSIDE RECORDS SUMMARY | 2025-07-22 09:52 | XMS_ITS | Encounter Summary ---
Author Organization [facility] Address [address] [place] [address] Care Team Providers Care Putty Glazer Name Role Phone Jorge Luis Mcdaniel MD Primary Care Provider [phone] Clarence Mike MD Unavailable [phone] Encounter Details Date Type Department Care Team (Late st Contact Info) Description 06/02/2025 Orders Only [facility] [address] [place] [address] Alicia Mcdaniel MA [address] [place] [address] Social History Tobacco Use Types Packs/Day Years Used Date Smoking Tobacco: Unknown Alcohol Use Standard Drinks/Week Comments Defer 0 (1 standard drink = 0.6 oz pur e alcohol) Comments No Sex and Gender Information Value Date Recorded Sex Assigned at Not on file Legal Sex Female 7:06 PM EDT Gender Identity Not on file Sexual Orientation Not on file documented as of this encounter Plan of Treatment Not on file documented as of this encounter Procedures Procedure Name Priority Date/Time Associated Diagnosis Comments PAP SMEAR Routine 05/26/2025 12:00 AM EDT documented in this encounter Results * Pap Smear (05/26/2025 12:00 AM EDT) Swab Cervical swab / Unknown [facility] CYTOLOGY ORDERABLES Final Re sult EXTERNAL LAB documented in this encounter Visit Diagnoses Not on filedocumented in this encounter Care Teams Putty Glazer Relationship Specialty Start Date End Date Jorge Luis Mcdaniel MD PCP - General Family Medicine 02/13/24 Clarence Mike MD Referring Physician Neurology 02/13/24 documented as of this encounter
--- OUTSIDE RECORDS SUMMARY | 2025-07-22 09:52 | XMS_ITS | Clinical Summary ---
Author Organization [facility] Address [address] [place] [address] Care Team Providers Care Vp Strategic Planning Name Role Phone Jorge Luis Mcdaniel MD Primary Care Provider [phone] Clarence Mike MD Unavailable [phone] Allergies Active Allergy Reactions Criticality Noted Date Comments Iodine 02/23/2025 Medications pantoprazole (ProtoNix) 40 MG EC tablet Active cholecalciferol (Vitamin D-3) 50 MCG (1999) tablet 1 (one) time each day at the same time Active Desvenlafaxine ER 50 MG tablet sustained-relea se 24 hour 03/23/2025 Active desvenlafaxine (Pristiq) 50 MG 24 hr tablet 1 (one) time each day at the same time 03/19/2025 Active levoFLOXacin (Levaquin) 750 MG tablet Take 1 tablet by mouth Daily 06/03/2024 Active Lyrica 200 MG capsule 12/11/2023 Active pregabalin (Lyrica) 300 MG capsule Take 300 mg by mouth at bedtime Active Active Problems No known active problems Encounters Date Type Department Care Team Description 06/09/2025 Telephone [facility] [address] [place] [address] [place] [phone] Alicia Mcdaniel MA 06/02/2025 Orders Only [facility] [address] [place] [address] Alicia Mcdaniel MA 05/26/2025 9:00 AM EDT Office Visit [facility] [address] [place] [address] Madeleine Michelle PA Well woman exam with routine gynecological exam; H/O: hysterectomy 05/26/2025 Clinisync Result Encounter [facility] External Department Unsolicited Madeleine Michelle PA 05/26/2025 Bamboo flowsheet [facility] [address] [place] [address] Madeleine Michelle PA 05/25/2025 Travel 04/27/2025 Telephone [facility] [address] [place] [address] Oksana Whiteside NP 04/27/2025 External Result Encounter [facility] External Department Unsolicited Oksana Whiteside NP from Last 3 Months Family History Relation Name Status Comments Father Mother Alive Social History Tobacco Use Types Packs/Day Years Used Date Smoking Tobacco: Unknown Tobacco Cessation:Counseling Given: Yes Alcohol Use Standard Drinks/Week Comments Defer 0 (1 standard drink = 0.6 oz pur e alcohol) Comments No Sex and Gender Information Value Date Recorded Sex Assigned at Not on file Legal Sex Female 7:06 PM EDT Gender Identity Not on file Sexual Orientation Not on file Last Filed Vital Signs Vital Sign Reading Time Taken Comments Blood Pressure 117/72 05/26/2025 9:16 AM EDT Pulse - - Temperature - - Respiratory Rate 16 02/23/2025 10:14 AM EDT Oxygen Saturation - - Inhaled Oxygen Concentration - - Weight 63 kg (139 lb) 05/26/2025 9:16 AM EDT Height 165.1 cm (5' 5 ) 05/26/2025 9:16 AM EDT Body Mass Index 23.13 05/26/2025 9:16 AM EDT Plan of Treatment Health Maintenance Due Date Last Done Comments Influenza Vaccine (#1) 2025 Mammogram 04/28/2026 04/28/2025, 04/27/2025, 06/2023 Cervical Cancer Screening 05/26/2030 HPV/Cotest 05/26/2030 Pap Smear 05/26/2030 05/26/2025, 12/28/2022 Procedures Procedure Name Priority Date/Time Associated Diagnosis Comments IGP,APTIMA HPV,AGE GDLN Routine 05/26/2025 9:04 AM EDT PAP SMEAR Routine 05/26/2025 12:00 AM EDT BI MAMMOGRAM DIAGNOSTIC BILATERAL Routine 04/28/2025 2:38 PM EDT Mass of right breast, unspecified quadrant Breast lump on right side at 9 o'clock position BI MAMMOGRAM DIAGNOSTIC TOMOSYNTHESIS BILATERAL 04/27/2025 9:11 AM EDT from Last 3 Months Results * IGP,APTIMA HPV,AGE GDLN (05/26/2025 9:04 AM EDT) ELANA GDLN [facility] [place] . [facility] Comment: TESTS RESULT FLAG UNITS REF RANGE LAB Clinician Provided Cytology Information Source.............[facility] No. of containers..01 ThinPrep Vial Elana CONTRERAS Romina... 30-65 01 FLAG LEGEND: L-Low Normal,H-High Normal,LL-Alert Low,HH-Alert High <-Panic Low,>-Panic High,A-Abnormal,AA-Critical Abnormal Performed at: 01 =G [facility] [address] [place] [address] Maritza Merida MD, IGP, APTIMA HPV, RFX 16/18,45 Note . [facility] Comment: TESTS RESULT FLAG UNITS REF RANGE LAB DIAGNOSIS: 02 NEGATIVE FOR INTRAEPITHELIAL LESION OR MALIGNANCY. Specimen adequacy: 02 Satisfactory for evaluation. Performed by: 02 Enriqueta Armstrong Leak Inspector ([facility]) . 02 Note: Note 02 The Pap smear is a screening test designed to aid in the detection of premalignant and malignant conditions of the uterine cervix. It is not a diagnostic procedure and should not be used as the sole means of detecting cervical cancer. Both false-positive and false-negative reports do occur. Test Methodology: Note 02 This liquid based ThinPrep(R) pap test was screened with the use of an image guided system. HPV Genotype Reflex Note 02 Criteria not met, HPV Genotype not performed. FLAG LEGEND: L-Low Normal,H-High Normal,LL-Alert Low,HH-Alert High <-Panic Low,>-Panic High,A-Abnormal,AA-Critical Abnormal Performed at: 02 WB [facility] [address] [place] [address] Maritza Merida MD, HPV APTIMA Negative Negative [facility] Comment: This nucleic acid amplification test detects fourteen high- risk HPV types (16,18,31,33,35,39,45,51,52,56,58,59,66,68) without differentiation. Performed at: =G - [facility], [place] [id number] Target Protection Specialist: Maritza Merida MD, Phone: [phone] Performed at: - [facility] [place] [id number] Target Protection Specialist: Maritza Merida MD, Phone: [phone] 05/26/2025 9:04 AM EDT 05/26/2025 12:24 PM EDT Narrative CLINISYNC - 05/28/2025 12:18 PM EDT SPATULA-ALONE VAGINA [facility] BLOOD ORDERABLES Final Resul t Performing Organization Address [facility] Co de Phone Number [facility] * Pap Smear (05/26/2025 12:00 AM EDT) Swab Cervical swab / Unknown [facility] CYTOLOGY ORDERABLES Final Re sult Performing Organization Address [facility]/ZIP Co de Phone Number EXTERNAL LAB * Bilateral diagnostic mammogram (04/28/2025 2:38 PM EDT) Oksana Whiteside COMPOUNDING SCALER IMG BI PROCEDURES Final Resul t Performing Organization Address [facility] Co de Phone Number [facility] [address] [place] [address], [place] * Bilateral diagnostic mammogram with tomosynthesis (04/27/2025 9:11 AM EDT) Anatomical Region Laterality Modality Breast Bilateral Mammography 04/27/2025 9:11 AM EDT Impressions 04/27/2025 9:16 AM EDT Mildly complex cyst in region of palpable [...] Rojas M.D. 04/27/2025 9:13 AM Dictation Location: [facility] Tech: Christina Davis; Lotus Mcdaniel Transcribed By: TRINITY 04/27/25912 Dictated By: Arcadio Rojas DO 04/27/25910 Signed By: <Electronically signed by Arcadio Rojas DO in OV> 04/27/25912 Narrative 04/27/2025 9:16 AM EDT [facility] [place] [address] Ultrasound Report Signed Patient: Christal Stanley MR#: [id number] : 1980 Acct:[id number] Age/Sex: 44 / F ADM Date: 04/27/25 Loc: [place] Room: Type: [facility] Attending Dr: Oksana Whiteside APRN, NP-C Ordering Provider: Oksana Whiteside APRN, CNP Date of Service: 04/27/25 MM/MM diagnostic mammo BI w/CAD: N63.10 ([id number]) US/US breast RT limited: N63.10 Copies to: [...] No solid component. US/US breast RT limited Procedure Note Radiology, Radiologist, - 05/28/2025 [facility] [place] [address] [place], [place] [id number] Ultrasound Report Signed Patient: Christal Stanley EMR#: [id number] : 1980Acct:[id number] Age/Sex: 44 / FADM Date: 04/27/25 Loc: [place] Room:Type: [facility] Attending Dr: MAL Bucio APRN Ordering Provider: Oksana Whiteside APRN, CNP Date of Service: 04/27/25 MM/MM diagnostic mammo BI w/CAD: N63.10 ([id number]) US/US breast RT limited: N63.10 Copies to: [...] Right breast nodule present in region of palpableabnormality AXILLARY LYMPH NODES: Normal POSTSURGICAL CHANGES: None Targeted right breast ultrasound. At the 9:00 position 4 cm from thenipple in the region of palpable abnormality there is a bilobed anechoic cyst measuring 3.1 x 1.7x 2.3 cm. No abnormal vascularity. No mural nodule. No solid component. US/US breast RT limited IMPRESSION: Mildly complex cyst in region of palpable abnormality of the right breast.Targeted right breast ultrasound in 6 months recommended. RESULT CODE: 3 Probably Benign Finding Short Term Follow-Up DENSITY CODE: 2 (approximately 25-50% glandular) There are scattered areasof fibroglandular density. FOLLOW UP: 6M THE FALSE-NEGATIVE RATE OF MAMMOGRAPHY IS APPROXIMATELY 10%. IMAGING OF A PALPABLE ABNORMALITY MUST BE BASED ON CLINICAL GROUNDS. PATIENT WAS ENTERED INTO A REMINDER SYSTEM WITH A TARGET DUE DATE FOR THENEXT MAMMOGRAM. Impression dictated by: Arcadio Rojas M.D. 04/27/2025 9:13 AM Dictation Location: [facility] Tech: Christina Davis; Lotus Mcdaniel Transcribed By: TRINITY 04/27/25912 Dictated By: Arcadio Rojas DO 04/27/25 0911 Signed By: <Electronically signed by Arcadio Rojas, DO in OV> 04/27/25 0913 Oksana Whiteside COMPOUNDING SCALER IMG BI PROCEDURES Edited Resu lt - Final from Last 3 Months Insurance [employer] Member Subscriber Plan / Payer (Ef fective 2021-Present) Name:Christal Stanley Relation to Subscriber:Spouse Name:NORBERTCAITLIN NIRANJAN AVILEZ Date of :1967 Address: [address] [place] [address] Payer ID:Not on file Type:Not on file Address: [place] [phone] Care Teams Vp Strategic Planning Relationship Specialty Start Date End Date Jorge Luis Mcdaniel MD PCP - General Family Medicine 02/13/24 Clarence Mike MD Referring Physician Neurology 02/13/24
--- OUTSIDE RECORDS SUMMARY | 2025-07-22 09:52 | XMS_ITS | Patient Health Record ---
Author Organization [facility] in [place] Address [address] [place] [address] Care Team Providers Care Transmitter Chief Name Role Phone Bridger Mcdaniel Primary Care Provider Malka Cadet [phone] Allergies No Known Allergies Results Component Value Reference Range Notes XR ankle RT min 3V Reviewed date:03/03/2025 05:53:36 PM Interpretation: Performing Lab: Notes/Report: Source Facility: [place] [address] XRay Report Signed Patient: CHRISTAL VIDAL MR#: [id number] : 1980 Acct:[id number] Age/Sex: 44 / F ADM Date: 09/10/24 Loc: RAD Attending Dr: Malka Cadet D.P.M. Ordering Physician: Malka Cadet D.P.M. Date of Service: 09/10/24 Procedure(s): XR ankle RT min 3V Accession Number(s): [id number] cc: Malka Cadet D.P.M.; Jorge Luis Mcdaniel M.D. [address] [address] Patient Name: CHRISTAL VIDAL MRN: [id number] date: 1980 Sex: F Assigned Patient Location: RAD Current Patient Location: Accession/Order Number: [id number] Exam Date: 09/10/2024 08:30 Report Date: 09/14/2024 07:01 At the request of: MALKA CADET Procedure: XR ankle RT min 3V PROCEDURE: XR ankle RT min 3V HISTORY: RIGHT ANKLE PAIN COMPARISON: XR ankle right 07/22/2024 FINDINGS: BONES:Prior mechanical fusion of the ankle joint and hindfoot via intramedullary brittnee and locking screws; no appreciable hardware failure. Prior osteotomy and partial osseous healing of the medial malleolus. Resection of distal fibula and removal of prior hardware. SOFT TISSUES:Soft tissue swelling surrounding the ankle. EFFUSION:None visible. OTHER: Negative. XR/XR ankle RT min 3V IMPRESSION: 1. Stable surgical changes without evidence of hardware failure or change in alignment. 2. No appreciable acute abnormality. Electronically authenticated by: CLARENCE HENDRICKSON Date: 09/14/2024 07:01 Dictated By: Clarence Hendrickson M.D. Signed By: 09/14/24703 DD/ 0 TD/TT: Sales Commissions Analyst: [place] [address] XRay Report Signed Patient: CHRISTAL VIDAL MR#: [id number] : 1980 Acct:[id number] Age/Sex: 44 / F ADM Date: 09/10/24 Loc: RAD Attending Dr: Malka Cadet D.P.M. Ordering Physician: Malka Cadet D.P.M. Date of Service: 09/10/24 Procedure(s): XR ank le RT min 3V Accession Number(s): [id number] cc: Malka Cadet D.P.M.; Jorge Luis Mcdaniel M.D. 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 Prior osteotomy and partia l osseous healing of the medial malleolus. Resection of distal fibula and removal of prior hardware. SOFT TISSUES:Soft tissue swelling surrounding the ankle. EFFUSION:None visible. OTHER: Negative. XR/XR ankle RT min 3V IMPRESSION: 1. Stable surgical changes without evidence of hardware failure or change in alignment. 2. No appreciable acute abnormality. Electronically authenticated by: CLARENCE HENDRICKSON Date: 09/14/2024 07:01 Dictated By: Clarence Hendrickson M.D. Signed By: 09/14/24703 DD/ 0 TD/TT: Sales Commissions Analyst: LIP[place] Reviewed date:03/03/2025 05:53:36 PM Interpretation: Performing Lab: Notes/Report: [facility] , Lipase 21.0 16.0-77.0 U/L Performing Lab: see note ML - [facility] LB MAGNESIUM Reviewed date:03/03/2025 05:53:36 PM Interpretation: Performing Lab: Notes/Report: [facility] , Magnesium 2.0 1.8-2.4 mg/dL Performing Lab: see note ML - [facility] LB PROF 14(COMP METB) Reviewed date:03/03/2025 05:53:36 PM Interpretation: Performing Lab: Notes/Report: [facility] , Sodium 138 136-145 mmol/L Potassium 3.4 3.5-5.1 mmol/L Chloride 103 98-107 mmol/L Carbon Dioxide 22.9 21.0-32.0 mmol/L Anion Gap 15.5 Glucose 109 74-106 mg/dL Blood Urea Nitrogen 12.0 7.0-18.0 mg/dL Creatinine 0.80 0.55-1.02 mg/dL Estimated GFR ( Meredith >60 >=60 mL/min/1.73m 2 Estimated GFR (Non- Bambi >60 >=60 mL/min/1.73m 2 BUN Creatinine Ratio 15.0 Calcium 9.8 8.5-10.1 mg/dL Bilirubin Total 0.7 0.2-1.0 mg/dL Aspartate Amino Transferase 17 15-37 U/L Alanine Aminotransferase 18 14-59 U/L Alkaline Phosphatase 71 46-116 U/L Total Protein 7.9 6.4-8.2 g/dL Albumin Level 4.2 3.4-5.0 g/dL Globulin 3.7 Albumin Globulin Ratio 1.1 Performing Lab: see note ML - [facility] LB CBC AUTO DIFF Reviewed date:03/03/2025 05:53:36 PM Interpretation: Performing Lab: Notes/Report: [facility] , White Blood Count 14.0 4.0-11.0 10 3/uL Red Blood Count 4.84 4.20-5.40 10 6/uL Hemoglobin 13.8 12.0-16.0 g/dL Hematocrit 41.0 36.0-48.0 % Mean Corpuscular Volume 84.7 81.0-99.0 fL Mean Corpuscular Hemoglobin 28.5 26.7-34.0 pg Mean Corpuscular HGB Conc 33.7 29.9-35.2 g/dL Red Cell Distribution Width 13.6 11.0-15.0 % Platelet Count 370 150-450 10 3/uL Mean Platelet Volume 9.8 9.5-13.5 fL Neutrophils Percent Auto 78.2 43.0-75.0 % Lymphocytes Percent Auto 14.7 20.5-60.0 % Monocytes Percent Auto 6.4 1.7-12.0 % Eosinophils Percent Auto 0.2 0.9-7.0 % Basophils Percent Auto 0.3 0.2-2.0 % Immature Granulocytes Pct Auto 0.2 0.0-0.5 % Neutrophils Absolute Auto 10.9 1.4-6.5 10 3/uL Lymphocytes Absolute Auto 2.1 1.2-3.8 10 3/uL Monocytes Absolute Auto 0.9 0.3-0.8 10 3/uL Eosinophils Absolute Auto 0.0 0.0-0.7 10 3/uL Basophils Absolute Auto 0.0 0.0-0.1 10 3/uL Immature Granulocytes Abs Auto 0.03 0.00-0.03 10 3/uL Performing Lab: see note ML - [facility] LB IGP,Aptima HPV,Age Gdln Reviewed date:05/28/2025 06:46:02 PM Interpretation: Performing Lab: Notes/Report: SPATULA-ALONE VAGINA [facility] , Age Gdln ACOG Testing Note . Performed at: L-Low Normal,H-High Normal,LL-Alert Low,HH-Alert High Clinician Provided Cytology Information Maritza Merida MD, 01 =G [facility] [place] Age Algo ACOG Romina... 30-65 01 <-Panic Low,>-Panic High,A-Abnormal,AA-Cri tical Abnormal Source.............Vag ana [address] [place] [address], [place] [address] FLAG LEGEND: No. of containers..01 ThinPrep Vial TESTS RESULT FLAG UNITS REF RANGE LAB IGP, Aptima HPV, rfx 16/18,45 Note . Performed at: DIAGNOSIS: 02 Test Methodology: Note 02 Performed by: 02 uterine cervix. It is not a diagnostic procedure and detection of premalignant and malignant conditions of the L-Low Normal,H-High Normal,LL-Alert Low,HH-Alert High HPV Genotype Reflex Note 02 cancer. Both false-positive and false-negative reports do Criteria not met, HPV Genotype not performed. Maritza Merida MD, Satisfactory for evaluation. <-Panic Low,>-Panic High,A-Abnormal,AA-Cri tical Abnormal TESTS RESULT FLAG UNITS REF RANGE LAB Note: Note 02 The Pap smear is a screening test designed to aid in the the use of an image guided system. 02 [facility] FLAG LEGEND: This liquid based ThinPrep(R) pap test was screened with [address] [place] [address] Enriqueta [employer] Designer (ASCP) Specimen adequacy: 02 should not be used as the sole means of detecting cervical . 02 NEGATIVE FOR INTRAEPITHELIAL LESION OR MALIGNANCY. occur. HPV Aptima Negative Negative Performed at: =[facility] [address] [place], [place] [phone] risk HPV types (16,18,31,33,35,39,45, 51,52,56,58,59,66,68) without differentiation. [address] [place] [id number] Area Attendant: Maritza Merida MD, Phone: [phone] Performed at: [facility] Area Attendant: Maritza Merida MD, Phone: [phone] This nucleic acid amplification test detects fourteen high- Performing Lab: see note [facility] LB UA RANDOM W or MICROSCOPIC Reviewed date:03/04/2025 09:49:18 AM Interpretation: Performing Lab: Notes/Report: [facility] , Color Urine YELLOW YELLOW Clarity Urine CLEAR CLEAR Specific [place] Urine 1.025 1.005-1.025 pH Urine 6.5 5.0-9.0 Protein Urine 30 NEG/TRACE mg/dL Glucose Urine UA NEGATIVE NEGATIVE mg/dL Bilirubin Urine NEGATIVE NEGATIVE Ketones Urine >=80 NEGATIVE mg/dL Blood Urine NEGATIVE NEGATIVE Nitrite Urine NEGATIVE NEGATIVE Urobilinogen Urine 0.2 0.2-1.0 EU/dL Leukocyte Esterase Urine NEGATIVE NEGATIVE WBC Urine NONE SEEN NONE SEEN #/HPF RBC Urine NONE SEEN 0-2 #/HPF Bacteria Urine TRACE NONE SEEN #/HPF Mucus Urine NONE SEEN NONE SEEN Squamous Epithelial Cell Urine FEW NONE/RARE #/LPF Crystals Seen? None Seen None Seen #/HPF Cast Seen? NONE SEEN NONE SEEN #/LPF Performing Lab: see note ML - [facility] [place] Reason For Referral No Information Medications Medication SIG (Take, Route, Frequency, Duration) Notes Start Date End Date Status Multi Complete - as directed Orally Active Doxycycline Monohydrate 100 MG 1 tablet Orally bid for 10 days 06/15/2025 Active Vitamin C 1000 MG 1 tablet Orally Once a day with food for 90 days 01/09/2024 Active Pantoprazole Sodium 40 mg TAKE 1 TABLET BY MOUTH DAILY for 240 Active Desvenlafaxine Succinate ER 50 MG 1 tablet Orally Once a day for 30 days 03/19/2025 Active Vitamin D 50 MCG (1999 UT) 1 tablet Oral ly Once a day Active Pregabalin 200 MG 1 capsules Orally at bedtime for 30 days 06/15/2025 Active Mupirocin 2 % 1 application Credit Risk Review Officer ally Twice a day for 5 days 06/15/2025 Active Social History Tobacco Use: Social History Observation Description Date Details (start date - stop date) Former Smoker 05/19/1997 - 09/19/2024 Alcohol Screen (Audit-C) Question Answer Notes Did you have a drink containing alcohol in the p ast year? 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) Active confirmed Problem 90816240 Displaced fracture of lateral malleolus of right fibula, initial encounter for closed fracture (S82.61XA) Active confirmed Problem 047853512 Displaced pilon fracture of right tibia, initial encounter for closed fracture (S82.871A) Active confirmed Problem 113940804 Displaced pilon fracture of right tibia, subsequent encounter for closed fracture with routine healing (S82.871D) Active confirmed Problem 899988668 Unspecified injury of right lower leg, sequela (S89.91XS) Active confirmed Problem 230922425 Dislocation of right ankle joint, initial encounter (S93.04XA) Active confirmed Problem 43613556 Disruption of external operation (surgical) wound, not elsewhere classified, initial encounter (T81.31XA) Active confirmed Problem 980010861 Presence of functional implant, unspecified (Z96.9) Active confirmed Problem Gastroesophageal reflux disease (051124236) GERD (gastroesophage al reflux disease) (K21.9) Active confirmed Problem Anxiety (46175026) Anxiety (F41.9) Active confi rmed Problem Leukocytosis (842925114) Elevated WBC count (D72.829) Active confirmed Problem Impetigo (81956800) Impetigo (L01.00) Active confirmed Problem Arthralgia of the ankle and/or foot (056608240) Right ankle pain (M25.571) Active confirmed Problem Iron deficiency anemia (66654383) Anemia, iron deficiency (D50.9) Active confirmed Problem Closed fracture of ankle (36326613) Closed fracture of ankle (S82.899A) Active confirmed Problem Leukocytosis (517808434) Elevated WBCs (D72.829) Active confirmed Vital Signs Heart Rate 85 /min 09/10/2024 Temperature 97.8 degrees Fahrenheit 09/10/2024 Respiratory Rate 16 /min 07/22/2024 Oximetry 97 % 09/10/2024 Blood pressure diastolic 68 mm Hg 06/15/2025 Height 65 in 06/15/2025 Blood pressure systolic 110 mm Hg 06/15/2025 Weight 135 lbs 06/15/2025 BMI 22.46 kg/m2 06/15/2025 Encounters Encounter Location Date Provider Diagnosis [facility] [address] [place] [facility] [address] 04/28/2025 Bridger Hoy Complex regional pain syndrome I of right lower limb G90.521 [facility] [address] [place] [address] 05/19/2025 Bridger Hoy Complex regional pain syndrome I of right lower limb G90.521 [facility] [address] [place] [facility] [place] [address] 06/01/2025 Bridger Hoy Complex regional pain syndrome I of right lower limb G90.521 [facility] [address] [facility] [place] [address] 10/21/2024 Bridger Hoy Other acquired deformities of right foot M21.6X1 [facility] [address] [place] [facility] [place] [address] 11/20/2024 Bridger Hoy Other acquired deformities of right foot M21.6X1 [facility] [address] [facility] [place] [address] 12/22/2024 Bridger Hoy Other acquired deformities of right foot M21.6X1 [facility] [address] [facility] [place] [address] 01/22/2025 Bridger Hoy Other acquired deformities of right foot M21.6X1 [facility] [address] [place] [facility] [place] [address] 02/18/2025 Bridger Hoy Other acquired deformities of right foot M21.6X1 [facility] [address] [facility] [place] [address] 04/20/2025 Bridger Hoy Complex regional pain syndrome I of right lower limb G90.521 [facility] [address] [place] [facility] [place] [address] 08/27/2024 Bridger Hoy Other acquired deformities of right foot M21.6X1 [facility] [address] [place] [address] 09/09/2024 Malka Cadet [facility] [address] [place] [address] 09/10/2024 Malka Cadet [facility] [address] [place] [place] [address] 09/22/2024 Bridger Hoy Other acquired deformities of right foot M21.6X1 [facility] [address] [facility] [place] [address] 07/31/2024 Bridger Hoy Other acquired deformities of right foot M21.6X1 [facility] [address] [facility] [place] [address] 03/19/2025 Bridger Hoy Complex regional pain syndrome I of right lower limb G90.521 and Anxiety F41.9 [facility] [address] [facility] [place] [address] 06/15/2025 Bridger Hoy Impetigo L01.00 [facility] [address] [place] [address] 07/22/2024 Malka Cadet Displaced pilon fracture of right tibia, initial encounter for closed fracture S82.871A [facility]) [address] [place] [address] [place] [address] 09/10/2024 Malka Cadet Right ankle pain M25.571 and Displaced pilon fracture of right tibia, subsequent encounter for closed fracture with routine healing S82.871D Assessments Encounter Date Diagnosis (ICD Code) Assessment Notes Treatment Notes Treatment Clinical Notes Section Notes 07/22/2024 Displaced pilon fracture of right tibia, initial encounter for closed fracture (ICD-10 - S82.871A) Patient continues to improve and is doing very well relating to being back to work without restrictions and going up and down ladders and stairs without much issue. She is still seeing pain management for chronic regional pain syndrome and is considering spinal cord stimulator. She is doing very well from an orthopedic/foot and ankle perspective and she may follow-up in a year sooner if needed with weightbearing ankle x-rays 07/31/2024 Other acquired deformities of right foot (ICD-10 - M21.6X1) 09/10/2024 Right ankle pain (ICD-10 - M25.571) 09/10/2024 Displaced pilon fracture of right tibia, subsequent encounter for closed fracture with routine healing (ICD-10 - S82.871D) Patient presents due to a misstep while walking through a parking lot on uneven asphalt. She explains a knee hyperextension type issue and now having intermittent calf and hamstring achiness and seldom shooting pain coming from the hip radiating into the back of the thigh. She relates that ibuprofen 800 mg 3 times a day, rest, ice and elevation have provided substantial help but was concerned that something in her ankle was traumatized and wanted an x-ray to make sure. Her x-rays are negative for fracture or substantial change as compared to previous x-rays.If the patient has continued spasm then would recommend Zanaflex which I offered today but patient relates that this is substantially gotten better so declined. She should continue taking ibuprofen at current dosage. I also prescribed Medrol Dosepak which she is to take as directed.I recommended to continue ice, massage and rest. If no better in 2 weeks she is to call the office for physical therapy prescription otherwise we will follow-up in 2 months with weightbearing ankle x-rays 03/19/2025 Complex regional pain syndrome I of right lower limb (ICD-10 - G90.521) 03/19/2025 Anxiety (ICD-10 - F41.9) 06/15/2025 Impetigo (ICD-10 - L01.00) 08/27/2024 Other acquired deformities of right foot (ICD-10 - M21.6X1) 09/22/2024 Other acquired deformities of right foot (ICD-10 - M21.6X1) 10/21/2024 Other acquired deformities of right foot (ICD-10 - M21.6X1) 11/20/2024 Other acquired deformities of right foot (ICD-10 - M21.6X1) 12/22/2024 Other acquired deformities of right foot (ICD-10 - M21.6X1) 01/22/2025 Other acquired deformities of right foot (ICD-10 - M21.6X1) 02/18/2025 Other acquired deformities of right foot (ICD-10 - M21.6X1) 04/20/2025 Complex regional pain syndrome I of right lower limb (ICD-10 - G90.521) 04/28/2025 Complex regional pain syndrome I of right lower limb (ICD-10 - G90.521) 05/19/2025 Complex regional pain syndrome I of right lower limb (ICD-10 - G90.521) 06/01/2025 Complex regional pain syndrome I of right lower limb (ICD-10 - G90.521) Plan Of Treatment Pending Test Test Name Order Date UA (URINALYSIS, COMPLETE) 04/23/2023 XR Abdomen AP (1 view) (KUB) * XR Ankle LT (3 views) * (164) 01/09/2024 XR Ankle RT (3 views) * (161) 07/22/2024 XR Ankle RT (3 views) * (161) 09/10/2024 URINE CULTURE 04/23/2023 CT Sinus w/o Contrast 06/03/2024 XR Ankle 3 Views Left 01/17/2024 XR FOOT RT MIN 3 VIEWS 01/11/2024 Insurance Providers Payer Name Payer Address Payer Phone Subscriber Number Group Number Insured Name Patient Relationship to Insured Coverage Start Date Coverage End Date [facility] [address] [place], [place] [id number] Arik Vidal Spouse - patient is the spouse of the insured 9 Medical (General) History Medical History History ICD Code Covid-19 gastroesophageal reflux disease (GERD) CRPS right ankle fracture Surgical History Surgery Date(Month/Year) appendectomy 02/2000 partial hysterectmy 01/2004 open reduction and internal fixation DIANE F - staged procedure 12/10/23 Hospitalization History Reason Date(Month/Year) Foot Surgery- Right 12/2023 Foot Surgery- Right 11/2023
--- NOTE | 2025-07-22 09:57 | XR_ITS ---
The [address] [address] Patient Name: ANNALEE VIDAL MRN: [id number] date: 1980 Sex: F Assigned Patient Location: [facility] Current Patient Location: [facility] Accession/Order Number: [id number] Exam Date: 07/22/2025 10:02 Report Date: 07/22/2025 11:02 At the request of: MALKA MAXWELL DPM Procedure: XR ankle RT min 3V RIGHT ANKLE - 3 views CLINICAL DATA: Right ankle pain for the past month medially. No recent injury. Previous ankle fusion. COMPARISON: 09/10/2024 Weightbearing AP, lateral and oblique views were obtained. There is fusion at the ankle with a long medullary brittnee extending from the proximal shaft of the tibia down through the talus to the calcaneus. There are 2 locking screws at the mid tibial shaft and 2 screws at the calcaneus. There is prior osteotomy at the distal fibula. Chronic deformity is noted at the medial malleolus. There is no definite acute fracture or dislocation. There are no significant soft tissue abnormalities. XR/XR ankle RT min 3V IMPRESSION: STABLE POSTOPERATIVE CHANGES ANKLE FUSION. NO ACUTE BONY FINDINGS. Impression dictated by: Yessenia Tejada M.D. 07/22/2025 11:02 AM Dictation Location: [place] [address] Electronically authenticated by: [id number] Y Date: 07/22/2025 11:02
--- OUTSIDE RECORDS SUMMARY | 2025-07-22 11:12 | XMS_ITS | CCD ---
Author Organization [facility] Care Team Providers Care Manager User Interface Name Role Phone MARÍA ., DR CAMARA [...] Unavailable Tanvi Mcdaniel MD Primary Care Provider Clarence Mike MD Unavailable [phone] Tanvi Mcdaniel MD Primary Care Provider [phone] Clarence Mike MD Unavailable Unavailable Oksana Whiteside APRN Attending Provider [phone] Tanvi Mcdaniel MD Primary Care Provider [id number] Clarence Mike MD Unavailable TIN LOPEZ Attending Unavailable MADELEINE KOWALSKI Attending Unavailable MADELEINE KOWALSKI Attending Unavailable Oksana Whiteside Attending Unavailable Oksana Whiteside Admitting Unavailable Tanvi Mcdaniel Primary Care Unavailable Allergies Allergy Classification Reported Allergen(s) Allergy Type Date of Onset Reaction(s) Facility (10 sources) Iodine Drug Allergy 02-23-2025 [facility] Medications Current Medications Medication Drug Class(es) Dates Sig (Normalized) Sig (Original) cholecalciferol 0.05 mg oral tablet (3 sources) Vitamin D cholecalciferol (Vitamin D-3) 50 MCG (1999) tablet 1 (one) time each day at the same time Active 24 hr desvenlafaxine 50 mg extended release oral tablet (6 sources) Serotonin and Norepinephrine Reuptake Inhibitor Start: 03-23-2025 Desvenlafaxine ER 50 MG tablet sustained-release 24 hour 03/23/2025 Active Start: 03-19-2025 desvenlafaxine (Pristiq) 50 MG 24 hr tablet 1 (one) time each day at the same time 03/19/2025 Active levoFLOXacin 750 mg oral tablet (3 sources) Quinolone Antimicrobial Start: 06-03-2024 take 1 tablet by mouth once daily levoFLOXacin (Levaquin) 750 MG tablet Take 1 tablet by mouth Daily 06/03/2024 Active pantoprazole 40 mg delayed release oral tablet (10 sources) Proton Pump Inhibitor pantoprazole (ProtoNix) 40 MG EC tablet Active pregabalin 200 mg oral capsule (10 sources) Start: 12-11-2023 End: 04-20-2025 Lyrica 200 MG capsule 12/11/2023 Active take 1 capsule by mouth at bedti me pregabalin (Lyrica) 300 MG capsule Take 300 mg by mouth at bedtime Active Completed/Discontinued Medications Medication Drug Class(es) Dates [...] used as directed 21 tablet 02/23/2025 Active Problems Problem Classification Problem Date Documented Date [...] Name Value Interpretation Reference Range Facil ity IGP,APTIMA HPV,AGE GDLNon AGE GDLN ACOG TESTING Note . [facility] Comment on above: TESTS RESULT FLAG UN ITS REF RANGE LAB Clinician Provided Cytology Information Source.............Vagina No. of containers..01 ThinPrep Vial Age Prince CONTRERAS Romina... 30 FLAG LEGEND: L-Low Normal,H-High Normal,LL-Alert Low,HH-Alert High <-Panic Low,>-Panic High,A-Abnormal,AA-Critical Abnormal Performed at: 01 =[address] [address] Maritza Merida MD, HPV APTIMA Negative Negative [facility] Comment on above: This nucleic acid am plification test detects fourteen high- risk HPV types (16,18,31,33,35,39,45,51,52,56,58,59,66,68) without differentiation. Performed at: =[address] [id number] [employer] Demonstrator: Maritza Merida MD, Phone: [phone] Performed at: [address] [id number] [employer] Demonstrator: Maritza Merida MD, Phone: [phone] IGP, APTIMA HPV, RFX 16/18,45 Note . [facility] Comment on above: TESTS RESULT FLAG UN ITS REF RANGE LAB DIAGNOSIS: 02 NEGATIVE FOR INTRAEPITHELIAL LESION OR MALIGNANCY. Specimen adequacy: 02 Satisfactory for evaluation. Performed by: 02 Enriqueta Armstrong Strategic Account Executive ([facility]) . 02 Note: Note 02 The Pap [...] High,A-Abnormal,AA-Critical Abnormal Performed at: 02 WB [facility] [address] [address] Maritza Merida MD, SPATULA-ALONE VAGINA [facility] MM diagnostic mammo BI w/CAD on 04-27-2025 MM diagnostic mammo BI w/CAD [facility] [place] [address] Ultrasound Report Signed Patient: Christal Stanley MR#: [id number] : 1980 Acct:[id number] Age/Sex: 44 / F ADM Date: 04/27/25 Loc: [place] Room: Type: [facility] Attending Dr: Oksana Whiteside APRN CATHODE RAY TUBE SALVAGE PROCESSOR-C Ordering Provider: Oksana Whiteside APRN, CNP Date of Service: 04/27/25 MM/MM diagnostic mammo BI w/CAD: N63.10 ([id number]) US/US breast RT limited: N63.10 Copies to: Oksana Stevo, CRYSTAL MOUNTER, ACUTE CARE CERTIFIED NURSING ASSISTANT BILATERAL Diagnostic Full Field digital mammogram with [...] Rojas M.D. 04/27/2025 9:13 AM Dictation Location: [facility] Tech: Christina Alistair Lotus Jonas Transcribed By: TRINITY 04/27/25912 Dictated By: Arcadio Rojas DO 04/27/25910 Signed By: 04/27/25912 Normal [facility] PAP ACOG PANEL 2: 30 to 65on 01-03-2023 . . Normal [facility] Comment on above: Result Comment: Perf ormed at: WB Performed By: #### [id number] #### [facility] [address] [address] [address] Marga Fernandez Age Gdln ACOG Testing 30-65 Normal [facility] Comment on above: Performed By: #### 4 [id number] #### [facility] [address] [address] [address] Marga Fernandez DIAGNOSIS: Comment Normal [facility] Comment on above: Result Comment: NEGA TIVE FOR INTRAEPITHELIAL LESION OR MALIGNANCY. Performed at: WB Performed By: #### 4 [id number] #### [facility] [address] [place] [address] Dr. Marga Fernandez HPV Aptima Negative Normal Negative [facility] Comment on above: Result Comment: This nucleic acid amplification test detects fourteen high-risk HPV types (16,18,31,33,35,39,45,51,52,56,58,59,66,68) without differentiation. Performed at: =G Performed By: #### [id number] #### [facility] [address] [place] [address] Dr. Marga Fernandez HPV Genotype Reflex Comment Normal [facility] Comment on above: Result Comment: Crit eria not met, HPV Genotype not performed. Performed at: WB Performed By: #### 4 [id number] #### [facility] [address] [place] [address] Dr. Marga Fernandez Methodology: Comment Normal [facility] Comment on above: Result Comment: This liquid based ThinPrep(R) pap test was screened with the use of an image guided system. Performed at: WB Performed By: #### 4 [id number] #### [facility] [address] [place] [address] Dr. Marga Fernandez Note: Comment Normal [facility] Comment on above: Result Comment: The Pap smear is a screening test designed to aid in the detection of premalignant and malignant conditions of the uterine cervix. It is not a diagnostic procedure and should not be used as the sole means of detecting cervical cancer. Both false-positive and false-negative reports do occur. . Performed at: WB Performed By: #### 4 [id number] #### [facility] [address] [place] [address] Dr. Marga Fernandez Performed by: Comment Normal [facility] Comment on above: Result Comment: Diamond Isaac, Manager Regional Sales (ASCP) Performed at: WB Performed By: #### 4 [id number] #### [facility] [address] [place] [address] Dr. Marga Fernandez Specimen adequacy: Comment Normal [facility] Comment on above: Result Comment: Sati sfactory for evaluation. No endocervical component is identified. Performed at: WB Performed By: #### 4 [id number] #### [facility] [address] [place] [address] Dr. Marga Fernandez US PELVISon 01-03-2023 US [...] RAYMOND ROBERTS Date: 2023-01-03 11:49 Normal The [facility] Cytology Cervical or vaginal smear or scraping studyon 12-28-[address] [facility] [address] ABD/PELV W CONon 12-13-19 CT ABD/PELV W CON CLINICAL HISTORY: Pelvic [...] The [facility] CULTURE URINEon 12-13-2022 CULTURE URINE Culture Observations : NO GROWTH. Normal The [facility] Comment on above: Performed By: #### U RCX #### [facility] [address] [place] [address] Dr. Marga Fernandez UA RANDOM W/MICROSCOPICon BACTERIA NONE SEEN Normal NONE SEEN The [facility] Comment on above: Performed By: #### U AMIC #### [facility] [address] [place] [address] Dr. Marga Fernandez Bilirubin Ql (U) Negative Normal NEGATIVE The [facility] Comment on above: Performed By: #### U AMIC #### [facility] [address] [place] [address] Dr. Marga Fernandez CAST NONE SEEN Normal NONE SEEN The [facility] Comment on above: Performed By: #### U AMIC #### [facility] [address] [address] [address] Marga Fernandez Clarity (U) CLEAR Normal CLEAR The [facility] Comment on above: Performed By: #### U AMIC #### [facility] [address] [address] [address] Marga Fernandez Color (U) LT. YELLOW Normal YELLOW The [facility] Comment on above: Performed By: #### U AMIC #### [facility] [address] [address] [address] Marga Fernandez Crystals LM Nom (Urine sed) NONE SEEN Normal NONE SEEN [facility] Comment on above: Performed By: #### U AMIC #### [facility] [address] [place] [address] Dr. Marga Fernandez Epithelial cells LM Ql (Urine sed) RARE Normal NONE SEEN /RARE [facility] Comment on above: Performed By: #### U AMIC #### [facility] [address] [address] [address] Marga Fernandez Glucose Ql (U) Negative Normal NEGATIVE The [facility] Comment on above: Performed By: #### U AMIC #### [facility] [address] [address] [address] Marga Fernandez Hemoglobin Ql (U) Negative Normal NEGATIVE The [place] Comment on above: Performed By: #### U AMIC #### [facility] [address] [address] [address] Marga Fernnadez Ketones Ql (U) Negative Normal NEGATIVE The [facility] Comment on above: Performed By: #### U AMIC #### [facility] [address] [address] [address] Marga Fernandez LEUKOCYTES Negative Normal NEGATIVE [facility] Comment on above: Performed By: #### U AMIC #### [facility] [address] [address] [address] Marga Fernandez MUCOUS NONE SEEN Normal NONE SEEN [facility] Comment on above: Performed By: #### U AMIC #### [facility] [address] [address] [address] Marga Fernandez Nitrite Ql (U) Negative Normal NEGATIVE The [facility] Comment on above: Performed By: #### U AMIC #### [facility] [address] [place] [address] Dr. Marga Fernandez pH (U) 6.5 [pH] Normal 5-9 The [facility] Comment on above: Performed By: #### U AMIC #### [facility] [address] [place] [address] Dr. Marga Fernandez RBC NONE SEEN Abnormal 0-2 The [facility] Comment on above: Performed By: #### U AMIC #### [facility] [address] [place] [address] Dr. Marga Fernandez SPEC GRAVITY <=1.005 Abnormal 1.005-<=1.025 [facility] Comment on above: Performed By: #### U AMIC #### [facility] [address] [place] [address] Dr. Marga Fernandez UA PROTEIN Negative Normal NEGATIVE/ TRACE The [facility] Comment on above: Performed By: #### U AMIC #### [facility] [address] [place] [address] Dr. Marga Fernandez Urobilinogen Qn (U) 0.2 {Wero'U}/dL Normal 0.2 - 1.0 [facility] Comment on above: Performed By: #### U AMIC #### [facility] [address] [place] [address] Dr. Marga Fernandez WBC NONE SEEN Normal NONE SEEN The [facility] Comment on above: Performed By: #### U AMIC #### [facility] [address] [place] [address] Dr. Marga Fernandez US SINGLE QUAD RT [...] by: RAYMOND LOPEZ Date: 2022-09-28 08:46 Normal [facility] Vital Signs Date Time Vital Sign Value Performing Clinician Sam crouch 05-26-2025 09:16-0400 Body height 165.1 cm Madeleine Rockland PA Work Phone: [facility] 05-26-2025 09:16-0400 Body mass index (BMI) [Ratio] 23.13 kg/m2 Madeleine Rockland PA Work Phone: [facility] 05-26-2025 09:16-0400 Body weight 63.05 kg Madeleine Rockland PA Work Phone: [facility] 05-26-2025 09:16-0400 Diastolic blood pressure 72 mm[Hg] Madeleine Rockland PA Work Phone: [facility] 05-26-2025 09:16-0400 Systolic blood pressure 117 mm[Hg] Madeleine Rockland PA Work Phone: [facility] 04-20-2025 16:09-0400 Body mass index (BMI) [Ratio] 24.46 kg/m2 Madeleine Rockland PA Work Phone: [facility] 04-20-2025 16:09-0400 Body weight 66.68 kg Madeleine Miguel Angel PA Work Phone: [facility] 04-20-2025 16:09-0400 Diastolic blood pressure 70 mm[Hg] Madeleine Rockland PA Work Phone: [facility] 04-20-2025 16:09-0400 Systolic blood pressure 108 mm[Hg] Madeleine Rockland PA Work Phone: [facility] 02-23-2025 10:14-0400 Body height 165.1 cm Tin Lopez DP Work Phone: [facility] 02-23-2025 10:14-0400 Body mass index (BMI) [Ratio] 27.46 kg/m2 Tin Lopez DPM Work Phone: [facility] 02-23-2025 10:14-0400 Body weight 74.84 kg Tin Lopez DPM Work Phone: [facility] 02-23-2025 10:140400 Respiratory rate 16 /min Tin Lopez DPM Work Phone: [facility] Healthcare Encounters Encounter Date Encounter Type Care Provider Facility Start: 05-26-2025 End: 05-26-2025 Bamboo flowsheet Madeleine SCHMIDT Work Phone: [facility] Start: 05-26-2025 End: 05-28-2025 Bamboo flowsheet Madeleine SCHMIDT Work Phone: [facility] Start: 05-26-2025 End: 05-28-2025 [facility] Result Encounter Madeleine SCHMIDT Work Phone: [facility] External Department Unsolicited Start: 05-26-2025 End: 05-26-2025 Patient encounter procedure Madeleine SCHMIDT Work Phone: [facility] Healthcare Start: 05-26-2025 End: 05-26-2025 Periodic preventive med est patient 40-64yrs Madeleine SCHMIDT Work Phone: [facility] Comment on above: Well woman exam with routine gynecological exam; H/O: hysterectomy Start: 05-26-2025 End: 05-26-2025 ambulatory MADELEINE KOWALSKI Not Available Start: 04-27-2025 End: 04-27-2025 Telephone encounter Oksana Whiteside NP Work Phone: [facility] Start: 04-27-2025 End: 04-27-2025 Patient encounter procedure Tnavi Mcdaniel MD [facility] Work Phone: Start: 04-27-2025 End: 04-27-2025 ambulatory Tanvi Mcdaniel MD Work Phone: [facility] Work Phone: Start: 04-20-2025 End: 04-20-2025 Office outpatient visit 15 minutes Madeleine SCHMIDT Work Phone: [facility] Comment on above: Mass of right breast , unspecified quadrant; Breast lump on right side at 9 o'clock position Start: 04-20-2025 End: 04-20-2025 ambulatory MADELEINE KOWALSKI Not Available Start: 04-20-2025 End: 04-20-2025 Bamboo flowsheet Madeleine SCHMIDT Work Phone: [facility] Start: 04-20-2025 End: 04-20-2025 Bamboo flowsheet Madeleine SCHMIDT Work Phone: [facility] Start: 02-23-2025 [...] End: 03-10-2024 ambulatory Enrique Cartagena MD Facility: [facility] Start: 02-18-2024 End: 02-18-2024 ambulatory Enrique Cartagena MD Facility: [facility] Start: 02-04-2024 End: 02-04-2024 ambulatory Enrique Cartagena MD Facility:[facility] Start: 01-03-2023 End: 01-04-[address] HOA DANIEL . Facility:[facility] Start: 12-28-2022 End: 12-28-[address] HOA DANIEL . Facility:[facility] Start: 12-13-2022 End: 12-14-[address] TANVI MCDANIEL . Facility:[facility] Start: 09-28-2022 End: 09-29-[address] TANVI MCDANIEL . Facility: Procedures Date Procedure Procedure Detail Performing Clinician Start: 05-26-2025 IGP,APTIMA HPV,AGE GDLN Madeleine SCHMIDT Work Phone: Start: 04-28-2025 Mammography Madeleine SCHMIDT Work Phone: Start: 04-27-2025 Ultrasonography of r ight breast Tanvi Mcdaniel MD Work Phone: Start: 04-27-2025 End: 04-27-2025 Mammography Oksana Whiteside NP Work Phone: Start: 12-28-2022 Microscopic observat ion [Identifier] in Cervix by Cyto stain Madeleine SCHMIDT Work Phone: Start: 12-28-2022 Cytp cerv/vag auto t hin layer prep mnl screen Topher Ryder DO Work Phone: Start: 12-27-2022 Mammography Tin guan DPM Work Phone: H/O: hysterectomy H/O: hysterectomy Madeleine SCHMIDT Work Phone: Plan of Treatment Date Care Activity Detail Author Start: 04-28-2026 Screening for malignant neoplasm of breast Mammogram [facility] Start: 04-27-2026 Screening for malignant neoplasm of breast Mammogram [facility] Start: 12-28-2025 Screening for malignant neoplasm of cervix [facility] Start: 07-20-2025 Influenza vaccination [facility] Start: 05-26-2025 End: 05-26-2025 Patient encounter procedure [facility] Comment on above: Arrived Start: 04-20-2025 End: 04-20-2025 Patient encounter procedure 04/20/2025 3:40 PM EDT Office Visit [facility] [address] [place] [id number] Madeleine Kowalski PA [address] [place] [address] Arrived [facility] Comment on above: Arrived Start: 04-20-2025 End: 06-20-2026 MG Breast - bilateral Diagnostic Bilateral diagnostic mammogram Imaging Routine Mass of right breast, unspecified quadrant Breast lump on right side at 9 o'clock position Expected: 04/20/2025 (Approximate), Expires: 06/20/2026 [facility] Healthcare Work Phone: Comment on above: Expected: 04/20/2025 (Approximate), Expires: 06/20/2026 Start: 03-12-2025 End: 03-12-2025 Patient encounter procedure 03/12/2025 8:50 AM EDT Office Visit [facility] [address] [id number] Tin Lopez DPM [address] [address] [facility] Start: 02-23-2025 End: 02-23-2025 Patient encounter procedure 02/23/2025 10:10 AM EDT Office Visit [facility] [address] [place] [phone] Tin Lopez DPM [address] [id number] Arrived [facility] Comment on above: Arrived Start: 12-27-2023 Screening for malignant neoplasm of breast Mammogram [facility] Start: 2011 Screening for malignant neoplasm of cervix [facility] Start: 2002 Screening for malignant neoplasm of cervix Pap Smear [facility] THIN PREP TIS PAP AN D HR HPV DNA THIN PREP TIS PAP AND HR HPV DNA Pathology and Cytology Routine Well woman exam with routine gynecological exam H/O: hysterectomy Ordered: 05/26/2025 [facility] Work Phone: Comment on above: Ordered: 05/26/2025 Payers Date Payer Category Payer Self-pay 2023 Unknown 2021 Private Health Insurance [employer] [id number] 2021 Unknown [id number] 1980 Unknown [id number] [id number]. 2.593 1980 Unknown [id number] 2.16.840.1.277087.3.579. 2.593 1980 Unknown [id number] 2.16.840.1.243639.3.579. 2.593 1980 Unknown [id number] 2.16.840.1.186060.3.579. 2.593 1980 Unknown [id number] 2.16.840.1.581441.3.579. 2.196 1980 Unknown [id number] 2.16.840.1.020888.3.579. 2.196 1980 Unknown [id number] 2.16.840.1.152020.3.579. 2.196 1980 Unknown [id number] 2.16.840.1.854757.3.579. 2.196 1980 Unknown [id number] 2.16.840.1.448013.3.579. 2.196 1980 Unknown [id number] 2.16.840.1.126221.3.579. 2.1259 1980 Unknown [id number] 2.16.840.1.317220.3.579. 2.9 1980 Unknown [id number] 2.16840.1.019511.3.579. 2.1259 1959 Unknown [id number] 1959 Unknown [id number] Unknown [id number] 2.840.1.140937.3.579. 2.531 Social History Date Type Detail Facility Start: 02-23-2025 Tobacco smoking stat [facility] Tobacco smoking consumption unknown [facility] Start: 1980 Sex assigned at Not on file N [facility] Gender identity Not on file [facility] are Start: 02-23-2025 End: 05-26-2025 Alcoholic beverage intake Defer [facility] Start: 04-28-2025 Sex Female (finding) [facility] Start: 1980 Sex Assigned At Female F [facility] History of Present illness Narrative 05-26-2025 ROXANA Collins - 05/26/2025 9:00 AM EDT Note Date & Type Note Facility 05-26-2025 History of Presen t illness Narrative Reason for Appointment: Patient ID: Christal Stanley is a 44 y.o. female who presents for Gynecologic Exam Patient presents today for Annual Exam. MEDICATIONS Current Outpatient Medications Medication Instructions cholecalciferol (Vitamin D-3) 50 MCG (1999 [place]) tablet Every 24 hours desvenlafaxine (Pristiq) 50 MG 24 hr tablet Every 24 hours Desvenlafaxine ER 50 MG tablet sustained-release 24 hour levoFLOXacin (Levaquin) 750 MG tablet 1 tablet, Daily Lyrica 200 MG capsule pantoprazole (ProtoNix) 40 MG EC tablet pregabalin (LYRICA) 300 mg, Oral, Nightly ALLERGIES Allergies Allergen Reactions Iodine PROBLEMS Active [...] Systems Constitutional: Negative. HENT: Negative. Eyes: Negative. Respiratory: Negative. Cardiovascular: Negative. Gastrointestinal: Negative. Genitourinary: Negative. Musculoskeletal: Negative. Skin: Negative. Neurological: Negative. All other systems reviewed and are negative. Hematological: Negative. Endocrine: Negative. Allergic/Immunologic: Negative. OBJECTIVE Objective: Physical Exam Constitutional: Appearance: Normal appearance. She is well-developed. Genitourinary: Vulva normal. Cardiovascular: Rate and Rhythm: Normal rate and regular rhythm. Pulmonary: Effort: Pulmonary effort is normal. Breath sounds: Normal breath sounds. Abdominal: General: Bowel sounds are normal. There [...] nursing note reviewed. Exam conducted with a diversity specialist present. Vitals: Estimated body mass index is 24.46 kg/m as calculated from the following: Height as of 02/23/25: 5' 5 . Weight as of 04/20/25: 147 lb. BP: No LMP recorded. Patient has had a hysterectomy. ASSESSMENT & PLAN ICD-10-CM 1. Well woman exam with routine gynecological exam Z01.419 THIN PREP TIS PAP AND HR HPV DNA 2. H/O: hysterectomy Z90.710 THIN PREP TIS PAP AND HR HPV DNA Annual: Patient presents today for an annual exam. Patient states she is doing well and has no complaints. Pap was obtained without difficulty and patient had mammogram done on 04/28/2025. Pt to have a f/up mammogram done in 6 months to monitor complex cyst found in right breast. Pt to call office for f/up mammogram order to have scheduled/obtained. No orders of the defined types were placed in this encounter. Follow Up: Patient is to return in one year for annual unless needed otherwise. Documented by Alicia Mcdaniel MA on behalf of: ROXANA Collins documented in this encounter [facility] Telephone encounter Note 04-27-2025 Telephone Encounter [...] declined general surgery consult at this time. [facility] Work Phone: Note 04-27-2025 Telephone Encounter - [...] at this time. documented in this encounter [facility] Radiology Diagnostic study note 04-27-2025 Note Date & Type Note Facility 04-27-2025 Radiology Diagnostic study note [facility] [place] [address] [place] [address] Ultrasound Report Signed Patient: Christal Stanley MR#: [id number] : 1980 Acct:[id number] Age/Sex: 44 / F ADM Date: 5 Loc: [place] Room: Type: [facility] Attending Dr: MAL Bucio APRN Ordering Provider: Oksana Whiteside APRN, CNP Date of Service: 04/27/25 MM/MM diagnostic mammo BI w/CAD: N63.10 ([id number]) US/US breast RT limited: N63.10 Copies to: [...] Rojas M.D. 04/27/2025 9:13 AM Dictation Location: [facility] Tech: Christina Davis; Lotus Mcdaniel Transcribed By: TRINITY 04/27/25912 Dictated By: Arcadio Rojas DO 04/27/25 0911 Signed By: 04/27/25 0913 [facility] History of Present illness Narrative 04-20-2025 Alicia [...] nursing note reviewed. Exam conducted with a diversity specialist present. Vitals: Estimated body mass index is [...] Patient will obtain mammogram breast center at [facility] and will return to our office for follow up. Documented by Alicia Mcdaniel MA on behalf of: Oksana Whiteside NP documented in this encounter [facility] Evaluation note 04-20-2025 Note Date & Type Note Facility 04-20-2025 Evaluation note Diagnosis Mass of right breast, unspecified quadrant Breast lump on right side at 9 o'clock position Lump or mass in breast documented in this encounter [facility] History of Present illness Narrative 02-23-2025 Tin Lopez DPM - 02/23/2025 10:10 AM EDT Note Date & Type Note Facility 02-23-2025 History of Presen t illness Narrative Patient: Christal Soriadamien : 1980 PCP: Tanvi Mcdaniel MD SUBJECTIVE [...] Patient may continue with conservative treatments including elnk-izv-[id number] anti-inflammatories and other treatments suggested today. Patient may want to be scheduled for surgical intervention in the near future. Discussed possible right 5th digit partial permanent nail avulsion with right 5th hammertoe repair in the near future and patient may consider her PCP is Dr. Mcdaniel would have [place] for postop pain Patient be pre-certify for [...] Facility Evaluation note No assessment information availa [facility] Work Phone: Evaluation note Note Date & Type Note Facility Evaluation note Diagnosis Well woman exam with routine gynecological exam Routine gynecological examination H/O: hysterectomy Acquired absence of both cervix and uterus documented in this encounter [facility] Summary Purpose Family History No Family History [...] content) DATE CREATED AUTHOR 03/08/2023 [facility] DATE CREATED AUTHOR AUTHOR'S ORGANIZ ATION 07/16/2024 [facility] DATE CREATED AUTHOR AUTHOR'S ORGANIZ ATION 05/30/2025 [facility] DATE CREATED AUTHOR AUTHOR'S ORGANIZ ATION 06/01/2025 [facility] Care Teams (unrecognized sec tion and content) Manager User Interface Relationship Specialty Start Date End Date Tanvi Mcdaniel MD [address] [place] [address] PCP - General Family Medicine 02/13/24 Clarence Mike MD [address] [place] [address] Referring Physician Neurology 02/13/24 Manager User Interface Relationship Specialty Start Date End Date Tanvi Mcdaniel MD [address] [place] [address] PCP - General Family Medicine 02/13/24 Clarence Mike MD [address] [place] [address] Referring Physician Neurology 02/13/24 Manager User Interface Relationship Specialty Start Date End Date Tanvi Mcdaniel MD PCP - General Family Medicine 02/13/24 Clarence Mike MD Referring Physician Neurology 02/13/24 Manager User Interface Relationship Specialty Start Date End Date Tanvi Mcdaniel MD PCP - General Family Medicine 02/13/24 Clarence Mike MD Referring Physician Neurology 02/13/24 Team Status: Active Member Role Status Dates Tanvi Mcdaniel MD Primary Care Provider Active Team Status: Inactive Member Role Status Dates Oksana Whiteside APRN [employer] Attending Provider Active Start: April 27, 2025 End: April 27, 2025 Tanvi Mcdaniel MD Primary Care Provider Active Start: April 27, 2025 End: April 27, 2025 Manager User Interface Relationship Specialty Start Date End Date Tanvi Mcdaniel MD PCP - General Family Medicine 02/13/24 Clarence Mike MD Referring Physician Neurology 02/13/24 Manager User Interface Relationship Specialty Start Date End Date Tanvi Mcdaniel MD PCP - General Family Medicine 02/13/24 Clarence Mike MD Referring Physician Neurology 02/13/24 Manager User Interface Relationship Specialty Start Date End Date Tanvi Mcdaniel MD PCP - General Family Medicine 02/13/24 Clarence Mike MD Referring Physician Neurology 02/13/24 Reason for Visit (unrecogniz ed section and content) Reason Comments Toenail Problem Reason Comments Breast Mass Pt present today to discuss a lump on right breast. Reason Comments Gynecologic Exam Goals (unrecognized section and content) Goals may [...] BE BASED ON THE PRIMARY CLINICAL RECORDS. [facility]. provides no warranty or guarantee of the accuracy or completeness of information in this document.
== END 2025-07-22 09:49 | disposition home or self-care (01) ==
LOC: RAD 09:49
PROVIDERS: PCP Family Medicine; Visit Provider Podiatrist Foot & Ankle Surgery
DX: M25.571 Pain in right ankle and joints of right foot (principal); Z98.890 Other specified postprocedural states
CPT/HCPCS: 73610